=== PATIENT | male | born 1935 | race Two or more races ===

== ENCOUNTER 2018-04-30 08:06 | Day surgery (SDC) | payer MEDICARE ==
[2018-04-27 12:32] VITALS: BMI 39.2
[2018-04-30] MEDS: LACTATED RINGERS 1,000 ML IV SCH (09:23)
[2018-04-30] MEDS ORDERED: LIDOCAINE 1% 20 ML VIAL (10MG/ML) FOR IV START INTRADERMA ONE (09:23)
[2018-04-30 09:24] LABS: Glucose,Whole Blood 161 mg/dL (75-99)
[2018-04-30] MEDS ORDERED: PROPOFOL 10 MG/ML 20 ML VIAL IV ONE (09:36)
[2018-04-30 11:48] LABS: Glucose,Whole Blood 146 mg/dL (75-99)
[2018-04-30 11:58] LABS: Anisocytosis Slight; Basophils % (A) 0 %; Eosinophils % (A) 1 %; HCT 22.4 % (39.0-53.0); Hypochromasia Marked; Lymphocytes # (A) 0.5 k/uL (1.0-4.8); Lymphocytes % (A) 15 %; MCH 33.5 pg (25.0-35.0); MCHC 30.5 g/dL (31.0-37.0); MCV 110.1 fL (80.0-100.0); Macrocytosis Marked; Mean Platelet Volume 9.1; Monocytes # (A) 0.2 k/uL (0-1.0); Monocytes % (A) 7 %; Neutrophils # (A) 2.3 k/uL (1.3-7.7); Neutrophils % (A) 76 %; Platelet Count 130 k/uL (150-450); Poikilocytosis Slight; RBC 2.04 m/uL (4.30-5.90); RDW 16.1 % (11.5-15.5); WBC 3.1 k/uL (3.8-10.6)
[2018-04-30 12:09] LABS: HGB 6.8 gm/dL (13.0-17.5)
--- NOTE | 2018-04-30 12:37 | P.PCN ---
Date of Procedure: 04/30/18 Procedure(s) Performed: Brief history: Patient is a pleasant 83-year-old white male, scheduled for an elective upper endoscopy as well as colonoscopy as a part of evaluation of severe symptomatic anemia and rectal bleeding on and off for the last 1 month duration. The patient recently came from [place] and for the last 1 month has been having rectal bleeding on and off. He had a CBC done by Dr. Lam 4 days ago which revealed a hemoglobin of 7.7 g/dL. His and scheduled for colonoscopy today and possible upper endoscopy. 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 He has history of ITP valve replacement and A. fib and has been on Coumadin for several years. Coumadin is on hold for the last 5 days. Procedure performed: Colonoscopy with biopsy Esophagogastroduodenoscopy/enteroscopy with argon plasma coagulation Preoperative diagnosis: GI bleed/severe symptomatic anemia Anesthesia: MAC Procedure: After informed consent was obtained from the patient was brought into the endoscopy unit. IV sedation was administered under continuous monitoring. Initial digital rectal examination was normal. Olympus CF 160 video colonoscope was then inserted into the rectum and gradually advanced to the cecum without any difficulty. Careful examination was performed as the scope was gradually being withdrawn. The prep was fair. There was old blood noted throughout the entire colon there was thoroughly irrigated and upon careful examination the obvious source of bleeding identified.. The cecum, ascending colon, transverse colon, appeared normal. The descending colon there was a 5 mm polyp that was removed by biopsy. Scattered sigmoid diverticula seen. Rest of the descending colon, sigmoid colon and rectum appeared normal. Retroflexion was performed in the rectum and no lesions were noted. Patient tolerated the procedure well. He continued to remain sedated. The Olympus GF 160 video endoscope was inserted inserted into the mouth and esophagus intubated without any difficulty and was gradually advanced into the stomach and duodenum and carefully examined. The bulb and second part of the duodenum appeared normal. The scope was advanced into the proximal jejunum at least 60 cm of the proximal jejunum visualized and appeared normal. Scope at this time was gradually withdrawn. The visualized portion of the jejunum and the duodenum appeared normal. The scope was then withdrawn into the stomach adequately insufflated with air and upon careful examination the antrum had evidence of gastric vascular antral ectasia and argon plasma coag duration was performed with good hemostasis. The body, cardia and fundus appeared normal. The scope was then withdrawn into the esophagus. The GE junction was located at 40 cm to the incisors. It appeared regular with no erythema erosions or ulcerations. Rest of the esophagus appeared normal. Patient tolerated the procedure well. Impression: 1. Colonoscopy revealed old blood throughout the entire colon but no evidence of active bleeding identified. Scattered sigmoid diverticulosis seen. Fiber limited using colon polyp status post removal by biopsy 2. 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 Recommendations: Findings of this examination were discussed with the patient as well as his family. Repeat CBC was obtained and hemoglobin this morning was 6.8 g/dL. The patient will be admitted hospital for blood transfusion and close monitoring. Abdominal x-rays were ordered because of ongoing cramping lower abdominal pain.
--- NOTE | 2018-04-30 12:55 | XR ---
EXAMINATION TYPE: XR abdomen 2V DATE OF EXAM: 04/30/2018 CLINICAL DATA: 83-year-old male with pain after colonoscopy, rule out perforation,, [facility] COMPARISON: None FINDINGS: Asymmetric elevation of the right hemidiaphragm. No free air is seen below the right hemidiaphragm. M edian sternotomy wires. Air is present throughout the colon. Right iliac vessel stent. Bowel loops sac towards the right side of the abdomen. Possible underlying abdominal aortic aneurysm with calcified aortic edge seen in the right paramedian mid abdomen. Cholecystectomy clips. IMPRESSION: 1. Air throughout the colon compatible with recent colonoscopy. No free air or bowel obstruction iden tified. 2. Asymmetric elevation of the right hemidiaphragm of unknown chronicity. Correlate with any availabl e outside priors. Hemidiaphragmatic eventration or paralysis are considerations. 3. Possible AAA. Consider screening ultrasound or CT.
[2018-04-30 13:33] LABS: Anisocytosis (M) Present
[2018-04-30 13:34] LABS: Poikilocytosis (M) Present; Polychromasia Present
[2018-04-30 13:35] LABS: RBC Fragments Present
[2018-04-30] MEDS ORDERED: traMADol 50 MG TAB PO PRN (17:34)
--- NOTE | 2018-04-30 17:41 | P.HPIM ---
History of Present Illness Patient is an 83-year-old gentleman with a known history of anemia underwent upper GI endoscopy and colonoscopy after the recent bleed colonoscopy showed significant blood. Upper GI endoscopy showed vascular ectasia in the gastric antrum for which patient underwent argon plasma coagulation. Patient is being admitted as a his hemoglobin is around 6, patient is being transfused 1 unit of PRBC and will be monitored overnight for further GI bleed patient apparently was having multiple stools for last couple days. Patient has macrocytic anemia chronic for which patient follows up with neurology patient is on folic acid and B12 supplementation. Patient is also on iron supplementation at home. Patient is on anticoagulation with Coumadin for valvular A. fib and patient does have bovine aortic valve. Patient had history of CVA secondary to atrial fibrillation the past patient was on bridging with Lovenox for the procedure. Since his bleeding Lovenox is being held as well as Coumadin is being held at this time. Review of Systems REVIEW OF SYSTEMS: CONSTITUTIONAL: No fever, no malaise, no fatigue. HEENT: No recent visual problems or hearing problems. Denied any sore throat. CARDIOVASCULAR: No chest pain, orthopnea, PND, no palpitations, no syncope. PULMONARY: No shortness of breath, no cough, no hemoptysis. GASTROINTESTINAL: No diarrhea, no nausea, no vomiting, no abdominal pain. Normoactive bowel sounds. NEUROLOGICAL: No headaches, no weakness, no numbness. HEMATOLOGICAL: Denies any bleeding or petechiae. GENITOURINARY: Denies any burning micturition, frequency, or urgency. MUSCULOSKELETAL/RHEUMATOLOGICAL: Denies any joint pain, swelling, or any muscle pain. ENDOCRINE: Denies any polyuria or polydipsia. The rest of the 14-point review of systems is negative. 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 ., STATES LOWER EXTREMITY EDEMA, HX STOMACH ULCER., CHRONIC CONSTIPATION., -STATES BLOOD COUNT LOW AND HE FEELS EXHAUSTED AND USING A CANE & WALKER . , STATES RASH ON FORESKIN., SIGRID HEARING AIDS. History of Any Multi-Drug Resistant Organisms: None Reported Past Surgical History: Appendectomy, Cardiac Ablation, Cardiac Valve Replacement , Cholecystectomy, Coronary Bypass/CABG, Heart Catheterization Additional Past Surgical History / Comment(s): 2014 cardiac ablation of Afib at [facility], 2 vessel CABG and aortic valve replacement (bovine) in 2009. , L caratid endartectomy, bilateral varicose vein stripping, lysis of abdominal adhesions, colonoscopies., EGDs-repair doudenal ulcers, bone marrow biopsy., 2 stents "right groin" for circulation ([place])., Past Anesthesia/Blood Transfusion Reactions: No Reported Reaction, Blood Transfusion Reaction Additional Past Anesthesia/Blood Transfusion Reaction / Comment(s): Hx of several blood transfusions and had reaction with Hives x1. ([place]) Past Psychological History: No Psychological Hx Reported Additional Psychological History / Comment(s): Pt resides with his spouse. He is independent. He uses no assistive device. He drives. Smoking Status: Former smoker Past Alcohol Use History: None Reported Additional Past Alcohol Use History / Comment(s): QUIT SMOKING 1967. , SMOKED 3 PPD., STARTED SMOKING 1950. . Past Drug Use History: None Reported - Past Family History Father Family Medical History: Cancer Additional Family Medical History / Comment(s): LUNG CANCER WITH METS Mother Family Medical History: Coronary Artery Disease (CAD), Myocardial Infarction (HI ) Additional Family Medical History / Comment(s): Mother while recovering from open heart surgery. She had several MIs. Medications and Allergies Home Medications Medication Instructions Recorded Confirmed Type Ascorbic Acid [Vitamin C] 1,000 mg PO HS 07/10/15 04/30/18 History Cholecalciferol [Vitamin D3] 1,000 unit PO DAILY 07/10/15 04/30/18 History Cyanocobalamin [Vitamin B-12] 1,000 mcg PO QAM 07/10/15 04/30/18 History Docusate [Colace] 50 mg PO HS 07/10/15 04/30/18 History Eye Compound Vitamin 2 tab PO BID 07/10/15 04/30/18 History Ferrous Sulfate [Feosol] 325 mg PO BID 07/10/15 04/30/18 History Finasteride [Proscar] 5 mg PO DAILY 07/10/15 04/30/18 History Folic Acid 0.4 mg PO HS 07/10/15 04/30/18 History Furosemide [Lasix] 20 mg PO DAILY 07/10/15 04/30/18 History Metoprolol Tartrate [Lopressor] 50 mg PO BID 07/10/15 04/30/18 History Atorvastatin [Lipitor] 40 mg PO DAILY 04/27/18 04/30/18 History Enoxaparin [Lovenox] 120 mg SQ Q12H 04/27/18 04/30/18 History Omeprazole [PriLOSEC] 40 mg PO HS 04/27/18 04/30/18 History Warfarin Sodium [Coumadin] 7.5 mg PO SUMOWETHSA 04/27/18 04/30/18 History Warfarin [Coumadin] 5 mg PO TUFR 04/27/18 04/30/18 History traMADol HCL [Ultram] 50 mg PO BID PRN 04/27/18 04/30/18 History Allergies Allergy/AdvReac Type Severity Reaction Status Date / Time iron infusions AdvReac Unknown Passed Out Uncoded 04/30/18 09:12 Physical Exam Vitals: Vital Signs Temp Pulse Pulse Resp BP BP Pulse Ox 04/30/18 17:24 98.2 F 75 16 143/70 98 04/30/18 17:14 98.1 F 78 16 145/66 96 04/30/18 16:00 98.3 F 69 16 150/67 97 04/30/18 15:12 98.1 F 78 16 145/66 96 04/30/18 14:12 78 18 150/78 98 04/30/18 13:40 71 18 148/72 04/30/18 13:07 70 18 150/72 99 04/30/18 12:21 71 18 135/71 04/30/18 11:35 65 18 149/75 04/30/18 11:05 62 18 140/70 04/30/18 10:50 72 18 135/72 92 L 04/30/18 10:37 68 16 106/59 90 L 04/30/18 09:22 97.7 F 71 18 144/73 100 Intake and Output 04/30/18 04/30/18 04/30/18 06:59 14:59 22:59 Intake Total 600 0 Balance 600 0 Intake: IV 600 Blood Product 0 Rc As-1 Unit 0 [id number] Other: Weight 122.47 kg PHYSICAL EXAMINATION: GENERAL: The patient is alert and oriented x3, not in any acute distress. Well developed, well nourished. HEENT: Pupils are round and equally reacting to light. EOMI. No scleral icterus. Patient does have conjunctival pallor. Normocephalic, atraumatic. No pharyngeal erythema. No thyromegaly. CARDIOVASCULAR: S1 and S2 present. No murmurs, rubs, or gallops. PULMONARY: Chest is clear to auscultation, no wheezing or crackles. ABDOMEN: Soft, nontender, nondistended, normoactive bowel sounds. No palpable organomegaly. MUSCULOSKELETAL: No joint swelling or deformity. EXTREMITIES: No cyanosis, clubbing, or pedal edema. NEUROLOGICAL: Gross neurological examination did not reveal any focal deficits. SKIN: No rashes. Results CBC & Chem 7: 04/30/18 11:22 Labs: Abnormal Lab Results - Last 24 Hours (Table) 04/30/18 04/30/18 04/30/18 Range/Units 09:20 11:22 11:22 WBC 3.1 L (3.8-10.6) k/uL RBC 2.04 L (4.30-5.90) m/uL Hgb 6.8 L* (13.0-17.5) gm/dL Hct 22.4 L (39.0-53.0) % MCV 110.1 H (80.0-100.0) fL MCHC 30.5 L (31.0-37.0) g/dL RDW 16.1 H (11.5-15.5) % Plt Count 130 L (150-450) k/uL Lymphocytes # 0.5 L (1.0-4.8) k/uL POC Glucose (mg/dL) 161 H (75-99) mg/dL Crossmatch See Detail 04/30/18 Range/Units 11:43 WBC (3.8-10.6) k/uL RBC (4.30-5.90) m/uL Hgb (13.0-17.5) gm/dL Hct (39.0-53.0) % MCV (80.0-100.0) fL MCHC (31.0-37.0) g/dL RDW (11.5-15.5) % Plt Count (150-450) k/uL Lymphocytes # (1.0-4.8) k/uL POC Glucose (mg/dL) 146 H (75-99) mg/dL Crossmatch Assessment and Plan Plan: -Anemia with hemoglobin less than 7: Patient will receive 1 unit of blood transfusion -Recent upper GI bleed with vascular and PCI and the gastric antrum status post argon plasma coagulation monitored overnight -Atrial fibrillation with previous history of stroke in the past anti- correlation will be held because of the recent bleed -Type 2 diabetes mellitus -Hypertension -Benign prostatic atrophy -Sleep apnea uses CPAP machine at home -Obesity -History of CVA in the past -Adequate valvular disease with the valve replacement in the past.
[2018-04-30 20:55] VITALS: TEMP 97.6
[2018-04-30] MEDS ORDERED: PANTOPRAZOLE 40 MG TABLET PO SCH (21:00)
[2018-04-30 22:16] LABS: Glucose,Whole Blood 152 mg/dL (75-99)
[2018-04-30] MEDS: METOPROLOL TARTRATE 50 MG TAB PO SCH (22:34)
[2018-05-01 06:00] VITALS: BP 123/63; PULSE 74; RESP 18
[2018-05-01] MEDS: LACTATED RINGERS 1,000 ML IV SCH (06:20)
[2018-05-01 07:55] LABS: Anisocytosis Slight; HCT 26.5 % (39.0-53.0); HGB 8.1 gm/dL (13.0-17.5); Hypochromasia Marked; MCHC 30.4 g/dL (31.0-37.0); MCV 108.4 fL (80.0-100.0); Macrocytosis Marked; Mean Platelet Volume 8.3; Platelet Count 144 k/uL (150-450); Poikilocytosis Moderate; RBC 2.45 m/uL (4.30-5.90); RDW 17.1 % (11.5-15.5); WBC 5.2 k/uL (3.8-10.6)
[2018-05-01 08:05] LABS: Potassium 4.2 mmol/L (3.5-5.1)
[2018-05-01] MEDS ORDERED: FUROSEMIDE 20 MG TAB PO SCH (09:00)
[2018-05-01] MEDS ORDERED: FINASTERIDE 5 MG TAB PO SCH (09:00)
[2018-05-01] MEDS ORDERED: ATORVASTATIN 40 MG TAB PO SCH (09:00)
[2018-05-01] MEDS: METOPROLOL TARTRATE 50 MG TAB PO SCH (10:02)
--- NOTE | 2018-05-01 10:23 | CONS ---
CONSULTATION DATE OF CONSULTATION: May 01, 2018. REQUESTING PHYSICIAN: Dr. Lam. REASON FOR CONSULTATION: Acute GI bleed and severe symptomatic anemia. HISTORY OF PRESENT ILLNESS: The patient is an 83-year-old pleasant white male who underwent an outpatient upper endoscopy as well as colonoscopy by me for evaluation of intermittent rectal bleeding and anemia. He was noted to have a hemoglobin of 7.7 g/dL about 3 days ago and prior to that while he was in [place] 2 months ago, hemoglobin was 11 g/dL. Because he has been having intermittent rectal bleeding for the last few days. He has history of CVA in the past, history of atrial fibrillation and aortic valve replacement for which he is on Coumadin for several years. He underwent an EGD and colonoscopy on an outpatient basis after the Coumadin has been on hold for 5 days and has been on bridging Lovenox therapy. Colonoscopy revealed fresh blood throughout the colon, but no obvious source of bleeding was identified. A small polyp was noted in the descending colon and scattered sigmoid diverticulosis and grade 2 internal hemorrhoids were seen. Subsequently, he had an upper endoscopy done that showed gastric antral vascular ectasia with no active bleeding, but they were cauterized using argon plasma coagulation. was done on outpatient basis yesterday which showed a hemoglobin of 6.5 and hence the patient was admitted to the hospital and received 2 units of blood transfusion through the night. This morning he is feeling better. He denies any abdominal pain. He reports no nausea, vomiting. He had 1 small bowel movement this morning which was clear. No fresh blood seen. He had some cramping lower abdominal pain following the procedures yesterday which has resolved completely. The patient has been having intermittent GI bleed and anemia for the last 4 years. He had multiple upper endoscopy as well as colonoscopy in [place]. According to the patient, the last 1 was done 2 years ago and according to him, he had a small bowel capsule endoscopy done and small bowel source of bleeding was identified, which was cauterized. No details available at the time of this dictation. In the last 4 years, he received total of 12 units of blood transfusion. PAST MEDICAL HISTORY: Significant for hypertension, diabetes mellitus, morbid obesity, history of CVA in the past. Atrial fibrillation, aortic valve replacement, degenerative joint disease, sleep apnea. PAST SURGICAL HISTORY: Appendectomy, aortic valve replacement, CABG, cholecystectomy, cardiac catheterization, iliac stent placement, multiple EGDs/colonoscopy in the past. MEDICATIONS: At home, vitamin C, vitamin D, vitamin B12, Colace, Feosol, Proscar, folic acid, Lasix, Lopressor, Lipitor, Lovenox, Prilosec, Coumadin, Ultram. FAMILY HISTORY: Father had lung cancer. Mother, coronary artery disease and AR. ALLERGIES: IRON INFUSION. SOCIAL HISTORY: No smoking and no alcohol use. FAMILY HISTORY: As mentioned above. REVIEW OF SYSTEMS: Cardiopulmonary: No chest pain, shortness of breath. Genitourinary: No hematuria or dysuria. Musculoskeletal unremarkable. Skin unremarkable. Endocrine unremarkable. Psychiatric unremarkable. Neurology unremarkable. ENT vision unremarkable. Constitutional no recent weight loss. Hematology: Chronic anemia of several years duration. ENT vision unremarkable. Endocrine unremarkable. PHYSICAL EXAMINATION: Appears comfortable. No apparent distress. Vital signs stable. Blood pressure 164/71, pulse rate 86, temperature 97.8. HEENT examination unremarkable. Conjunctivae pink. Sclerae anicteric. Oral cavity no lesions. Neck no jugular venous distention or lymph node enlargement. Chest was clear to auscultation. HEART: Regular rate and rhythm. ABDOMEN: Soft, it was obese. Bowel sounds are positive. Mild tenderness in the lower abdominal area. Extremities: No pedal edema. Skin: No rashes. Neurological: He is alert and oriented x3. No focal deficits. LAB: From yesterday WBC 3.1, hemoglobin 6.6, and platelets are 130. Today, hemoglobin is 8.1, WBC 5.2, and platelets 144. BUN, creatinine are within normal limits. Basic metabolic panel is within normal limits. IMPRESSION: 1. Severe symptomatic anemia and intermittent rectal bleeding for the last 3-4 weeks duration. The patient had an upper endoscopy as well as colonoscopy done on outpatient basis yesterday and a colonoscopy revealed fresh blood throughout the colon but no obvious source of bleeding identified. Subsequent upper endoscopy revealed gastric antral vascular ectasia with no active bleeding however that was coagulated using argon plasma. His repeat CBC on an outpatient basis yesterday showed a hemoglobin of 6.8, and hence patient was admitted to the hospital received two units of blood transfusion, now it is 8.1. He has no further bleeding. 2. History of transient ischemic attack/cerebrovascular accident in the past/atrial fibrillation on Coumadin, presently on hold and undergoing bridging therapy with Lovenox prior to the colonoscopy. No active bleeding today. Hemoglobin stable at 8.1 g/dL. Presently, Lovenox and Coumadin on hold. RECOMMENDATIONS: 1. Obtain a cardiology consultation regarding anticoagulation. 2. For now, we will hold off on Lovenox and Coumadin today. 3. If anticoagulation has to be resumed, we will try to avoid the bridging therapy, but resume the Coumadin and monitor CBC on a weekly basis on an outpatient. 4. The patient was advised to follow up in the office in 2-3 weeks following discharge from the hospital. Thank you for this consultation. MMODL / IJN: [id number] /
--- NOTE | 2018-05-01 11:03 | P.DS ---
Providers Attending physician: Brad Leonard Consults: 05/01/18 09:01 Consult Physician Routine Consulting Provider: Jenny Jefrfey Consult Reason/Comments: GI bleed Do you want consulting provider notified?: Yes 05/01/18 09:04 Consult Physician Routine Consulting Provider: Juan Carlos Liu Consult Reason/Comments: Recomendation regarding anticoagulation Do you want consulting provider notified?: Yes Primary care physician: Hoang Lam Hospital Course: 83-year-old admitted for upper GI endoscopy patient underwent cauterization of the gastric vascular ATC area. Patient doesn't have any clinical GI bleed at this point of time hemoglobin is stable at 8 point 1 unit of transfusion. Patient is on Coumadin 9 and was also on bridging with Lovenox and he was admitted here. I discussed extensively at length regarding risks and benefits of bridging him with Lovenox. Since his recent GI bleed we decided not to bridge him with Lovenox patient will be started back on Coumadin and recheck INR in 4 days. Patient does have history of atrial fibrillation history of bioprosthetic valve PHYSICAL EXAMINATION: GENERAL: The patient is alert and oriented x3, not in any acute distress. Well developed, well nourished. HEENT: Pupils are round and equally reacting to light. EOMI. No scleral icterus. Patient does have conjunctival pallor. Normocephalic, atraumatic. No pharyngeal erythema. No thyromegaly. CARDIOVASCULAR: S1 and S2 present. No murmurs, rubs, or gallops. PULMONARY: Chest is clear to auscultation, no wheezing or crackles. ABDOMEN: Soft, nontender, nondistended, normoactive bowel sounds. No palpable organomegaly. MUSCULOSKELETAL: No joint swelling or deformity. EXTREMITIES: No cyanosis, clubbing, or pedal edema. NEUROLOGICAL: Gross neurological examination did not reveal any focal deficits. SKIN: No rashes. Assessment and Plan Plan: -Anemia with hemoglobin less than 7: Patient received 1 unit of blood transfusion -Recent upper GI bleed with vascular and PCI and the gastric antrum status post argon plasma coagulation monitored overnight -Atrial fibrillation with previous history of stroke -Type 2 diabetes mellitus -Hypertension -Benign prostatic atrophy -Sleep apnea uses CPAP machine at home -Obesity -History of CVA in the past - aortic valvular disease with the valve replacement in the past. Plan - Discharge Summary Discharge Rx Participant: No New Discharge Prescriptions: Discontinued Enoxaparin [Lovenox] 120 mg SQ Q12H No Action Cyanocobalamin [Vitamin B-12] 1,000 mcg PO QAM Ascorbic Acid [Vitamin C] 1,000 mg PO HS Folic Acid 0.4 mg PO HS Docusate [Colace] 50 mg PO HS Cholecalciferol [Vitamin D3] 1,000 unit PO DAILY Metoprolol Tartrate [Lopressor] 50 mg PO BID Furosemide [Lasix] 20 mg PO DAILY Finasteride [Proscar] 5 mg PO DAILY Ferrous Sulfate [Feosol] 325 mg PO BID Eye Compound Vitamin 2 tab PO BID Omeprazole [PriLOSEC] 40 mg PO HS Atorvastatin [Lipitor] 40 mg PO DAILY traMADol HCL [Ultram] 50 mg PO BID PRN PRN Reason: Pain Warfarin [Coumadin] 5 mg PO TUFR Warfarin Sodium [Coumadin] 7.5 mg PO SUMOWETHSA Discharge Medication List Ascorbic Acid [Vitamin C] 1,000 mg PO HS 07/10/15 [History] Cholecalciferol [Vitamin D3] 1,000 unit PO DAILY 07/10/15 [History] Cyanocobalamin [Vitamin B-12] 1,000 mcg PO QAM 07/10/15 [History] Docusate [Colace] 50 mg PO HS 07/10/15 [History] Eye Compound Vitamin 2 tab PO BID 07/10/15 [History] Ferrous Sulfate [Feosol] 325 mg PO BID 07/10/15 [History] Finasteride [Proscar] 5 mg PO DAILY 07/10/15 [History] Folic Acid 0.4 mg PO HS 07/10/15 [History] Furosemide [Lasix] 20 mg PO DAILY 07/10/15 [History] Metoprolol Tartrate [Lopressor] 50 mg PO BID 07/10/15 [History] Atorvastatin [Lipitor] 40 mg PO DAILY 04/27/18 [History] Omeprazole [PriLOSEC] 40 mg PO HS 04/27/18 [History] Warfarin Sodium [Coumadin] 7.5 mg PO SUMOWETHSA 04/27/18 [History] Warfarin [Coumadin] 5 mg PO TUFR 04/27/18 [History] traMADol HCL [Ultram] 50 mg PO BID PRN 06/26/18 [History] Follow up Appointment(s)/Referral(s): Jenny Jeffrey MD [STAFF PHYSICIAN] - As Needed Ambulatory/Diagnostic Orders: Prothrombin Time INR [LAB.AMB] Time Frame: 4 Days, Location: None Selected Patient Instructions/Handouts: *Surgery [facility] - (Anesthesia) Endoscopy Discharge Instructions, Colonoscopy (DC), Hemorrhoids (DC), Upper Endoscopy (DC), Colorectal Polyps (DC) Discharge Disposition: HOME SELF-CARE
[2018-05-01 11:51] LABS: Glucose,Whole Blood 145 mg/dL (75-99)
[2018-05-01 12:07] LABS: Glucose,Whole Blood 197 mg/dL (75-99)
== END 2018-05-01 15:48 | disposition home or self-care (01) ==
LOC: ORWHC2ENDO 08:06 → 5MS5E 10:26 → ORWHC2ENDO 05-01 15:48
PROVIDERS: ATTEND Internal Medicine
DX: K31.819 Angiodysplasia of stomach and duodenum without bleeding (principal); K63.5 Polyp of colon; K57.30 Diverticulosis of large intestine without perforation or abscess without bleeding; K64.1 Second degree hemorrhoids; D53.9 Nutritional anemia, unspecified; I48.91 Unspecified atrial fibrillation; I10 Essential (primary) hypertension; H35.30 Unspecified macular degeneration; E11.319 Type 2 diabetes mellitus with unspecified diabetic retinopathy without macular edema; E11.51 Type 2 diabetes mellitus with diabetic peripheral angiopathy without gangrene; N40.0 Benign prostatic hyperplasia without lower urinary tract symptoms; M47.9 Spondylosis, unspecified; G47.33 Obstructive sleep apnea (adult) (pediatric); I35.8 Other nonrheumatic aortic valve disorders; I69.398 Other sequelae of cerebral infarction; H53.469 Homonymous bilateral field defects, unspecified side; H91.90 Unspecified hearing loss, unspecified ear; M19.90 Unspecified osteoarthritis, unspecified site; N28.9 Disorder of kidney and ureter, unspecified; E66.01 Morbid (severe) obesity due to excess calories; Z68.39 Body mass index [BMI] 39.0-39.9, adult; Z99.89 Dependence on other enabling machines and devices; Z95.2 Presence of prosthetic heart valve; Z95.1 Presence of aortocoronary bypass graft; Z95.820 Peripheral vascular angioplasty status with implants and grafts; Z87.11 Personal history of peptic ulcer disease; Z86.718 Personal history of other venous thrombosis and embolism; Z79.01 Long term (current) use of anticoagulants; Z79.899 Other long term (current) drug therapy; Z91.09 Other allergy status, other than to drugs and biological substances; Z87.891 Personal history of nicotine dependence
CPT/HCPCS: 86900; 86901; 88305; 80048; 85025; 85027; 86850; 86920; 74019; 45380; 43255; P9016; S0138; J2704

== ENCOUNTER 2018-05-20 15:31 | Emergency (ER) | payer MEDICARE ==
[2018-05-20 16:04] VITALS: TEMP 98.2
--- NOTE | 2018-05-20 18:26 | ED ---
Male Urogenital HPI - General Chief complaint: Urogenital Stated complaint: Male Time Seen by Provider: 05/20/18 17:38 Source: patient, RN notes reviewed Mode of arrival: wheelchair Limitations: no limitations - History of Present Illness Initial comments: This an 83-year-old male presents emergency from with family for concerns of bleeding around his penile head. He noted some to have some bleeding today which is mildly usual with tingling more frequent. Patient states that he has retracted penis and states that he's been told he needs a penile implant. Patient states that his noticed a sore just inferior to his urethra that was bleeding. He states this was several hours ago. He has no dysuria denies any fever or chills or any abdominal pain. Patient states that he does take Coumadin but recently him checked. Patient denies any headache, dizziness. Patient has no current chest pain he states he normally has shortness breath but not worsened usual. Patient denies any back pain and flank pain. Patient states he has an appointment with urology. - Related Data Home Medications Medication Instructions Recorded Confirmed Ascorbic Acid [Vitamin C] 1,000 mg PO HS 07/10/15 05/06/18 Cholecalciferol [Vitamin D3] 1,000 unit PO DAILY 07/10/15 05/06/18 Cyanocobalamin [Vitamin B-12] 1,000 mcg PO QAM 07/10/15 05/06/18 Docusate [Colace] 50 mg PO HS 07/10/15 05/06/18 Eye Compound Vitamin 2 tab PO BID 07/10/15 05/06/18 Ferrous Sulfate [Feosol] 325 mg PO BID 07/10/15 05/06/18 Finasteride [Proscar] 5 mg PO DAILY 07/10/15 05/06/18 Folic Acid 0.4 mg PO HS 07/10/15 05/06/18 Furosemide [Lasix] 20 mg PO DAILY 07/10/15 05/06/18 Metoprolol Tartrate [Lopressor] 50 mg PO BID 07/10/15 05/06/18 Atorvastatin [Lipitor] 40 mg PO DAILY 04/27/18 05/06/18 Omeprazole [PriLOSEC] 40 mg PO HS 04/27/18 05/06/18 Warfarin [Coumadin] 7.5 mg PO TUFR 04/27/18 05/06/18 traMADol HCL [Ultram] 50 mg PO BID PRN 04/27/18 05/06/18 Previous Rx's Medication Instructions Recorded Clotrimazole Cream [Lotrimin Cream] 1 applic TOPICAL BID #30 gm 05/20/18 Allergies Allergy/AdvReac Type Severity Reaction Status Date / Time iron infusions AdvReac Unknown Passed Out Uncoded 05/06/18 08:53 Review of Systems ROS Statement: Those systems with pertinent positive or pertinent negative responses have been documented in the HPI. ROS Other: All systems not noted in ROS Statement are negative. 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 ., STATES LOWER EXTREMITY EDEMA, HX STOMACH ULCER., CHRONIC CONSTIPATION., -STATES BLOOD COUNT LOW AND HE FEELS EXHAUSTED AND USING A CANE & WALKER . , STATES RASH ON FORESKIN., SIGRID HEARING AIDS. states he needs a new replacement valve History of Any Multi-Drug Resistant Organisms: None Reported Past Surgical History: Appendectomy, Cardiac Ablation, Cardiac Valve Replacement , Cholecystectomy, Coronary Bypass/CABG, Heart Catheterization Additional Past Surgical History / Comment(s): 2014 cardiac ablation of Afib at [facility], 2 vessel CABG and aortic valve replacement (bovine) in 2009. , L caratid endartectomy, bilateral varicose vein stripping, lysis of abdominal adhesions, colonoscopies., EGDs-repair doudenal ulcers, bone marrow biopsy., 2 stents "right groin" for circulation ([place])., Past Anesthesia/Blood Transfusion Reactions: No Reported Reaction, Blood Transfusion Reaction Additional Past Anesthesia/Blood Transfusion Reaction / Comment(s): Hx of several blood transfusions and had reaction with Hives x1. ([place]) Past Psychological History: No Psychological Hx Reported Smoking Status: Former smoker Past Alcohol Use History: None Reported Past Drug Use History: None Reported - Past Family History Father Family Medical History: Cancer Additional Family Medical History / Comment(s): LUNG CANCER WITH METS Mother Family Medical History: Coronary Artery Disease (CAD), Myocardial Infarction (OR ) Additional Family Medical History / Comment(s): Mother while recovering from open heart surgery. She had several MIs. General Exam Limitations: no limitations General appearance: alert, in no apparent distress Respiratory exam: Present: normal lung sounds bilaterally. Absent: respiratory distress, wheezes, rales, rhonchi, stridor Cardiovascular Exam: Present: regular rate, normal rhythm, normal heart sounds, systolic murmur (Aortic murmur). Absent: diastolic murmur, rubs, gallop, clicks exam: Absent: normal inspection (Patient is noted to have it retracted penis there is skin showing the skin was pushed back and female head was noted there is a sore on the right side along with swelling. She'll urethral there is no active bleeding there is a large amount of moisture surrounding the region) Skin exam: Present: warm, dry Course Vital Signs 05/20/18 15:58 Temperature 98.2 F Pulse Rate 65 Respiratory 18 Rate Blood Pressure 124/78 O2 Sat by Pulse 94 L Oximetry Medical Decision Making - Medical Decision Making 83-year-old male presented for bleeding around his penile head. He does have evidence of sores with no active bleeding surrounding the penile head secondary to retracted penis. Patient will be given topical cream and he is advised follow-up with urology. Disposition Clinical Impression: Balanitis Disposition: HOME SELF-CARE Condition: Stable Instructions: Kathleen (ED) Additional Instructions: Please return to the Emergency Department if symptoms worsen or any other concerns. Prescriptions: Clotrimazole Cream [Lotrimin Cream] 1 applic TOPICAL BID #30 gm Is patient prescribed a controlled substance at d/c from ED?: No Referrals: Hoang Lam MD [Primary Care Provider] - 1-2 days Chace Morelos MD [STAFF PHYSICIAN] - 1-2 days Time of Disposition: 18:26
[2018-05-20 18:57] LABS: Appearance,Urine Clear (Clear); Bilirubin,Urine Negative (Negative); Blood,Urine Small (Negative); Color,Urine Light Yellow; Glucose,Urine (UA) Negative (Negative); Ketones,Urine Negative (Negative); Leukocyte Esterase,Urine Negative (Negative); Mucus,Urine Rare /hpf; Nitrite,Urine Negative (Negative); PH, Urine 6.5 (5.0-8.0); Protein,Urine Negative (Negative); RBC,Urine <1 /hpf (0-5); Specific Gravity,Urine 1.005 (1.001-1.035); Urobilinogen,Urine <2.0 mg/dL (<2.0); WBC,Urine <1 /hpf (0-5)
[2018-05-20 19:01] VITALS: BP 120/73; PULSE 69; RESP 16
== END 2018-05-20 19:00 | disposition home or self-care (01) ==
LOC: EC 15:31
DX: N48.1 Balanitis (principal); I48.91 Unspecified atrial fibrillation; H91.90 Unspecified hearing loss, unspecified ear; I10 Essential (primary) hypertension; M19.90 Unspecified osteoarthritis, unspecified site; G47.30 Sleep apnea, unspecified; Z87.891 Personal history of nicotine dependence; Z86.73 Personal history of transient ischemic attack (TIA), and cerebral infarction without residual deficits; Z86.718 Personal history of other venous thrombosis and embolism; Z90.49 Acquired absence of other specified parts of digestive tract; Z95.1 Presence of aortocoronary bypass graft; Z95.2 Presence of prosthetic heart valve; Z98.890 Other specified postprocedural states; Z99.89 Dependence on other enabling machines and devices; Z79.01 Long term (current) use of anticoagulants; Z79.899 Other long term (current) drug therapy; Z88.8 Allergy status to other drugs, medicaments and biological substances
CPT/HCPCS: 81001; 87086; 99283

== ENCOUNTER → 2018-07-02 | Outpatient (CLI) | payer MEDICARE ==
--- NOTE | 2018-07-02 08:54 | US ---
EXAMINATION TYPE: US abdomen complete DATE OF EXAM: 07/02/2018 COMPARISON: NONE CLINICAL HISTORY: 83-year-old male R14.0 ABDOMINAL PAIN,R18.8 ASCITIES. Obesity, post cholecystectomy . TECHNIQUE: Multiple sonographic images of the abdomen are obtained. FINDINGS: EXAM MEASUREMENTS: Liver Length: 16.4 cm CBD: 0.7 cm Spleen: 13.9 cm Right Kidney: 13.1 x 8.0 x 7.1 cm Left Kidney: 12.7 x 6.2 x 6.1 cm Pancreas: Obscured by bowel gas Liver: exam limitations due to pt habitus and increased bowel gas. No gross abnormality. Gallbladder: Surgically absent CBD: Within normal limits postcholecystectomy status. Spleen: Borderline enlarged. Right Kidney: Cortical thinning without hydronephrosis. There are numerous cysts, largest at upper p ole measuring 7.7cm Left Kidney: Cortical thinning without hydronephrosis. There are numerous cysts, largest at upper p ole measuring 5.3cm Upper IVC: wnl Abd Aorta: Obscured by overlying bowel gas Scanned all 4 quadrants for ascites per order: none seen IMPRESSION: 1. No abdominal ascites seen. 2. Exam limitations due to patient body habitus and bowel gas. 3. Bile duct is normal caliber given patient's age and postcholecystectomy status. 4. Borderline splenomegaly (13.9 cm). 5. Chronic medical renal disease.
== END | disposition home or self-care (01) ==
LOC: RADUSWWP 07:09
PROVIDERS: ATTEND Internal Medicine Hematology & Oncology
DX: R16.1 Splenomegaly, not elsewhere classified (principal); R18.8 Other ascites; N18.9 Chronic kidney disease, unspecified
CPT/HCPCS: 76700

== ENCOUNTER → 2018-07-21 | Outpatient (CLI) | payer MEDICARE ==
--- NOTE | 2018-07-21 11:06 | XR ---
EXAMINATION TYPE: XR femur RT DATE OF EXAM: 07/21/2018 COMPARISON: None HISTORY: Lateral right leg pain TECHNIQUE: 2 view right femur FINDINGS: Femoral head articulates with the acetabulum. There is narrowing of the joint space. Vascul ar calcification is present. Knee joint space narrowing is present. Note is made of an iliac stent. IMPRESSION: 1. No acute osseous abnormality. 2. Degenerative joint changes.
--- NOTE | 2018-07-21 11:09 | XR ---
EXAMINATION TYPE: XR Hip Complete RT DATE OF EXAM: 07/21/2018 COMPARISON: HISTORY: Lateral right leg pain TECHNIQUE: 2 view right hip FINDINGS: Iliac stent is evident within the [id number] Femoral head articulates with the acetabulum. Joint space narrowing is present. No acute fractures ar e evident. Vascular calcification is evident. IMPRESSION: 1. Mild osteoarthritic degenerative change. 2. No acute osseous abnormality.
== END ==
LOC: RADXRMAIN 10:25
PROVIDERS: ATTEND Nurse Practitioner Adult Health
DX: M16.11 Unilateral primary osteoarthritis, right hip (principal); D50.9 Iron deficiency anemia, unspecified; D63.1 Anemia in chronic kidney disease; N18.3 Chronic kidney disease, stage 3 (moderate); I48.2 Chronic atrial fibrillation
CPT/HCPCS: 73502

== ENCOUNTER 2022-06-05 21:16 | Inpatient (IN) | payer MEDICARE ==
--- NOTE | 2022-06-05 22:11 | XR ---
EXAMINATION TYPE: XR chest 2V DATE OF EXAM: 06/05/2022 COMPARISON: NONE HISTORY: Short of breath TECHNIQUE: 2 views FINDINGS: There is elevated right diaphragm. There is some pleural thickening at the lung bases. Ther e are sternal wires. There is mild blunting of the costophrenic angles. No mediastinal adenopathy. IMPRESSION: There is some pleural reaction and atelectasis at both lung bases. No heart failure seen.
[2022-06-05 22:13] LABS: Anisocytosis Slight; Basophils % (A) 1 %; Eosinophils # (A) 0.1 k/uL (0-0.7); Eosinophils % (A) 2 %; HCT 35.1 % (39.0-53.0); HGB 10.5 gm/dL (13.0-17.5); Hypochromasia Marked; Lymphocytes # (A) 0.4 k/uL (1.0-4.8); Lymphocytes % (A) 10 %; MCH 35.3 pg (25.0-35.0); MCV 117.4 fL (80.0-100.0); Macrocytosis Marked; Mean Platelet Volume 11.2; Monocytes # (A) 0.3 k/uL (0-1.0); Monocytes % (A) 7 %; Neutrophils % (A) 78 %; Platelet Count 107 k/uL (150-450); RBC 2.99 m/uL (4.30-5.90); RDW 16.8 % (11.5-15.5); WBC 3.9 k/uL (3.8-10.6)
[2022-06-05 22:17] LABS: Albumin 4.2 g/dL (3.5-5.0); Calcium 8.7 mg/dL (8.4-10.2); Total Bilirubin 2.2 mg/dL (0.2-1.3); Total Protein 6.8 g/dL (6.3-8.2)
--- NOTE | 2022-06-05 22:34 | ED ---
SOB HPI - General Chief Complaint: Shortness of Breath Stated Complaint: SAVANAH-Sent by PCP Time Seen by Provider: 06/05/22 22:22 Source: patient Mode of arrival: ambulatory Limitations: no limitations - History of Present Illness Initial Comments: This patient is an 87-year-old man who presents to have evaluation for suspected "fluid in the lungs." The patient states that over the past few days he has had cough with some whitish sputum and increasing exertional dyspnea associated with some orthopnea. The patient's visiting physician had seen him and recommended that he come to the hospital probably to be admitted. Patient denies chest pain. He has not noted fever or chills. No change in urination. He is not having leg pain but there is a little bit of swelling. MD Complaint: shortness of breath, cough -: days(s) Severity scale (1-10): 0 Consistency: constant Improves With: upright position Worsens With: lying flat, exertion Associated Symptoms: denies other symptoms - Related Data Home Oxygen Therapy: No Home Medications Medication Instructions Recorded Confirmed Cholecalciferol [Vitamin D3 (25 25 mcg PO DAILY 07/10/15 06/06/22 Mcg = 1000 Iu)] Eye Compound Vitamin 2 cap PO BID 07/10/15 06/06/22 Finasteride [Proscar] 5 mg PO DAILY 07/10/15 06/06/22 Folic Acid 0.4 mg PO HS 07/10/15 06/06/22 Atorvastatin [Lipitor] 40 mg PO HS 04/27/18 06/06/22 Albuterol Sulfate [Ventolin HFA] 2 puff INHALATION RT-Q4H PRN 05/28/21 06/06/22 Bumetanide [Bumex] 1 mg PO DAILY 05/28/21 06/06/22 Fluticasone/Umeclidin/Vilanter 1 puff INHALATION RT-HS 05/28/21 06/06/22 [Trelegy Ellipta 100-62.5-25] Metoprolol Tartrate [Lopressor] 12.5 mg PO BID 05/28/21 06/06/22 polyethylene glycoL 3350 [Miralax] 17 gm PO HS 05/28/21 06/06/22 Ascorbic Acid [Vitamin C] 1,000 mg PO HS 06/06/22 06/06/22 Citalopram Hydrobromide [CeleXA] 40 mg PO DAILY 06/06/22 06/06/22 Cyanocobalamin (Vitamin B-12) 1,000 mcg PO DAILY 06/06/22 06/06/22 [Vitamin B-12] Integra 62.5-62.5-40-3mg Capsule 1 cap PO HS 06/06/22 06/06/22 Inulin/Chromium Picolinate [Fiber 2 tab PO HS 06/06/22 06/06/22 Gummies Chew] Pantoprazole [Protonix] 40 mg PO BID 06/06/22 06/06/22 Repaglinide [Prandin] 1 mg PO BID 06/06/22 06/06/22 Tamsulosin [Flomax] 0.4 mg PO DAILY 06/06/22 06/06/22 Previous Rx's Medication Instructions Recorded Aspirin 81 mg PO DAILY tab 06/13/22 Gabapentin 300 mg PO TID #9 cap 06/13/22 acetaZOLAMIDE [Diamox] 250 mg PO BID #10 tab 06/13/22 Allergies Allergy/AdvReac Type Severity Reaction Status Date / Time iron infusions AdvReac Unknown Passed Out Uncoded 06/06/22 08:10 Review of Systems ROS Statement: Those systems with pertinent positive or pertinent negative responses have been documented in the HPI. ROS Other: All systems not noted in ROS Statement are negative. Constitutional: Denies: fever, chills Respiratory: Reports: cough, dyspnea. Denies: wheezes, hemoptysis Cardiovascular: Reports: orthopnea, edema. 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 ., STATES LOWER EXTREMITY EDEMA, HX STOMACH ULCER., CHRONIC CONSTIPATION., -STATES BLOOD COUNT LOW AND HE FEELS EXHAUSTED AND USING A CANE & WALKER . , STATES RASH ON FORESKIN., SIGRID HEARING AIDS. states he needs a new replacement valve BONE MARROW BIOPSY CAUTERIZATION OF STOMACH ULCERS History of Any Multi-Drug Resistant Organisms: None Reported Past Surgical History: Appendectomy, Cardiac Ablation, Cardiac Valve Replacement, Cholecystectomy, Coronary Bypass/CABG, Heart Catheterization Additional Past Surgical History / Comment(s): 2014 cardiac ablation of Afib at [facility], 2 vessel CABG and aortic valve replacement (bovine) in 2009., L caratid endartectomy, bilateral varicose vein stripping, lysis of abdominal adhesions, colonoscopies., EGDs-repair doudenal ulcers, bone marrow biopsy., 2 stents "right groin" for circulation ([place])., Watchman Procedure at [place] - 2019 Past Anesthesia/Blood Transfusion Reactions: No Reported Reaction, Blood Transfusion Reaction Additional Past Anesthesia/Blood Transfusion Reaction / Comment(s): Hx of several blood transfusions and had reaction with Hives x1. ([place]) Past Psychological History: No Psychological Hx Reported Smoking Status: Former smoker Past Alcohol Use History: None Reported Past Drug Use History: None Reported - Past Family History Father Family Medical History: Cancer Additional Family Medical History / Comment(s): LUNG CANCER WITH METS Mother Family Medical History: Coronary Artery Disease (CAD), Myocardial Infarction ([place]) Additional Family Medical History / Comment(s): Mother while recovering from open heart surgery. She had several MIs. General Exam Limitations: no limitations General appearance: alert, in no apparent distress Head exam: Present: atraumatic, normocephalic Eye exam: Present: normal appearance Neck exam: Present: normal inspection Respiratory exam: Present: rales (Bilateral lungs over the lower cesar), rhonchi. Absent: respiratory distress, wheezes, stridor, chest wall tenderness, accessory muscle use Cardiovascular Exam: Present: normal rhythm, irregular rhythm, normal heart sounds. Absent: systolic murmur, diastolic murmur, rubs, gallop GI/Abdominal exam: Present: soft. Absent: distended, tenderness, guarding, rebound, rigid, mass Extremities exam: Present: normal capillary refill, pedal edema. Absent: calf tenderness Back exam: Present: normal inspection. Absent: CVA tenderness (R), CVA tenderness (L) Neurological exam: Present: alert Skin exam: Present: warm, dry, intact, normal color. Absent: rash Course Vital Signs 06/05/22 06/05/22 06/05/22 21:32 22:40 23:00 Temperature 98 F Pulse Rate 83 69 70 Pulse Rate [ Supine] Respiratory 20 17 18 Rate Blood Pressure 129/75 131/79 131/79 Blood Pressure [Left Arm] O2 Sat by Pulse 94 L 92 L 84 L Oximetry 06/06/22 06/06/22 06/06/22 00:00 00:30 01:10 Temperature Pulse Rate 79 90 87 Pulse Rate [ Supine] Respiratory 13 21 22 Rate Blood Pressure 122/65 116/67 120/66 Blood Pressure [Left Arm] O2 Sat by Pulse Oximetry 06/06/22 06/06/22 06/06/22 02:00 02:10 02:20 Temperature Pulse Rate 63 81 73 Pulse Rate [ Supine] Respiratory 18 26 H 13 Rate Blood Pressure 113/70 113/70 Blood Pressure [Left Arm] O2 Sat by Pulse Oximetry 06/06/22 06/06/22 06/06/22 02:30 02:40 02:50 Temperature Pulse Rate 80 79 84 Pulse Rate [ Supine] Respiratory 12 15 13 Rate Blood Pressure 113/70 97/75 97/75 Blood Pressure [Left Arm] O2 Sat by Pulse Oximetry 06/06/22 06/06/22 06/06/22 03:00 03:10 03:55 Temperature Pulse Rate 76 74 79 Pulse Rate [ Supine] Respiratory 17 12 18 Rate Blood Pressure 97/75 105/73 115/67 Blood Pressure [Left Arm] O2 Sat by Pulse 99 Oximetry 06/06/22 06/06/22 06/06/22 08:00 10:03 12:38 Temperature 97.8 F Pulse Rate Pulse Rate [ 86 86 68 Supine] Respiratory 20 18 Rate Blood Pressure Blood Pressure 100/58 113/58 [Left Arm] O2 Sat by Pulse 95 98 Oximetry Medical Decision Making - Medical Decision Making Patient is an 87-year-old man presenting with worsening of exertional dyspnea and orthopnea. By the exam there is evidence of CHF, also workup confirms. P atient will be admitted for further diuresis and optimization of his medical regimen - Lab Data Result diagrams: 06/15/22 09:09 06/15/22 09:09 Lab Results 06/05/22 06/05/22 06/05/22 Range/Units 21:51 21:51 21:51 WBC 3.9 (3.8-10.6) k/uL RBC 2.99 L (4.30-5.90) m/uL Hgb 10.5 L (13.0-17.5) gm/dL Hct 35.1 L (39.0-53.0) % MCV 117.4 H (80.0-100.0) fL MCH 35.3 H (25.0-35.0) pg MCHC 30.0 L (31.0-37.0) g/dL RDW 16.8 H (11.5-15.5) % Plt Count 107 L (150-450) k/uL MPV 11.2 Neutrophils % 78 % Lymphocytes % 10 % Monocytes % 7 % Eosinophils % 2 % Basophils % 1 % Neutrophils # 3.0 (1.3-7.7) k/uL Lymphocytes # 0.4 L (1.0-4.8) k/uL Monocytes # 0.3 (0-1.0) k/uL Eosinophils # 0.1 (0-0.7) k/uL Basophils # 0.0 (0-0.2) k/uL Hypochromasia Marked Anisocytosis Slight Macrocytosis Marked A Sodium 133 L (137-145) mmol/L Potassium (3.5-5.1) mmol/L Chloride 102 (98-107) mmol/L Carbon Dioxide 30 (22-30) mmol/L Anion Gap 1 mmol/L BUN 48 H (9-20) mg/dL Creatinine 1.61 H (0.66-1.25) mg/dL Est GFR (CKD-EPI)AfAm 44 (>60 ml/min/1.73 sqM) Est GFR (CKD-EPI)NonAf 38 (>60 ml/min/1.73 sqM) Glucose 109 H (74-99) mg/dL Plasma Lactic Acid Lloyd 1.3 (0.7-2.0) mmol/L Calcium 8.7 (8.4-10.2) mg/dL Total Bilirubin 2.2 H (0.2-1.3) mg/dL AST 118 H (17-59) U/L ALT 21 (4-49) U/L Alkaline Phosphatase 62 (38-126) U/L Troponin I (0.000-0.034) ng/mL NT-Pro-B Natriuret Pep pg/mL Total Protein 6.8 (6.3-8.2) g/dL Albumin 4.2 (3.5-5.0) g/dL 06/05/22 06/05/22 Range/Units 21:51 21:51 WBC (3.8-10.6) k/uL RBC (4.30-5.90) m/uL Hgb (13.0-17.5) gm/dL Hct (39.0-53.0) % MCV (80.0-100.0) fL MCH (25.0-35.0) pg MCHC (31.0-37.0) g/dL RDW (11.5-15.5) % Plt Count (150-450) k/uL MPV Neutrophils % % Lymphocytes % % Monocytes % % Eosinophils % % Basophils % % Neutrophils # (1.3-7.7) k/uL Lymphocytes # (1.0-4.8) k/uL Monocytes # (0-1.0) k/uL Eosinophils # (0-0.7) k/uL Basophils # (0-0.2) k/uL Hypochromasia Anisocytosis Macrocytosis Sodium (137-145) mmol/L Potassium (3.5-5.1) mmol/L Chloride (98-107) mmol/L Carbon Dioxide (22-30) mmol/L Anion Gap mmol/L BUN (9-20) mg/dL Creatinine (0.66-1.25) mg/dL Est GFR (CKD-EPI)AfAm (>60 ml/min/1.73 sqM) Est GFR (CKD-EPI)NonAf (>60 ml/min/1.73 sqM) Glucose (74-99) mg/dL Plasma Lactic Acid Lloyd (0.7-2.0) mmol/L Calcium (8.4-10.2) mg/dL Total Bilirubin (0.2-1.3) mg/dL AST (17-59) U/L ALT (4-49) U/L Alkaline Phosphatase (38-126) U/L Troponin I 0.051 H* (0.000-0.034) ng/mL NT-Pro-B Natriuret Pep 3370 pg/mL Total Protein (6.3-8.2) g/dL Albumin (3.5-5.0) g/dL - EKG Data -: EKG Interpreted by Ga EKG shows normal: axis (Right axis deviation), intervals (QRS duration 164 ms, prolonged consistent with the right bundle branch block. QTC 452 ms.), QRS complexes (Right bundle-branch block pattern. Possible old septal infarct.) Rate: normal (Rate 87 bpm) Interpretation: other (Underlying rhythm appears to be atrial fibrillation) Disposition Clinical Impression: Congestive heart failure, Anemia, Acute kidney injury, Atrial fibrillation Disposition: ADMITTED IP TO THIS HOSP Condition: Fair Is patient prescribed a controlled substance at d/c from ED?: No
[2022-06-06] MEDS: FUROSEMIDE 10 MG/ML 4 ML VIAL IV SCH ×2 (02:21→13:31)
[2022-06-06] MEDS: METOPROLOL TARTRATE 12.5 MG TAB PO SCH ×2 (10:13→20:47)
[2022-06-06] MEDS ORDERED: ALBUTEROL NEBULIZED 2.5 MG/3 ML INHALATION PRN (10:57)
--- NOTE | 2022-06-06 11:13 | CA ---
Transthoracic Echo Report Name: Figueroa Woods Age: 87 Gender: M : 1935 Exam Date: 06/06/2022 09:29 Exam Location: [facility] Ht (in): 69 Wt (lb): 271 Ordering Physician: Rowan Bangura Attending/Referring Phys: Information Security Analyst Lacey Fisher RDCS Procedure CPT: Indications: shortness of breath, elevated troponin Cardiac Hx: Technical Quality: Fair Contrast 1: Total Dose (mL): Contrast 2: Total Dose (mL): MEASUREMENTS (Male / Female) Normal Values 2D ECHO LV Diastolic Diameter PLAX 4.1 cm 4.2 - 5.9 / 3.9 - 5.3 cm LV Systolic Diameter PLAX 2.6 cm IVS Diastolic Thickness 1.7 cm 0.6 - 1.0 / 0.6 - 0.9 cm LVPW Diastolic Thickness 1.6 cm 0.6 - 1.0 / 0.6 - 0.9 cm LV Relative Wall Thickness 0.8 RV Internal Dim ED PLAX 4.5 cm LVOT Diameter 2.3 cm LA Systolic Diameter LX 5.1 cm 3.0 - 4.0 / 2.7 - 3.8 cm LA Volume 128.9 cm??? 18 - 58 / 22 - 52 cm??? M-MODE Aortic Root Diameter MM 3.8 cm MV E Point Septal Separation 1.4 cm DOPPLER AV Peak Velocity 298.9 cm/s AV Peak Gradient 35.7 mmHg AV Mean Velocity 211.9 cm/s AV Mean Gradient 20.2 mmHg AV Velocity Time Integral 56.3 cm LVOT Peak Velocity 192.8 cm/s LVOT Peak Gradient 14.9 mmHg AV Area Cont Eq pk 2.7 cm??? MV Peak Velocity 224.6 cm/s MV Peak Gradient 20.2 mmHg MV Mean Velocity 110.7 cm/s MV Mean Gradient 6.6 mmHg MV Velocity Time Integral 45.5 cm MV Area PHT 2.9 cm??? MV Deceleration Time 314.3 ms TR Peak Velocity 388.2 cm/s TR Peak Gradient 60.3 mmHg Right Ventricular Systolic Press 62.7 mmHg FINDINGS Left Ventricle Left ventricular ejection fraction is estimated at >65 %. Left ventricular cavity size normal. Moderate concentric left ventricular hypertrophy. Flattening of ventricular septum in systole and diastole Right Ventricle Severe right ventricular dilatation. Severe pulmonary hypertension. There is right ventricular enlargement consistent with right ventricular volume overload. Right Atrium Normal right atrial size. Left Atrium Moderately increased left atrial diameter. Severely increased left atrial volume. Mildly increased left atrial area. No evidence for an atrial septal defect. Mitral Valve Mitral valve thickened. Moderate mitral annular calcification. Trace to mild mitral regurgitation. [id number] mitral stenosis W ith mean gradient of 7 mmHg Aortic Valve Bioprostetic AOV. Mild aortic stenosis with a peak gradient of 36 mmHg and a mean gradient of 20 mmHg. Tricuspid Valve [id number] tricuspid regurgitation. Pulmonic Valve Trace pulmonic regurgitation. Pericardium Normal pericardium. No pericardial effusion. Aorta Mild aortic dilatation at the level of the sinuses of valsalva (root). CONCLUSIONS Concentric LVH with preserved LV systolic function Flattening of the end of ventricular septum consistent with RV pressure overload Enlarged right ventricle with severe pulmonary hypertension Bioprosthetic aortic valve with peak gradient of 36. His mercury Severely enlarged left atrium Dilated IVC Previewed by: Dr. Simon Varela MD (Electronically Signed) Final Date: 06 June 2022 11:12
--- NOTE | 2022-06-06 11:22 | P.CRDCN ---
History of Present Illness History of present illness: HISTORY OF PRESENTING ILLNESS This is a pleasant 87-year-old male past medical history significant for permanent atrial fibrillation status post watchman procedure in 2019, anemia, CVA, hypertension, severe aortic stenosis status post aortic valve replacement, carotid atherosclerosis status post left endarterectomy, mild nonobstructive coronary disease. He follows in the office with Dr. Varela. We have anesthetized the patient in consultation for congestive heart failure. Past few weeks patient has been having worsening increased shortness of breath, bilateral lower extremity edema. He also endorses 30lb weight gain. He endorses no increased salt intake, no change in medications. Compliant with medications. He denies any chest pain, palpitations, lightheadedness, dizziness, syncope or near syncope. Patient was started on IV Lasix on admission. DIAGNOSTICS * EKG reveals atrial fibrillation, heart rate 87, right bundle-branch block * Telemetry tracings indicate atrial fibrillation * Chest xray elevated right diaphgragm, no acute heart failure * Laboratory reviewed, poor BNP 3370, troponin 0.05, 0.05, 0.04, WBC 3.9 Hgb 10.5, platelets 107, sodium 133, potassium pending , bun 48, serum creatinine 1.6 * Current home cardiac medications include atorvastatin 40 mg daily, Bumex 1 mg daily, metoprolol titrate 12.5 mg twice a day * Echocardiogram 08/2020 revealed EF 5055 percent, mild concentric LVH, severely dilated left atrium, mild mitral regurgitation, severe tricuspid r egurgitation, severe increased pulmonary artery systolic pressure of 83 mmHg REVIEW OF SYSTEMS At the time of my exam: CONSTITUTIONAL: Denies fever or chills. +weight gain CARDIOVASCULAR: Denies chest pain, +shortness of breath, +LE edema, orthopnea, PND or palpitations. RESPIRATORY: Denies cough. GASTROINTESTINAL: Denies abdominal pain, diarrhea, constipation, nausea or vomiting. MUSCULOSKELETAL: Denies myalgias. NEUROLOGIC: Denies numbness, tingling, headacbe or weakness. ENDOCRINE: Denies fatigue, polydipsia or polyurina. GENITOURINARY: Denies burning, hematuria or urgency with micturation. HEMATOLOGIC: Denies history of anemia or bleeding. PHYSICAL EXAMINATION Blood pressure 100/58, heart rate 86, afebrile, saturations 95% on 4 L nasal cannula CONSTITUTIONAL: No apparent distress. HEENT: Head is normocephalic. Pupils are equal, round. Sclerae anicteric. Mucous membranes of the mouth are moist. No JVD. No carotid bruit. CHEST EXAMINATION: Lungs are diminished in the bases to auscultation. No chest wall tenderness is noted on palpation or with deep breathing. HEART EXAMINATION: Irregular rate and rhythm. S1, S2 heard. No murmurs, gallops or rub. ABDOMEN: Soft, nontender. Positive bowel sounds. EXTREMITIES: 2+ peripheral pulses, 4+ bilateral up to thighs lower extremity edema and no calf tenderness. NEUROLOGIC EXAMINATION: Patient is awake, alert and oriented x3. ASSESSMENT Acute on chronic heart failure with preserved ejection fraction, appears to be right sided heart failure on exam Permanent atrial fibrillation status post watchman procedure in 2019 Anemia History of CVA Hypertension History of Severe aortic stenosis status post aortic valve replacement History of Carotid atherosclerosis status post left endarterectomy Mild nonobstructive coronary disease PLAN Obtain 2D echocardiogram and doppler study to assess cardiac structure and function. Continue IV Lasix 40mg BID Continue aspirin, statin, beta pee Monitor I/os, daily weights, renal function and electrolytes Further recommendations based on clinical course Nurse practitioner note has been reviewed by physician. Signing provider agrees with the documented findings, assessment, and plan of care. 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 ., STATES LOWER EXTREMITY EDEMA, HX STOMACH ULCER., CHRONIC CONSTIPATION., -STATES BLOOD COUNT LOW AND HE FEELS EXHAUSTED AND USING A CANE & WALKER . , STATES RASH ON FORESKIN., SIGRID HEARING AIDS. states he needs a new replacement valve BONE MARROW BIOPSY CAUTERIZATION OF STOMACH ULCERS History of Any Multi-Drug Resistant Organisms: None Reported Past Surgical History: Appendectomy, Cardiac Ablation, Cardiac Valve Replacement, Cholecystectomy, Coronary Bypass/CABG, Heart Catheterization Additional Past Surgical History / Comment(s): 2015 cardiac ablation of Afib at [facility], 2 vessel CABG and aortic valve replacement (bovine) in 2009., L caratid endartectomy, bilateral varicose vein stripping, lysis of abdominal adhesions, colonoscopies., EGDs-repair doudenal ulcers, bone marrow biopsy., 2 stents "right groin" for circulation ([place])., Watchman Procedure at [facility] - 2019 Past Anesthesia/Blood Transfusion Reactions: No Reported Reaction, Blood Transfusion Reaction Additional Past Anesthesia/Blood Transfusion Reaction / Comment(s): Hx of several blood transfusions and had reaction with Hives x1. ([place]) Past Psychological History: No Psychological Hx Reported Smoking Status: Former smoker Past Alcohol Use History: None Reported Past Drug Use History: None Reported - Past Family History Father Family Medical History: Cancer Additional Family Medical History / Comment(s): LUNG CANCER WITH METS Mother Family Medical History: Coronary Artery Disease (CAD), Myocardial Infarction ([place]) Additional Family Medical History / Comment(s): Mother while recovering from open heart surgery. She had several MIs. Medications and Allergies Home Medications Medication Instructions Recorded Confirmed Type Cholecalciferol [Vitamin D3 (25 25 mcg PO DAILY 07/10/15 06/06/22 History Mcg = 1000 Iu)] Docusate [Colace] 100 mg PO HS 07/10/15 06/06/22 History Eye Compound Vitamin 2 cap PO BID 07/10/15 06/06/22 History Finasteride [Proscar] 5 mg PO DAILY 07/10/15 06/06/22 History Folic Acid 0.4 mg PO HS 07/10/15 06/06/22 History Atorvastatin [Lipitor] 40 mg PO HS 04/27/18 06/06/22 History Albuterol Sulfate [Ventolin HFA] 2 puff INHALATION RT-Q4H PRN 05/28/21 06/06/22 History Bumetanide [Bumex] 1 mg PO DAILY 05/28/21 06/06/22 History Fluticasone/Umeclidin/Vilanter 1 puff INHALATION RT-HS 05/28/21 06/06/22 History [Trelegy Ellipta 100-62.5-25] Gabapentin 300 mg PO TID 05/28/21 06/06/22 History Metoprolol Tartrate [Lopressor] 12.5 mg PO BID 05/28/21 06/06/22 History polyethylene glycoL 3350 [Miralax] 17 gm PO HS 05/28/21 06/06/22 History Ascorbic Acid [Vitamin C] 1,000 mg PO HS 06/06/22 06/06/22 History Citalopram Hydrobromide [CeleXA] 40 mg PO DAILY 06/06/22 06/06/22 History Cyanocobalamin (Vitamin B-12) 1,000 mcg PO DAILY 06/06/22 06/06/22 History [Vitamin B-12] Gabapentin [Neurontin] 100 mg PO TID 06/06/22 06/06/22 History Integra 62.5-62.5-40-3mg Capsule 1 cap PO HS 06/06/22 06/06/22 History Inulin/Chromium Picolinate [Fiber 2 tab PO HS 06/06/22 06/06/22 History Gummies Chew] Pantoprazole [Protonix] 40 mg PO BID 06/06/22 06/06/22 History Repaglinide [Prandin] 1 mg PO BID 06/06/22 06/06/22 History Tamsulosin [Flomax] 0.4 mg PO DAILY 06/06/22 06/06/22 History Allergies Allergy/AdvReac Type Severity Reaction Status Date / Time iron infusions AdvReac Unknown Passed Out Uncoded 06/06/22 08:10 Physical Exam Vitals: Vital Signs Temp Pulse Resp BP Pulse Ox 06/06/22 03:55 79 18 115/67 99 06/06/22 03:10 74 12 105/73 06/06/22 03:00 76 17 97/75 06/06/22 02:50 84 13 97/75 06/06/22 02:40 79 15 97/75 06/06/22 02:30 80 12 113/70 06/06/22 02:20 73 13 113/70 06/06/22 02:10 81 26 H 113/70 06/06/22 02:00 63 18 06/06/22 01:10 87 22 120/66 06/06/22 00:30 90 21 116/67 06/06/22 00:00 79 13 122/65 06/05/22 23:00 70 18 131/79 84 L 08/04/22 22:40 69 17 131/79 92 L 06/05/22 21:32 98 F 83 20 129/75 94 L Intake and Output 06/05/22 06/06/22 06/06/22 22:59 06:59 14:59 Other: Weight 122.924 kg Results 06/05/22 21:51 06/05/22 21:51 Cardiac Enzymes 06/05/22 06/05/22 06/06/22 Range/Units 21:51 21:51 01:42 AST 118 H (17-59) U/L Troponin I 0.051 H* 0.051 H* (0.000-0.034) ng/mL CBC 06/05/22 Range/Units 21:51 WBC 3.9 (3.8-10.6) k/uL RBC 2.99 L (4.30-5.90) m/uL Hgb 10.5 L (13.0-17.5) gm/dL Hct 35.1 L (39.0-53.0) % Plt Count 107 L (150-450) k/uL Comprehensive Metabolic Panel 06/05/22 Range/Units 21:51 Sodium 133 L (137-145) mmol/L Potassium (3.5-5.1) mmol/L Chloride 102 (98-107) mmol/L Carbon Dioxide 30 (22-30) mmol/L BUN 48 H (9-20) mg/dL Creatinine 1.61 H (0.66-1.25) mg/dL Glucose 109 H (74-99) mg/dL Calcium 8.7 (8.4-10.2) mg/dL AST 118 H (17-59) U/L ALT 21 (4-49) U/L Alkaline Phosphatase 62 (38-126) U/L Total Protein 6.8 (6.3-8.2) g/dL Albumin 4.2 (3.5-5.0) g/dL Current Medications Generic Name Dose Route Start Last Admin Trade Name Freq PRN Reason Stop Dose Admin Aspirin 325 mg 06/07/22 09:00 Aspirin 325 Mg Tab PO DAILY CELSA Furosemide 40 mg 06/06/22 01:30 06/06/22 02:21 Furosemide 10 Mg/Ml 4 Ml Vial IV 40 mg Q12H CELSA Administration Sodium Chloride 10 ml 06/06/22 09:00 Sodium Chloride 0.9% Flush 10 Ml Syringe IV BID CELSA Intake and Output 06/05/22 06/06/22 06/06/22 22:59 06:59 14:59 Other: Weight 122.924 kg 06/05/22 21:51 06/05/22 21:51
[2022-06-06] MEDS: FINASTERIDE 5 MG TAB PO SCH (12:40)
[2022-06-06] MEDS: PANTOPRAZOLE 40 MG TABLET PO SCH ×2 (12:40→17:07)
[2022-06-06] MEDS: CITALOPRAM HYDROBROMIDE 20 MG TAB PO SCH (12:40)
[2022-06-06] MEDS: GABAPENTIN 300 MG CAP PO SCH ×3 (12:40→20:45)
[2022-06-06] MEDS: TAMSULOSIN 0.4 MG CAP.ER.24H PO SCH (12:40)
[2022-06-06] MEDS: CYANOCOBALAMIN 500 MCG TAB PO SCH (12:40)
[2022-06-06] MEDS: REPAGLINIDE 1 MG TAB PO SCH ×2 (12:41→23:02)
[2022-06-06] MEDS ORDERED: DEXTROSE 50% SYRINGE 50 ML IVP PRN ×2 (14:16)
[2022-06-06 16:53] LABS: Glucose,Whole Blood 190 mg/dL (70-110)
[2022-06-06] MEDS: FUROSEMIDE 10 MG/ML 10 ML VIAL IV SCH (17:07)
[2022-06-06] MEDS: INSULIN ASPART (NovoLOG) 100 UNIT/ML VIAL SQ SCH (17:47)
--- NOTE | 2022-06-06 18:55 | P.HPIM ---
History of Present Illness H&P Date: 06/06/22 Chief Complaint: Short of breath This is a pleasant 87-year-old patient, follows with visiting physicians Dr. Carbajal. Chronic stable medical conditions include atrial fibrillation, CAD, diabetes, hard of hearing, hypertension, hyperlipidemia osteoarthritis, peripheral neuropathy does use CPAP. On extensive medical history. Patient presents with worsening short of breath for one week. Does feel bloated in the abdomen. Normally below. Appetite is okay. Has about 2 bowel movements a week. Denies any fever and chills. His weight has gone up. Harry catheter was placed in the ER. No chest pain. Review of systems: GEN.: Tired EYES: None HEENT: Decreased hearing] NECK: None RESPIRATORY: As above] CARDIOVASCULAR: Some edema GASTROINTESTINAL: None GENITOURINARY: None MUSCULOSKELETAL: Joint pains] LYMPHATICS: None HEMATOLOGICAL: None PSYCHIATRY: None NEUROLOGICAL: Does use a walker] Social history: Lives with his . Uses a walker. Patient smoked 3 packs a day for about 16 years stopped in 1966. No alcohol. Family history: Lung cancer Physical examination: VITAL SIGNS: 98, 83, 20, 1 29 x 75, 94% room air GENERAL: BMI 40, sitting on bed awake slightly short of breath. EYES: Pupils equal. Conjunctiva normal. HEENT: External appearance of nose and ears normal, oral cavity grossly normal. NECK: JVD possibly raised; masses not palpable. HEART: [First and second heart sounds are normal; dependent edema in the lower back. LUNGS: Respiratory rate increased; some crackles. ABDOMEN: Soft, distended nontender, liver spleen not palpable, no masses palpable. PSYCH: Alert and oriented x3; mood and affect normal. MUSCULOSKELETAL:No Clubbing/cyanosis;muscles-grossly intact. OA NEUROLOGICAL: Cranial nerves grossly intact; no facial asymmetry, power and sensation grossly intact. LYMPHATICS: No lymph nodes palpable in the axilla and neck INVESTIGATIONS, reviewed in the clinical context: White count 3.9 hemoglobin 10.5 platelets 107 sodium 133 creatinine 1.61 Troponin I 0.051, 0.051, 0.045 EKG tracing personally reviewed by me-rate 87, atrial fibrillation,) [place] block pattern Chest x-ray film personally reviewed by me-some elevation of the right diaphragm. Some cephalization. 2-D echocardiogram: EF 1-65%. Moderate concentric LVH. Severe right ventricular dilatation. Severe pulmonary hypertension. Right ventricle enlarg ement. Assessment and plan: -Acute and chronic congestive heart failure from diastolic dysfunction EF more than 65%. IV Lasix 60 mg every 12. Fluid restriction. Follow with cardiology -We will rule out PE. VQ scan -Morbid obesity BMI 40 -Hyperlipidemia Lipitor 40 mg daily at bedtime -Depression and anxiety Celexa 40 mg a day -BPH Proscar 5 mg a day, Flomax -COPD in a previous smoker Resume inhalers -Diabetic peripheral neuropathy Neurontin -GERD 40 mg twice a day -Diabetes mellitus type 2 on oral hypoglycemic Resume Prandin. Follow Accu-Cheks -Cor pulmonale, acute on chronic IV Lasix -Mild to moderate mitral stenosis Follow with cardiology VQ scan to rule out PE. IV Lasix. Fluid restriction. Home medications resumed. Accu-Cheks. Some restriction 15 mL daily. Follow labs. Currently consulted. 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 ., STATES LOWER EXTREMITY EDEMA, HX STOMACH ULCER., CHRONIC CONSTIPATION., -STATES BLOOD COUNT LOW AND HE FEELS EXHAUSTED AND USING A CANE & WALKER . , STATES RASH ON FORESKIN., SIGRID HEARING AIDS. states he needs a new replacement valve BONE MARROW BIOPSY CAUTERIZATION OF STOMACH ULCERS History of Any Multi-Drug Resistant Organisms: None Reported Past Surgical History: Appendectomy, Cardiac Ablation, Cardiac Valve Replacement, Cholecystectomy, Coronary Bypass/CABG, Heart Catheterization Additional Past Surgical History / Comment(s): 2014 cardiac ablation of Afib at [facility], 2 vessel CABG and aortic valve replacement (bovine) in 2009., L caratid endartectomy, bilateral varicose vein stripping, lysis of abdominal adhesions, colonoscopies., EGDs-repair doudenal ulcers, bone marrow biopsy., 2 stents "right groin" for circulation ([place])., Watchman Procedure at [facility] - 2019 Past Anesthesia/Blood Transfusion Reactions: No Reported Reaction, Blood Transfusion Reaction Additional Past Anesthesia/Blood Transfusion Reaction / Comment(s): Hx of several blood transfusions and had reaction with Hives x1. ([place]) Past Psychological History: No Psychological Hx Reported Smoking Status: Former smoker Past Alcohol Use History: None Reported Past Drug Use History: None Reported - Past Family History Father Family Medical History: Cancer Additional Family Medical History / Comment(s): LUNG CANCER WITH METS Mother Family Medical History: Coronary Artery Disease (CAD), Myocardial Infarction ([place]) Additional Family Medical History / Comment(s): Mother while recovering from open heart surgery. She had several MIs. Medications and Allergies Home Medications Medication Instructions Recorded Confirmed Type Cholecalciferol [Vitamin D3 (25 25 mcg PO DAILY 07/10/15 06/06/22 History Mcg = 1000 Iu)] Docusate [Colace] 100 mg PO HS 07/10/15 06/06/22 History Eye Compound Vitamin 2 cap PO BID 07/10/15 06/06/22 History Finasteride [Proscar] 5 mg PO DAILY 07/10/15 06/06/22 History Folic Acid 0.4 mg PO HS 07/10/15 06/06/22 History Atorvastatin [Lipitor] 40 mg PO HS 04/27/18 06/06/22 History Albuterol Sulfate [Ventolin HFA] 2 puff INHALATION RT-Q4H PRN 05/28/21 06/06/22 History Bumetanide [Bumex] 1 mg PO DAILY 05/28/21 06/06/22 History Fluticasone/Umeclidin/Vilanter 1 puff INHALATION RT-HS 05/28/21 06/06/22 History [Trelegy Ellipta 100-62.5-25] Gabapentin 300 mg PO TID 05/28/21 06/06/22 History Metoprolol Tartrate [Lopressor] 12.5 mg PO BID 05/28/21 06/06/22 History polyethylene glycoL 3350 [Miralax] 17 gm PO HS 05/28/21 06/06/22 History Ascorbic Acid [Vitamin C] 1,000 mg PO HS 06/06/22 06/06/22 History Citalopram Hydrobromide [CeleXA] 40 mg PO DAILY 06/06/22 06/06/22 History Cyanocobalamin (Vitamin B-12) 1,000 mcg PO DAILY 06/06/22 06/06/22 History [Vitamin B-12] Gabapentin [Neurontin] 100 mg PO TID 06/06/22 06/06/22 History Integra 62.5-62.5-40-3mg Capsule 1 cap PO HS 06/06/22 06/06/22 History Inulin/Chromium Picolinate [Fiber 2 tab PO HS 06/06/22 06/06/22 History Gummies Chew] Pantoprazole [Protonix] 40 mg PO BID 06/06/22 06/06/22 History Repaglinide [Prandin] 1 mg PO BID 06/06/22 06/06/22 History Tamsulosin [Flomax] 0.4 mg PO DAILY 06/06/22 06/06/22 History Allergies Allergy/AdvReac Type Severity Reaction Status Date / Time iron infusions AdvReac Unknown Passed Out Uncoded 06/06/22 08:10 Physical Exam Vitals: Vital Signs Temp Pulse Pulse Resp BP BP Pulse Ox 06/06/22 10:03 86 20 100/58 95 06/06/22 03:55 79 18 115/67 99 06/06/22 03:10 74 12 105/73 06/06/22 03:00 76 17 97/75 06/06/22 02:50 84 13 97/75 06/06/22 02:40 79 15 97/75 06/06/22 02:30 80 12 113/70 06/06/22 02:20 73 13 113/70 06/06/22 02:10 81 26 H 113/70 06/06/22 02:00 63 18 06/06/22 01:10 87 22 120/66 06/06/22 00:30 90 21 116/67 06/06/22 00:00 79 13 122/65 06/05/22 23:00 70 18 131/79 84 L 06/05/22 22:40 69 17 131/79 92 L 06/05/22 21:32 98 F 83 20 129/75 94 L Intake and Output 06/05/22 06/06/22 06/06/22 22:59 06:59 14:59 Other: Weight 122.924 kg Results CBC & Chem 7: 06/05/22 21:51 06/05/22 21:51 Labs: Abnormal Lab Results - Last 24 Hours (Table) 06/05/22 06/05/22 06/05/22 Range/Units 21:51 21:51 21:51 RBC 2.99 L (4.30-5.90) m/uL Hgb 10.5 L (13.0-17.5) gm/dL Hct 35.1 L (39.0-53.0) % MCV 117.4 H (80.0-100.0) fL MCH 35.3 H (25.0-35.0) pg MCHC 30.0 L (31.0-37.0) g/dL RDW 16.8 H (11.5-15.5) % Plt Count 107 L (150-450) k/uL Lymphocytes # 0.4 L (1.0-4.8) k/uL Macrocytosis Marked A Sodium 133 L (137-145) mmol/L BUN 48 H (9-20) mg/dL Creatinine 1.61 H (0.66-1.25) mg/dL Glucose 109 H (74-99) mg/dL Total Bilirubin 2.2 H (0.2-1.3) mg/dL AST 118 H (17-59) U/L Troponin I 0.051 H* (0.000-0.034) ng/mL 06/06/22 06/06/22 Range/Units 01:42 06:58 RBC (4.30-5.90) m/uL Hgb (13.0-17.5) gm/dL Hct (39.0-53.0) % MCV (80.0-100.0) fL MCH (25.0-35.0) pg MCHC (31.0-37.0) g/dL RDW (11.5-15.5) % Plt Count (150-450) k/uL Lymphocytes # (1.0-4.8) k/uL Macrocytosis Sodium (137-145) mmol/L BUN (9-20) mg/dL Creatinine (0.66-1.25) mg/dL Glucose (74-99) mg/dL Total Bilirubin (0.2-1.3) mg/dL AST (17-59) U/L Troponin I 0.051 H* 0.045 H* (0.000-0.034) ng/mL
[2022-06-06] MEDS: IPRATROPIUM 0.5 MG/2.5 ML NEBU INHALATION SCH (20:09)
[2022-06-06] MEDS: SYMBICORT 80-4.5 MCG INHALER INHALATION SCH (20:09)
[2022-06-06 20:34] LABS: Glucose,Whole Blood 201 mg/dL (70-110)
[2022-06-06] MEDS: DOCUSATE 100 MG CAP PO SCH (20:39)
[2022-06-06] MEDS: FOLIC ACID 1 MG TAB PO SCH (20:39)
[2022-06-06] MEDS: ATORVASTATIN 40 MG TAB PO SCH (20:39)
[2022-06-06] MEDS: ASCORBIC ACID 500 MG TAB PO SCH (20:39)
[2022-06-06] MEDS: polyethylene glycoL 3350 17 GM POWD.PACK PO SCH (20:40)
[2022-06-07] MEDS: PANTOPRAZOLE 40 MG TABLET PO SCH ×2 (05:57→18:16)
[2022-06-07] MEDS: FUROSEMIDE 10 MG/ML 10 ML VIAL IV SCH ×2 (05:58→18:16)
[2022-06-07 06:20] LABS: Glucose,Whole Blood 109 mg/dL (70-110)
[2022-06-07] MEDS: INSULIN ASPART (NovoLOG) 100 UNIT/ML VIAL SQ SCH ×3 (06:59→18:09)
[2022-06-07] MEDS: IPRATROPIUM 0.5 MG/2.5 ML NEBU INHALATION SCH ×4 (07:53→20:54)
[2022-06-07] MEDS: SYMBICORT 80-4.5 MCG INHALER INHALATION SCH ×2 (07:53→20:55)
--- NOTE | 2022-06-07 08:01 | P.PN ---
Subjective Progress Note Date: 06/07/22 Principal diagnosis: Heart failure with preserved ejection fraction This is an 87-year-old gentleman with a past medical history significant for permanent atrial fibrillation status post watchman device as well as history of valvular heart disease status post aortic valve replacement and also history of carotid atherosclerosis as well as multiple comorbid conditions including history of CVA. The patient was admitted to the hospital with evidence of heart failure with right more than left heart failure. Patient was seen this morning. He continues to feel the same according to him. The shortness of breath has been the same. He continues to have bilateral lower lower extremity edema predominantly above the knee bilaterally. No symptoms of chest pain or chest discomfort. Currently he is on Lasix IV at 60 mg twice a day. He underwent an echo which revealed normal LV function with bioprosthetic aortic valve and evidence of moderate aortic stenosis with severely dilated right ventricle and severe pulmonary hypertension which could be contributing to his predominantly right more than left heart failure. Objective - Vital Signs Vital signs: Vital Signs Temp 97.8 F 06/07/22 04:00 Pulse 72 06/07/22 07:53 Resp 18 06/07/22 04:00 BP 120/64 06/07/22 04:00 Pulse Ox 96 06/07/22 04:00 FiO2 Intake & Output 06/06/22 06/07/22 06/07/22 18:59 06:59 18:59 Weight 122.924 kg 109 kg Other: Voiding Method Diaper - Constitutional General appearance: Present: no acute distress - Respiratory Respiratory: bilateral: diminished - Cardiovascular Rhythm: irregularly irregular Heart sounds: normal: S1, S2 Abnormal Heart Sounds: Present: systolic murmur - Labs CBC & Chem 7: 06/05/22 21:51 06/05/22 21:51 Labs: Abnormal Lab Results - Last 24 Hours (Table) 06/06/22 06/06/22 06/06/22 Range/Units 06:58 16:51 20:33 POC Glucose (mg/dL) 190 H 201 H (70-110) mg/dL Troponin I 0.045 H* (0.000-0.034) ng/mL Assessment and Plan Assessment: Assessment #1 acute exacerbation of heart failure with a preserved ejection fraction, right more than left heart failure #2 permanent atrial fibrillation was controlled heart rate #3 status post watchman device #4 valvular heart disease and status post aVR #5 severe pulmonary hypertension Plan #1 continue the current dose of Lasix IV #2 continue monitor the kidney function and electrolytes #3 follow-up with the patient
[2022-06-07] MEDS ORDERED: ASPIRIN 325 MG TAB PO SCH (09:00)
--- NOTE | 2022-06-07 09:54 | NM ---
EXAMINATION TYPE: NM pul vent and perfuse DATE OF EXAM: 06/07/2022 COMPARISON: Chest radiograph dated 02/19/2022 HISTORY: Shortness of breath TECHNIQUE: Utilizing inhalation of 69.1 mCi Tc 99m DTPA aerosol and intravenous injection of 5.3 mCi of Tc 99m MAA, ventilation and perfusion images are acquired post injection in multiple projections. FINDINGS: Normal radiotracer distribution is noted in the lungs. There is no evidence of mismatched defects. There is nonsegmental diminished activity identified scattered throughout both lungs. No wedge-shaped perfusion abnormalities identified. IMPRESSION: Low probability of pulmonary embolism.
[2022-06-07 10:26] LABS: Calcium 8.6 mg/dL (8.4-10.2); Potassium 4.2 mmol/L (3.5-5.1)
[2022-06-07] MEDS: CYANOCOBALAMIN 500 MCG TAB PO SCH (10:44)
[2022-06-07] MEDS: TAMSULOSIN 0.4 MG CAP.ER.24H PO SCH (10:44)
[2022-06-07] MEDS: CITALOPRAM HYDROBROMIDE 20 MG TAB PO SCH (10:44)
[2022-06-07] MEDS: REPAGLINIDE 1 MG TAB PO SCH ×2 (10:45→20:55)
[2022-06-07] MEDS: FINASTERIDE 5 MG TAB PO SCH (10:45)
[2022-06-07] MEDS: CHOLECALCIFEROL 25 MCG (1000 IU) TABLET PO SCH (10:45)
[2022-06-07] MEDS: METOPROLOL TARTRATE 12.5 MG TAB PO SCH ×2 (10:45→21:00)
[2022-06-07] MEDS: GABAPENTIN 300 MG CAP PO SCH ×3 (10:45→20:54)
[2022-06-07] MEDS: ASPIRIN 81 MG PO SCH ×2 (10:45→10:50)
[2022-06-07 11:52] LABS: Glucose,Whole Blood 222 mg/dL (70-110)
[2022-06-07 12:57] VITALS: BMI 35.4
[2022-06-07 16:45] LABS: Glucose,Whole Blood 79 mg/dL (70-110)
--- NOTE | 2022-06-07 17:34 | P.PN ---
Progress Note - Text Progress Note Date: 06/07/22 Chief Complaint: Short of breath This is a pleasant 87-year-old patient, follows with visiting physicians Dr. Carbajal. Chronic stable medical conditions include atrial fibrillation, CAD, diabetes, hard of hearing, hypertension, hyperlipidemia osteoarthritis, peripheral neuropathy does use CPAP. On extensive medical history. Patient presents with worsening short of breath for one week. Does feel bloated in the abdomen. Normally below. Appetite is okay. Has about 2 bowel movements a week. Denies any fever and chills. His weight has gone up. Harry catheter was placed in the ER. No chest pain. Admitted with CHF exacerbation. Started on IV Lasix. Fluid restriction. June 07: Patient is a female catheter. Good urine. Oral intake fair. Some shortness of breath. Oral intake code. Edema present. IV Lasix. Active Medications Albuterol Sulfate (Albuterol Nebulized 2.5 Mg/3 Ml) 2.5 mg INHALATION RT-Q4H PRN PRN Reason: Shortness Of Breath Ascorbic Acid (Ascorbic Acid 500 Mg Tab) 1,000 mg PO HS [facility] Last Admin: 06/06/22 20:39 Dose: 1,000 mg Aspirin (Aspirin 81 Mg) 81 mg PO DAILY [facility] Last Admin: 06/07/22 10:50 Dose: Not Given Atorvastatin Calcium (Atorvastatin 40 Mg Tab) 40 mg PO [facility] Last Admin: 06/06/22 20:39 Dose: 40 mg Budesonide/Formoterol Fumarate (Symbicort 80-4.5 Mcg Inhaler) 2 puff INHALATION RT-BID [facility] Last Admin: 06/07/22 07:53 Dose: 2 puff Cholecalciferol (Cholecalciferol 25 Mcg (1000 Iu) Tablet) 25 mcg PO DAILY [facility] Last Admin: 06/07/22 10:45 Dose: 25 mcg Citalopram Hydrobromide (Citalopram Hydrobromide 20 Mg Tab) 40 mg PO DAILY [facility] Last Admin: 06/07/22 10:44 Dose: 40 mg Cyanocobalamin (Cyanocobalamin 500 Mcg Tab) 1,000 mcg PO DAILY [facility] Last Admin: 06/07/22 10:44 Dose: 1,000 mcg Dextrose/Water (Dextrose 50% Syringe 50 Ml) 25 ml IVP PER PROTOCOL PRN; Protocol PRN Reason: Hypoglycemia Dextrose/Water (Dextrose 50% Syringe 50 Ml) 50 ml IVP PER PROTOCOL PRN; Protocol PRN Reason: Hypoglycemia Docusate Sodium (Docusate 100 Mg Cap) 100 mg PO [facility] Last Admin: 06/06/22 20:39 Dose: 100 mg Finasteride (Finasteride 5 Mg Tab) 5 mg PO DAILY [facility] Last Admin: 06/07/22 10:45 Dose: 5 mg Folic Acid (Folic Acid 1 Mg Tab) 1 mg PO [facility] Last Admin: 06/06/22 20:39 Dose: 1 mg Furosemide (Furosemide 10 Mg/Ml 10 Ml Vial) 60 mg IV Q12H [facility] Last Admin: 06/07/22 05:58 Dose: 60 mg Gabapentin (Gabapentin 300 Mg Cap) 300 mg PO TID [facility] Last Admin: 06/07/22 10:45 Dose: 300 mg Insulin Aspart (Insulin Aspart (Novolog) 100 Unit/Ml Vial) 0 unit SQ AC-TID [facility]; Protocol Last Admin: 06/07/22 12:20 Dose: 4 unit Ipratropium [place] (Ipratropium 0.5 Mg/2.5 Ml Nebu) 0.5 mg INHALATION RT-QID [facility] Last Admin: 06/07/22 15:58 Dose: Not Given Metoprolol Tartrate (Metoprolol Tartrate 12.5 Mg Tab) 12.5 mg PO BID [facility] Last Admin: 06/07/22 10:45 Dose: 12.5 mg Pantoprazole Sodium (Pantoprazole 40 Mg Tablet) 40 mg PO AC-BID [facility] Last Admin: 06/07/22 05:57 Dose: 40 mg Polyethylene Glycol (Polyethylene Glycol 3350 17 Gm Powd.Pack) 17 gm PO [facility] Last Admin: 06/06/22 20:40 Dose: Not Given Repaglinide (Repaglinide 1 Mg Tab) 1 mg PO BID [facility] Last Admin: 06/07/22 10:45 Dose: 1 mg Sodium Chloride (Sodium Chloride 0.9% Flush 10 Ml Syringe) 10 ml IV BID [facility] Last Admin: 06/07/22 10:53 Dose: Not Given Tamsulosin HCl (Tamsulosin 0.4 Mg Cap.Er.24h) 0.4 mg PO DAILY [facility] Last Admin: 06/07/22 10:44 Dose: 0.4 mg Social history: Lives with his . Uses a walker. Patient smoked 3 packs a day for about 16 years stopped in 1966. No alcohol. Family history: Lung cancer Physical examination: VITAL SIGNS: 98, 93, 16, 120/47, 98% 2 L GENERAL: Reclining bed, tired, short of breath EYES: Pupils equal. Conjunctiva normal. HEENT: External appearance of nose and ears normal, oral cavity grossly normal. NECK: JVD possibly raised; masses not palpable. HEART: [First and second heart sounds are normal; dependent edema in the lower back. LUNGS: Respiratory rate increased; some crackles. ABDOMEN: Soft, distended nontender, liver spleen not palpable, no masses palpable. PSYCH: Alert and oriented x3; mood and affect normal. MUSCULOSKELETAL:No Clubbing/cyanosis;muscles-grossly intact. OA INVESTIGATIONS, reviewed in the clinical context: VQ scan: Low probability PE June 07: Potassium 4.2 BUN 44 creatinine 1.67 White count 3.9 hemoglobin 10.5 platelets 107 sodium 133 creatinine 1.61 Troponin I 0.051, 0.051, 0.045 EKG tracing personally reviewed by me-rate 87, atrial fibrillation,) [place] block pattern Chest x-ray film personally reviewed by me-some elevation of the right diaphragm. Some cephalization. 2-D echocardiogram: EF 1-65%. Moderate concentric LVH. Severe right ventricular dilatation. Severe pulmonary hypertension. Right ventricle enlargement. Assessment and plan: -Acute and chronic congestive heart failure from diastolic dysfunction EF more than 65%: Slow to respond. IV Lasix 60 mg every 12. Fluid restriction. Follow with cardiology - VQ scan: Low probability for PE -Morbid obesity BMI 40 -Hyperlipidemia Lipitor 40 mg daily at bedtime -Possible chronic kidney disease, stage III from nephrosclerosis and diabetic nephropathy Follow renal function. Check UA -Depression and anxiety Celexa 40 mg a day -BPH Proscar 5 mg a day, Flomax -COPD in a previous smoker Resume inhalers -Diabetic peripheral neuropathy Neurontin -GERD 40 mg twice a day -Diabetes mellitus type 2 on oral hypoglycemic Resume Prandin. Follow Accu-Cheks -Cor pulmonale, acute on chronic IV Lasix -Mild to moderate mitral stenosis Follow with cardiology Continue with IV Lasix, also restriction. Discussed with patient. UA. Eyes and also not accurate because of difficult urine output measurement
[2022-06-07 20:07] LABS: Glucose,Whole Blood 106 mg/dL (70-110)
[2022-06-07] MEDS: FOLIC ACID 1 MG TAB PO SCH (20:54)
[2022-06-07] MEDS: DOCUSATE 100 MG CAP PO SCH (20:55)
[2022-06-07] MEDS: ATORVASTATIN 40 MG TAB PO SCH (20:55)
[2022-06-07] MEDS: ASCORBIC ACID 500 MG TAB PO SCH (20:55)
[2022-06-07] MEDS: polyethylene glycoL 3350 17 GM POWD.PACK PO SCH (21:00)
--- NOTE | 2022-06-08 06:04 | P.PN ---
Subjective Progress Note Date: 06/08/22 Principal diagnosis: Heart failure with preserved ejection fraction This is an 87-year-old gentleman with a past medical history significant for permanent atrial fibrillation status post watchman device as well as history of valvular heart disease status post aortic valve replacement and also history of carotid atherosclerosis as well as multiple comorbid conditions including history of CVA. The patient was admitted to the hospital with evidence of heart failure with right more than left heart failure. The patient was seen this morning. Unfortunately he continues to be hypervolemic. He continues to have shortness of breath and also severe bilateral lower extremities edema mostly above the knee bilaterally. On examination he does have bilateral rhonchi as well. I'm going to increase the dose of Lasix to 80 mg IV twice a day. We'll continue monitor the kidney fu nction and electrolytes. His creatinine overall is stable. His pressure has been stable as well. The most recent echo showed normal LV function with bioprosthetic aortic valve and evidence of moderate aortic stenosis with severely dilated right ventricle and severe pulmonary hypertension. Objective - Vital Signs Vital signs: Vital Signs Temp 98.1 F 06/08/22 03:27 Pulse 67 06/08/22 03:27 Resp 18 06/08/22 03:27 BP 116/67 06/08/22 03:27 Pulse Ox 94 L 06/08/22 03:27 FiO2 2 06/07/22 23:15 Intake & Output 06/07/22 06/07/22 06/08/22 06:59 18:59 06:59 Intake Total 720 Output Total 850 600 Balance -130 -600 Weight 109 kg 109 kg 119 kg Intake: Oral 720 Output: Urine 850 600 Other: Voiding Method Diaper Diaper - Constitutional General appearance: Present: no acute distress - Cardiovascular Rhythm: irregularly irregular Heart sounds: normal: S1, S2 Abnormal Heart Sounds: Present: systolic murmur - Labs CBC & Chem 7: 06/05/22 21:51 06/07/22 09:56 Labs: Abnormal Lab Results - Last 24 Hours (Table) 06/07/22 06/07/22 Range/Units 09:56 11:38 Carbon Dioxide 33 H (22-30) mmol/L BUN 44 H (9-20) mg/dL Creatinine 1.67 H (0.66-1.25) mg/dL Glucose 199 H (74-99) mg/dL POC Glucose (mg/dL) 222 H (70-110) mg/dL Assessment and Plan Assessment: Assessment #1 acute exacerbation of heart failure with a preserved ejection fraction, right more than left heart failure #2 permanent atrial fibrillation was controlled heart rate #3 status post watchman device #4 valvular heart disease and status post aVR #5 severe pulmonary hypertension Plan #1 increase the dose of Lasix to 80 mg twice a day. The patient continues to be hypervolemic #2 continue monitor the kidney function and electrolytes #3 follow-up with the patient
[2022-06-08 06:11] LABS: Glucose,Whole Blood 87 mg/dL (70-110)
[2022-06-08] MEDS: INSULIN ASPART (NovoLOG) 100 UNIT/ML VIAL SQ SCH ×3 (06:41→17:59)
[2022-06-08] MEDS: PANTOPRAZOLE 40 MG TABLET PO SCH ×2 (06:44→17:59)
[2022-06-08] MEDS: FUROSEMIDE 10 MG/ML 10 ML VIAL IV SCH ×3 (06:45→17:59)
[2022-06-08] MEDS: IPRATROPIUM 0.5 MG/2.5 ML NEBU INHALATION SCH ×4 (08:04→20:40)
[2022-06-08] MEDS: SYMBICORT 80-4.5 MCG INHALER INHALATION SCH ×2 (08:05→20:40)
[2022-06-08 09:12] LABS: Calcium 8.8 mg/dL (8.4-10.2); Potassium 4.1 mmol/L (3.5-5.1)
[2022-06-08] MEDS: ASPIRIN 81 MG PO SCH (09:46)
[2022-06-08] MEDS: METOPROLOL TARTRATE 12.5 MG TAB PO SCH ×2 (09:46→22:07)
[2022-06-08] MEDS: FINASTERIDE 5 MG TAB PO SCH (09:46)
[2022-06-08] MEDS: REPAGLINIDE 1 MG TAB PO SCH ×2 (09:46→22:06)
[2022-06-08] MEDS: GABAPENTIN 300 MG CAP PO SCH ×3 (09:46→22:06)
[2022-06-08] MEDS: TAMSULOSIN 0.4 MG CAP.ER.24H PO SCH (09:46)
[2022-06-08] MEDS: CHOLECALCIFEROL 25 MCG (1000 IU) TABLET PO SCH (09:47)
[2022-06-08] MEDS: CYANOCOBALAMIN 500 MCG TAB PO SCH (09:47)
[2022-06-08] MEDS: CITALOPRAM HYDROBROMIDE 20 MG TAB PO SCH (09:47)
[2022-06-08 11:28] LABS: Glucose,Whole Blood 127 mg/dL (70-110)
[2022-06-08 16:41] LABS: Glucose,Whole Blood 196 mg/dL (70-110)
--- NOTE | 2022-06-08 16:48 | P.PN ---
Progress Note - Text Progress Note Date: 06/08/22 Chief Complaint: Short of breath This is a pleasant 87-year-old patient, follows with visiting physicians Dr. Carbajal. Chronic stable medical conditions include atrial fibrillation, CAD, diabetes, hard of hearing, hypertension, hyperlipidemia osteoarthritis, peripheral neuropathy does use CPAP. On extensive medical history. Patient presents with worsening short of breath for one week. Does feel bloated in the abdomen. Normally below. Appetite is okay. Has about 2 bowel movements a week. Denies any fever and chills. His weight has gone up. Harry catheter was placed in the ER. No chest pain. Admitted with CHF exacerbation. Started on IV Lasix. Fluid restriction. June 07: Patient is a female catheter. Good urine. Oral intake fair. Some shortness of breath. Oral intake code. Edema present. IV Lasix. June 08: Lasix increased to 80 mg every 12. Continues to make good urine. Edema still present. Eating fair. Getting some improvement. Active Medications Albuterol Sulfate (Albuterol Nebulized 2.5 Mg/3 Ml) 2.5 mg INHALATION RT-Q4H PRN PRN Reason: Shortness Of Breath Ascorbic Acid (Ascorbic Acid 500 Mg Tab) 1,000 mg PO HS [facility] Last Admin: 06/07/22 20:55 Dose: 1,000 mg Aspirin (Aspirin 81 Mg) 81 mg PO DAILY [facility] Last Admin: 06/08/22 09:46 Dose: Not Given Atorvastatin Calcium (Atorvastatin 40 Mg Tab) 40 mg PO HS [facility] Last Admin: 06/07/22 20:55 Dose: 40 mg Budesonide/Formoterol Fumarate (Symbicort 80-4.5 Mcg Inhaler) 2 puff INHALATION RT-BID [facility] Last Admin: 06/08/22 08:05 Dose: 2 puff Cholecalciferol (Cholecalciferol 25 Mcg (1000 Iu) Tablet) 25 mcg PO DAILY [facility] Last Admin: 06/08/22 09:47 Dose: 25 mcg Citalopram Hydrobromide (Citalopram Hydrobromide 20 Mg Tab) 40 mg PO DAILY [facility] Last Admin: 06/08/22 09:47 Dose: 40 mg Cyanocobalamin (Cyanocobalamin 500 Mcg Tab) 1,000 mcg PO DAILY [facility] Last Admin: 06/08/22 09:47 Dose: 1,000 mcg Dextrose/Water (Dextrose 50% Syringe 50 Ml) 25 ml IVP PER PROTOCOL PRN; Protocol PRN Reason: Hypoglycemia Dextrose/Water (Dextrose 50% Syringe 50 Ml) 50 ml IVP PER PROTOCOL PRN; Protocol PRN Reason: Hypoglycemia Docusate Sodium (Docusate 100 Mg Cap) 100 mg PO [facility] Last Admin: 06/07/22 20:55 Dose: 100 mg Finasteride (Finasteride 5 Mg Tab) 5 mg PO DAILY [facility] Last Admin: 06/08/22 09:46 Dose: 5 mg Folic Acid (Folic Acid 1 Mg Tab) 1 mg PO HS [facility] Last Admin: 06/07/22 20:54 Dose: 1 mg Furosemide (Furosemide 10 Mg/Ml 10 Ml Vial) 80 mg IV Q12H [facility] Last Admin: 06/08/22 06:45 Dose: 80 mg Gabapentin (Gabapentin 300 Mg Cap) 300 mg PO TID [facility] Last Admin: 06/08/22 09:46 Dose: 300 mg Insulin Aspart (Insulin Aspart (Novolog) 100 Unit/Ml Vial) 0 unit SQ AC-TID [facility]; Protocol Last Admin: 06/08/22 12:35 Dose: Not Given Ipratropium [place] (Ipratropium 0.5 Mg/2.5 Ml Nebu) 0.5 mg INHALATION RT-QID [facility] Last Admin: 06/08/22 16:23 Dose: 0.5 mg Metoprolol Tartrate (Metoprolol Tartrate 12.5 Mg Tab) 12.5 mg PO BID [facility] Last Admin: 06/08/22 09:46 Dose: 12.5 mg Pantoprazole Sodium (Pantoprazole 40 Mg Tablet) 40 mg PO AC-BID [facility] Last Admin: 06/08/22 06:44 Dose: 40 mg Polyethylene Glycol (Polyethylene Glycol 3350 17 Gm Powd.Pack) 17 gm PO [facility] Last Admin: 06/07/22 21:00 Dose: 17 gm Repaglinide (Repaglinide 1 Mg Tab) 1 mg PO BID [facility] Last Admin: 06/08/22 09:46 Dose: 1 mg Sodium Chloride (Sodium Chloride 0.9% Flush 10 Ml Syringe) 10 ml IV BID [facility] Last Admin: 06/08/22 09:48 Dose: Not Given Tamsulosin HCl (Tamsulosin 0.4 Mg Cap.Er.24h) 0.4 mg PO DAILY [facility] Last Admin: 08/07/22 09:46 Dose: 0.4 mg Social history: Lives with his . Uses a walker. Patient smoked 3 packs a day for about 16 years stopped in 1966. No alcohol. Family history: Lung cancer Physical examination: VITAL SIGNS: Afebrile, 99, 16, 101/55, 98% on 2 L GENERAL: Reclining bed, tired, not in distress EYES: Pupils equal. Conjunctiva normal. HEENT: External appearance of nose and ears normal, oral cavity grossly normal. NECK: JVD possibly raised; masses not palpable. HEART: [First and second heart sounds are normal; dependent edema in the lower back. LUNGS: Respiratory rate increased; decreased breath sounds. ABDOMEN: Soft, distended nontender, liver spleen not palpable, no masses palpable. PSYCH: Alert and oriented x3; mood and affect normal. MUSCULOSKELETAL:No Clubbing/cyanosis;muscles-grossly intact. OA INVESTIGATIONS, reviewed in the clinical context: June 08: Potassium 4.1 creatinine 1.64 VQ scan: Low probability PE June 07: Potassium 4.2 BUN 44 creatinine 1.67 White count 3.9 hemoglobin 10.5 platelets 107 sodium 133 creatinine 1.61 Troponin I 0.051, 0.051, 0.045 EKG tracing personally reviewed by me-rate 87, atrial fibrillation,) [place] block pattern Chest x-ray film personally reviewed by me-some elevation of the right diaphragm. Some cephalization. 2-D echocardiogram: EF 1-65%. Moderate concentric LVH. Severe right ventricular dilatation. Severe pulmonary hypertension. Right ventricle enlargement. Assessment and plan: -Acute and chronic congestive heart failure from diastolic dysfunction EF more than 65%: Slow to respond. Increase IV Lasix 80 mg every 12. Fluid restriction. Follow with cardiology - VQ scan: Low probability for PE -Morbid obesity BMI 40 -Severe secondary pulmonary hypertension -Hyperlipidemia Lipitor 40 mg daily at bedtime -Possible chronic kidney disease, stage III from nephrosclerosis and diabetic nephropathy Follow renal function. Check UA -Depression and anxiety Celexa 40 mg a day -Troponin leak secondary CK D. No clinical evidence of ACS -BPH Proscar 5 mg a day, Flomax -COPD in a previous smoker Resume inhalers -Diabetic peripheral neuropathy Neurontin -GERD 40 mg twice a day -Diabetes mellitus type 2 on oral hypoglycemic Resume Prandin. Follow Accu-Cheks -Cor pulmonale, acute on chronic: Slow to respond IV Lasix -Mild to moderate mitral stenosis Follow with cardiology IV Lasix increased to 80 mg twice a day. Other medications to continue. Discussed with patient.
[2022-06-08 20:09] LABS: Glucose,Whole Blood 135 mg/dL (70-110)
[2022-06-08] MEDS: FOLIC ACID 1 MG TAB PO SCH (22:06)
[2022-06-08] MEDS: polyethylene glycoL 3350 17 GM POWD.PACK PO SCH (22:06)
[2022-06-08] MEDS: DOCUSATE 100 MG CAP PO SCH (22:07)
[2022-06-08] MEDS: ATORVASTATIN 40 MG TAB PO SCH (22:07)
[2022-06-08] MEDS: ASCORBIC ACID 500 MG TAB PO SCH (22:07)
[2022-06-09 06:10] LABS: Glucose,Whole Blood 97 mg/dL (70-110)
[2022-06-09] MEDS: INSULIN ASPART (NovoLOG) 100 UNIT/ML VIAL SQ SCH ×3 (06:23→17:02)
[2022-06-09] MEDS: PANTOPRAZOLE 40 MG TABLET PO SCH ×2 (06:42→16:05)
[2022-06-09] MEDS: FUROSEMIDE 10 MG/ML 10 ML VIAL IV SCH ×2 (06:42→17:01)
[2022-06-09 07:49] LABS: Calcium 8.8 mg/dL (8.4-10.2); Potassium 4.2 mmol/L (3.5-5.1)
[2022-06-09] MEDS: SYMBICORT 80-4.5 MCG INHALER INHALATION SCH ×2 (07:56→22:32)
[2022-06-09] MEDS: IPRATROPIUM 0.5 MG/2.5 ML NEBU INHALATION SCH ×4 (07:57→22:32)
[2022-06-09] MEDS: ASPIRIN 81 MG PO SCH (08:44)
[2022-06-09] MEDS: REPAGLINIDE 1 MG TAB PO SCH ×2 (08:44→23:06)
[2022-06-09] MEDS: METOPROLOL TARTRATE 12.5 MG TAB PO SCH ×2 (08:44→23:06)
[2022-06-09] MEDS: CITALOPRAM HYDROBROMIDE 20 MG TAB PO SCH (08:44)
[2022-06-09] MEDS: TAMSULOSIN 0.4 MG CAP.ER.24H PO SCH (08:44)
[2022-06-09] MEDS: GABAPENTIN 300 MG CAP PO SCH ×3 (08:44→23:05)
[2022-06-09] MEDS: CHOLECALCIFEROL 25 MCG (1000 IU) TABLET PO SCH (08:44)
[2022-06-09] MEDS: CYANOCOBALAMIN 500 MCG TAB PO SCH (08:44)
[2022-06-09] MEDS: FINASTERIDE 5 MG TAB PO SCH (08:44)
--- NOTE | 2022-06-09 10:23 | CDI ---
Documentation Clarification Form Date: 06/09/2022 10:05:22 AM From: Kristy Garcia CCS, CCDS Admit Date: 06/06/2022 01:18:00 AM Patient Name: Figueroa Woods Visit Number: [id number] Discharge Date: ATTENTION: The Clinical Documentation Specialists (CDI) and [facility] Coding Staff appreciate your assistance in clarifying documentation. Please respond to the clarification below the line at the bottom and electronically sign. The CDI & [facility] Coding staff will review the response and follow-up if needed. Please note: Queries are made part of the Legal Health Record. If you have any questions, please contact the author of this message via ITS. Dr. Vladislav Adam: Your patient has the following signs and/or symptoms: SOB for a week, bloated abdomen, Weight is up, some edema. Based on this information and the findings below, is there an additional diagnosis that is clinically appropriate for this patient? History/Risk Factors per the 06/06 H/P: Atrial Fibrillation, Chronic Diastolic CHF, CAD, Diabetes, Hypertension, Hyperlipidemia, Osteoarthritis, Peripheral Neuropathy, COPD & Sleep Apnea uses CPAP, Chronic Cor Pulmonale, Mild - Moderate Mitral Stenosis, Morbid Obesity, BMI 40, CVA affecting vision, former smoker. Clinical Indicators: Presented to the ED on 06/05 with SOB. Admit with CHF Exacerbation. 06/05 VS: T 98, P 83, R 20, BP 129/75, PO 94 RA. 06/06 VS: R 26, PO 92 - 84 RA, 2L - 99 CPAP - 95 4Lnc 06/05 LAB: RBC 2.99, Hgb 10.5, Hct 35.1, Pl Ct 107, Lymph 0.4; Na 133, CO2 30, BUN 48, Creatinine 1.61, Glucose 109, total Bilirubin 2.2, AST 118, Troponin 0.051, 0.051, 0.045 06/05 CXR: Some pleural reaction and atelectasis at both lung bases. No heart failure seen. 06/07 NM lung scan: Low probability of PE 06/06 ECHO: Concentric LVH with preserved LV systolic function. Flattening of the end of ventricular septum consistent with RV pressure overload, Enlarged right ventricle with severe pulmonary hypertension, Severe enlarged left atrium, Bioprosthetic aortic valve, Dilated IVC. Treatment 06/05, 06/06: Acute Respiratory Distress Protocol, Telemetry, CHF Protocol, Hypoglycemia protocol, I&Os, Harry cath initiation, O2 2Lnc/CPAP, IV Lasix 40 mg q12H, po Lopressor BID, INH Ventolin 2.5 mg q4H/prn, INH Symbicort 2 pufs BID, INH Atrovent 0.5 mg QID. 06/08: IV Lasix 80 mg q12H Is there an additional diagnosis that is clinically appropriate for this patient? [ ] Acute Hypoxic Respiratory Failure [ ] Acute Hypercapnic Respiratory Failure [ ] Acute on Chronic Hypoxic Respiratory Failure [ ] Acute on Chronic Hypercapnic Respiratory Failure [ ] Chronic Hypoxic Respiratory Failure [ ] Chronic Hypercapnic Respiratory Failure [ ] Acute Respiratory Distress [ ] Other Diagnosis, please specify: [ ] Unable to determine (Template Last Revised: December 2020) No acute hypoxic respiratory failure MTDD
[2022-06-09 11:53] LABS: Glucose,Whole Blood 272 mg/dL (70-110)
--- NOTE | 2022-06-09 13:38 | P.PN ---
Progress Note - Text Progress Note Date: 06/09/22 Chief Complaint: Short of breath This is a pleasant 87-year-old patient, follows with visiting physicians Dr. Carbajal. Chronic stable medical conditions include atrial fibrillation, CAD, diabetes, hard of hearing, hypertension, hyperlipidemia osteoarthritis, peripheral neuropathy does use CPAP. On extensive medical history. Patient presents with worsening short of breath for one week. Does feel bloated in the abdomen. Normally below. Appetite is okay. Has about 2 bowel movements a week. Denies any fever and chills. His weight has gone up. Harry catheter was placed in the ER. No chest pain. Admitted with CHF exacerbation. Started on IV Lasix. Fluid restriction. June 07: Patient is a female catheter. Good urine. Oral intake fair. Some shortness of breath. Oral intake code. Edema present. IV Lasix. June 08: Lasix increased to 80 mg every 12. Continues to make good urine. Edema still present. Eating fair. Getting some improvement. June 09: Some improvement in breathing. Negative fluid balance. IV Lasix. Oral intake fair. Some decrease in dependent edema. Up in a recliner Active Medications Albuterol Sulfate (Albuterol Nebulized 2.5 Mg/3 Ml) 2.5 mg INHALATION RT-Q4H PRN PRN Reason: Shortness Of Breath Ascorbic Acid (Ascorbic Acid 500 Mg Tab) 1,000 mg PO [facility] Last Admin: 06/08/22 22:07 Dose: 1,000 mg Aspirin (Aspirin 81 Mg) 81 mg PO DAILY [facility] Last Admin: 06/09/22 08:44 Dose: Not Given Atorvastatin Calcium (Atorvastatin 40 Mg Tab) 40 mg PO [facility] Last Admin: 06/08/22 22:07 Dose: 40 mg Budesonide/Formoterol Fumarate (Symbicort 80-4.5 Mcg Inhaler) 2 puff INHALATION RT-BID [facility] Last Admin: 06/09/22 07:56 Dose: 2 puff Cholecalciferol (Cholecalciferol 25 Mcg (1000 Iu) Tablet) 25 mcg PO DAILY [facility] Last Admin: 06/09/22 08:44 Dose: 25 mcg Citalopram Hydrobromide (Citalopram Hydrobromide 20 Mg Tab) 40 mg PO DAILY [facility] Last Admin: 06/09/22 08:44 Dose: 40 mg Cyanocobalamin (Cyanocobalamin 500 Mcg Tab) 1,000 mcg PO DAILY [facility] Last Admin: 06/09/22 08:44 Dose: 1,000 mcg Dextrose/Water (Dextrose 50% Syringe 50 Ml) 25 ml IVP PER PROTOCOL PRN; Protocol PRN Reason: Hypoglycemia Dextrose/Water (Dextrose 50% Syringe 50 Ml) 50 ml IVP PER PROTOCOL PRN; Protocol PRN Reason: Hypoglycemia Docusate Sodium (Docusate 100 Mg Cap) 100 mg PO [facility] Last Admin: 06/08/22 22:07 Dose: 100 mg Finasteride (Finasteride 5 Mg Tab) 5 mg PO DAILY [facility] Last Admin: 06/09/22 08:44 Dose: 5 mg Folic Acid (Folic Acid 1 Mg Tab) 1 mg PO [facility] Last Admin: 06/08/22 22:06 Dose: 1 mg Furosemide (Furosemide 10 Mg/Ml 10 Ml Vial) 80 mg IV Q12H [facility] Last Admin: 06/09/22 06:42 Dose: 80 mg Gabapentin (Gabapentin 300 Mg Cap) 300 mg PO TID [facility] Last Admin: 06/09/22 08:44 Dose: 300 mg Insulin Aspart (Insulin Aspart (Novolog) 100 Unit/Ml Vial) 0 unit SQ AC-TID [facility]; Protocol Last Admin: 06/09/22 12:22 Dose: [address] (Ipratropium 0.5 Mg/2.5 Ml Nebu) 0.5 mg INHALATION RT-QID [facility] Last Admin: 06/09/22 12:07 Dose: 0.5 mg Metoprolol Tartrate (Metoprolol Tartrate 12.5 Mg Tab) 12.5 mg PO BID [facility] Last Admin: 06/09/22 08:44 Dose: 12.5 mg Pantoprazole Sodium (Pantoprazole 40 Mg Tablet) 40 mg PO AC-BID [facility] Last Admin: 06/09/22 06:42 Dose: 40 mg Polyethylene Glycol (Polyethylene Glycol 3350 17 Gm Powd.Pack) 17 gm PO [facility] Last Admin: 06/08/22 22:06 Dose: 17 gm Repaglinide (Repaglinide 1 Mg Tab) 1 mg PO BID [facility] Last Admin: 06/09/22 08:44 Dose: 1 mg Sodium Chloride (Sodium Chloride 0.9% Flush 10 Ml Syringe) 10 ml IV BID [facility] Last Admin: 06/09/22 08:45 Dose: 10 ml Tamsulosin HCl (Tamsulosin 0.4 Mg Cap.Er.24h) 0.4 mg PO DAILY [facility] Last Admin: 06/09/22 08:44 Dose: 0.4 mg Social history: Lives with his . Uses a walker. Patient smoked 3 packs a day for about 16 years stopped in 1966. No alcohol. Family history: Lung cancer Physical examination: VITAL SIGNS: 97.6, 85, 18, 125/66, 94% on 2 L GENERAL: Reclining in chair breathing better EYES: Pupils equal. Conjunctiva normal. HEENT: External appearance of nose and ears normal, oral cavity grossly normal. NECK: JVD possibly raised; masses not palpable. HEART: [First and second heart sounds are normal; dependent edema in the lower back./Thigh LUNGS: Respiratory rate increased; decreased breath sounds. ABDOMEN: Soft, distended nontender, liver spleen not palpable, no masses palpable. PSYCH: Alert and oriented x3; mood and affect normal. MUSCULOSKELETAL:No Clubbing/cyanosis;muscles-grossly intact. OA INVESTIGATIONS, reviewed in the clinical context: June 09: Potassium 4.2 creatinine 1.5 to June 08: Potassium 4.1 creatinine 1.64 VQ scan: Low probability PE June 07: Potassium 4.2 BUN 44 creatinine 1.67 White count 3.9 hemoglobin 10.5 platelets 107 sodium 133 creatinine 1.61 Troponin I 0.051, 0.051, 0.045 EKG tracing personally reviewed by me-rate 87, atrial fibrillation,) [place] block pattern Chest x-ray film personally reviewed by me-some elevation of the right diaphragm. Some cephalization. 2-D echocardiogram: EF 1-65%. Moderate concentric LVH. Severe right ventricular dilatation. Severe pulmonary hypertension. Right ventricle enlargement. Assessment and plan: -Acute and chronic congestive heart failure from diastolic dysfunction EF more than 65%: Slow to respond. Continue IV Lasix 80 mg every 12. Fluid restriction. Follow with cardiology - VQ scan: Low probability for PE -Morbid obesity BMI 40 -Severe secondary pulmonary hypertension -Hyperlipidemia Lipitor 40 mg daily at bedtime -Possible chronic kidney disease, stage III from nephrosclerosis and diabetic nephropathy Follow renal function. Check UA -Depression and anxiety Celexa 40 mg a day -Troponin leak secondary CK D. No clinical evidence of ACS -BPH Proscar 5 mg a day, Flomax -COPD in a previous smoker Resume inhalers -Diabetic peripheral neuropathy Neurontin -GERD 40 mg twice a day -Diabetes mellitus type 2 on oral hypoglycemic Resume Prandin. Follow Accu-Cheks -Cor pulmonale, acute on chronic: Slow to respond IV Lasix -Mild to moderate mitral stenosis Follow with cardiology IV Lasix continue Other medications to continue. Discussed with patient. Fluid restriction. 5 feet with rolling walker with physical therapy.
--- NOTE | 2022-06-09 13:56 | P.PN ---
Subjective Progress Note Date: 06/09/22 HISTORY OF PRESENT ILLNESS: This is a pleasant 87-year-old male past medical history significant for permanent atrial fibrillation status post watchman procedure in 2019, anemia, CV A, hypertension, severe aortic stenosis status post aortic valve replacement, carotid atherosclerosis status post left endarterectomy, mild nonobstructive coronary disease. He follows in the office with Dr. Varela. We have anesthetized the patient in consultation for congestive heart failure. Past few weeks patient has been having worsening increased shortness of breath, bilateral lower extremity edema. He also endorses 30lb weight gain. He endorses no increased salt intake, no change in medications. Compliant with medications. He denies any chest pain, palpitations, lightheadedness, dizziness, syncope or near syncope. Patient was started on IV Lasix on admission. DIAGNOSTICS * EKG reveals atrial fibrillation, heart rate 87, right bundle-branch block * Telemetry tracings indicate atrial fibrillation * Chest xray elevated right diaphgragm, no acute heart failure * Laboratory reviewed, poor BNP 3370, troponin 0.05, 0.05, 0.04, WBC 3.9 Hgb 10.5, platelets 107, sodium 133, potassium pending , bun 48, serum creatinine 1.6 * Current home cardiac medications include atorvastatin 40 mg daily, Bumex 1 mg daily, metoprolol titrate 12.5 mg twice a day * Echocardiogram 08/2020 revealed EF 5055 percent, mild concentric LVH, severely dilated left atrium, mild mitral regurgitation, severe tricuspid regurgitation, severe increased pulmonary artery systolic pressure of 83 mmHg 06/07/2022 Patient was seen this morning. He continues to feel the same according to him. The shortness of breath has been the same. He continues to have bilateral lower lower extremity edema predominantly above the knee bilaterally. No symptoms of chest pain or chest discomfort. Currently he is on Lasix IV at 60 mg twice a day. He underwent an echo which revealed normal LV function with bioprosthetic aortic valve and evidence of moderate aortic stenosis with severely dilated right ventricle and severe pulmonary hypertension which could be contributing to his predominantly right more than left heart failure. 06/08/2022 The patient was seen this morning. Unfortunately he continues to be hypervolemic. He continues to have shortness of breath and also severe bilateral lower extremities edema mostly above the knee bilaterally. On examination he does have bilateral rhonchi as well. I'm going to increase the dose of Lasix to 80 mg IV twice a day. We'll continue monitor the kidney function and electrolytes. His creatinine overall is stable. His pressure has been stable as well. The most recent echo showed normal LV function with bioprosthetic aortic valve and evidence of moderate aortic stenosis with severely dilated right ventricle and severe pulmonary hypertension. 06/09/2022 Patient examined this morning at the bedside. Patient denies chest pain or pressure. He reports mild SOB. He remains on IV lasix 80 mg every 12 hours. Creatinine stable at 1.52. Echocardiogram completed revealing ejection fraction 65% PHYSICAL EXAM: VITAL SIGNS: Reviewed. GENERAL: Well-developed in no acute distress. NECK: Supple. No JVD or thyromegaly LUNGS: Respirations even and unlabored. Lungs diminished with a few crackles at the bases. HEART: Irregular rate and rhythm. S1 and S2 heard. Systolic murmur. EXTREMITIES: Normal range of motion. No clubbing or cyanosis. Peripheral pulses intact. Bilateral lower extremity edema ASSESSMENT: Shortness of breath Acute on chronic heart failure with preserved ejection fraction Permanent atrial fibrillation History of watchman procedure, 2019 Valvular heart disease History of severe aortic stenosis, status post aortic valve replacement History of carotid atherosclerosis, status post left CEA Severe pulmonary hypertension Mild non-obstructive coronary artery disease PLAN: Continue current cardiac medications Continue IV Lasix Monitor kidney function Daily weights Accurate I&O Further recommendations pending patient's course Nurse practitioner note has been reviewed by physician. Signing provider agrees with the documented findings, assessment, and plan of care. Objective - Vital Signs Vital signs: Vital Signs Temp 97.6 F 06/09/22 08:35 Pulse 72 06/09/22 12:18 Resp 20 06/09/22 12:18 BP 107/60 06/09/22 12:18 Pulse Ox 98 06/09/22 12:18 FiO2 2 06/07/22 23:15 Intake & Output 06/08/22 06/09/22 06/09/22 18:59 06:59 18:59 Intake Total 740 300 180 Output Total 700 1250 900 Balance 40 -950 -720 Weight 116 kg Intake: Oral 740 300 180 Output: Urine 700 1250 900 Other: Voiding Method Diaper Diaper Diaper External Catheter External Catheter External Catheter - Labs CBC & Chem 7: 06/05/22 21:51 06/09/22 07:06 Labs: Abnormal Lab Results - Last 24 Hours (Table) 06/08/22 06/08/22 06/09/22 Range/Units 16:36 20:07 07:06 Carbon Dioxide 38 H (22-30) mmol/L BUN 43 H (9-20) mg/dL Creatinine 1.52 H (0.66-1.25) mg/dL POC Glucose (mg/dL) 196 H 135 H (70-110) mg/dL 06/09/22 Range/Units 11:51 Carbon Dioxide (22-30) mmol/L BUN (9-20) mg/dL Creatinine (0.66-1.25) mg/dL POC Glucose (mg/dL) 272 H (70-110) mg/dL
[2022-06-09 16:16] LABS: Glucose,Whole Blood 189 mg/dL (70-110)
[2022-06-09 19:59] LABS: Glucose,Whole Blood 153 mg/dL (70-110)
[2022-06-09] MEDS: ATORVASTATIN 40 MG TAB PO SCH (23:05)
[2022-06-09] MEDS: ASCORBIC ACID 500 MG TAB PO SCH (23:05)
[2022-06-09] MEDS: polyethylene glycoL 3350 17 GM POWD.PACK PO SCH (23:05)
[2022-06-09] MEDS: DOCUSATE 100 MG CAP PO SCH (23:05)
[2022-06-09] MEDS: FOLIC ACID 1 MG TAB PO SCH (23:05)
[2022-06-10 05:54] LABS: Glucose,Whole Blood 91 mg/dL (70-110)
[2022-06-10] MEDS: INSULIN ASPART (NovoLOG) 100 UNIT/ML VIAL SQ SCH ×3 (06:24→17:08)
[2022-06-10] MEDS: FUROSEMIDE 10 MG/ML 10 ML VIAL IV SCH ×2 (06:26→17:07)
[2022-06-10] MEDS: PANTOPRAZOLE 40 MG TABLET PO SCH ×2 (06:26→17:07)
[2022-06-10] MEDS: SYMBICORT 80-4.5 MCG INHALER INHALATION SCH ×2 (08:07→20:02)
[2022-06-10] MEDS: IPRATROPIUM 0.5 MG/2.5 ML NEBU INHALATION SCH ×4 (08:07→20:02)
[2022-06-10] MEDS: GABAPENTIN 300 MG CAP PO SCH ×3 (08:41→20:33)
[2022-06-10] MEDS: CHOLECALCIFEROL 25 MCG (1000 IU) TABLET PO SCH (08:41)
[2022-06-10] MEDS: TAMSULOSIN 0.4 MG CAP.ER.24H PO SCH (08:42)
[2022-06-10] MEDS: CYANOCOBALAMIN 500 MCG TAB PO SCH (08:42)
[2022-06-10] MEDS: CITALOPRAM HYDROBROMIDE 20 MG TAB PO SCH (08:42)
[2022-06-10] MEDS: REPAGLINIDE 1 MG TAB PO SCH ×2 (08:42→20:33)
[2022-06-10] MEDS: FINASTERIDE 5 MG TAB PO SCH (08:42)
[2022-06-10] MEDS: ASPIRIN 81 MG PO SCH (08:42)
[2022-06-10] MEDS: METOPROLOL TARTRATE 12.5 MG TAB PO SCH ×2 (08:42→20:33)
--- NOTE | 2022-06-10 10:47 | P.PN ---
Progress Note - Text Progress Note Date: 06/10/22 Chief Complaint: Short of breath This is a pleasant 87-year-old patient, follows with visiting physicians Dr. Carbajal. Chronic stable medical conditions include atrial fibrillation, CAD, diabetes, hard of hearing, hypertension, hyperlipidemia osteoarthritis, peripheral neuropathy does use CPAP. On extensive medical history. Patient presents with worsening short of breath for one week. Does feel bloated in the abdomen. Normally below. Appetite is okay. Has about 2 bowel movements a week. Denies any fever and chills. His weight has gone up. Harry catheter was placed in the ER. No chest pain. Admitted with CHF exacerbation. Started on IV Lasix. Fluid restriction. June 07: Patient is a female catheter. Good urine. Oral intake fair. Some shortness of breath. Oral intake code. Edema present. IV Lasix. June 08: Lasix increased to 80 mg every 12. Continues to make good urine. Edema still present. Eating fair. Getting some improvement. June 09: Some improvement in breathing. Negative fluid balance. IV Lasix. Oral intake fair. Some decrease in dependent edema. Up in a recliner June 10: Continues on IV Lasix. Difficult for I and O because of perineal anatomy. Breathing slowly improving. Edema present. Active Medications Albuterol Sulfate (Albuterol Nebulized 2.5 Mg/3 Ml) 2.5 mg INHALATION RT-Q4H PRN PRN Reason: Shortness Of Breath Ascorbic Acid (Ascorbic Acid 500 Mg Tab) 1,000 mg PO [facility] Last Admin: 06/09/22 23:05 Dose: 1,000 mg Aspirin (Aspirin 81 Mg) 81 mg PO DAILY [facility] Last Admin: 06/10/22 08:42 Dose: 81 mg Atorvastatin Calcium (Atorvastatin 40 Mg Tab) 40 mg PO [facility] Last Admin: 06/09/22 23:05 Dose: 40 mg Budesonide/Formoterol Fumarate (Symbicort 80-4.5 Mcg Inhaler) 2 puff INHALATION RT-BID [facility] Last Admin: 06/10/22 08:07 Dose: 2 puff Cholecalciferol (Cholecalciferol 25 Mcg (1000 Iu) Tablet) 25 mcg PO DAILY [facility] Last Admin: 06/10/22 08:41 Dose: 25 mcg Citalopram Hydrobromide (Citalopram Hydrobromide 20 Mg Tab) 40 mg PO DAILY [facility] Last Admin: 06/10/22 08:42 Dose: 40 mg Cyanocobalamin (Cyanocobalamin 500 Mcg Tab) 1,000 mcg PO DAILY [facility] Last Admin: 06/10/22 08:42 Dose: 1,000 mcg Dextrose/Water (Dextrose 50% Syringe 50 Ml) 25 ml IVP PER PROTOCOL PRN; Protocol PRN Reason: Hypoglycemia Dextrose/Water (Dextrose 50% Syringe 50 Ml) 50 ml IVP PER PROTOCOL PRN; Protocol PRN Reason: Hypoglycemia Docusate Sodium (Docusate 100 Mg Cap) 100 mg PO [facility] Last Admin: 06/09/22 23:05 Dose: 100 mg Finasteride (Finasteride 5 Mg Tab) 5 mg PO DAILY [facility] Last Admin: 06/10/22 08:42 Dose: 5 mg Folic Acid (Folic Acid 1 Mg Tab) 1 mg PO [facility] Last Admin: 06/09/22 23:05 Dose: 1 mg Furosemide (Furosemide 10 Mg/Ml 10 Ml Vial) 80 mg IV Q12H [facility] Last Admin: 06/10/22 06:26 Dose: 80 mg Gabapentin (Gabapentin 300 Mg Cap) 300 mg PO TID [facility] Last Admin: 06/10/22 08:41 Dose: 300 mg Insulin Aspart (Insulin Aspart (Novolog) 100 Unit/Ml Vial) 0 unit SQ AC-TID [facility]; Protocol Last Admin: 06/10/22 06:24 Dose: Not Given Ipratropium [place] (Ipratropium 0.5 Mg/2.5 Ml Nebu) 0.5 mg INHALATION RT-QID [facility] Last Admin: 06/10/22 08:07 Dose: 0.5 mg Metoprolol Tartrate (Metoprolol Tartrate 12.5 Mg Tab) 12.5 mg PO BID [facility] Last Admin: 06/10/22 08:42 Dose: 12.5 mg Pantoprazole Sodium (Pantoprazole 40 Mg Tablet) 40 mg PO AC-BID [facility] Last Admin: 06/10/22 06:26 Dose: 40 mg Polyethylene Glycol (Polyethylene Glycol 3350 17 Gm Powd.Pack) 17 gm PO [facility] Last Admin: 06/09/22 23:05 Dose: 17 gm Repaglinide (Repaglinide 1 Mg Tab) 1 mg PO BID [facility] Last Admin: 06/10/22 08:42 Dose: 1 mg Sodium Chloride (Sodium Chloride 0.9% Flush 10 Ml Syringe) 10 ml IV BID [facility] Last Admin: 06/10/22 08:43 Dose: 10 ml Tamsulosin HCl (Tamsulosin 0.4 Mg Cap.Er.24h) 0.4 mg PO DAILY [facility] Last Admin: 06/10/22 08:42 Dose: 0.4 mg Social history: Lives with his . Uses a walker. Patient smoked 3 packs a day for about 16 years stopped in 1966. No alcohol. Family history: Lung cancer Physical examination: VITAL SIGNS: 98, 100, 20, 1 24 x 65, 96% on 2 L GENERAL: Reclining in bed breathing better EYES: Pupils equal. Conjunctiva normal. HEENT: External appearance of nose and ears normal, oral cavity grossly normal. NECK: JVD possibly raised; masses not palpable. HEART: [First and second heart sounds are normal; dependent edema in the lower back./Thigh LUNGS: Respiratory rate increased; decreased breath sounds. ABDOMEN: Soft, distended nontender, liver spleen not palpable, no masses palpable. PSYCH: Alert and oriented x3; mood and affect normal. MUSCULOSKELETAL:No Clubbing/cyanosis;muscles-grossly intact. OA INVESTIGATIONS, reviewed in the clinical context: June 09: Potassium 4.2 creatinine 1.5 to June 08: Potassium 4.1 creatinine 1.64 VQ scan: Low probability PE June 07: Potassium 4.2 BUN 44 creatinine 1.67 White count 3.9 hemoglobin 10.5 platelets 107 sodium 133 creatinine 1.61 Troponin I 0.051, 0.051, 0.045 EKG tracing personally reviewed by me-rate 87, atrial fibrillation,) [place] block pattern Chest x-ray film personally reviewed by me-some elevation of the right diaphragm. Some cephalization. 2-D echocardiogram: EF 1-65%. Moderate concentric LVH. Severe right ventricular dilatation. Severe pulmonary hypertension. Right ventricle enlargement. Assessment and plan: -Acute and chronic congestive heart failure from diastolic dysfunction EF more than 65%: Slow to respond. Continue IV Lasix 80 mg every 12. Fluid restriction. Follow with cardiology - VQ scan: Low probability for PE -Morbid obesity BMI 40 -Severe secondary pulmonary hypertension -Hyperlipidemia Lipitor 40 mg daily at bedtime -Possible chronic kidney disease, stage III from nephrosclerosis and diabetic nephropathy Follow renal function. Check UA -Depression and anxiety Celexa 40 mg a day -Troponin leak secondary CK D. No clinical evidence of ACS -BPH Proscar 5 mg a day, Flomax -COPD in a previous smoker Resume inhalers -Diabetic peripheral neuropathy Neurontin -GERD 40 mg twice a day -Diabetes mellitus type 2 on oral hypoglycemic Resume Prandin. Follow Accu-Cheks -Cor pulmonale, acute on chronic: Slow to respond IV Lasix -Mild to moderate mitral stenosis Follow with cardiology IV Lasix continue follow labs. Discussed with patient. Fluid restriction. PTOT.
--- NOTE | 2022-06-10 11:41 | P.PN ---
Subjective Progress Note Date: 06/10/22 HISTORY OF PRESENT ILLNESS: This is a pleasant 87-year-old male past medical history significant for permanent atrial fibrillation status post watchman procedure in 2019, anemia, CV A, hypertension, severe aortic stenosis status post aortic valve replacement, carotid atherosclerosis status post left endarterectomy, mild nonobstructive coronary disease. He follows in the office with Dr. Varela. We have anesthetized the patient in consultation for congestive heart failure. Past few weeks patient has been having worsening increased shortness of breath, bilateral lower extremity edema. He also endorses 30lb weight gain. He endorses no increased salt intake, no change in medications. Compliant with medications. He denies any chest pain, palpitations, lightheadedness, dizziness, syncope or near syncope. Patient was started on IV Lasix on admission. DIAGNOSTICS * EKG reveals atrial fibrillation, heart rate 87, right bundle-branch block * Telemetry tracings indicate atrial fibrillation * Chest xray elevated right diaphgragm, no acute heart failure * Laboratory reviewed, poor BNP 3370, troponin 0.05, 0.05, 0.04, WBC 3.9 Hgb 10.5, platelets 107, sodium 133, potassium pending , bun 48, serum creatinine 1.6 * Current home cardiac medications include atorvastatin 40 mg daily, Bumex 1 mg daily, metoprolol titrate 12.5 mg twice a day * Echocardiogram 08/2020 revealed EF 5055 percent, mild concentric LVH, severely dilated left atrium, mild mitral regurgitation, severe tricuspid regurgitation, severe increased pulmonary artery systolic pressure of 83 mmHg 06/07/2022 Patient was seen this morning. He continues to feel the same according to him. The shortness of breath has been the same. He continues to have bilateral lower lower extremity edema predominantly above the knee bilaterally. No symptoms of chest pain or chest discomfort. Currently he is on Lasix IV at 60 mg twice a day. He underwent an echo which revealed normal LV function with bioprosthetic aortic valve and evidence of moderate aortic stenosis with severely dilated right ventricle and severe pulmonary hypertension which could be contributing to his predominantly right more than left heart failure. 06/08/2022 The patient was seen this morning. Unfortunately he continues to be hypervolemic. He continues to have shortness of breath and also severe bilateral lower extremities edema mostly above the knee bilaterally. On examination he does have bilateral rhonchi as well. I'm going to increase the dose of Lasix to 80 mg IV twice a day. We'll continue monitor the kidney function and electrolytes. His creatinine overall is stable. His pressure has been stable as well. The most recent echo showed normal LV function with bioprosthetic aortic valve and evidence of moderate aortic stenosis with severely dilated right ventricle and severe pulmonary hypertension. 06/09/2022 Patient examined this morning at the bedside. Patient denies chest pain or pressure. He reports mild SOB. He remains on IV lasix 80 mg every 12 hours. Creatinine stable at 1.52. Echocardiogram completed revealing ejection fraction 65% 06/10/2022 Patient examined this morning at the bedside. Patient denies chest pain or pressure. He denies shortness of breath. He continues to report lower extremit y edema. Patient remains on IV Lasix 80 mg every 12 hours. Patient reports good urine output. PHYSICAL EXAM: VITAL SIGNS: Reviewed. GENERAL: Well-developed in no acute distress. NECK: Supple. No JVD or thyromegaly LUNGS: Respirations even and unlabored. Lungs diminished. HEART: Irregular rate and rhythm. S1 and S2 heard. Systolic murmur. EXTREMITIES: Normal range of motion. No clubbing or cyanosis. Peripheral pulses intact. Bilateral lower extremity edema ASSESSMENT: Shortness of breath Acute on chronic heart failure with preserved ejection fraction Permanent atrial fibrillation History of watchman procedure, 2019 Valvular heart disease History of severe aortic stenosis, status post aortic valve replacement History of carotid atherosclerosis, status post left CEA Severe pulmonary hypertension Mild non-obstructive coronary artery disease PLAN: Continue current cardiac medications Continue IV Lasix Monitor kidney function. Awaiting repeat labs from this morning. Daily weights Accurate I&O Further recommendations pending patient's course Nurse practitioner note has been reviewed by physician. Signing provider agrees with the documented findings, assessment, and plan of care. Objective - Vital Signs Vital signs: Vital Signs Temp 98 F 06/10/22 04:00 Pulse 87 06/10/22 11:31 Resp 20 06/10/22 08:00 BP 124/65 06/10/22 08:00 Pulse Ox 97 06/10/22 08:07 FiO2 2 06/07/22 23:15 Intake & Output 06/09/22 06/10/22 06/10/22 18:59 06:59 18:59 Intake Total 360 Output Total 1200 100 Balance -840 -100 Weight 114.9 kg Intake: Oral 360 Output: Urine 1200 100 Other: Voiding Method Diaper Diaper Urinal External Catheter External Catheter Diaper - Labs CBC & Chem 7: 06/05/22 21:51 06/09/22 07:06 Labs: Abnormal Lab Results - Last 24 Hours (Table) 06/09/22 06/09/22 06/09/22 Range/Units 11:51 16:15 19:58 POC Glucose (mg/dL) 272 H 189 H 153 H (70-110) mg/dL
[2022-06-10 11:46] LABS: Calcium 8.5 mg/dL (8.4-10.2); Potassium 3.8 mmol/L (3.5-5.1)
[2022-06-10 11:55] LABS: Glucose,Whole Blood 117 mg/dL (70-110)
[2022-06-10 16:22] LABS: Glucose,Whole Blood 185 mg/dL (70-110)
[2022-06-10 20:14] LABS: Glucose,Whole Blood 149 mg/dL (70-110)
[2022-06-10] MEDS: DOCUSATE 100 MG CAP PO SCH (20:33)
[2022-06-10] MEDS: FOLIC ACID 1 MG TAB PO SCH (20:33)
[2022-06-10] MEDS: ATORVASTATIN 40 MG TAB PO SCH (20:34)
[2022-06-10] MEDS: polyethylene glycoL 3350 17 GM POWD.PACK PO SCH (20:34)
[2022-06-10] MEDS: ASCORBIC ACID 500 MG TAB PO SCH (20:38)
[2022-06-11 05:35] LABS: Glucose,Whole Blood 105 mg/dL (70-110)
[2022-06-11] MEDS: INSULIN ASPART (NovoLOG) 100 UNIT/ML VIAL SQ SCH ×3 (06:32→17:37)
[2022-06-11] MEDS: FUROSEMIDE 10 MG/ML 10 ML VIAL IV SCH ×2 (06:42→17:42)
[2022-06-11] MEDS: PANTOPRAZOLE 40 MG TABLET PO SCH ×2 (06:43→17:42)
[2022-06-11] MEDS: IPRATROPIUM 0.5 MG/2.5 ML NEBU INHALATION SCH ×4 (07:41→19:38)
[2022-06-11] MEDS: SYMBICORT 80-4.5 MCG INHALER INHALATION SCH ×2 (07:42→19:38)
[2022-06-11 09:39] LABS: Calcium 8.8 mg/dL (8.4-10.2); Potassium 3.6 mmol/L (3.5-5.1)
[2022-06-11] MEDS: CHOLECALCIFEROL 25 MCG (1000 IU) TABLET PO SCH (11:01)
[2022-06-11] MEDS: CITALOPRAM HYDROBROMIDE 20 MG TAB PO SCH (11:01)
[2022-06-11] MEDS: ASPIRIN 81 MG PO SCH (11:01)
[2022-06-11] MEDS: METOPROLOL TARTRATE 12.5 MG TAB PO SCH ×2 (11:01→20:16)
[2022-06-11] MEDS: GABAPENTIN 300 MG CAP PO SCH ×3 (11:01→20:16)
[2022-06-11] MEDS: FINASTERIDE 5 MG TAB PO SCH (11:01)
[2022-06-11] MEDS: CYANOCOBALAMIN 500 MCG TAB PO SCH (11:01)
[2022-06-11] MEDS: REPAGLINIDE 1 MG TAB PO SCH ×2 (11:01→20:16)
[2022-06-11] MEDS: TAMSULOSIN 0.4 MG CAP.ER.24H PO SCH (11:01)
--- NOTE | 2022-06-11 11:47 | P.PN ---
Subjective Progress Note Date: 06/11/22 HISTORY OF PRESENT ILLNESS: This is a pleasant 87-year-old male past medical history significant for permanent atrial fibrillation status post watchman procedure in 2019, anemia, CV A, hypertension, severe aortic stenosis status post aortic valve replacement, carotid atherosclerosis status post left endarterectomy, mild nonobstructive coronary disease. He follows in the office with Dr. Varela. We have anesthetized the patient in consultation for congestive heart failure. Past few weeks patient has been having worsening increased shortness of breath, bilateral lower extremity edema. He also endorses 30lb weight gain. He endorses no increased salt intake, no change in medications. Compliant with medications. He denies any chest pain, palpitations, lightheadedness, dizziness, syncope or near syncope. Patient was started on IV Lasix on admission. DIAGNOSTICS * EKG reveals atrial fibrillation, heart rate 87, right bundle-branch block * Telemetry tracings indicate atrial fibrillation * Chest xray elevated right diaphgragm, no acute heart failure * Laboratory reviewed, poor BNP 3370, troponin 0.05, 0.05, 0.04, WBC 3.9 Hgb 10.5, platelets 107, sodium 133, potassium pending , bun 48, serum creatinine 1.6 * Current home cardiac medications include atorvastatin 40 mg daily, Bumex 1 mg daily, metoprolol titrate 12.5 mg twice a day * Echocardiogram 08/2020 revealed EF 5055 percent, mild concentric LVH, severely dilated left atrium, mild mitral regurgitation, severe tricuspid regurgitation, severe increased pulmonary artery systolic pressure of 83 mmHg 06/07/2022 Patient was seen this morning. He continues to feel the same according to him. The shortness of breath has been the same. He continues to have bilateral lower lower extremity edema predominantly above the knee bilaterally. No symptoms of chest pain or chest discomfort. Currently he is on Lasix IV at 60 mg twice a day. He underwent an echo which revealed normal LV function with bioprosthetic aortic valve and evidence of moderate aortic stenosis with severely dilated right ventricle and severe pulmonary hypertension which could be contributing to his predominantly right more than left heart failure. 06/08/2022 The patient was seen this morning. Unfortunately he continues to be hypervolemic. He continues to have shortness of breath and also severe bilateral lower extremities edema mostly above the knee bilaterally. On examination he does have bilateral rhonchi as well. I'm going to increase the dose of Lasix to 80 mg IV twice a day. We'll continue monitor the kidney function and electrolytes. His creatinine overall is stable. His pressure has been stable as well. The most recent echo showed normal LV function with bioprosthetic aortic valve and evidence of moderate aortic stenosis with severely dilated right ventricle and severe pulmonary hypertension. 06/09/2022 Patient examined this morning at the bedside. Patient denies chest pain or pressure. He reports mild SOB. He remains on IV lasix 80 mg every 12 hours. Creatinine stable at 1.52. Echocardiogram completed revealing ejection fraction 65% 06/10/2022 Patient examined this morning at the bedside. Patient denies chest pain or pressure. He denies shortness of breath. He continues to report lower extremit y edema. Patient remains on IV Lasix 80 mg every 12 hours. Patient reports good urine output. 06/11/2022 Patient examined this morning at the bedside. Patient denies chest pain or pressure. He denies shortness of breath. He continues to report lower extremity edema. Patient remains on IV Lasix 80 mg every 12 hours. Creatinine stable at 1.40. PHYSICAL EXAM: VITAL SIGNS: Reviewed. GENERAL: Well-developed in no acute distress. NECK: Supple. No JVD or thyromegaly LUNGS: Respirations even and unlabored. Lungs diminished. HEART: Irregular rate and rhythm. S1 and S2 heard. Systolic murmur. EXTREMITIES: Normal range of motion. No clubbing or cyanosis. Peripheral pulses intact. 2+ bilateral lower extremity edema, slowly improving ASSESSMENT: Shortness of breath Acute on chronic heart failure with preserved ejection fraction Permanent atrial fibrillation History of watchman procedure, 2019 Valvular heart disease History of severe aortic stenosis, status post aortic valve replacement History of carotid atherosclerosis, status post left CEA Severe pulmonary hypertension Mild non-obstructive coronary artery disease PLAN: Continue current cardiac medications Continue IV Lasix Monitor kidney function Daily weights Accurate I&O Further recommendations pending patient's course Nurse practitioner note has been reviewed by physician. Signing provider agrees with the documented findings, assessment, and plan of care. Objective - Vital Signs Vital signs: Vital Signs Temp 97.6 F 06/11/22 09:14 Pulse 106 H 06/11/22 11:29 Resp 20 06/11/22 09:14 BP 118/67 06/11/22 09:14 Pulse Ox 95 06/11/22 09:14 FiO2 2 06/07/22 23:15 Intake & Output 06/10/22 06/11/22 06/11/22 18:59 06:59 18:59 Intake Total 684 100 180 Output Total 750 1600 150 Balance -66 -1500 30 Intake: Oral 684 100 180 Output: Urine 750 1600 150 Other: Voiding Method Urinal Urinal Urinal Diaper Diaper Diaper # Voids 2 - Labs CBC & Chem 7: 06/05/22 21:51 06/11/22 08:40 Labs: Abnormal Lab Results - Last 24 Hours (Table) 06/10/22 06/10/22 06/10/22 Range/Units 11:01 11:52 16:19 Chloride 96 L (98-107) mmol/L Carbon Dioxide 38 H (22-30) mmol/L BUN 42 H (9-20) mg/dL Creatinine 1.30 H (0.66-1.25) mg/dL Glucose 114 H (74-99) mg/dL POC Glucose (mg/dL) 117 H 185 H (70-110) mg/dL 06/10/22 06/11/22 Range/Units 20:13 08:40 Chloride 96 L (98-107) mmol/L Carbon Dioxide 39 H (22-30) mmol/L BUN 47 H (9-20) mg/dL Creatinine 1.40 H (0.66-1.25) mg/dL Glucose 103 H (74-99) mg/dL POC Glucose (mg/dL) 149 H (70-110) mg/dL
[2022-06-11 12:00] LABS: Glucose,Whole Blood 201 mg/dL (70-110)
[2022-06-11] MEDS: acetaZOLAMIDE 250 MG TAB PO SCH ×2 (12:36→20:16)
--- NOTE | 2022-06-11 13:43 | P.PN ---
Progress Note - Text Progress Note Date: 06/11/22 Chief Complaint: Short of breath This is a pleasant 87-year-old patient, follows with visiting physicians Dr. Carbajal. Chronic stable medical conditions include atrial fibrillation, CAD, diabetes, hard of hearing, hypertension, hyperlipidemia osteoarthritis, peripheral neuropathy does use CPAP. On extensive medical history. Patient presents with worsening short of breath for one week. Does feel bloated in the abdomen. Normally below. Appetite is okay. Has about 2 bowel movements a week. Denies any fever and chills. His weight has gone up. Harry catheter was placed in the ER. No chest pain. Admitted with CHF exacerbation. Started on IV Lasix. Fluid restriction. June 07: Patient is a female catheter. Good urine. Oral intake fair. Some shortness of breath. Oral intake code. Edema present. IV Lasix. June 08: Lasix increased to 80 mg every 12. Continues to make good urine. Edema still present. Eating fair. Getting some improvement. June 09: Some improvement in breathing. Negative fluid balance. IV Lasix. Oral intake fair. Some decrease in dependent edema. Up in a recliner June 10: Continues on IV Lasix. Difficult for I and O because of perineal anatomy. Breathing slowly improving. Edema present. June 11: Up in bed. Getting IV Lasix. Making urine. Some fungal infection the perineal area. Diflucan powder. Week. Looking to go to rehab. Continue IV Lasix. Eating fair. Active Medications Acetazolamide (Acetazolamide 250 Mg Tab) 250 mg PO BID [facility] Last Admin: 06/11/22 12:36 Dose: 250 mg Albuterol Sulfate (Albuterol Nebulized 2.5 Mg/3 Ml) 2.5 mg INHALATION RT-Q4H PRN PRN Reason: Shortness Of Breath Ascorbic Acid (Ascorbic Acid 500 Mg Tab) 1,000 mg PO [facility] Last Admin: 06/10/22 20:38 Dose: 1,000 mg Aspirin (Aspirin 81 Mg) 81 mg PO DAILY [facility] Last Admin: 06/11/22 11:01 Dose: 81 mg Atorvastatin Calcium (Atorvastatin 40 Mg Tab) 40 mg PO [facility] Last Admin: 06/10/22 20:34 Dose: 40 mg Budesonide/Formoterol Fumarate (Symbicort 80-4.5 Mcg Inhaler) 2 puff INHALATION RT-BID [facility] Last Admin: 06/11/22 07:42 Dose: 2 puff Cholecalciferol (Cholecalciferol 25 Mcg (1000 Iu) Tablet) 25 mcg PO DAILY [facility] Last Admin: 06/11/22 11:01 Dose: 25 mcg Citalopram Hydrobromide (Citalopram Hydrobromide 20 Mg Tab) 40 mg PO DAILY [facility] Last Admin: 06/11/22 11:01 Dose: 40 mg Cyanocobalamin (Cyanocobalamin 500 Mcg Tab) 1,000 mcg PO DAILY [facility] Last Admin: 06/11/22 11:01 Dose: 1,000 mcg Dextrose/Water (Dextrose 50% Syringe 50 Ml) 25 ml IVP PER PROTOCOL PRN; Protocol PRN Reason: Hypoglycemia Dextrose/Water (Dextrose 50% Syringe 50 Ml) 50 ml IVP PER PROTOCOL PRN; Pr otocol PRN Reason: Hypoglycemia Docusate Sodium (Docusate 100 Mg Cap) 100 mg PO HS [facility] Last Admin: 06/10/22 20:33 Dose: 100 mg Finasteride (Finasteride 5 Mg Tab) 5 mg PO DAILY [facility] Last Admin: 06/11/22 11:01 Dose: 5 mg Folic Acid (Folic Acid 1 Mg Tab) 1 mg PO HS [facility] Last Admin: 06/10/22 20:33 Dose: 1 mg Furosemide (Furosemide 10 Mg/Ml 10 Ml Vial) 80 mg IV Q12H [facility] Last Admin: 06/11/22 06:42 Dose: 80 mg Gabapentin (Gabapentin 300 Mg Cap) 300 mg PO TID [facility] Last Admin: 06/11/22 11:01 Dose: 300 mg Insulin Aspart (Insulin Aspart (Novolog) 100 Unit/Ml Vial) 0 unit SQ AC-TID [facility]; Protocol Last Admin: 06/11/22 12:36 Dose: 4 unit Ipratropium [place] (Ipratropium 0.5 Mg/2.5 Ml Nebu) 0.5 mg INHALATION RT-QID [facility] Last Admin: 06/11/22 11:19 Dose: 0.5 mg Metoprolol Tartrate (Metoprolol Tartrate 12.5 Mg Tab) 12.5 mg PO BID [facility] Last Admin: 06/11/22 11:01 Dose: 12.5 mg Pantoprazole Sodium (Pantoprazole 40 Mg Tablet) 40 mg PO AC-BID [facility] Last Admin: 06/11/22 06:43 Dose: 40 mg Polyethylene Glycol (Polyethylene Glycol 3350 17 Gm Powd.Pack) 17 gm PO HS [facility] Last Admin: 06/10/22 20:34 Dose: 17 gm Repaglinide (Repaglinide 1 Mg Tab) 1 mg PO BID [facility] Last Admin: 06/11/22 11:01 Dose: 1 mg Sodium Chloride (Sodium Chloride 0.9% Flush 10 Ml Syringe) 10 ml IV BID [facility] Last Admin: 06/11/22 11:02 Dose: 10 ml Tamsulosin HCl (Tamsulosin 0.4 Mg Cap.Er.24h) 0.4 mg PO DAILY [facility] Last Admin: 06/11/22 11:01 Dose: 0.4 mg Social history: Lives with his . Uses a walker. Patient smoked 3 packs a day for about 16 years stopped in 1966. No alcohol. Family history: Lung cancer Physical examination: VITAL SIGNS: 97.6, 103, 20, 108 x 67, 95% on 2 L GENERAL: Reclining in bed breathing better EYES: Pupils equal. Conjunctiva normal. HEENT: External appearance of nose and ears normal, oral cavity grossly normal. NECK: JVD possibly raised; masses not palpable. HEART: [First and second heart sounds are normal; dependent edema in the lower back./Thigh LUNGS: Respiratory rate increased; decreased breath sounds. ABDOMEN: Soft, distended nontender, liver spleen not palpable, no masses palpable. PSYCH: Alert and oriented x3; mood and affect normal. MUSCULOSKELETAL:No Clubbing/cyanosis;muscles-grossly intact. OA INVESTIGATIONS, reviewed in the clinical context: June 11: Potassium 3.6 BUN 47 creatinine 1.40 June 09: Potassium 4.2 creatinine 1.5 to June 08: Potassium 4.1 creatinine 1.64 VQ scan: Low probability PE June 07: Potassium 4.2 BUN 44 creatinine 1.67 White count 3.9 hemoglobin 10.5 platelets 107 sodium 133 creatinine 1.61 Troponin I 0.051, 0.051, 0.045 EKG tracing personally reviewed by me-rate 87, atrial fibrillation,) Addis block pattern Chest x-ray film personally reviewed by me-some elevation of the right diaphragm. Some cephalization. 2-D echocardiogram: EF 1-65%. Moderate concentric LVH. Severe right ventricular dilatation. Severe pulmonary hypertension. Right ventricle enlargement. Assessment and plan: -Acute and chronic congestive heart failure from diastolic dysfunction EF more than 65%: Slow to respond. Continue IV Lasix 80 mg every 12. Fluid restriction. Follow with cardiology -Metabolic alkalosis from volume contraction Add Diamox 250 mg twice a day - VQ scan: Low probability for PE -Morbid obesity BMI 40 -Severe secondary pulmonary hypertension -Hyperlipidemia Lipitor 40 mg daily at bedtime -Possible chronic kidney disease, stage III from nephrosclerosis and diabetic nephropathy Follow renal function. Check UA -Depression and anxiety Celexa 40 mg a day -Troponin leak secondary CK D. No clinical evidence of ACS -BPH Proscar 5 mg a day, Flomax -COPD in a previous smoker Resume inhalers -Diabetic peripheral neuropathy Neurontin -GERD 40 mg twice a day -Diabetes mellitus type 2 on oral hypoglycemic Resume Prandin. Follow Accu-Cheks -Cor pulmonale, acute on chronic: Slow to respond IV Lasix -Mild to moderate mitral stenosis Follow with cardiology -Acute on chronic medical debility Looking at rehab placement IV Lasix continue . Add Diamox 250 mg twice a day. Looking at rehab placement.. Fluid restriction. PTOT.
[2022-06-11 16:52] LABS: Glucose,Whole Blood 120 mg/dL (70-110)
[2022-06-11 19:57] LABS: Glucose,Whole Blood 154 mg/dL (70-110)
[2022-06-11] MEDS: ATORVASTATIN 40 MG TAB PO SCH (20:16)
[2022-06-11] MEDS: ASCORBIC ACID 500 MG TAB PO SCH (20:16)
[2022-06-11] MEDS: FOLIC ACID 1 MG TAB PO SCH (20:17)
[2022-06-11] MEDS: DOCUSATE 100 MG CAP PO SCH (20:17)
[2022-06-11] MEDS: polyethylene glycoL 3350 17 GM POWD.PACK PO SCH (20:17)
[2022-06-12] MEDS: FUROSEMIDE 10 MG/ML 10 ML VIAL IV SCH ×2 (06:03→17:09)
[2022-06-12] MEDS: PANTOPRAZOLE 40 MG TABLET PO SCH ×2 (06:03→17:09)
[2022-06-12] MEDS: INSULIN ASPART (NovoLOG) 100 UNIT/ML VIAL SQ SCH ×3 (06:27→16:50)
[2022-06-12 06:29] LABS: Glucose,Whole Blood 93 mg/dL (70-110)
[2022-06-12] MEDS: IPRATROPIUM 0.5 MG/2.5 ML NEBU INHALATION SCH ×4 (08:22→21:03)
[2022-06-12] MEDS: SYMBICORT 80-4.5 MCG INHALER INHALATION SCH ×2 (08:22→21:03)
[2022-06-12] MEDS: acetaZOLAMIDE 250 MG TAB PO SCH ×2 (09:53→20:25)
[2022-06-12] MEDS: TAMSULOSIN 0.4 MG CAP.ER.24H PO SCH (09:53)
[2022-06-12] MEDS: ASPIRIN 81 MG PO SCH ×2 (09:54→09:57)
[2022-06-12] MEDS: GABAPENTIN 300 MG CAP PO SCH ×3 (09:54→20:25)
[2022-06-12] MEDS: METOPROLOL TARTRATE 12.5 MG TAB PO SCH ×2 (09:54→20:25)
[2022-06-12] MEDS: FINASTERIDE 5 MG TAB PO SCH (09:54)
[2022-06-12] MEDS: REPAGLINIDE 1 MG TAB PO SCH ×2 (09:54→20:25)
[2022-06-12] MEDS: CYANOCOBALAMIN 500 MCG TAB PO SCH (09:54)
[2022-06-12] MEDS: CHOLECALCIFEROL 25 MCG (1000 IU) TABLET PO SCH (09:54)
[2022-06-12] MEDS: CITALOPRAM HYDROBROMIDE 20 MG TAB PO SCH (09:54)
--- NOTE | 2022-06-12 10:50 | P.CONS ---
History of Present Illness - Reason for Consult Consult date: 06/12/22 wound care - History of Present Illness This is an 87 year old with past medical history include atrial fibrillation, CAD, diabetes, hard of hearing, hypertension, hyperlipidemia osteoarthritis, peripheral neuropathy does use CPAP. Patient has open ulcerations to the abdominal folds and bilateral groins. Multiple blistering. The irritated area appears to be fungal in nature. Continue with Diflucan and may apply triad at to the periwound for protection. Review Of Systems: Constitutional: No fever, no chills, no night sweats. No weight change. No weakness, fatigue or lethargy. No daytime sleepiness. Integumentary:reports wounds, no lesions. No rash or pruritus. No unusual bruising. No change in hair or nails. Physical exam: General Appearance: Alert, cooperative, no distress, appears stated age. Skin: See HPI all other Skin color, texture, tugor normal, no rashes or lesions. Neurologic: Alert oriented x3 Assessment: 1. Nonhealing ulcerations abdominal Limited to skin breakdown 2. Nonhealing ulcerations to bilateral groins Limited to skin breakdown 3. Diabetes of skin ulceration Plan: 1. Continue with Diflucan powder and triad to the periwound as needed. Thank you for the consultation any questions contact the wound care center DNP note has been reviewed and discussed with Dr. Heredia and the impression and plan of care has been directed as dictated. 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 ., STATES LOWER EXTREMITY EDEMA, HX STOMACH ULCER., CHRONIC CONSTIPATION., -STATES BLOOD COUNT LOW AND HE FEELS EXHAUSTED AND USING A CANE & WALKER . , STATES RASH ON FORESKIN., SIGRID HEARING AIDS. states he needs a new replacement valve BONE MARROW BIOPSY CAUTERIZATION OF STOMACH ULCERS History of Any Multi-Drug Resistant Organisms: None Reported Past Surgical History: Appendectomy, Cardiac Ablation, Cardiac Valve Replacement , Cholecystectomy, Coronary Bypass/CABG, Heart Catheterization Additional Past Surgical History / Comment(s): 2014 cardiac ablation of Afib at [facility], 2 vessel CABG and aortic valve replacement ([place]ov[place]) in 2009., L caratid endartectomy, bilateral varicose vein stripping, lysis of abdominal adhesions, colonoscopies., EGDs-repair doudenal ulcers, bone marrow biopsy., 2 stents "right groin" for circulation ([place])., Watchman Procedure at [facility] - 2019 Past Anesthesia/Blood Transfusion Reactions: No Reported Reaction, Blood Transf usion Reaction Additional Past Anesthesia/Blood Transfusion Reaction / Comm: Hx of several blood transfusions and had reaction with Hives x1. ([place]) Past Psychological History: No Psychological Hx Reported Smoking Status: Former smoker Past Alcohol Use History: None Reported Past Drug Use History: None Reported - Past Family History Father Family Medical History: Cancer Additional Family Medical History / Comment(s): LUNG CANCER WITH METS Mother Family Medical History: Coronary Artery Disease (CAD), Myocardial Infarction ([place]) Additional Family Medical History / Comment(s): Mother while recovering from open heart surgery. She had several MIs. Medications and Allergies Home Medications Medication Instructions Recorded Confirmed Type Cholecalciferol [Vitamin D3 (25 25 mcg PO DAILY 07/10/15 06/06/22 History Mcg = 1000 Iu)] Docusate [Colace] 100 mg PO HS 07/10/15 06/06/22 History Eye Compound Vitamin 2 cap PO BID 07/10/15 06/06/22 History Finasteride [Proscar] 5 mg PO DAILY 07/10/15 06/06/22 History Folic Acid 0.4 mg PO HS 07/10/15 06/06/22 History Atorvastatin [Lipitor] 40 mg PO HS 04/27/18 06/06/22 History Albuterol Sulfate [Ventolin HFA] 2 puff INHALATION RT-Q4H PRN 05/28/21 06/06/22 History Bumetanide [Bumex] 1 mg PO DAILY 05/28/21 06/06/22 History Fluticasone/Umeclidin/Vilanter 1 puff INHALATION RT-HS 05/28/21 06/06/22 History [Trelegy Ellipta 100-62.5-25] Gabapentin 300 mg PO TID 05/28/21 06/06/22 History Metoprolol Tartrate [Lopressor] 12.5 mg PO BID 05/28/21 06/06/22 History polyethylene glycoL 3350 [Miralax] 17 gm PO 05/28/21 06/06/22 History Ascorbic Acid [Vitamin C] 1,000 mg PO 06/06/22 06/06/22 History Citalopram Hydrobromide [CeleXA] 40 mg PO DAILY 06/06/22 06/06/22 History Cyanocobalamin (Vitamin B-12) 1,000 mcg PO DAILY 06/06/22 06/06/22 History [Vitamin B-12] Gabapentin [Neurontin] 100 mg PO TID 06/06/22 06/06/22 History Integra 62.5-62.5-40-3mg Capsule 1 cap PO 06/06/22 06/06/22 History Inulin/Chromium Picolinate [Fiber 2 tab PO 06/06/22 06/06/22 History Gummies Chew] Pantoprazole [Protonix] 40 mg PO BID 06/06/22 06/06/22 History Repaglinide [Prandin] 1 mg PO BID 06/06/22 06/06/22 History Tamsulosin [Flomax] 0.4 mg PO DAILY 06/06/22 06/06/22 History Allergies Allergy/AdvReac Type Severity Reaction Status Date / Time iron infusions AdvReac Unknown Passed Out Uncoded 06/06/22 08:10 Physical Exam Vitals: Vital Signs Temp Pulse Pulse Resp BP Pulse Ox FiO2 06/12/22 08:40 96 06/12/22 08:22 96 06/12/22 04:00 98.2 F 73 18 116/66 93 L 06/11/22 23:36 98.3 F 69 18 112/62 97 06/11/22 23:24 28 06/11/22 20:00 97.4 F L 86 18 116/62 99 06/11/22 19:47 92 06/11/22 19:38 96 06/11/22 16:58 88 14 06/11/22 16:54 99 06/11/22 16:50 87 14 06/11/22 16:00 98.1 F 78 18 118/56 97 06/11/22 12:38 97.1 F L 59 L 20 120/57 96 06/11/22 11:29 106 H 06/11/22 11:19 100 Intake and Output 06/11/22 06/12/22 06/12/22 22:59 06:59 14:59 Intake Total 540 240 Output Total 275 250 Balance 540 -275 -10 Intake: Oral 540 240 Output: Urine 275 250 Other: # Voids 2 # Bowel Movements 1 Weight 99.5 kg Results CBC & Chem 7: 06/05/22 21:51 06/11/22 08:40 Labs: Abnormal Lab Results - Last 24 Hours (Table) 06/11/22 06/11/22 06/11/22 Range/Units 11:58 16:51 19:55 POC Glucose (mg/dL) 201 H 120 H 154 H (70-110) mg/dL Assessment and Plan (1) Non-pressure chronic ulcer of skin of other sites limited to breakdown of skin Current Visit: Yes Status: Acute Code(s): L98.491 - NON-PRS CHRONIC ULCER SKIN/ SITES LIMITED TO BRKDWN SKIN SNOMED Code(s): 71321612 (2) Diabetes with skin ulcer Current Visit: Yes Status: Acute Code(s): E11.622 - TYPE 2 DIABETES MELLITUS WITH OTHER SKIN ULCER; L98.499 - NON-PRESSURE CHRONIC ULCER OF SKIN OF SITES W UNSP SEVERITY SNOMED Code(s): 01458260
[2022-06-12 11:47] LABS: Glucose,Whole Blood 139 mg/dL (70-110)
[2022-06-12 13:29] LABS: Calcium 8.6 mg/dL (8.4-10.2); Potassium 3.8 mmol/L (3.5-5.1)
--- NOTE | 2022-06-12 13:29 | P.PN ---
Subjective Progress Note Date: 06/12/22 HISTORY OF PRESENT ILLNESS: This is a pleasant 87-year-old male past medical history significant for permanent atrial fibrillation status post watchman procedure in 2019, anemia, CV A, hypertension, severe aortic stenosis status post aortic valve replacement, carotid atherosclerosis status post left endarterectomy, mild nonobstructive coronary disease. He follows in the office with Dr. Varela. We have anesthetized the patient in consultation for congestive heart failure. Past few weeks patient has been having worsening increased shortness of breath, bilateral lower extremity edema. He also endorses 30lb weight gain. He endorses no increased salt intake, no change in medications. Compliant with medications. He denies any chest pain, palpitations, lightheadedness, dizziness, syncope or near syncope. Patient was started on IV Lasix on admission. DIAGNOSTICS * EKG reveals atrial fibrillation, heart rate 87, right bundle-branch block * Telemetry tracings indicate atrial fibrillation * Chest xray elevated right diaphgragm, no acute heart failure * Laboratory reviewed, poor BNP 3370, troponin 0.05, 0.05, 0.04, WBC 3.9 Hgb 10.5, platelets 107, sodium 133, potassium pending , bun 48, serum creatinine 1.6 * Current home cardiac medications include atorvastatin 40 mg daily, Bumex 1 mg daily, metoprolol titrate 12.5 mg twice a day * Echocardiogram 08/2020 revealed EF 5055 percent, mild concentric LVH, severely dilated left atrium, mild mitral regurgitation, severe tricuspid regurgitation, severe increased pulmonary artery systolic pressure of 83 mmHg 06/07/2022 Patient was seen this morning. He continues to feel the same according to him. The shortness of breath has been the same. He continues to have bilateral lower lower extremity edema predominantly above the knee bilaterally. No symptoms of chest pain or chest discomfort. Currently he is on Lasix IV at 60 mg twice a day. He underwent an echo which revealed normal LV function with bioprosthetic aortic valve and evidence of moderate aortic stenosis with severely dilated right ventricle and severe pulmonary hypertension which could be contributing to his predominantly right more than left heart failure. 06/08/2022 The patient was seen this morning. Unfortunately he continues to be hypervolemic. He continues to have shortness of breath and also severe bilateral lower extremities edema mostly above the knee bilaterally. On examination he does have bilateral rhonchi as well. I'm going to increase the dose of Lasix to 80 mg IV twice a day. We'll continue monitor the kidney function and electrolytes. His creatinine overall is stable. His pressure has been stable as well. The most recent echo showed normal LV function with bioprosthetic aortic valve and evidence of moderate aortic stenosis with severely dilated right ventricle and severe pulmonary hypertension. 06/09/2022 Patient examined this morning at the bedside. Patient denies chest pain or pressure. He reports mild SOB. He remains on IV lasix 80 mg every 12 hours. Creatinine stable at 1.52. Echocardiogram completed revealing ejection fraction 65% 06/10/2022 Patient examined this morning at the bedside. Patient denies chest pain or pressure. He denies shortness of breath. He continues to report lower extremit y edema. Patient remains on IV Lasix 80 mg every 12 hours. Patient reports good urine output. 06/11/2022 Patient examined this morning at the bedside. Patient denies chest pain or pressure. He denies shortness of breath. He continues to report lower extremity edema. Patient remains on IV Lasix 80 mg every 12 hours. Creatinine stable at 1.40. 06/12/2022 Patient examined this morning at the bedside. Patient denies chest pain or pressure. He denies shortness of breath. He continues to report lower extremity edema. Patient remains on IV Lasix 80 mg every 12 hours. PHYSICAL EXAM: VITAL SIGNS: Reviewed. GENERAL: Well-developed in no acute distress. NECK: Supple. No JVD or thyromegaly LUNGS: Respirations even and unlabored. Lungs diminished. HEART: Irregular rate and rhythm. S1 and S2 heard. Systolic murmur. EXTREMITIES: Normal range of motion. No clubbing or cyanosis. Peripheral pulses intact. 2+ bilateral lower extremity edema, slowly improving ASSESSMENT: Shortness of breath Acute on chronic heart failure with preserved ejection fraction Permanent atrial fibrillation History of watchman procedure, 2019 Valvular heart disease History of severe aortic stenosis, status post aortic valve replacement History of carotid atherosclerosis, status post left CEA Severe pulmonary hypertension Mild non-obstructive coronary artery disease PLAN: Continue current cardiac medications Continue IV Lasix Obtain BMP Daily weights Accurate I&O Further recommendations pending patient's course Nurse practitioner note has been reviewed by physician. Signing provider agrees with the documented findings, assessment, and plan of care. Objective - Vital Signs Vital signs: Vital Signs Temp 97.8 F 06/12/22 12:10 Pulse 71 06/12/22 12:10 Resp 18 06/12/22 12:10 BP 96/56 06/12/22 12:10 Pulse Ox 92 L 06/12/22 12:10 FiO2 28 06/11/22 23:24 Intake & Output 06/11/22 06/12/22 06/12/22 18:59 06:59 18:59 Intake Total 900 240 Output Total 150 275 400 Balance 750 -275 -160 Weight 99.5 kg Intake: Oral 900 240 Output: Urine 150 275 400 Other: Voiding Method Urinal Diaper # Voids 2 # Bowel Movements 1 2 - Labs CBC & Chem 7: 06/05/22 21:51 06/11/22 08:40 Labs: Abnormal Lab Results - Last 24 Hours (Table) 06/11/22 06/11/22 06/12/22 Range/Units 16:51 19:55 11:45 POC Glucose (mg/dL) 120 H 154 H 139 H (70-110) mg/dL
--- NOTE | 2022-06-12 14:20 | P.GSCN ---
History of Present Illness Consult date: 06/12/22 History of present illness: CHIEF COMPLAINT: Shortness of breath HISTORY OF PRESENT ILLNESS: This 87-year-old male who presented to the hospital with shortness of breath. He was found to have CHF exacerbation. He is followed by cardiology service and is on IV Lasix. Surgical service was consulted for possible port placement. Per patient he was requesting a port to be placed for IV access. He stated he needed it for IV iron transfusions and to draw blood from. However, patient is now declining port placement. He currently has a peripheral IV that is functioning fine. PAST MEDICAL HISTORY: See list. PAST SURGICAL HISTORY: See list. MEDICATIONS: See list. ALLERGIES: See list. SOCIAL HISTORY: No illicit drug use. REVIEW OF SYSTEMS: CONSTITUTIONAL: Denies fever or chills. HEENT: Denies blurred vision, vision changes, or eye pain. Denies hemoptysis CARDIOVASCULAR: Denies chest pain or pressure. RESPIRATORY: No shortness of breath. GASTROINTESTINAL: See HPI for pertinent findings HEMATOLOGIC: Denies bleeding disorders. GENITOURINARY: Denies any blood in urine or increased urinary frequency. SKIN: Denies pruitis. Denies rash. PHYSICAL EXAM: VITAL SIGNS: Reviewed GENERAL: Well-developed in no acute distress. HEENT: No sclera icterus. Extraocular movements grossly intact. Moist buccal mucosa. Head is atraumatic, normocephalic. No nasal drainage. ABDOMEN: Soft. Nondistended. Nontender NEUROLOGIC: Alert and oriented. Cranial nerves II through XII grossly intact. LABORATORY DATA: WBC 3.9 Hgb 10.5 platelets 107 Sodium 140 potassium 4.2 creatinine 1.52 IMAGING: ASSESSMENT: 1. Port placement for IV access PLAN: -Further recommendations forthcoming per surgeon -Patient currently declining port placement Thank you for this consultation Physician Groundhand note has been reviewed by physician. Signing provider agrees with the documented findings, assessment, and plan of care. I have personally seen and examined the patient, reviewed the FURNACE FILLER /PAs history, exam and MDM and agree with the assessment and plan as written. Based on total visit time, I have performed more than 50% of the visit. As above: Patient and I discussed the Port-A-Cath that was previously scheduled electively as an outpatient for tomorrow. He is not interested in a catheter placement at this time. He has frustrated after being told by the nurses on the floor that many nurses are not able to access this for him. He will discuss t his further with his carpet mechanic and then call me. We'll sign off. Please call if needed. 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 ., STATES LOWER EXTREMITY EDEMA, HX STOMACH ULCER., CHRONIC CON STIPATION., -STATES BLOOD COUNT LOW AND HE FEELS EXHAUSTED AND USING A CANE & WALKER . , STATES RASH ON FORESKIN., SIGRID HEARING AIDS. states he needs a new replacement valve BONE MARROW BIOPSY CAUTERIZATION OF STOMACH ULCERS History of Any Multi-Drug Resistant Organisms: None Reported Past Surgical History: Appendectomy, Cardiac Ablation, Cardiac Valve Replacement, Cholecystectomy, Coronary Bypass/CABG, Heart Catheterization Additional Past Surgical History / Comment(s): 2014 cardiac ablation of Afib at [facility], 2 vessel CABG and aortic valve replacement (bovine) in 2009., L caratid endartectomy, bilateral varicose vein stripping, lysis of abdominal adhesions, colonoscopies., EGDs-repair doudenal ulcers, bone marrow biopsy., 2 stents "right groin" for circulation ([place])., Watchman Procedure at [place] - 2019 Past Anesthesia/Blood Transfusion Reactions: No Reported Reaction, Blood Transfusion Reaction Additional Past Anesthesia/Blood Transfusion Reaction / Comm: Hx of several blood transfusions and had reaction with Hives x1. ([place]) Past Psychological History: No Psychological Hx Reported Smoking Status: Former smoker Past Alcohol Use History: None Reported Past Drug Use History: None Reported - Past Family History Father Family Medical History: Cancer Additional Family Medical History / Comment(s): LUNG CANCER WITH METS Mother Family Medical History: Coronary Artery Disease (CAD), Myocardial Infarction (MS) Additional Family Medical History / Comment(s): Mother while recovering fr om open heart surgery. She had several MIs. Medications and Allergies Home Medications Medication Instructions Recorded Confirmed Type Cholecalciferol [Vitamin D3 (25 25 mcg PO DAILY 07/10/15 06/06/22 History Mcg = 1000 Iu)] Docusate [Colace] 100 mg PO HS 07/10/15 06/06/22 History Eye Compound Vitamin 2 cap PO BID 07/10/15 06/06/22 History Finasteride [Proscar] 5 mg PO DAILY 07/10/15 06/06/22 History Folic Acid 0.4 mg PO HS 07/10/15 06/06/22 History Atorvastatin [Lipitor] 40 mg PO HS 04/27/18 06/06/22 History Albuterol Sulfate [Ventolin HFA] 2 puff INHALATION RT-Q4H PRN 05/28/21 06/06/22 History Bumetanide [Bumex] 1 mg PO DAILY 05/28/21 06/06/22 History Fluticasone/Umeclidin/Vilanter 1 puff INHALATION RT-HS 05/28/21 06/06/22 History [Trelegy Ellipta 100-62.5-25] Gabapentin 300 mg PO TID 05/28/21 06/06/22 History Metoprolol Tartrate [Lopressor] 12.5 mg PO BID 05/28/21 06/06/22 History polyethylene glycoL 3350 [Miralax] 17 gm PO HS 05/28/21 06/06/22 History Ascorbic Acid [Vitamin C] 1,000 mg PO HS 06/06/22 06/06/22 History Citalopram Hydrobromide [CeleXA] 40 mg PO DAILY 06/06/22 06/06/22 History Cyanocobalamin (Vitamin B-12) 1,000 mcg PO DAILY 06/06/22 06/06/22 History [Vitamin B-12] Gabapentin [Neurontin] 100 mg PO TID 06/06/22 06/06/22 History Integra 62.5-62.5-40-3mg Capsule 1 cap PO HS 06/06/22 06/06/22 History Inulin/Chromium Picolinate [Fiber 2 tab PO HS 06/06/22 06/06/22 History Gummies Chew] Pantoprazole [Protonix] 40 mg PO BID 06/06/22 06/06/22 History Repaglinide [Prandin] 1 mg PO BID 06/06/22 06/06/22 History Tamsulosin [Flomax] 0.4 mg PO DAILY 06/06/22 06/06/22 History Allergies Allergy/AdvReac Type Severity Reaction Status Date / Time iron infusions AdvReac Unknown Passed Out Uncoded 06/06/22 08:10 Surgical - Exam Vital Signs Temp Pulse Resp BP Pulse Ox 98 F 83 20 129/75 94 L 06/05/22 21:32 06/05/22 21:32 06/05/22 21:32 06/05/22 21:32 06/05/22 21:32 Results - Labs 06/05/22 21:51 06/12/22 13:02 Abnormal Lab Results - Last 24 Hours (Table) 06/11/22 06/11/22 06/12/22 Range/Units 16:51 19:55 11:45 Chloride (98-107) mmol/L Carbon Dioxide (22-30) mmol/L BUN (9-20) mg/dL Creatinine (0.66-1.25) mg/dL Glucose (74-99) mg/dL POC Glucose (mg/dL) 120 H 154 H 139 H (70-110) mg/dL 06/12/22 Range/Units 13:02 Chloride 93 L (98-107) mmol/L Carbon Dioxide 39 H (22-30) mmol/L BUN 48 H (9-20) mg/dL Creatinine 1.67 H (0.66-1.25) mg/dL Glucose 170 H (74-99) mg/dL POC Glucose (mg/dL) (70-110) mg/dL Diabetes panel 06/12/22 Range/Units 13:02 Sodium 139 (137-145) mmol/L Potassium 3.8 (3.5-5.1) mmol/L Chloride 93 L (98-107) mmol/L Carbon Dioxide 39 H (22-30) mmol/L BUN 48 H (9-20) mg/dL Creatinine 1.67 H (0.66-1.25) mg/dL Glucose 170 H (74-99) mg/dL Calcium 8.6 (8.4-10.2) mg/dL Calcium panel 06/12/22 Range/Units 13:02 Calcium 8.6 (8.4-10.2) mg/dL Pituitary panel 06/12/22 Range/Units 13:02 Sodium 139 (137-145) mmol/L Potassium 3.8 (3.5-5.1) mmol/L Chloride 93 L (98-107) mmol/L Carbon Dioxide 39 H (22-30) mmol/L BUN 48 H (9-20) mg/dL Creatinine 1.67 H (0.66-1.25) mg/dL Glucose 170 H (74-99) mg/dL Calcium 8.6 (8.4-10.2) mg/dL Adrenal panel 06/12/22 Range/Units 13:02 Sodium 139 (137-145) mmol/L Potassium 3.8 (3.5-5.1) mmol/L Chloride 93 L (98-107) mmol/L Carbon Dioxide 39 H (22-30) mmol/L BUN 48 H (9-20) mg/dL Creatinine 1.67 H (0.66-1.25) mg/dL Glucose 170 H (74-99) mg/dL Calcium 8.6 (8.4-10.2) mg/dL
[2022-06-12 16:47] LABS: Glucose,Whole Blood 148 mg/dL (70-110)
--- NOTE | 2022-06-12 17:23 | P.PN ---
Progress Note - Text Progress Note Date: 06/12/22 Chief Complaint: Short of breath This is a pleasant 87-year-old patient, follows with visiting physicians Dr. Carbajal. Chronic stable medical conditions include atrial fibrillation, CAD, diabetes, hard of hearing, hypertension, hyperlipidemia osteoarthritis, peripheral neuropathy does use CPAP. On extensive medical history. Patient presents with worsening short of breath for one week. Does feel bloated in the abdomen. Normally below. Appetite is okay. Has about 2 bowel movements a week. Denies any fever and chills. His weight has gone up. Harry catheter was placed in the ER. No chest pain. Admitted with CHF exacerbation. Started on IV Lasix. Fluid restriction. June 07: Patient is a female catheter. Good urine. Oral intake fair. Some shortness of breath. Oral intake code. Edema present. IV Lasix. June 08: Lasix increased to 80 mg every 12. Continues to make good urine. Edema still present. Eating fair. Getting some improvement. June 09: Some improvement in breathing. Negative fluid balance. IV Lasix. Oral intake fair. Some decrease in dependent edema. Up in a recliner June 10: Continues on IV Lasix. Difficult for I and O because of perineal anatomy. Breathing slowly improving. Edema present. June 11: Up in bed. Getting IV Lasix. Making urine. Some fungal infection the perineal area. Diflucan powder. Week. Looking to go to rehab. Continue IV Lasix. Eating fair. June 12: Continues to make urine. IV Lasix. Breathing better. Patient is due for a port placement. Consult Dr. Rivas. Diamox was added yesterday. Active Medications Acetazolamide (Acetazolamide 250 Mg Tab) 250 mg PO BID [facility] Last Admin: 06/12/22 09:53 Dose: 250 mg Albuterol Sulfate (Albuterol Nebulized 2.5 Mg/3 Ml) 2.5 mg INHALATION RT-Q4H PRN PRN Reason: Shortness Of Breath Ascorbic Acid (Ascorbic Acid 500 Mg Tab) 1,000 mg PO [facility] Last Admin: 06/11/22 20:16 Dose: 1,000 mg Aspirin (Aspirin 81 Mg) 81 mg PO DAILY [facility] Last Admin: 06/12/22 09:57 Dose: Not Given Atorvastatin Calcium (Atorvastatin 40 Mg Tab) 40 mg PO [facility] Last Admin: 06/11/22 20:16 Dose: 40 mg Budesonide/Formoterol Fumarate (Symbicort 80-4.5 Mcg Inhaler) 2 puff INHALATION RT-BID [facility] Last Admin: 06/12/22 08:22 Dose: 2 puff Cholecalciferol (Cholecalciferol 25 Mcg (1000 Iu) Tablet) 25 mcg PO DAILY [facility] Last Admin: 06/12/22 09:54 Dose: 25 mcg Citalopram Hydrobromide (Citalopram Hydrobromide 20 Mg Tab) 40 mg PO DAILY [facility] Last Admin: 06/12/22 09:54 Dose: 40 mg Cyanocobalamin (Cyanocobalamin 500 Mcg Tab) 1,000 mcg PO DAILY [facility] Last Admin: 06/12/22 09:54 Dose: 1,000 mcg Dextrose/Water (Dextrose 50% Syringe 50 Ml) 25 ml IVP PER PROTOCOL PRN; Protocol PRN Reason: Hypoglycemia Dextrose/Water (Dextrose 50% Syringe 50 Ml) 50 ml IVP PER PROTOCOL PRN; Protocol PRN Reason: Hypoglycemia Docusate Sodium (Docusate 100 Mg Cap) 100 mg PO [facility] Last Admin: 06/11/22 20:17 Dose: 100 mg Finasteride (Finasteride 5 Mg Tab) 5 mg PO DAILY [facility] Last Admin: 06/12/22 09:54 Dose: 5 mg Folic Acid (Folic Acid 1 Mg Tab) 1 mg PO [facility] Last Admin: 06/11/22 20:17 Dose: 1 mg Furosemide (Furosemide 10 Mg/Ml 10 Ml Vial) 80 mg IV Q12H [facility] Last Admin: 06/12/22 17:09 Dose: 80 mg Gabapentin (Gabapentin 300 Mg Cap) 300 mg PO TID [facility] Last Admin: 06/12/22 15:52 Dose: 300 mg Insulin Aspart (Insulin Aspart (Novolog) 100 Unit/Ml Vial) 0 unit SQ AC-TID [facility]; Protocol Last Admin: 06/12/22 16:50 Dose: Not Given Ipratropium Holcomb (Ipratropium 0.5 Mg/2.5 Ml Nebu) 0.5 mg INHALATION RT-QID [facility] Last Admin: 06/12/22 16:51 Dose: 0.5 mg Metoprolol Tartrate (Metoprolol Tartrate 12.5 Mg Tab) 12.5 mg PO BID [facility] Last Admin: 06/12/22 09:54 Dose: 12.5 mg Multi-Ingred Cream/Lotion/Oil/Oint (Hydrophilic Cream 180 Gm Tube) 1 applic TOPICAL DAILY [facility]; Protocol Pantoprazole Sodium (Pantoprazole 40 Mg Tablet) 40 mg PO AC-BID [facility] Last Admin: 06/12/22 17:09 Dose: 40 mg Polyethylene Glycol (Polyethylene Glycol 3350 17 Gm Powd.Pack) 17 gm PO HS [facility] Last Admin: 06/11/22 20:17 Dose: 17 gm Repaglinide (Repaglinide 1 Mg Tab) 1 mg PO BID [facility] Last Admin: 06/12/22 09:54 Dose: 1 mg Sodium Chloride (Sodium Chloride 0.9% Flush 10 Ml Syringe) 10 ml IV BID [facility] Last Admin: 06/12/22 09:54 Dose: 10 ml Tamsulosin HCl (Tamsulosin 0.4 Mg Cap.Er.24h) 0.4 mg PO DAILY [facility] Last Admin: 06/12/22 09:53 Dose: 0.4 mg Social history: Lives with his . Uses a walker. Patient smoked 3 packs a day for about 16 years stopped in 1966. No alcohol. Family history: Lung cancer Physical examination: VITAL SIGNS: 97.8, 71, 18, 96/56, 92% room air GENERAL: Reclining in bed breathing better EYES: Pupils equal. Conjunctiva normal. HEENT: External appearance of nose and ears normal, oral cavity grossly normal. NECK: JVD possibly raised; masses not palpable. HEART: [First and second heart sounds are normal; dependent edema in the lower back./Thigh LUNGS: Respiratory rate increased; decreased breath sounds. ABDOMEN: Soft, distended nontender, liver spleen not palpable, no masses palpable. PSYCH: Alert and oriented x3; mood and affect normal. MUSCULOSKELETAL:No Clubbing/cyanosis;muscles-grossly intact. OA INVESTIGATIONS, reviewed in the clinical context: June 12: Potassium 3.8. 48 creatinine 1.67 June 11: Potassium 3.6 BUN 47 creatinine 1.40 June 09: Potassium 4.2 creatinine 1.5 to June 08: Potassium 4.1 creatinine 1.64 VQ scan: Low probability PE June 07: Potassium 4.2 BUN 44 creatinine 1.67 White count 3.9 hemoglobin 10.5 platelets 107 sodium 133 creatinine 1.61 Troponin I 0.051, 0.051, 0.045 EKG tracing personally reviewed by me-rate 87, atrial fibrillation,) Zo block pattern Chest x-ray film personally reviewed by me-some elevation of the right diaphragm. Some cephalization. 2-D echocardiogram: EF 1-65%. Moderate concentric LVH. Severe right ventricular dilatation. Severe pulmonary hypertension. Right ventricle enlargement. Assessment and plan: -Acute and chronic congestive heart failure from diastolic dysfunction EF more than 65%: Improving Continue IV Lasix 80 mg every 12. Fluid restriction. Follow with cardiology -Metabolic alkalosis from volume contraction Diamox 250 mg twice a day - VQ scan: Low probability for PE -Morbid obesity BMI 40 -Severe secondary pulmonary hypertension -Hyperlipidemia Lipitor 40 mg daily at bedtime -Possible chronic kidney disease, stage III from nephrosclerosis and diabetic nephropathy Follow renal function. Check UA -Depression and anxiety Celexa 40 mg a day -Troponin leak secondary CK D. No clinical evidence of ACS -BPH Proscar 5 mg a day, Flomax -COPD in a previous smoker Resume inhalers -Diabetic peripheral neuropathy Neurontin -GERD 40 mg twice a day -Diabetes mellitus type 2 on oral hypoglycemic Resume Prandin. Follow Accu-Cheks -Cor pulmonale, acute on chronic: Better IV Lasix -Mild to moderate mitral stenosis Follow with cardiology -Acute on chronic medical debility Looking at rehab placement -Consult Dr. Rivas for port placement IV Lasix, Diamox 250 mg twice a day. Consult Dr. Rivas for port placement. Possibly changed to by mouth Lasix tomorrow. Discussed with patient.
[2022-06-12 20:24] LABS: Glucose,Whole Blood 199 mg/dL (70-110)
[2022-06-12] MEDS: ASCORBIC ACID 500 MG TAB PO SCH (20:25)
[2022-06-12] MEDS: polyethylene glycoL 3350 17 GM POWD.PACK PO SCH (20:25)
[2022-06-12] MEDS: FOLIC ACID 1 MG TAB PO SCH (20:25)
[2022-06-12] MEDS: DOCUSATE 100 MG CAP PO SCH (20:25)
[2022-06-12] MEDS: ATORVASTATIN 40 MG TAB PO SCH (20:25)
[2022-06-13 06:02] LABS: Glucose,Whole Blood 99 mg/dL (70-110)
[2022-06-13] MEDS: INSULIN ASPART (NovoLOG) 100 UNIT/ML VIAL SQ SCH ×3 (06:08→16:53)
[2022-06-13] MEDS: PANTOPRAZOLE 40 MG TABLET PO SCH ×2 (06:16→16:54)
[2022-06-13] MEDS: FUROSEMIDE 10 MG/ML 10 ML VIAL IV SCH (06:16)
[2022-06-13 08:20] LABS: Calcium 8.8 mg/dL (8.4-10.2); Potassium 3.7 mmol/L (3.5-5.1)
[2022-06-13] MEDS: IPRATROPIUM 0.5 MG/2.5 ML NEBU INHALATION SCH ×4 (08:52→19:31)
[2022-06-13] MEDS: SYMBICORT 80-4.5 MCG INHALER INHALATION SCH ×2 (08:52→19:31)
[2022-06-13] MEDS: FINASTERIDE 5 MG TAB PO SCH (09:23)
[2022-06-13] MEDS: GABAPENTIN 300 MG CAP PO SCH ×3 (09:23→21:12)
[2022-06-13] MEDS: acetaZOLAMIDE 250 MG TAB PO SCH ×2 (09:23→20:04)
[2022-06-13] MEDS: TAMSULOSIN 0.4 MG CAP.ER.24H PO SCH (09:23)
[2022-06-13] MEDS: REPAGLINIDE 1 MG TAB PO SCH ×2 (09:23→21:12)
[2022-06-13] MEDS: CITALOPRAM HYDROBROMIDE 20 MG TAB PO SCH (09:23)
[2022-06-13] MEDS: METOPROLOL TARTRATE 12.5 MG TAB PO SCH ×2 (09:23→20:04)
[2022-06-13] MEDS: ASPIRIN 81 MG PO SCH (09:23)
[2022-06-13] MEDS: CYANOCOBALAMIN 500 MCG TAB PO SCH (09:23)
[2022-06-13] MEDS: CHOLECALCIFEROL 25 MCG (1000 IU) TABLET PO SCH (09:23)
[2022-06-13 11:44] LABS: Glucose,Whole Blood 142 mg/dL (70-110)
--- NOTE | 2022-06-13 12:43 | P.PN ---
Subjective Progress Note Date: 06/13/22 HISTORY OF PRESENT ILLNESS: This is a pleasant 87-year-old male past medical history significant for permanent atrial fibrillation status post watchman procedure in 2019, anemia, CV A, hypertension, severe aortic stenosis status post aortic valve replacement, carotid atherosclerosis status post left endarterectomy, mild nonobstructive coronary disease. He follows in the office with Dr. Varela. We have anesthetized the patient in consultation for congestive heart failure. Past few weeks patient has been having worsening increased shortness of breath, bilateral lower extremity edema. He also endorses 30lb weight gain. He endorses no increased salt intake, no change in medications. Compliant with medications. He denies any chest pain, palpitations, lightheadedness, dizziness, syncope or near syncope. Patient was started on IV Lasix on admission. DIAGNOSTICS * EKG reveals atrial fibrillation, heart rate 87, right bundle-branch block * Telemetry tracings indicate atrial fibrillation * Chest xray elevated right diaphgragm, no acute heart failure * Laboratory reviewed, poor BNP 3370, troponin 0.05, 0.05, 0.04, WBC 3.9 Hgb 10.5, platelets 107, sodium 133, potassium pending , bun 48, serum creatinine 1.6 * Current home cardiac medications include atorvastatin 40 mg daily, Bumex 1 mg daily, metoprolol titrate 12.5 mg twice a day * Echocardiogram 08/2020 revealed EF 5055 percent, mild concentric LVH, severely dilated left atrium, mild mitral regurgitation, severe tricuspid regurgitation, severe increased pulmonary artery systolic pressure of 83 mmHg 06/07/2022 Patient was seen this morning. He continues to feel the same according to him. The shortness of breath has been the same. He continues to have bilateral lower lower extremity edema predominantly above the knee bilaterally. No symptoms of chest pain or chest discomfort. Currently he is on Lasix IV at 60 mg twice a day. He underwent an echo which revealed normal LV function with bioprosthetic aortic valve and evidence of moderate aortic stenosis with severely dilated right ventricle and severe pulmonary hypertension which could be contributing to his predominantly right more than left heart failure. 06/08/2022 The patient was seen this morning. Unfortunately he continues to be hypervolemic. He continues to have shortness of breath and also severe bilateral lower extremities edema mostly above the knee bilaterally. On examination he does have bilateral rhonchi as well. I'm going to increase the dose of Lasix to 80 mg IV twice a day. We'll continue monitor the kidney function and electrolytes. His creatinine overall is stable. His pressure has been stable as well. The most recent echo showed normal LV function with bioprosthetic aortic valve and evidence of moderate aortic stenosis with severely dilated right ventricle and severe pulmonary hypertension. 06/09/2022 Patient examined this morning at the bedside. Patient denies chest pain or pressure. He reports mild SOB. He remains on IV lasix 80 mg every 12 hours. Creatinine stable at 1.52. Echocardiogram completed revealing ejection fraction 65% 06/10/2022 Patient examined this morning at the bedside. Patient denies chest pain or pressure. He denies shortness of breath. He continues to report lower extremit y edema. Patient remains on IV Lasix 80 mg every 12 hours. Patient reports good urine output. 06/11/2022 Patient examined this morning at the bedside. Patient denies chest pain or pressure. He denies shortness of breath. He continues to report lower extremity edema. Patient remains on IV Lasix 80 mg every 12 hours. Creatinine stable at 1.40. 06/12/2022 Patient examined this morning at the bedside. Patient denies chest pain or pressure. He denies shortness of breath. He continues to report lower extremity edema. Patient remains on IV Lasix 80 mg every 12 hours. 06/13/2022 Patient examined this more at the bedside. Patient denies chest pain or pressure. He denies risk breath. He remains on IV Lasix. He continues to have slow improvement in his lower summary edema. Creatinine today is 1.73. PHYSICAL EXAM: VITAL SIGNS: Reviewed. GENERAL: Well-developed in no acute distress. NECK: Supple. No JVD or thyromegaly LUNGS: Respirations even and unlabored. Lungs diminished. HEART: Irregular rate and rhythm. S1 and S2 heard. Systolic murmur. EXTREMITIES: Normal range of motion. No clubbing or cyanosis. Peripheral pulses intact. 2+ bilateral lower extremity edema, slowly improving ASSESSMENT: Shortness of breath Acute on chronic heart failure with preserved ejection fraction Permanent atrial fibrillation History of watchman procedure, 2019 Valvular heart disease History of severe aortic stenosis, status post aortic valve replacement History of carotid atherosclerosis, status post left CEA Severe pulmonary hypertension Mild non-obstructive coronary artery disease PLAN: Continue current cardiac medications Discontinue IV Lasix Begin oral Lasix 40 mg by mouth twice a day Patient is currently stable for discharge from a cardiac standpoint with close outpatient follow-up We will sign off. Please reconsult if needed. Nurse practitioner note has been reviewed by physician. Signing provider agrees with the documented findings, assessment, and plan of care. Objective - Vital Signs Vital signs: Vital Signs Temp 97.6 F 06/13/22 11:33 Pulse 84 06/13/22 12:38 Resp 18 06/13/22 11:33 BP 108/62 06/13/22 11:33 Pulse Ox 91 L 06/13/22 11:33 FiO2 28 06/12/22 23:47 Intake & Output 06/12/22 06/13/22 06/13/22 18:59 06:59 18:59 Intake Total 240 180 5 Output Total 400 775 750 Balance -160 595 -745 Weight 99 kg Intake: IV 5 Invasive Line 3 5 Oral 240 180 0 Output: Urine 400 775 750 Other: Voiding Method Urinal Diaper # Bowel Movements 1 - Labs CBC & Chem 7: 06/05/22 21:51 06/13/22 07:38 Labs: Abnormal Lab Results - Last 24 Hours (Table) 06/12/22 06/12/22 06/12/22 Range/Units 13:02 16:45 20:23 Chloride 93 L (98-107) mmol/L Carbon Dioxide 39 H (22-30) mmol/L BUN 48 H (9-20) mg/dL Creatinine 1.67 H (0.66-1.25) mg/dL Glucose 170 H (74-99) mg/dL POC Glucose (mg/dL) 148 H 199 H (70-110) mg/dL 06/13/22 06/13/22 Range/Units 07:38 11:43 Chloride 94 L (98-107) mmol/L Carbon Dioxide 41 H* (22-30) mmol/L BUN 49 H (9-20) mg/dL Creatinine 1.73 H (0.66-1.25) mg/dL Glucose (74-99) mg/dL POC Glucose (mg/dL) 142 H (70-110) mg/dL
--- NOTE | 2022-06-13 13:41 | P.PN ---
Progress Note - Text Progress Note Date: 06/13/22 Chief Complaint: Short of breath This is a pleasant 87-year-old patient, follows with visiting physicians Dr. Carbajal. Chronic stable medical conditions include atrial fibrillation, CAD, diabetes, hard of hearing, hypertension, hyperlipidemia osteoarthritis, peripheral neuropathy does use CPAP. On extensive medical history. Patient presents with worsening short of breath for one week. Does feel bloated in the abdomen. Normally below. Appetite is okay. Has about 2 bowel movements a week. Denies any fever and chills. His weight has gone up. Harry catheter was placed in the ER. No chest pain. Admitted with CHF exacerbation. Started on IV Lasix. Fluid restriction. June 07: Patient is a female catheter. Good urine. Oral intake fair. Some shortness of breath. Oral intake code. Edema present. IV Lasix. June 08: Lasix increased to 80 mg every 12. Continues to make good urine. Edema still present. Eating fair. Getting some improvement. June 09: Some improvement in breathing. Negative fluid balance. IV Lasix. Oral intake fair. Some decrease in dependent edema. Up in a recliner June 10: Continues on IV Lasix. Difficult for I and O because of perineal anatomy. Breathing slowly improving. Edema present. June 11: Up in bed. Getting IV Lasix. Making urine. Some fungal infection the perineal area. Diflucan powder. Week. Looking to go to rehab. Continue IV Lasix. Eating fair. June 12: Continues to make urine. IV Lasix. Breathing better. Patient is due for a port placement. Consult Dr. Rivas. Diamox was added yesterday. June 13: Patient declined having a port placed. Breathing better. No bed available at [facility]. Being changed over to oral Lasix. Active Medications Acetazolamide (Acetazolamide 250 Mg Tab) 250 mg PO BID [facility] Last Admin: 06/13/22 09:23 Dose: 250 mg Albuterol Sulfate (Albuterol Nebulized 2.5 Mg/3 Ml) 2.5 mg INHALATION RT-Q4H PRN PRN Reason: Shortness Of Breath Ascorbic Acid (Ascorbic Acid 500 Mg Tab) 1,000 mg PO HS [facility] Last Admin: 06/12/22 20:25 Dose: 1,000 mg Aspirin (Aspirin 81 Mg) 81 mg PO DAILY [facility] Last Admin: 06/13/22 09:23 Dose: 81 mg Atorvastatin Calcium (Atorvastatin 40 Mg Tab) 40 mg PO HS [facility] Last Admin: 06/12/22 20:25 Dose: 40 mg Budesonide/Formoterol Fumarate (Symbicort 80-4.5 Mcg Inhaler) 2 puff INHALATION RT-BID [facility] Last Admin: 06/13/22 08:52 Dose: 2 puff Cholecalciferol (Cholecalciferol 25 Mcg (1000 Iu) Tablet) 25 mcg PO DAILY [facility] Last Admin: 06/13/22 09:23 Dose: 25 mcg Citalopram Hydrobromide (Citalopram Hydrobromide 20 Mg Tab) 40 mg PO DAILY [facility] Last Admin: 06/13/22 09:23 Dose: 40 mg Cyanocobalamin (Cyanocobalamin 500 Mcg Tab) 1,000 mcg PO DAILY [facility] Last Admin: 06/13/22 09:23 Dose: 1,000 mcg Dextrose/Water (Dextrose 50% Syringe 50 Ml) 25 ml IVP PER PROTOCOL PRN; Protocol PRN Reason: Hypoglycemia Dextrose/Water (Dextrose 50% Syringe 50 Ml) 50 ml IVP PER PROTOCOL PRN; Protocol PRN Reason: Hypoglycemia Docusate Sodium (Docusate 100 Mg Cap) 100 mg PO HS [facility] Last Admin: 06/12/22 20:25 Dose: 100 mg Finasteride (Finasteride 5 Mg Tab) 5 mg PO DAILY [facility] Last Admin: 06/13/22 09:23 Dose: 5 mg Folic Acid (Folic Acid 1 Mg Tab) 1 mg PO HS [facility] Last Admin: 06/12/22 20:25 Dose: 1 mg Furosemide (Furosemide 40 Mg Tab) 40 mg PO BID@0900,1600 [facility] Gabapentin (Gabapentin 300 Mg Cap) 300 mg PO TID [facility] Last Admin: 06/13/22 09:23 Dose: 300 mg Insulin Aspart (Insulin Aspart (Novolog) 100 Unit/Ml Vial) 0 unit SQ AC-TID [facility]; Protocol Last Admin: 06/13/22 11:46 Dose: Not Given Ipratropium [place] (Ipratropium 0.5 Mg/2.5 Ml Nebu) 0.5 mg INHALATION RT-QID [facility] Last Admin: 06/13/22 12:29 Dose: 0.5 mg Metoprolol Tartrate (Metoprolol Tartrate 12.5 Mg Tab) 12.5 mg PO BID [facility] Last Admin: 06/13/22 09:23 Dose: 12.5 mg Multi-Ingred Cream/Lotion/Oil/Oint (Hydrophilic Cream 180 Gm Tube) 1 applic TOPICAL DAILY [facility]; Protocol Pantoprazole Sodium (Pantoprazole 40 Mg Tablet) 40 mg PO AC-BID [facility] Last Admin: 06/13/22 06:16 Dose: 40 mg Polyethylene Glycol (Polyethylene Glycol 3350 17 Gm Powd.Pack) 17 gm PO HS [facility] Last Admin: 06/12/22 20:25 Dose: 17 gm Repaglinide (Repaglinide 1 Mg Tab) 1 mg PO BID [facility] Last Admin: 06/13/22 09:23 Dose: 1 mg Sodium Chloride (Sodium Chloride 0.9% Flush 10 Ml Syringe) 10 ml IV BID [facility] Last Admin: 06/13/22 09:23 Dose: 10 ml Tamsulosin HCl (Tamsulosin 0.4 Mg Cap.Er.24h) 0.4 mg PO DAILY [facility] Last Admin: 06/13/22 09:23 Dose: 0.4 mg Social history: Lives with his . Uses a walker. Patient smoked 3 packs a day for about 16 years stopped in 1966. No alcohol. Family history: Lung cancer Physical examination: VITAL SIGNS: 97.8, 86, 18, 1 8 x 62, 91% on room air GENERAL: Reclining in bed not in distress EYES: Pupils equal. Conjunctiva normal. HEENT: External appearance of nose and ears normal, oral cavity grossly normal. NECK: JVD possibly raised; masses not palpable. HEART: [First and second heart sounds are normal; much improved dependent edema in the lower back./Thigh LUNGS: Respiratory rate increased; decreased breath sounds. ABDOMEN: Soft, distended nontender, liver spleen not palpable, no masses palpable. PSYCH: Alert and oriented x3; mood and affect normal. MUSCULOSKELETAL:No Clubbing/cyanosis;muscles-grossly intact. OA INVESTIGATIONS, reviewed in the clinical context: June 13: Potassium 3.7 bicarb 41 BUN 49 creatinine 1.73 June 12: Potassium 3.8. 48 creatinine 1.67 June 11: Potassium 3.6 BUN 47 creatinine 1.40 June 09: Potassium 4.2 creatinine 1.5 to June 7: Potassium 4.1 creatinine 1.64 VQ scan: Low probability PE June 07: Potassium 4.2 BUN 44 creatinine 1.67 White count 3.9 hemoglobin 10.5 platelets 107 sodium 133 creatinine 1.61 Troponin I 0.051, 0.051, 0.045 EKG tracing personally reviewed by me-rate 87, atrial fibrillation,) Zo block pattern Chest x-ray film personally reviewed by me-some elevation of the right diaphragm. Some cephalization. 2-D echocardiogram: EF 1-65%. Moderate concentric LVH. Severe right ventricular dilatation. Severe pulmonary hypertension. Right ventricle enlargement. Assessment and plan: -Acute and chronic congestive heart failure from diastolic dysfunction EF more than 65%: Improving IV Lasix changed to by mouth Lasix 40 mg twice a day. Fluid restriction. Follow with cardiology -Metabolic alkalosis from volume contraction Diamox 250 mg twice a day - VQ scan: Low probability for PE -Morbid obesity BMI 40 -Severe secondary pulmonary hypertension -Hyperlipidemia Lipitor 40 mg daily at bedtime -Possible chronic kidney disease, stage III from nephrosclerosis and diabetic nephropathy Follow renal function. Check UA -Depression and anxiety Celexa 40 mg a day -Troponin leak secondary CK D. No clinical evidence of ACS -BPH Proscar 5 mg a day, Flomax -COPD in a previous smoker Resume inhalers -Diabetic peripheral neuropathy Neurontin -GERD 40 mg twice a day -Diabetes mellitus type 2 on oral hypoglycemic Resume Prandin. Follow Accu-Cheks -Cor pulmonale, acute on chronic: Better IV Lasix -Mild to moderate mitral stenosis Follow with cardiology -Acute on chronic medical debility Looking at rehab placement -Consult Dr. Rivas for port placement, which was scheduled as outpatient Patient has declined port placement IV Lasix being changed to by mouth Lasix. Continue Diamox. No bed available at rehab/[facility]. Discussed with cardiology.
[2022-06-13] MEDS: HYDROPHILIC CREAM 180 GM TUBE TOPICAL SCH (15:18)
[2022-06-13] MEDS: FUROSEMIDE 40 MG TAB PO SCH (15:18)
[2022-06-13 16:35] LABS: Glucose,Whole Blood 167 mg/dL (70-110)
[2022-06-13] MEDS: polyethylene glycoL 3350 17 GM POWD.PACK PO SCH (20:03)
[2022-06-13] MEDS: ATORVASTATIN 40 MG TAB PO SCH (20:04)
[2022-06-13] MEDS: DOCUSATE 100 MG CAP PO SCH (20:04)
[2022-06-13] MEDS: ASCORBIC ACID 500 MG TAB PO SCH (20:04)
[2022-06-13] MEDS: FOLIC ACID 1 MG TAB PO SCH (20:04)
[2022-06-13 20:36] LABS: Glucose,Whole Blood 297 mg/dL (70-110)
[2022-06-14] MEDS: INSULIN ASPART (NovoLOG) 100 UNIT/ML VIAL SQ SCH ×3 (06:05→17:33)
[2022-06-14 06:09] LABS: Glucose,Whole Blood 107 mg/dL (70-110)
[2022-06-14] MEDS: PANTOPRAZOLE 40 MG TABLET PO SCH ×2 (06:19→17:33)
[2022-06-14] MEDS: IPRATROPIUM 0.5 MG/2.5 ML NEBU INHALATION SCH ×4 (08:24→20:53)
[2022-06-14] MEDS: SYMBICORT 80-4.5 MCG INHALER INHALATION SCH ×2 (08:24→20:53)
[2022-06-14] MEDS: CHOLECALCIFEROL 25 MCG (1000 IU) TABLET PO SCH (08:46)
[2022-06-14] MEDS: METOPROLOL TARTRATE 12.5 MG TAB PO SCH ×2 (08:47→20:19)
[2022-06-14] MEDS: acetaZOLAMIDE 250 MG TAB PO SCH ×2 (08:47→20:19)
[2022-06-14] MEDS: FUROSEMIDE 40 MG TAB PO SCH ×2 (08:47→17:33)
[2022-06-14] MEDS: FINASTERIDE 5 MG TAB PO SCH (08:47)
[2022-06-14] MEDS: REPAGLINIDE 1 MG TAB PO SCH ×2 (08:47→20:19)
[2022-06-14] MEDS: ASPIRIN 81 MG PO SCH (08:47)
[2022-06-14] MEDS: TAMSULOSIN 0.4 MG CAP.ER.24H PO SCH (08:47)
[2022-06-14] MEDS: CITALOPRAM HYDROBROMIDE 20 MG TAB PO SCH (08:47)
[2022-06-14] MEDS: CYANOCOBALAMIN 500 MCG TAB PO SCH (08:47)
[2022-06-14] MEDS: GABAPENTIN 300 MG CAP PO SCH ×3 (08:52→21:39)
[2022-06-14 11:33] LABS: Glucose,Whole Blood 190 mg/dL (70-110)
--- NOTE | 2022-06-14 13:35 | P.PN ---
Progress Note - Text Progress Note Date: 06/14/22 Chief Complaint: Short of breath This is a pleasant 87-year-old patient, follows with visiting physicians Dr. Carbajal. Chronic stable medical conditions include atrial fibrillation, CAD, diabetes, hard of hearing, hypertension, hyperlipidemia osteoarthritis, peripheral neuropathy does use CPAP. On extensive medical history. Patient presents with worsening short of breath for one week. Does feel bloated in the abdomen. Normally below. Appetite is okay. Has about 2 bowel movements a week. Denies any fever and chills. His weight has gone up. Harry catheter was placed in the ER. No chest pain. Admitted with CHF exacerbation. Started on IV Lasix. Fluid restriction. June 07: Patient is a female catheter. Good urine. Oral intake fair. Some shortness of breath. Oral intake code. Edema present. IV Lasix. June 08: Lasix increased to 80 mg every 12. Continues to make good urine. Edema still present. Eating fair. Getting some improvement. June 09: Some improvement in breathing. Negative fluid balance. IV Lasix. Oral intake fair. Some decrease in dependent edema. Up in a recliner June 10: Continues on IV Lasix. Difficult for I and O because of perineal anatomy. Breathing slowly improving. Edema present. June 11: Up in bed. Getting IV Lasix. Making urine. Some fungal infection the perineal area. Diflucan powder. Week. Looking to go to rehab. Continue IV Lasix. Eating fair. June 12: Continues to make urine. IV Lasix. Breathing better. Patient is due for a port placement. Consult Dr. Rivas. Diamox was added yesterday. June 13: Patient declined having a port placed. Breathing better. No bed available at [facility]. Being changed over to oral Lasix. June 14: Resting in bed comfortable. On by mouth Lasix. Pending placement. Oral intake code. Active Medications Acetazolamide (Acetazolamide 250 Mg Tab) 250 mg PO BID [facility] Last Admin: 06/14/22 08:47 Dose: 250 mg Albuterol Sulfate (Albuterol Nebulized 2.5 Mg/3 Ml) 2.5 mg INHALATION RT-Q4H PRN PRN Reason: Shortness Of Breath Ascorbic Acid (Ascorbic Acid 500 Mg Tab) 1,000 mg PO HS [facility] Last Admin: 06/13/22 20:04 Dose: 1,000 mg Aspirin (Aspirin 81 Mg) 81 mg PO DAILY [facility] Last Admin: 06/14/22 08:47 Dose: 81 mg Atorvastatin Calcium (Atorvastatin 40 Mg Tab) 40 mg PO HS [facility] Last Admin: 06/13/22 20:04 Dose: 40 mg Budesonide/Formoterol Fumarate (Symbicort 80-4.5 Mcg Inhaler) 2 puff INHALATION RT-BID [facility] Last Admin: 06/14/22 08:24 Dose: 2 puff Cholecalciferol (Cholecalciferol 25 Mcg (1000 Iu) Tablet) 25 mcg PO DAILY [facility] Last Admin: 06/14/22 08:46 Dose: 25 mcg Citalopram Hydrobromide (Citalopram Hydrobromide 20 Mg Tab) 40 mg PO DAILY [facility] Last Admin: 06/14/22 08:47 Dose: 40 mg Cyanocobalamin (Cyanocobalamin 500 Mcg Tab) 1,000 mcg PO DAILY [facility] Last Admin: 06/14/22 08:47 Dose: 1,000 mcg Dextrose/Water (Dextrose 50% Syringe 50 Ml) 25 ml IVP PER PROTOCOL PRN; Protocol PRN Reason: Hypoglycemia Dextrose/Water (Dextrose 50% Syringe 50 Ml) 50 ml IVP PER PROTOCOL PRN; Protocol PRN Reason: Hypoglycemia Docusate Sodium (Docusate 100 Mg Cap) 100 mg PO [facility] Last Admin: 06/13/22 20:04 Dose: 100 mg Finasteride (Finasteride 5 Mg Tab) 5 mg PO DAILY [facility] Last Admin: 06/14/22 08:47 Dose: 5 mg Folic Acid (Folic Acid 1 Mg Tab) 1 mg PO [facility] Last Admin: 06/13/22 20:04 Dose: 1 mg Furosemide (Furosemide 40 Mg Tab) 40 mg PO BID@0900,1600 [facility] Last Admin: 06/14/22 08:47 Dose: 40 mg Gabapentin (Gabapentin 300 Mg Cap) 300 mg PO TID [facility] Last Admin: 06/14/22 08:52 Dose: 300 mg Insulin Aspart (Insulin Aspart (Novolog) 100 Unit/Ml Vial) 0 unit SQ AC-TID [facility]; Protocol Last Admin: 06/14/22 12:42 Dose: 2 unit Ipratropium [place] (Ipratropium 0.5 Mg/2.5 Ml Nebu) 0.5 mg INHALATION RT-QID [facility] Last Admin: 06/14/22 11:30 Dose: Not Given Metoprolol Tartrate (Metoprolol Tartrate 12.5 Mg Tab) 12.5 mg PO BID [facility] Last Admin: 06/14/22 08:47 Dose: 12.5 mg Multi-Ingred Cream/Lotion/Oil/Oint (Hydrophilic Cream 180 Gm Tube) 1 applic TOPICAL DAILY [facility]; Protocol Last Admin: 06/13/22 15:18 Dose: Not Given Pantoprazole Sodium (Pantoprazole 40 Mg Tablet) 40 mg PO AC-BID [facility] Last Admin: 06/14/22 06:19 Dose: 40 mg Polyethylene Glycol (Polyethylene Glycol 3350 17 Gm Powd.Pack) 17 gm PO HS [facility] Last Admin: 06/13/22 20:03 Dose: 17 gm Repaglinide (Repaglinide 1 Mg Tab) 1 mg PO BID [facility] Last Admin: 06/14/22 08:47 Dose: 1 mg Sodium Chloride (Sodium Chloride 0.9% Flush 10 Ml Syringe) 10 ml IV BID [facility] Last Admin: 06/14/22 12:38 Dose: 10 ml Tamsulosin HCl (Tamsulosin 0.4 Mg Cap.Er.24h) 0.4 mg PO DAILY [facility] Last Admin: 06/14/22 08:47 Dose: 0.4 mg Social history: Lives with his . Uses a walker. Patient smoked 3 packs a day for about 16 years stopped in 1966. No alcohol. Family history: Lung cancer Physical examination: VITAL SIGNS: Afebrile, 82, 16, 130/66, 91% room air GENERAL: Reclining in bed , comfortable EYES: Pupils equal. Conjunctiva normal. HEENT: External appearance of nose and ears normal, oral cavity grossly normal. NECK: JVD possibly raised; masses not palpable. HEART: [First and second heart sounds are normal; much improved dependent edema in the lower back./Thigh LUNGS: Respiratory rate increased; decreased breath sounds. ABDOMEN: Soft, distended nontender, liver spleen not palpable, no masses palpable. PSYCH: Alert and oriented x3; mood and affect normal. MUSCULOSKELETAL:No Clubbing/cyanosis;muscles-grossly intact. OA INVESTIGATIONS, reviewed in the clinical context: June 13: Potassium 3.7 bicarb 41 BUN 49 creatinine 1.73 June 12: Potassium 3.8. 48 creatinine 1.67 June 11: Potassium 3.6 BUN 47 creatinine 1.40 June 09: Potassium 4.2 creatinine 1.5 to June 08: Potassium 4.1 creatinine 1.64 VQ scan: Low probability PE June 07: Potassium 4.2 BUN 44 creatinine 1.67 White count 3.9 hemoglobin 10.5 platelets 107 sodium 133 creatinine 1.61 Troponin I 0.051, 0.051, 0.045 EKG tracing personally reviewed by me-rate 87, atrial fibrillation,) [place] block pattern Chest x-ray film personally reviewed by me-some elevation of the right diaphragm. Some cephalization. 2-D echocardiogram: EF 1-65%. Moderate concentric LVH. Severe right ventricular dilatation. Severe pulmonary hypertension. Right ventricle enlargement. Assessment and plan: -Acute and chronic congestive heart failure from diastolic dysfunction EF more than 65%: Better Lasix 40 mg twice a day. Fluid restriction. Follow with cardiology -Metabolic alkalosis from volume contraction Diamox 250 mg twice a day - VQ scan: Low probability for PE -Morbid obesity BMI 40 -Severe secondary pulmonary hypertension -Hyperlipidemia Lipitor 40 mg daily at bedtime -Possible chronic kidney disease, stage III from nephrosclerosis and diabetic nephropathy Follow renal function. Check UA -Depression and anxiety Celexa 40 mg a day -Troponin leak secondary CK D. No clinical evidence of ACS -BPH Proscar 5 mg a day, Flomax -COPD in a previous smoker Resume inhalers -Diabetic peripheral neuropathy Neurontin -GERD 40 mg twice a day -Diabetes mellitus type 2 on oral hypoglycemic Resume Prandin. Follow Accu-Cheks -Cor pulmonale, acute on chronic: Better IV Lasix -Mild to moderate mitral stenosis Follow with cardiology -Acute on chronic medical debility Looking at rehab placement -Consult Dr. Rivas for port placement, which was scheduled as outpatient Patient has declined port placement Continue by mouth Lasix. Continue Diamox. Pending DC to rehab. Discussed with patient.
[2022-06-14 16:29] LABS: Glucose,Whole Blood 160 mg/dL (70-110)
[2022-06-14] MEDS: HYDROPHILIC CREAM 180 GM TUBE TOPICAL SCH (19:23)
[2022-06-14 19:45] LABS: Glucose,Whole Blood 222 mg/dL (70-110)
[2022-06-14] MEDS: DOCUSATE 100 MG CAP PO SCH (20:19)
[2022-06-14] MEDS: ATORVASTATIN 40 MG TAB PO SCH (20:19)
[2022-06-14] MEDS: FOLIC ACID 1 MG TAB PO SCH (20:19)
[2022-06-14] MEDS: polyethylene glycoL 3350 17 GM POWD.PACK PO SCH (20:19)
[2022-06-14] MEDS: ASCORBIC ACID 500 MG TAB PO SCH (20:19)
[2022-06-15] MEDS: INSULIN ASPART (NovoLOG) 100 UNIT/ML VIAL SQ SCH ×3 (06:16→17:06)
[2022-06-15 06:26] LABS: Glucose,Whole Blood 105 mg/dL (70-110)
[2022-06-15] MEDS: PANTOPRAZOLE 40 MG TABLET PO SCH ×2 (06:31→17:15)
[2022-06-15] MEDS: CITALOPRAM HYDROBROMIDE 20 MG TAB PO SCH (08:40)
[2022-06-15] MEDS: FINASTERIDE 5 MG TAB PO SCH (08:40)
[2022-06-15] MEDS: ASPIRIN 81 MG PO SCH (08:41)
[2022-06-15] MEDS: acetaZOLAMIDE 250 MG TAB PO SCH ×2 (08:41→21:00)
[2022-06-15] MEDS: REPAGLINIDE 1 MG TAB PO SCH ×2 (08:41→21:00)
[2022-06-15] MEDS: CYANOCOBALAMIN 500 MCG TAB PO SCH (08:41)
[2022-06-15] MEDS: TAMSULOSIN 0.4 MG CAP.ER.24H PO SCH (08:42)
[2022-06-15] MEDS: METOPROLOL TARTRATE 12.5 MG TAB PO SCH ×2 (08:42→21:00)
[2022-06-15] MEDS: CHOLECALCIFEROL 25 MCG (1000 IU) TABLET PO SCH (08:42)
[2022-06-15] MEDS: GABAPENTIN 300 MG CAP PO SCH ×3 (08:42→21:00)
[2022-06-15] MEDS: FUROSEMIDE 40 MG TAB PO SCH ×2 (08:42→17:15)
[2022-06-15] MEDS: SYMBICORT 80-4.5 MCG INHALER INHALATION SCH ×2 (08:50→21:05)
[2022-06-15] MEDS: IPRATROPIUM 0.5 MG/2.5 ML NEBU INHALATION SCH ×4 (08:50→21:08)
[2022-06-15 09:55] LABS: Calcium 8.8 mg/dL (8.4-10.2)
[2022-06-15 10:00] LABS: Basophils % (A) 1 %; Eosinophils # (A) 0.1 k/uL (0-0.7); Eosinophils % (A) 5 %; HCT 32.8 % (39.0-53.0); HGB 9.5 gm/dL (13.0-17.5); Hypochromasia Marked; Lymphocytes # (A) 0.4 k/uL (1.0-4.8); Lymphocytes % (A) 13 %; MCH 33.3 pg (25.0-35.0); MCV 115.1 fL (80.0-100.0); Macrocytosis Marked; Mean Platelet Volume 8.7; Monocytes # (A) 0.2 k/uL (0-1.0); Monocytes % (A) 9 %; Neutrophils # (A) 1.9 k/uL (1.3-7.7); Neutrophils % (A) 70 %; RBC 2.85 m/uL (4.30-5.90); RDW 15.5 % (11.5-15.5); WBC 2.7 k/uL (3.8-10.6)
[2022-06-15 10:47] LABS: Anisocytosis (M) Present; Mixed Population RBC Present; Platelet Count 90 k/uL (150-450); Poikilocytosis (M) Present
[2022-06-15 11:34] LABS: Glucose,Whole Blood 165 mg/dL (70-110)
[2022-06-15 16:34] LABS: Glucose,Whole Blood 129 mg/dL (70-110)
[2022-06-15] MEDS: HYDROPHILIC CREAM 180 GM TUBE TOPICAL SCH (17:17)
--- NOTE | 2022-06-15 17:24 | P.PN ---
Progress Note - Text Progress Note Date: 06/15/22 Chief Complaint: Short of breath This is a pleasant 87-year-old patient, follows with visiting physicians Dr. Carbajal. Chronic stable medical conditions include atrial fibrillation, CAD, diabetes, hard of hearing, hypertension, hyperlipidemia osteoarthritis, peripheral neuropathy does use CPAP. On extensive medical history. Patient presents with worsening short of breath for one week. Does feel bloated in the abdomen. Normally below. Appetite is okay. Has about 2 bowel movements a week. Denies any fever and chills. His weight has gone up. Harry catheter was placed in the ER. No chest pain. Admitted with CHF exacerbation. Started on IV Lasix. Fluid restriction. June 07: Patient is a female catheter. Good urine. Oral intake fair. Some shortness of breath. Oral intake code. Edema present. IV Lasix. June 08: Lasix increased to 80 mg every 12. Continues to make good urine. Edema still present. Eating fair. Getting some improvement. June 09: Some improvement in breathing. Negative fluid balance. IV Lasix. Oral intake fair. Some decrease in dependent edema. Up in a recliner June 10: Continues on IV Lasix. Difficult for I and O because of perineal anatomy. Breathing slowly improving. Edema present. June 11: Up in bed. Getting IV Lasix. Making urine. Some fungal infection the perineal area. Diflucan powder. Week. Looking to go to rehab. Continue IV Lasix. Eating fair. June 12: Continues to make urine. IV Lasix. Breathing better. Patient is due for a port placement. Consult Dr. Rivas. Diamox was added yesterday. June 13: Patient declined having a port placed. Breathing better. No bed available at [facility]. Being changed over to oral Lasix. June 14: Resting in bed comfortable. On by mouth Lasix. Pending placement. Oral intake code. June 15: Up in bed. Tolerating diet. Stable Active Medications Acetazolamide (Acetazolamide 250 Mg Tab) 250 mg PO BID [facility] Last Admin: 06/15/22 08:41 Dose: 250 mg Albuterol Sulfate (Albuterol Nebulized 2.5 Mg/3 Ml) 2.5 mg INHALATION RT-Q4H PRN PRN Reason: Shortness Of Breath Ascorbic Acid (Ascorbic Acid 500 Mg Tab) 1,000 mg PO HS [facility] Last Admin: 06/14/22 20:19 Dose: 1,000 mg Aspirin (Aspirin 81 Mg) 81 mg PO DAILY [facility] Last Admin: 06/15/22 08:41 Dose: 81 mg Atorvastatin Calcium (Atorvastatin 40 Mg Tab) 40 mg PO HS [facility] Last Admin: 06/14/22 20:19 Dose: 40 mg Budesonide/Formoterol Fumarate (Symbicort 80-4.5 Mcg Inhaler) 2 puff INHALATION RT-BID [facility] Last Admin: 06/15/22 08:50 Dose: 2 puff Cholecalciferol (Cholecalciferol 25 Mcg (1000 Iu) Tablet) 25 mcg PO DAILY [facility] Last Admin: 06/15/22 08:42 Dose: 25 mcg Citalopram Hydrobromide (Citalopram Hydrobromide 20 Mg Tab) 40 mg PO DAILY [facility] Last Admin: 06/15/22 08:40 Dose: 40 mg Cyanocobalamin (Cyanocobalamin 500 Mcg Tab) 1,000 mcg PO DAILY [facility] Last Admin: 06/15/22 08:41 Dose: 1,000 mcg Dextrose/Water (Dextrose 50% Syringe 50 Ml) 25 ml IVP PER PROTOCOL PRN; Protocol PRN Reason: Hypoglycemia Dextrose/Water (Dextrose 50% Syringe 50 Ml) 50 ml IVP PER PROTOCOL PRN; Protocol PRN Reason: Hypoglycemia Docusate Sodium (Docusate 100 Mg Cap) 100 mg PO HS [facility] Last Admin: 06/14/22 20:19 Dose: 100 mg Finasteride (Finasteride 5 Mg Tab) 5 mg PO DAILY [facility] Last Admin: 06/15/22 08:40 Dose: 5 mg Folic Acid (Folic Acid 1 Mg Tab) 1 mg PO HS [facility] Last Admin: 06/14/22 20:19 Dose: 1 mg Furosemide (Furosemide 40 Mg Tab) 40 mg PO BID@0900,1600 [facility] Last Admin: 06/15/22 17:15 Dose: 40 mg Gabapentin (Gabapentin 300 Mg Cap) 300 mg PO TID [facility] Last Admin: 06/15/22 17:15 Dose: 300 mg Insulin Aspart (Insulin Aspart (Novolog) 100 Unit/Ml Vial) 0 unit SQ AC-TID [facility]; Protocol Last Admin: 06/15/22 17:06 Dose: Not Given Ipratropium [place] (Ipratropium 0.5 Mg/2.5 Ml Nebu) 0.5 mg INHALATION RT-QID [facility] Last Admin: 06/15/22 16:16 Dose: 0.5 mg Metoprolol Tartrate (Metoprolol Tartrate 12.5 Mg Tab) 12.5 mg PO BID [facility] Last Admin: 06/15/22 08:42 Dose: 12.5 mg Multi-Ingred Cream/Lotion/Oil/Oint (Hydrophilic Cream 180 Gm Tube) 1 applic TOPICAL DAILY [facility]; Protocol Last Admin: 06/15/22 17:17 Dose: 1 applic Pantoprazole Sodium (Pantoprazole 40 Mg Tablet) 40 mg PO AC-BID [facility] Last Admin: 06/15/22 17:15 Dose: 40 mg Polyethylene Glycol (Polyethylene Glycol 3350 17 Gm Powd.Pack) 17 gm PO HS [facility] Last Admin: 06/14/22 20:19 Dose: 17 gm Repaglinide (Repaglinide 1 Mg Tab) 1 mg PO BID [facility] Last Admin: 06/15/22 08:41 Dose: 1 mg Sodium Chloride (Sodium Chloride 0.9% Flush 10 Ml Syringe) 10 ml IV BID [facility] Last Admin: 06/15/22 12:59 Dose: 10 ml Tamsulosin HCl (Tamsulosin 0.4 Mg Cap.Er.24h) 0.4 mg PO DAILY [facility] Last Admin: 06/15/22 08:42 Dose: 0.4 mg Social history: Lives with his . Uses a walker. Patient smoked 3 packs a day for about 16 years stopped in 1966. No alcohol. Family history: Lung cancer Physical examination: VITAL SIGNS: Afebrile, 65, 18, 97/53, 95% room air GENERAL: Reclining in bed , comfortable EYES: Pupils equal. Conjunctiva normal. HEENT: External appearance of nose and ears normal, oral cavity grossly normal. NECK: JVD possibly raised; masses not palpable. HEART: [First and second heart sounds are normal; much improved dependent edema in the lower back./Thigh LUNGS: Respiratory rate increased; decreased breath sounds. ABDOMEN: Soft, distended nontender, liver spleen not palpable, no masses palpable. PSYCH: Alert and oriented x3; mood and affect normal. MUSCULOSKELETAL:No Clubbing/cyanosis;muscles-grossly intact. OA INVESTIGATIONS, reviewed in the clinical context: June 15: WBC 2.7 hemoglobin 9.5 platelets 90 potassium 4 BUN 53 creatinine 1.65 VQ scan: Low probability PE June 07: Potassium 4.2 BUN 44 creatinine 1.67 White count 3.9 hemoglobin 10.5 platelets 107 sodium 133 creatinine 1.61 Troponin I 0.051, 0.051, 0.045 EKG tracing personally reviewed by me-rate 87, atrial fibrillation,) [place] block pattern Chest x-ray film personally reviewed by me-some elevation of the right diaphragm. Some cephalization. 2-D echocardiogram: EF 1-65%. Moderate concentric LVH. Severe right ventricular dilatation. Severe pulmonary hypertension. Right ventricle enlargement. Assessment and plan: -Acute and chronic congestive heart failure from diastolic dysfunction EF more than 65%: Better Lasix 40 mg twice a day. Fluid restriction. -Metabolic alkalosis from volume contraction Diamox 250 mg twice a day - VQ scan: Low probability for PE -Morbid obesity BMI 40 -Severe secondary pulmonary hypertension -Hyperlipidemia Lipitor 40 mg daily at bedtime -Possible chronic kidney disease, stage III from nephrosclerosis and diabetic nephropathy Follow renal function. Check UA -Depression and anxiety Celexa 40 mg a day -Troponin leak secondary CK D. No clinical evidence of ACS -BPH Proscar 5 mg a day, Flomax -COPD in a previous smoker Resume inhalers -Diabetic peripheral neuropathy Neurontin -GERD 40 mg twice a day -Diabetes mellitus type 2 on oral hypoglycemic Resume Prandin. Follow Accu-Cheks -Cor pulmonale, acute on chronic: Better IV Lasix -Mild to moderate mitral stenosis Follow with cardiology -Acute on chronic medical debility Looking at rehab placement -Consult Dr. Rivas for port placement, which was scheduled as outpatient Patient has declined port placement Stable. Continue current medications. Pending DC to rehab.
[2022-06-15 20:30] LABS: Glucose,Whole Blood 159 mg/dL (70-110)
[2022-06-15] MEDS: ATORVASTATIN 40 MG TAB PO SCH (21:00)
[2022-06-15] MEDS: ASCORBIC ACID 500 MG TAB PO SCH (21:00)
[2022-06-15] MEDS: DOCUSATE 100 MG CAP PO SCH (21:00)
[2022-06-15] MEDS: polyethylene glycoL 3350 17 GM POWD.PACK PO SCH (21:00)
[2022-06-15] MEDS: FOLIC ACID 1 MG TAB PO SCH (21:00)
[2022-06-16 06:38] LABS: Glucose,Whole Blood 97 mg/dL (70-110)
[2022-06-16] MEDS: PANTOPRAZOLE 40 MG TABLET PO SCH ×2 (06:41→17:13)
[2022-06-16] MEDS: INSULIN ASPART (NovoLOG) 100 UNIT/ML VIAL SQ SCH ×3 (06:42→17:13)
[2022-06-16] MEDS: SYMBICORT 80-4.5 MCG INHALER INHALATION SCH ×2 (08:42→20:42)
[2022-06-16] MEDS: IPRATROPIUM 0.5 MG/2.5 ML NEBU INHALATION SCH ×4 (08:42→20:42)
[2022-06-16] MEDS: REPAGLINIDE 1 MG TAB PO SCH ×2 (10:35→21:14)
[2022-06-16] MEDS: CITALOPRAM HYDROBROMIDE 20 MG TAB PO SCH (10:36)
[2022-06-16] MEDS: METOPROLOL TARTRATE 12.5 MG TAB PO SCH ×2 (10:36→21:14)
[2022-06-16] MEDS: GABAPENTIN 300 MG CAP PO SCH ×3 (10:36→21:17)
[2022-06-16] MEDS: FUROSEMIDE 40 MG TAB PO SCH ×2 (10:36→17:13)
[2022-06-16] MEDS: acetaZOLAMIDE 250 MG TAB PO SCH ×2 (10:36→21:13)
[2022-06-16] MEDS: FINASTERIDE 5 MG TAB PO SCH (10:37)
[2022-06-16] MEDS: HYDROPHILIC CREAM 180 GM TUBE TOPICAL SCH (10:37)
[2022-06-16] MEDS: CYANOCOBALAMIN 500 MCG TAB PO SCH (10:37)
[2022-06-16] MEDS: TAMSULOSIN 0.4 MG CAP.ER.24H PO SCH (10:37)
[2022-06-16] MEDS: CHOLECALCIFEROL 25 MCG (1000 IU) TABLET PO SCH (10:37)
[2022-06-16] MEDS: ASPIRIN 81 MG PO SCH (10:37)
[2022-06-16 11:23] LABS: Glucose,Whole Blood 209 mg/dL (70-110)
[2022-06-16 16:23] LABS: Glucose,Whole Blood 183 mg/dL (70-110)
--- NOTE | 2022-06-16 18:01 | P.PN ---
Progress Note - Text Progress Note Date: 06/16/22 Chief Complaint: Short of breath This is a pleasant 87-year-old patient, follows with visiting physicians Dr. Carbajal. Chronic stable medical conditions include atrial fibrillation, CAD, diabetes, hard of hearing, hypertension, hyperlipidemia osteoarthritis, peripheral neuropathy does use CPAP. On extensive medical history. Patient presents with worsening short of breath for one week. Does feel bloated in the abdomen. Normally below. Appetite is okay. Has about 2 bowel movements a week. Denies any fever and chills. His weight has gone up. Harry catheter was placed in the ER. No chest pain. Admitted with CHF exacerbation. Started on IV Lasix. Fluid restriction. June 07: Patient is a female catheter. Good urine. Oral intake fair. Some shortness of breath. Oral intake code. Edema present. IV Lasix. June 08: Lasix increased to 80 mg every 12. Continues to make good urine. Edema still present. Eating fair. Getting some improvement. June 09: Some improvement in breathing. Negative fluid balance. IV Lasix. Oral intake fair. Some decrease in dependent edema. Up in a recliner June 10: Continues on IV Lasix. Difficult for I and O because of perineal anatomy. Breathing slowly improving. Edema present. June 11: Up in bed. Getting IV Lasix. Making urine. Some fungal infection the perineal area. Diflucan powder. Week. Looking to go to rehab. Continue IV Lasix. Eating fair. June 12: Continues to make urine. IV Lasix. Breathing better. Patient is due for a port placement. Consult Dr. Rivas. Diamox was added yesterday. June 13: Patient declined having a port placed. Breathing better. No bed available at [facility]. Being changed over to oral Lasix. June 14: Resting in bed comfortable. On by mouth Lasix. Pending placement. Oral intake code. June 14: Up in bed. Tolerating diet. Stable June 16: Up in a chair. Oral intake fair. Edema stable. Continue current medications. Having increasing urinary retention. Harry catheter placed. Discussed with patient. Will follow up urology outpatient. Active Medications Acetazolamide (Acetazolamide 250 Mg Tab) 250 mg PO BID [facility] Last Admin: 06/16/22 10:36 Dose: 250 mg Albuterol Sulfate (Albuterol Nebulized 2.5 Mg/3 Ml) 2.5 mg INHALATION RT-Q4H PRN PRN Reason: Shortness Of Breath Ascorbic Acid (Ascorbic Acid 500 Mg Tab) 1,000 mg PO HS [facility] Last Admin: 06/15/22 21:00 Dose: 1,000 mg Aspirin (Aspirin 81 Mg) 81 mg PO DAILY [facility] Last Admin: 06/16/22 10:37 Dose: 81 mg Atorvastatin Calcium (Atorvastatin 40 Mg Tab) 40 mg PO HS [facility] Last Admin: 06/15/22 21:00 Dose: 40 mg Budesonide/Formoterol Fumarate (Symbicort 80-4.5 Mcg Inhaler) 2 puff INHALATION RT-BID [facility] Last Admin: 06/16/22 08:42 Dose: 2 puff Cholecalciferol (Cholecalciferol 25 Mcg (1000 Iu) Tablet) 25 mcg PO DAILY [facility] Last Admin: 06/16/22 10:37 Dose: 25 mcg Citalopram Hydrobromide (Citalopram Hydrobromide 20 Mg Tab) 40 mg PO DAILY [facility] Last Admin: 06/16/22 10:36 Dose: 40 mg Cyanocobalamin (Cyanocobalamin 500 Mcg Tab) 1,000 mcg PO DAILY [facility] Last Admin: 06/16/22 10:37 Dose: 1,000 mcg Dextrose/Water (Dextrose 50% Syringe 50 Ml) 25 ml IVP PER PROTOCOL PRN; Protocol PRN Reason: Hypoglycemia Dextrose/Water (Dextrose 50% Syringe 50 Ml) 50 ml IVP PER PROTOCOL PRN; Protocol PRN Reason: Hypoglycemia Docusate Sodium (Docusate 100 Mg Cap) 100 mg PO [facility] Last Admin: 06/15/22 21:00 Dose: 100 mg Finasteride (Finasteride 5 Mg Tab) 5 mg PO DAILY [facility] Last Admin: 06/16/22 10:37 Dose: 5 mg Folic Acid (Folic Acid 1 Mg Tab) 1 mg PO HS [facility] Last Admin: 06/15/22 21:00 Dose: 1 mg Furosemide (Furosemide 40 Mg Tab) 40 mg PO BID@0900,1600 [facility] Last Admin: 06/16/22 17:13 Dose: 40 mg Gabapentin (Gabapentin 300 Mg Cap) 300 mg PO TID [facility] Last Admin: 06/16/22 17:13 Dose: 300 mg Insulin Aspart (Insulin Aspart (Novolog) 100 Unit/Ml Vial) 0 unit SQ AC-TID [facility]; Protocol Last Admin: 06/16/22 17:13 Dose: 2 unit Ipratropium [place] (Ipratropium 0.5 Mg/2.5 Ml Nebu) 0.5 mg INHALATION RT-QID [facility] Last Admin: 06/16/22 16:41 Dose: 0.5 mg Metoprolol Tartrate (Metoprolol Tartrate 12.5 Mg Tab) 12.5 mg PO BID [facility] Last Admin: 06/16/22 10:36 Dose: 12.5 mg Multi-Ingred Cream/Lotion/Oil/Oint (Hydrophilic Cream 180 Gm Tube) 1 applic TOPICAL DAILY [facility]; Protocol Last Admin: 06/16/22 10:37 Dose: 1 applic Pantoprazole Sodium (Pantoprazole 40 Mg Tablet) 40 mg PO AC-BID [facility] Last Admin: 06/16/22 17:13 Dose: 40 mg Polyethylene Glycol (Polyethylene Glycol 3350 17 Gm Powd.Pack) 17 gm PO HS [facility] Last Admin: 06/15/22 21:00 Dose: 17 gm Repaglinide (Repaglinide 1 Mg Tab) 1 mg PO BID [facility] Last Admin: 06/16/22 10:35 Dose: 1 mg Sodium Chloride (Sodium Chloride 0.9% Flush 10 Ml Syringe) 10 ml IV BID [facility] Last Admin: 06/16/22 10:36 Dose: 10 ml Tamsulosin HCl (Tamsulosin 0.4 Mg Cap.Er.24h) 0.4 mg PO DAILY [facility] Last Admin: 06/16/22 10:37 Dose: 0.4 mg Social history: Lives with his . Uses a walker. Patient smoked 3 packs a day for about 16 years stopped in 1966. No alcohol. Family history: Lung cancer Physical examination: VITAL SIGNS: 97.4, 69, 18, 110/58, 95% room air GENERAL: Reclining in chair, comfortable EYES: Pupils equal. Conjunctiva normal. HEENT: External appearance of nose and ears normal, oral cavity grossly normal. NECK: JVD possibly raised; masses not palpable. HEART: [First and second heart sounds are normal; much improved dependent edema in the lower back./Thigh LUNGS: Respiratory rate increased; decreased breath sounds. ABDOMEN: Soft, distended nontender, liver spleen not palpable, no masses palpable. Harry catheter PSYCH: Alert and oriented x3; mood and affect normal. MUSCULOSKELETAL:No Clubbing/cyanosis;muscles-grossly intact. OA INVESTIGATIONS, reviewed in the clinical context: June 15: WBC 2.7 hemoglobin 9.5 platelets 90 potassium 4 BUN 53 creatinine 1.65 VQ scan: Low probability PE June 07: Potassium 4.2 BUN 44 creatinine 1.67 White count 3.9 hemoglobin 10.5 platelets 107 sodium 133 creatinine 1.61 Troponin I 0.051, 0.051, 0.045 EKG tracing personally reviewed by me-rate 87, atrial fibrillation,) [place] block pattern Chest x-ray film personally reviewed by me-some elevation of the right diaphragm. Some cephalization. 2-D echocardiogram: EF 1-65%. Moderate concentric LVH. Severe right ventricular dilatation. Severe pulmonary hypertension. Right ventricle enlargement. Assessment and plan: -Acute and chronic congestive heart failure from diastolic dysfunction EF more than 65%: Better Lasix 40 mg twice a day. Fluid restriction. -Metabolic alkalosis from volume contraction Diamox 250 mg twice a day - VQ scan: Low probability for PE -Morbid obesity BMI 40 -Severe secondary pulmonary hypertension -Hyperlipidemia Lipitor 40 mg daily at bedtime -Possible chronic kidney disease, stage III from nephrosclerosis and diabetic nephropathy Follow renal function. Check UA -Depression and anxiety Celexa 40 mg a day -Troponin leak secondary CK D. No clinical evidence of ACS -BPH Proscar 5 mg a day, Flomax -Acute urine outflow obstruction from BPH Harry catheter placed. Follow-up with urology outpatient. -COPD in a previous smoker Resume inhalers -Diabetic peripheral neuropathy Neurontin -GERD 40 mg twice a day -Diabetes mellitus type 2 on oral hypoglycemic Resume Prandin. Follow Accu-Cheks -Cor pulmonale, acute on chronic: Better IV Lasix -Mild to moderate mitral stenosis Follow with cardiology -Acute on chronic medical debility Looking at rehab placement -Consult Dr. Rivas for port placement, which was scheduled as outpatient Patient has declined port placement Acute urinary retention. Harry catheter placed. Discussed with patient. Outpatient urology follow-up. Other medications to follow.
[2022-06-16 20:06] LABS: Glucose,Whole Blood 230 mg/dL (70-110)
[2022-06-16] MEDS: ASCORBIC ACID 500 MG TAB PO SCH (21:13)
[2022-06-16] MEDS: FOLIC ACID 1 MG TAB PO SCH (21:13)
[2022-06-16] MEDS: DOCUSATE 100 MG CAP PO SCH (21:13)
[2022-06-16] MEDS: ATORVASTATIN 40 MG TAB PO SCH (21:13)
[2022-06-16] MEDS: polyethylene glycoL 3350 17 GM POWD.PACK PO SCH (21:14)
[2022-06-17 06:20] LABS: Glucose,Whole Blood 122 mg/dL (70-110)
[2022-06-17] MEDS: INSULIN ASPART (NovoLOG) 100 UNIT/ML VIAL SQ SCH ×2 (06:29→11:58)
[2022-06-17] MEDS: PANTOPRAZOLE 40 MG TABLET PO SCH (06:29)
[2022-06-17 08:50] LABS: HCT 30.2 % (39.0-53.0); Hypochromasia Marked; MCH 33.6 pg (25.0-35.0); MCHC 29.7 g/dL (31.0-37.0); Macrocytosis Marked; Mean Platelet Volume 10.6; Platelet Count 104 k/uL (150-450); RBC 2.67 m/uL (4.30-5.90); RDW 15.1 % (11.5-15.5); WBC 3.7 k/uL (3.8-10.6)
[2022-06-17] MEDS: IPRATROPIUM 0.5 MG/2.5 ML NEBU INHALATION SCH ×3 (08:56→16:12)
[2022-06-17] MEDS: SYMBICORT 80-4.5 MCG INHALER INHALATION SCH (08:56)
[2022-06-17 09:01] LABS: Calcium 8.8 mg/dL (8.4-10.2); Magnesium 2.4 mg/dL (1.6-2.3); Potassium 3.8 mmol/L (3.5-5.1); Total Bilirubin 0.3 mg/dL (0.2-1.3); Total Protein 5.1 g/dL (6.3-8.2)
[2022-06-17] MEDS: REPAGLINIDE 1 MG TAB PO SCH (09:25)
[2022-06-17] MEDS: CHOLECALCIFEROL 25 MCG (1000 IU) TABLET PO SCH (09:25)
[2022-06-17] MEDS: ASPIRIN 81 MG PO SCH (09:25)
[2022-06-17] MEDS: CITALOPRAM HYDROBROMIDE 20 MG TAB PO SCH (09:25)
[2022-06-17] MEDS: FUROSEMIDE 40 MG TAB PO SCH ×2 (09:25→15:49)
[2022-06-17] MEDS: FINASTERIDE 5 MG TAB PO SCH (09:25)
[2022-06-17] MEDS: acetaZOLAMIDE 250 MG TAB PO SCH (09:25)
[2022-06-17] MEDS: TAMSULOSIN 0.4 MG CAP.ER.24H PO SCH (09:25)
[2022-06-17] MEDS: METOPROLOL TARTRATE 12.5 MG TAB PO SCH (09:25)
[2022-06-17] MEDS: CYANOCOBALAMIN 500 MCG TAB PO SCH (09:25)
[2022-06-17] MEDS: GABAPENTIN 300 MG CAP PO SCH ×2 (09:26→15:49)
[2022-06-17] MEDS: HYDROPHILIC CREAM 180 GM TUBE TOPICAL SCH (09:26)
[2022-06-17 10:55] VITALS: RESP 18
[2022-06-17 11:31] LABS: Glucose,Whole Blood 148 mg/dL (70-110)
[2022-06-17 11:36] VITALS: BP 111/54; PULSE 63; TEMP 97.9
--- NOTE | 2022-06-17 12:20 | P.DS ---
Providers Date of admission: 06/06/22 01:18 Expected date of discharge: 06/17/22 Attending physician: Vladislav Adam Consults: 06/12/22 10:54 Consult Physician Routine Consulting Provider: Vikas Hoffman Reason/Comments: port placement Do you want consulting provider notified?: Yes Primary care physician: [facility] Course: Chief Complaint: Short of breath This is a pleasant 87-year-old patient, follows with visiting physicians Dr. Carbajal. Chronic stable medical conditions include atrial fibrillation, CAD, diabetes, hard of hearing, hypertension, hyperlipidemia osteoarthritis, peripheral neuropathy does use CPAP. On extensive medical history. Patient presents with worsening short of breath for one week. Does feel bloated in the abdomen. Normally below. Appetite is okay. Has about 2 bowel movements a week. Denies any fever and chills. His weight has gone up. Christy catheter was placed in the ER. No chest pain. Admitted with CHF exacerbation. Started on IV Lasix. Fluid restriction. June 07: Patient is a female catheter. Good urine. Oral intake fair. Some shortness of breath. Oral intake code. Edema present. IV Lasix. June 08: Lasix increased to 80 mg every 12. Continues to make good urine. Edema still present. Eating fair. Getting some improvement. June 09: Some improvement in breathing. Negative fluid balance. IV Lasix. Oral intake fair. Some decrease in dependent edema. Up in a recliner June 10: Continues on IV Lasix. Difficult for I and O because of perineal anatomy. Breathing slowly improving. Edema present. June 11: Up in bed. Getting IV Lasix. Making urine. Some fungal infection the perineal area. Diflucan powder. Week. Looking to go to rehab. Continue IV Lasix. Eating fair. June 12: Continues to make urine. IV Lasix. Breathing better. Patient is due for a port placement. Consult Dr. Rivas. Diamox was added yesterday. June 13: Patient declined having a port placed. Breathing better. No bed available at [facility]. Being changed over to oral Lasix. June 14: Resting in bed comfortable. On by mouth Lasix. Pending placement. Oral intake code. June 14: Up in bed. Tolerating diet. Stable June 15: Up in a chair. Oral intake fair. Edema stable. Continue current medications. Having increasing urinary retention. Christy catheter placed. Discussed with patient. Will follow up urology outpatient. June 17: Stable. No new issues. Going to rehab. Discussed with patient. Social history: Lives with his . Uses a walker. Patient smoked 3 packs a day for about 16 years stopped in 1966. No alcohol. Family history: Lung cancer Physical examination: VITAL SIGNS: 97.9, 63, 18, 150s/54, 95% room air GENERAL: Reclining in bed, comfortable EYES: Pupils equal. Conjunctiva normal. HEENT: External appearance of nose and ears normal, oral cavity grossly normal. NECK: JVD possibly raised; masses not palpable. HEART: [First and second heart sounds are normal; much improved dependent edema in the lower back./Thigh LUNGS: Respiratory rate increased; decreased breath sounds. ABDOMEN: Soft, distended nontender, liver spleen not palpable, no masses palpable. Christy catheter PSYCH: Alert and oriented x3; mood and affect normal. MUSCULOSKELETAL:No Clubbing/cyanosis;muscles-grossly intact. OA INVESTIGATIONS, reviewed in the clinical context: June 17: Obesity 3.7 hemoglobin 9 potassium 3.8. 48 creatinine 1.5 to VQ scan: Low probability PE June 07: Potassium 4.2 BUN 44 creatinine 1.67 White count 3.9 hemoglobin 10.5 platelets 107 sodium 133 creatinine 1.61 Troponin I 0.051, 0.051, 0.045 EKG tracing personally reviewed by me-rate 87, atrial fibrillation,) [place] block pattern Chest x-ray film personally reviewed by me-some elevation of the right diaphragm. Some cephalization. 2-D echocardiogram: EF 1-65%. Moderate concentric LVH. Severe right ventricular dilatation. Severe pulmonary hypertension. Right ventricle enlargement. Assessment and plan: -Acute and chronic congestive heart failure from diastolic dysfunction EF more than 65%: Better Lasix 40 mg twice a day. Fluid restriction 1800 mL a day. -Metabolic alkalosis from volume contraction Diamox 250 mg twice a day-for 5 more days - VQ scan: Low probability for PE -Morbid obesity BMI 40 -Severe secondary pulmonary hypertension -Hyperlipidemia Lipitor 40 mg daily at bedtime - chronic kidney disease, stage III from nephrosclerosis and diabetic nephropathy Follow renal function. -Depression and anxiety Celexa 40 mg a day -Troponin leak secondary CK D. No clinical evidence of ACS -BPH Proscar 5 mg a day, Flomax -Acute urine outflow obstruction from BPH Christy catheter placed. Follow-up with urology outpatient. -COPD in a previous smoker Continue inhalers -Diabetic peripheral neuropathy Neurontin -GERD 40 mg twice a day -Diabetes mellitus type 2 on oral hypoglycemic Resume Prandin. Follow Accu-Cheks -Cor pulmonale, acute on chronic: Better Lasix -Mild to moderate mitral stenosis Follow with cardiology -Acute on chronic medical debility -PD rehab -Consult Dr. Rivas for port placement, which was scheduled as outpatient Patient has declined port placement Disposition: [facility] rehab Plan - Discharge Summary Discharge Rx Participant: No New Discharge Prescriptions: New acetaZOLAMIDE [Diamox] 250 mg PO BID #10 tab Furosemide [Lasix] 40 mg PO BID@0900,1600 tab Aspirin 81 mg PO DAILY tab Continue Folic Acid 0.4 mg PO HS Cholecalciferol [Vitamin D3 (25 Mcg = 1000 Iu)] 25 mcg PO DAILY Finasteride [Proscar] 5 mg PO DAILY Eye Compound Vitamin 2 cap PO BID Atorvastatin [Lipitor] 40 mg PO HS Fluticasone/Umeclidin/Vilanter [Trelegy Ellipta 100-62.5-25] 1 puff INHALATION RT-HS Integra 62.5-62.5-40-3mg Capsule 1 cap PO HS Ascorbic Acid [Vitamin C] 1,000 mg PO HS Cyanocobalamin (Vitamin B-12) [Vitamin B-12] 1,000 mcg PO DAILY Tamsulosin [Flomax] 0.4 mg PO DAILY Gabapentin 300 mg PO TID #9 cap polyethylene glycoL 3350 [Miralax] 17 gm PO HS Metoprolol Tartrate [Lopressor] 12.5 mg PO BID Albuterol Sulfate [Ventolin HFA] 2 puff INHALATION RT-Q4H PRN PRN Reason: Shortness Of Breath Citalopram Hydrobromide [CeleXA] 40 mg PO DAILY Inulin/Chromium Picolinate [Fiber Gummies Chew] 2 tab PO HS Pantoprazole [Protonix] 40 mg PO BID Repaglinide [Prandin] 1 mg PO BID Discontinued Docusate [Colace] 100 mg PO HS Bumetanide [Bumex] 1 mg PO DAILY Gabapentin [Neurontin] 100 mg PO TID Discharge Medication List Cholecalciferol [Vitamin D3 (25 Mcg = 1000 Iu)] 25 mcg PO DAILY 07/10/15 [History] Eye Compound Vitamin 2 cap PO BID 07/10/15 [History] Finasteride [Proscar] 5 mg PO DAILY 07/10/15 [History] Folic Acid 0.4 mg PO HS 07/10/15 [History] Atorvastatin [Lipitor] 40 mg PO HS 04/27/18 [History] Albuterol Sulfate [Ventolin HFA] 2 puff INHALATION RT-Q4H PRN 05/28/21 [History] Fluticasone/Umeclidin/Vilanter [Trelegy Ellipta 100-62.5-25] 1 puff INHALATION RT-HS 05/28/21 [History] Metoprolol Tartrate [Lopressor] 12.5 mg PO BID 05/28/21 [History] polyethylene glycoL 3350 [Miralax] 17 gm PO HS 05/28/21 [History] Ascorbic Acid [Vitamin C] 1,000 mg PO HS 06/06/22 [History] Citalopram Hydrobromide [CeleXA] 40 mg PO DAILY 06/06/22 [History] Cyanocobalamin (Vitamin B-12) [Vitamin B-12] 1,000 mcg PO DAILY 06/06/22 [History] Integra 62.5-62.5-40-3mg Capsule 1 cap PO HS 06/06/22 [History] Inulin/Chromium Picolinate [Fiber Gummies Chew] 2 tab PO HS 06/06/22 [History] Pantoprazole [Protonix] 40 mg PO BID 06/06/22 [History] Repaglinide [Prandin] 1 mg PO BID 06/06/22 [History] Tamsulosin [Flomax] 0.4 mg PO DAILY 06/06/22 [History] Aspirin 81 mg PO DAILY tab 06/13/22 [Rx] Gabapentin 300 mg PO TID #9 cap 06/13/22 [Rx] acetaZOLAMIDE [Diamox] 250 mg PO BID #10 tab 06/13/22 [Rx] Furosemide [Lasix] 40 mg PO BID@0900,1600 tab 06/16/22 [Rx] Follow up Appointment(s)/Referral(s): Simon Varela MD [STAFF PHYSICIAN] - 06/19/22 10:45 am (Your appt is at the [address] [place] [address].) Gumaro Can MD [STAFF PHYSICIAN] - 2 Weeks Austin Carbajal MD [Primary Care Provider] - 1-2 days Activity/Diet/Wound Care/Special Instructions: *Urinary christy inserted 06/16/22 @ 1100 for urinary retention. Discharge with christy. Patient with follow up with urology to discuss when urinary christy can be discontinued.
== END 2022-06-17 16:41 | disposition home health service (06) | DRG 291 ==
LOC: EC 21:16 → 3SCARD 06-06 01:18
PROVIDERS: ADMIT Hospitalist; ATTEND Hospitalist
DX: I13.0 Hypertensive heart and chronic kidney disease with heart failure and stage 1 through stage 4 chronic kidney disease, or unspecified chronic kidney disease (principal); I50.33 Acute on chronic diastolic (congestive) heart failure; I48.21 Permanent atrial fibrillation; Z68.41 Body mass index [BMI] 40.0-44.9, adult; E87.3 Alkalosis; N17.9 Acute kidney failure, unspecified; I45.10 Unspecified right bundle-branch block; I27.29 Other secondary pulmonary hypertension; I25.10 Atherosclerotic heart disease of native coronary artery without angina pectoris; E11.22 Type 2 diabetes mellitus with diabetic chronic kidney disease; N18.30 Chronic kidney disease, stage 3 unspecified; D63.1 Anemia in chronic kidney disease; Z79.84 Long term (current) use of oral hypoglycemic drugs; E11.42 Type 2 diabetes mellitus with diabetic polyneuropathy; E11.51 Type 2 diabetes mellitus with diabetic peripheral angiopathy without gangrene; E11.622 Type 2 diabetes mellitus with other skin ulcer; J44.9 Chronic obstructive pulmonary disease, unspecified; E11.649 Type 2 diabetes mellitus with hypoglycemia without coma; I27.81 Cor pulmonale (chronic); Z95.3 Presence of xenogenic heart valve; Z95.1 Presence of aortocoronary bypass graft; F32.A Depression, unspecified; I08.0 Rheumatic disorders of both mitral and aortic valves; E66.01 Morbid (severe) obesity due to excess calories; E78.5 Hyperlipidemia, unspecified; F41.9 Anxiety disorder, unspecified; K59.09 Other constipation; H91.90 Unspecified hearing loss, unspecified ear; K21.9 Gastro-esophageal reflux disease without esophagitis; L98.491 Non-pressure chronic ulcer of skin of other sites limited to breakdown of skin; G47.30 Sleep apnea, unspecified; M19.90 Unspecified osteoarthritis, unspecified site; N40.1 Benign prostatic hyperplasia with lower urinary tract symptoms; R21 Rash and other nonspecific skin eruption; H53.469 Homonymous bilateral field defects, unspecified side; H35.30 Unspecified macular degeneration; R33.8 Other retention of urine; Z79.51 Long term (current) use of inhaled steroids; Z79.82 Long term (current) use of aspirin; Z79.899 Other long term (current) drug therapy; Z80.1 Family history of malignant neoplasm of trachea, bronchus and lung; Z82.49 Family history of ischemic heart disease and other diseases of the circulatory system; Z85.118 Personal history of other malignant neoplasm of bronchus and lung; Z86.73 Personal history of transient ischemic attack (TIA), and cerebral infarction without residual deficits; Z87.11 Personal history of peptic ulcer disease; Z87.891 Personal history of nicotine dependence; Z97.4 Presence of external hearing-aid; Z28.21 Immunization not carried out because of patient refusal; Z71.3 Dietary counseling and surveillance
CPT/HCPCS: 36415; 71046; 78582; 80048; 80053; 83036; 83605; 83735; 83880; 84484; 85025; 85027; 93005; 93306; 94640; 94760; 96374; 96376; 99285

== ENCOUNTER 2022-06-30 15:50 | Inpatient (IN) | payer MEDICARE ==
[2022-06-30 16:53] LABS: Basophils % (A) 1 %; Eosinophils # (A) 0.1 k/uL (0-0.7); Eosinophils % (A) 4 %; HCT 32.9 % (39.0-53.0); HGB 9.9 gm/dL (13.0-17.5); Hypochromasia Marked; Lymphocytes # (A) 0.2 k/uL (1.0-4.8); Lymphocytes % (A) 9 %; MCH 33.3 pg (25.0-35.0); MCHC 30.2 g/dL (31.0-37.0); MCV 110.3 fL (80.0-100.0); Macrocytosis Marked; Monocytes % (A) 1 %; Neutrophils # (A) 2.2 k/uL (1.3-7.7); Neutrophils % (A) 85 %; Platelet Count 136 k/uL (150-450); RBC 2.99 m/uL (4.30-5.90); RDW 15.8 % (11.5-15.5); WBC 2.6 k/uL (3.8-10.6)
[2022-06-30 17:03] LABS: Albumin 3.2 g/dL (3.5-5.0); Calcium 8.8 mg/dL (8.4-10.2); Potassium 3.9 mmol/L (3.5-5.1); Total Bilirubin 0.6 mg/dL (0.2-1.3); Total Protein 5.4 g/dL (6.3-8.2)
--- NOTE | 2022-06-30 17:03 | ED ---
General Adult HPI - General Chief complaint: Syncope Stated complaint: Cathater issues/bleeding Time Seen by Provider: 06/30/22 16:04 Source: patient Mode of arrival: EMS Limitations: no limitations - History of Present Illness Initial comments: This [age] male presents with a complaint of apparently having a syncopal episode. He apparently was hospitalized at our facility for about 10 days. He's been in rehab for the past 2 weeks. He had problems with urinary retention and has been utilizing a Harry catheter. He apparently, when trying to go to the bathroom, pulled out his Harry and dislodged it. He apparently was also having some blood from his penile meatus. He then apparently had a syncopal episode. The patient does not remember the incident but report was received from EMS that he was unconscious for approximately 30 seconds or so. He is denying any chest pain or shortness of breath. He apparently did have some moderate amount of blood from his urethra. The and daughter later show up and relate that he has been having problems with his hemoglobin. This is been gradually decreasing to the point that he may need another blood transfusion. They have been in touch with a roller leveler at [facility] and he apparently may need additional workup at their facility in the future. Daughter states that he is had some bleeding from some gastritis in the past but it feels though he may be bleeding from further down and may need a specialized EGD to further evaluate. No other complaints or modifying factors. He is denying any current shortness of breath or chest pain. He denies any pain in his perineal region. He does relate that he was seen by the urologist just this morning at the rehab facility and they recommended removing his Harry catheter today. - Related Data Home Medications Medication Instructions Recorded Confirmed Cholecalciferol [Vitamin D3 (25 25 mcg PO DAILY 07/10/15 06/06/22 Mcg = 1000 Iu)] Eye Compound Vitamin 2 cap PO BID 07/10/15 06/06/22 Finasteride [Proscar] 5 mg PO DAILY 07/10/15 06/06/22 Folic Acid 0.4 mg PO HS 07/10/15 06/06/22 Atorvastatin [Lipitor] 40 mg PO HS 04/27/18 06/06/22 Albuterol Sulfate [Ventolin HFA] 2 puff INHALATION RT-Q4H PRN 05/28/21 06/06/22 Fluticasone/Umeclidin/Vilanter 1 puff INHALATION RT-HS 05/28/21 06/06/22 [Trelegy Ellipta 100-62.5-25] Metoprolol Tartrate [Lopressor] 12.5 mg PO BID 05/28/21 06/06/22 polyethylene glycoL 3350 [Miralax] 17 gm PO HS 05/28/21 06/06/22 Ascorbic Acid [Vitamin C] 1,000 mg PO HS 06/06/22 06/06/22 Citalopram Hydrobromide [CeleXA] 40 mg PO DAILY 06/06/22 06/06/22 Cyanocobalamin (Vitamin B-12) 1,000 mcg PO DAILY 06/06/22 06/06/22 [Vitamin B-12] Integra 62.5-62.5-40-3mg Capsule 1 cap PO HS 06/06/22 06/06/22 Inulin/Chromium Picolinate [Fiber 2 tab PO HS 06/06/22 06/06/22 Gummies Chew] Pantoprazole [Protonix] 40 mg PO BID 06/06/22 06/06/22 Repaglinide [Prandin] 1 mg PO BID 06/06/22 06/06/22 Tamsulosin [Flomax] 0.4 mg PO DAILY 06/06/22 06/06/22 Previous Rx's Medication Instructions Recorded Aspirin 81 mg PO DAILY tab 06/13/22 Gabapentin 300 mg PO TID #9 cap 06/13/22 acetaZOLAMIDE [Diamox] 250 mg PO BID #10 tab 06/13/22 Furosemide [Lasix] 40 mg PO BID@0900,1600 tab 06/16/22 Allergies Allergy/AdvReac Type Severity Reaction Status Date / Time iron infusions AdvReac Unknown Passed Out Uncoded 06/30/22 15:57 Review of Systems ROS Statement: Those systems with pertinent positive or pertinent negative responses have been documented in the HPI. ROS Other: All systems not noted in ROS Statement are negative. 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 ., STATES LOWER EXTREMITY EDEMA, HX STOMACH ULCER., CHRONIC CONSTIPATION., -STATES BLOOD COUNT LOW AND HE FEELS EXHAUSTED AND USING A CANE & WALKER . , STATES RASH ON FORESKIN., SIGRID HEARING AIDS. states he needs a new replacement valve BONE MARROW BIOPSY CAUTERIZATION OF STOMACH ULCERS History of Any Multi-Drug Resistant Organisms: None Reported Past Surgical History: Appendectomy, Cardiac Ablation, Cardiac Valve Replacement, Cholecystectomy, Coronary Bypass/CABG, Heart Catheterization Additional Past Surgical History / Comment(s): 2014 cardiac ablation of Afib at [facility], 2 vessel CABG and aortic valve replacement ([place]ov[place]) in 2009., L caratid endartectomy, bilateral varicose vein stripping, lysis of abdominal adhesions, colonoscopies., EGDs-repair doudenal ulcers, bone marrow biopsy., 2 stents "right groin" for circulation ([place])., Watchman Procedure at [place] - 2019 Past Anesthesia/Blood Transfusion Reactions: No Reported Reaction, Blood Transfusion Reaction Additional Past Anesthesia/Blood Transfusion Reaction / Comment(s): Hx of several blood transfusions and had reaction with Hives x1. ([place]) Past Psychological History: No Psychological Hx Reported Smoking Status: Former smoker Past Alcohol Use History: None Reported Past Drug Use History: None Reported - Past Family History Father Family Medical History: Cancer Additional Family Medical History / Comment(s): LUNG CANCER WITH METS Mother Family Medical History: Coronary Artery Disease (CAD), Myocardial Infarction (MA) Additional Family Medical History / Comment(s): Mother while recovering from open heart surgery. She had several MIs. General Exam - General Exam Comments Initial Comments: GENERAL: The patient is well nourished and well hydrated. VITAL SIGNS: Heart rate, blood pressure, respiratory rate reviewed as recorded in nurse's notes. EYES: Pupils are round and reactive. Extraocular movements are intact. No conjunctival / lid redness or swelling. ENT: No external evidence of injury, swelling, or ecchymosis. Airway is patent. Throat is clear. NECK: Nontender. No swelling or evidence of injury. No subcutaneous emphysema. Trachea is midline. No thyroid mass. HEART: Regular rate and rhythm. Good peripheral pulses. LUNGS/CHEST: Breath sounds clear and equal bilaterally. No rales, rhonchi, or wheezes. No ecchymosis, subcutaneous emphysema, or tenderness. ABDOMEN: Abdomen soft without tenderness. No palpable masses or organomegaly. No peritoneal signs. No abdominal wall swelling or ecchymosis. GENITOURINARY: There is a slight amount of blood noted at the penile meatus. No active significant bleeding noted. EXTREMITIES: No extremity tenderness. Normal muscle tone and function. No thoracolumbar tenderness. NEUROLOGIC: Sensation is grossly intact. Cranial nerve exam reveals face is symmetrical, tongue is midline, speech is clear. SKIN: No abrasions or ecchymosis is noted. No induration or masses noted. PSYCHIATRIC: Alert and oriented. Appropriate behavior and judgment. Limitations: no limitations Course Vital Signs 06/30/22 06/30/22 06/30/22 15:53 16:21 16:23 Temperature 97.7 F Pulse Rate 100 102 H Pulse Rate [ 112 H Bilateral] Respiratory 20 20 Rate Blood Pressure 107/64 100/68 O2 Sat by Pulse 96 100 Oximetry 06/30/22 06/30/22 06/30/22 17:43 19:03 19:43 Temperature Pulse Rate 107 H 110 H 105 H Pulse Rate [ Bilateral] Respiratory 16 20 20 Rate Blood Pressure 97/50 101/60 99/65 O2 Sat by Pulse 98 98 100 Oximetry Medical Decision Making - Medical Decision Making The patient was seen and examined. All diagnostics are reviewed. He did have a EKG done which shows atrial fibrillation at a rate of 96. There is evidence of a right bundle-branch block and probable ventricular hypertrophy. There is a widened QRS at 174 with the QTc interval 444. His appears similar to previous EKG done on prior admission. Old records were reviewed and it appears as though he was hospitalized at our facility just earlier this month for approximately 10 days. The laboratory does show anemia as well as some mild renal insufficiency. Chest x-ray shows some mild pulmonary vascular congestion but no definite congestive heart failure. Please see report for details. The daughter reports patient having some confusion/hallucinations. Computed tomography scan of the brain was done as the patient had a syncopal episode but there is no evidence of any traumatic acute event. An old CVA is noted. The patient is not confused on my recheck. Neurologic exam does not show any deficits whatsoever. His blood pressure was slightly low at 80/60 on recheck but then shortly thereafter it is 93 systolic. He is given 500 mL of IV fluids. It is felt as though the patient would require admission to the hospital. He does have an elevated troponin on his labs and acute coronary syndrome needs to be ruled out. His hemoglobin is 9.9 which is improved as compared to previous. He may benefit from urology consult is needed as he did accidentally pull out his Harry catheter and his inability to urinate is not known as of yet. He may need repeat Harry catheter placed and/or evaluation for further urethral trauma as felt necessary per u rology. Case was discussed with internal medicine in the near future. Patient will be admitted with cardiology and urology consult. - Lab Data Result diagrams: 06/30/22 16:36 06/30/22 16:36 Lab Results 06/30/22 06/30/22 06/30/22 Range/Units 16:36 16:36 16:36 WBC 2.6 L (3.8-10.6) k/uL RBC 2.99 L (4.30-5.90) m/uL Hgb 9.9 L (13.0-17.5) gm/dL Hct 32.9 L (39.0-53.0) % MCV 110.3 H (80.0-100.0) fL MCH 33.3 (25.0-35.0) pg MCHC 30.2 L (31.0-37.0) g/dL RDW 15.8 H (11.5-15.5) % Plt Count 136 L (150-450) k/uL MPV 9.0 Neutrophils % 85 % Lymphocytes % 9 % Monocytes % 1 % Eosinophils % 4 % Basophils % 1 % Neutrophils # 2.2 (1.3-7.7) k/uL Lymphocytes # 0.2 L (1.0-4.8) k/uL Monocytes # 0.0 (0-1.0) k/uL Eosinophils # 0.1 (0-0.7) k/uL Basophils # 0.0 (0-0.2) k/uL Hypochromasia Marked Macrocytosis Marked A PT 10.8 (9.0-12.0) sec INR 1.0 (<1.2) APTT 21.4 L (22.0-30.0) sec Sodium 140 (137-145) mmol/L Potassium 3.9 (3.5-5.1) mmol/L Chloride 108 H (98-107) mmol/L Carbon Dioxide 21 L (22-30) mmol/L Anion Gap 11 mmol/L BUN 43 H (9-20) mg/dL Creatinine 1.67 H (0.66-1.25) mg/dL Est GFR (CKD-EPI)AfAm 42 (>60 ml/min/1.73 sqM) Est GFR (CKD-EPI)NonAf 37 (>60 ml/min/1.73 sqM) Glucose 126 H (74-99) mg/dL Calcium 8.8 (8.4-10.2) mg/dL Total Bilirubin 0.6 (0.2-1.3) mg/dL AST 21 (17-59) U/L ALT 17 (4-49) U/L Alkaline Phosphatase 123 (38-126) U/L Troponin I (0.000-0.034) ng/mL Total Protein 5.4 L (6.3-8.2) g/dL Albumin 3.2 L (3.5-5.0) g/dL 06/30/22 Range/Units 16:36 WBC (3.8-10.6) k/uL RBC (4.30-5.90) m/uL Hgb (13.0-17.5) gm/dL Hct (39.0-53.0) % MCV (80.0-100.0) fL MCH (25.0-35.0) pg MCHC (31.0-37.0) g/dL RDW (11.5-15.5) % Plt Count (150-450) k/uL MPV Neutrophils % % Lymphocytes % % Monocytes % % Eosinophils % % Basophils % % Neutrophils # (1.3-7.7) k/uL Lymphocytes # (1.0-4.8) k/uL Monocytes # (0-1.0) k/uL Eosinophils # (0-0.7) k/uL Basophils # (0-0.2) k/uL Hypochromasia Macrocytosis PT (9.0-12.0) sec INR (<1.2) APTT (22.0-30.0) sec Sodium (137-145) mmol/L Potassium (3.5-5.1) mmol/L Chloride (98-107) mmol/L Carbon Dioxide (22-30) mmol/L Anion Gap mmol/L BUN (9-20) mg/dL Creatinine (0.66-1.25) mg/dL Est GFR (CKD-EPI)AfAm (>60 ml/min/1.73 sqM) Est GFR (CKD-EPI)NonAf (>60 ml/min/1.73 sqM) Glucose (74-99) mg/dL Calcium (8.4-10.2) mg/dL Total Bilirubin (0.2-1.3) mg/dL AST (17-59) U/L ALT (4-49) U/L Alkaline Phosphatase (38-126) U/L Troponin I 0.158 H* (0.000-0.034) ng/mL Total Protein (6.3-8.2) g/dL Albumin (3.5-5.0) g/dL Disposition Clinical Impression: Dislodged Harry catheter, Syncope, Pancytopenia, Atrial fibrillation, Anemia, Confusion Disposition: ADMITTED IP TO THIS [facility] Condition: Fair Is patient prescribed a controlled substance at d/c from ED?: No Time of Disposition: 20:11 Decision Date: 06/30/22 Decision Time: 20:11
[2022-06-30 17:13] LABS: Prothrombin Time 10.8 sec (9.0-12.0)
[2022-06-30 17:21] LABS: Partial Thromboplastin Time 21.4 sec (22.0-30.0)
--- NOTE | 2022-06-30 19:00 | XR ---
EXAMINATION TYPE: XR chest 2V DATE OF EXAM: 06/30/2022 COMPARISON: 06/05/2022 HISTORY: Syncope TECHNIQUE: 2 views FINDINGS: There is elevated right diaphragm. There is slight blunting of the costophrenic angles. The re is mild pulmonary congestion. There are chest leads. There are sternal wires. IMPRESSION: There is pleural reaction and fluid and atelectasis at the lung bases which is not signif icantly different than last exam. Mild pulmonary congestion but no definite heart failure.
[2022-06-30] MEDS ORDERED: SODIUM CHLORIDE 0.9% 500 ML IV STA (19:47)
[2022-06-30] MEDS ORDERED: SODIUM CHLORIDE 0.9% 1,000 ML IV STA (19:47)
--- NOTE | 2022-06-30 19:50 | CT ---
EXAMINATION TYPE: CT brain wo con DATE OF EXAM: 06/30/2022 COMPARISON: July 2015 HISTORY: Neuro deficit CT DLP: 1253 mGycm Automated exposure control for dose reduction was used. There is diffuse cerebral cortical atrophy. There is no mass effect or midline shift. No sign of intr acranial hemorrhage. The calvarium is intact. There is cavum septum pellucidum which is normal varian t. Skull base is intact. There is normal aeration of the mastoid sinuses. There is thinning of the co rpus callosum. Sella turcica appears normal. There is some cortical hypodensity medial right occipita l lobe IMPRESSION: Cerebral atrophy. No acute intracranial abnormality. 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
[2022-06-30] MEDS ORDERED: ONDANSETRON 4 MG/2 ML VIAL IVP PRN (20:15)
[2022-06-30] MEDS ORDERED: ALBUTEROL NEBULIZED 2.5 MG/3 ML INHALATION PRN (21:59)
[2022-06-30] MEDS: GABAPENTIN 300 MG CAP PO SCH (23:20)
[2022-07-01] MEDS: GABAPENTIN 300 MG CAP PO SCH (01:02)
[2022-07-01] MEDS ORDERED: SODIUM CHLORIDE 0.9% 1,000 ML IV ONE (03:00)
[2022-07-01] MEDS ORDERED: ETOMIDATE 2 MG/ML 10 ML VIAL IVP STA (03:32)
[2022-07-01] MEDS ORDERED: SUCCINYLCHOLINE CHLORIDE 200 MG/10 ML VIAL IV STA (03:33)
--- NOTE | 2022-07-01 03:47 | ED ---
Medical Decision Making - Medical Decision Making 87 male to the emergency department for evaluation originally came for no Harry, patient ripped out Harry. [facility] ER stay which is around 11 hours patient significantly decompensated H a fibrillation with RVR likely cardiogenic shock low blood pressure. Patient became unresponsive unable to protect airway needing to be intubated needing to have central line placed and need to be put on medication to help with his blood pressure - Lab Data Result diagrams: 06/30/22 16:36 06/30/22 16:36 Lab Results 06/30/22 06/30/22 06/30/22 Range/Units 16:36 16:36 16:36 WBC 2.6 L (3.8-10.6) k/uL RBC 2.99 L (4.30-5.90) m/uL Hgb 9.9 L (13.0-17.5) gm/dL Hct 32.9 L (39.0-53.0) % MCV 110.3 H (80.0-100.0) fL MCH 33.3 (25.0-35.0) pg MCHC 30.2 L (31.0-37.0) g/dL RDW 15.8 H (11.5-15.5) % Plt Count 136 L (150-450) k/uL MPV 9.0 Neutrophils % 85 % Lymphocytes % 9 % Monocytes % 1 % Eosinophils % 4 % Basophils % 1 % Neutrophils # 2.2 (1.3-7.7) k/uL Lymphocytes # 0.2 L (1.0-4.8) k/uL Monocytes # 0.0 (0-1.0) k/uL Eosinophils # 0.1 (0-0.7) k/uL Basophils # 0.0 (0-0.2) k/uL Hypochromasia Marked Macrocytosis Marked A PT 10.8 (9.0-12.0) sec INR 1.0 (<1.2) APTT 21.4 L (22.0-30.0) sec Sodium 140 (137-145) mmol/L Potassium 3.9 (3.5-5.1) mmol/L Chloride 108 H (98-107) mmol/L Carbon Dioxide 21 L (22-30) mmol/L Anion Gap 11 mmol/L BUN 43 H (9-20) mg/dL Creatinine 1.67 H (0.66-1.25) mg/dL Est GFR (CKD-EPI)AfAm 42 (>60 ml/min/1.73 sqM) Est GFR (CKD-EPI)NonAf 37 (>60 ml/min/1.73 sqM) Glucose 126 H (74-99) mg/dL Calcium 8.8 (8.4-10.2) mg/dL Total Bilirubin 0.6 (0.2-1.3) mg/dL AST 21 (17-59) U/L ALT 17 (4-49) U/L Alkaline Phosphatase 123 (38-126) U/L Troponin I (0.000-0.034) ng/mL Total Protein 5.4 L (6.3-8.2) g/dL Albumin 3.2 L (3.5-5.0) g/dL 06/30/22 Range/Units 16:36 WBC (3.8-10.6) k/uL RBC (4.30-5.90) m/uL Hgb (13.0-17.5) gm/dL Hct (39.0-53.0) % MCV (80.0-100.0) fL MCH (25.0-35.0) pg MCHC (31.0-37.0) g/dL RDW (11.5-15.5) % Plt Count (150-450) k/uL MPV Neutrophils % % Lymphocytes % % Monocytes % % Eosinophils % % Basophils % % Neutrophils # (1.3-7.7) k/uL Lymphocytes # (1.0-4.8) k/uL Monocytes # (0-1.0) k/uL Eosinophils # (0-0.7) k/uL Basophils # (0-0.2) k/uL Hypochromasia Macrocytosis PT (9.0-12.0) sec INR (<1.2) APTT (22.0-30.0) sec Sodium (137-145) mmol/L Potassium (3.5-5.1) mmol/L Chloride (98-107) mmol/L Carbon Dioxide (22-30) mmol/L Anion Gap mmol/L BUN (9-20) mg/dL Creatinine (0.66-1.25) mg/dL Est GFR (CKD-EPI)AfAm (>60 ml/min/1.73 sqM) Est GFR (CKD-EPI)NonAf (>60 ml/min/1.73 sqM) Glucose (74-99) mg/dL Calcium (8.4-10.2) mg/dL Total Bilirubin (0.2-1.3) mg/dL AST (17-59) U/L ALT (4-49) U/L Alkaline Phosphatase (38-126) U/L Troponin I 0.158 H* (0.000-0.034) ng/mL Total Protein (6.3-8.2) g/dL Albumin (3.5-5.0) g/dL - Radiology Data Radiology results: report reviewed (CXR shows satisfactory ET tube, CVC line), image reviewed Critical Care Time Critical Care Time: Yes Total Critical Care Time: 31 Disposition Clinical Impression: Dislodged Harry catheter, Syncope, Pancytopenia, Atrial fibrillation, Anemia, Confusion, Hypotension, Atrial fibrillation with RVR, Acute respiratory failure, Congestive heart failure Disposition: ADMITTED IP TO THIS [facility] Condition: Critical Is patient prescribed a controlled substance at d/c from ED?: No Procedures - Central Line Placement Right IJ Consent Obtained: verbal consent Patient Placed on Monitor/Pulse Ox: Yes MD Prep: mask, gown, gloves Central Line Prep: Chlorhexidine scrub, sterile drapes applied Local Anesthesia Used: Lidocaine 1% Ultrasound Used for Placement: Yes Central Line Lumen Inserted: triple Central Line Position: good blood return, all ports aspirated, flushed, capped Dressing Applied: Tegaderm Post Procedure X-Ray: tip of catheter in good position Patient Tolerated Procedure: well Complications: none - Intubation Sedative: Etomidate Paralytic: Succinylcholine Laryngoscope: Chiki Size: 4 ET Tube Size: 8 ET Tube Uncuffed: No Tube Secured Location: teeth Tube Placement Confirmation: visualized tube passing through cords, equal breath sounds bilaterally, no breath sounds over epigastrium, confirmation by capnometry Patient Tolerated Procedure: well Intubation Complications: none
[2022-07-01 04:32] LABS: ABG Base Excess -10.3 mmol/L; ABG HCO3 18 mmol/L (21-25); ABG PCO2 48 mmHg (35-45); ABG PO2 296 mmHg (83-108); ABG TCO2 19 mmol/L (19-24); Allen Test Performed? Yes
[2022-07-01 04:39] LABS: ABG Hematocrit 16 % (34.0-46.0); ABG PH 7.19 (7.35-7.45)
[2022-07-01 05:12] LABS: Basophils % (A) 0 %; Eosinophils % (A) 0 %; Hypochromasia Marked; Lymphocytes # (A) 0.1 k/uL (1.0-4.8); Lymphocytes % (A) 18 %; MCH 32.9 pg (25.0-35.0); MCHC 28.6 g/dL (31.0-37.0); MCV 114.9 fL (80.0-100.0); Macrocytosis Marked; Mean Platelet Volume 11.8; Monocytes # (A) 0.1 k/uL (0-1.0); Monocytes % (A) 7 %; Neutrophils # (A) 0.5 k/uL (1.3-7.7); Neutrophils % (A) 73 %; RBC 1.66 m/uL (4.30-5.90)
[2022-07-01] MEDS ORDERED: NALOXONE 0.4 MG/ML 1 ML VIAL IV PRN (05:18)
[2022-07-01] MEDS ORDERED: IPRATROPIUM-ALBUTEROL 3 ML NEB INHALATION PRN (05:18)
[2022-07-01] MEDS: NOREPINEPHRINE 32 MG in SODIUM CHLORIDE 0.9% 218 ML IV ONE ×2 (05:27→13:39)
[2022-07-01 05:30] LABS: ALT 17 U/L (4-49); AST 22 U/L (17-59); Acetaminophen <10.0 ug/mL; African American GFR (CKD) 28 (>60 ml/min/1.73 sqM); Albumin 2.1 g/dL (3.5-5.0); Alkaline Phosphatase 95 U/L (38-126); Anion Gap 12 mmol/L; Blood Urea Nitrogen 47 mg/dL (9-20); Calcium 7.5 mg/dL (8.4-10.2); Carbon Dioxide 19 mmol/L (22-30); Chloride 111 mmol/L (98-107); Glucose 112 mg/dL (74-99); Magnesium 1.8 mg/dL (1.6-2.3); Non-African American GFR(CKD) 24 (>60 ml/min/1.73 sqM); Phosphorus 3.6 mg/dL (2.5-4.5); Potassium 3.4 mmol/L (3.5-5.1); Salicylate <1.0 mg/dL; Sodium 142 mmol/L (137-145); Total Bilirubin 1.1 mg/dL (0.2-1.3); Total Protein 3.8 g/dL (6.3-8.2)
[2022-07-01 05:49] LABS: HGB 5.5 gm/dL (13.0-17.5)
[2022-07-01 05:50] LABS: HCT 19.1 % (39.0-53.0)
[2022-07-01 05:51] LABS: WBC 0.7 k/uL (3.8-10.6)
[2022-07-01 06:08] LABS: Platelet Count 87 k/uL (150-450); Polychromasia Present
[2022-07-01 07:23] LABS: Glucose,Whole Blood 118 mg/dL (70-110)
[2022-07-01] MEDS ORDERED: propofoL 100 ML IV ONE (07:25)
[2022-07-01] MEDS ORDERED: CYANOCOBALAMIN 500 MCG TAB PO SCH (07:30)
[2022-07-01] MEDS ORDERED: REPAGLINIDE 1 MG TAB PO SCH (07:30)
[2022-07-01] MEDS ORDERED: PANTOPRAZOLE 40 MG TABLET PO SCH (07:30)
[2022-07-01] MEDS ORDERED: IPRATROPIUM 0.5 MG/2.5 ML NEBU INHALATION SCH (08:00)
[2022-07-01] MEDS ORDERED: SYMBICORT 80-4.5 MCG INHALER INHALATION SCH (08:00)
--- NOTE | 2022-07-01 08:12 | P.GSCN ---
History of Present Illness Consult date: 07/01/22 History of present illness: 87 yo male in urine retention after a recent hospitalization for cardiac reasons. He apparently pulled the catheter out with the balloon inflated. He had some blood per urethra We were asked to see the patient for this reason. the patient is on the ventilator and can give no history. 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 ., STATES LOWER EXTREMITY EDEMA, HX STOMACH ULCER., CHRONIC CONSTIPATION., -STATES BLOOD COUNT LOW AND HE FEELS EXHAUSTED AND USING A CANE & WALKER . , STATES RASH ON FORESKIN., SIGRID HEARING AIDS. states he needs a new replacement valve BONE MARROW BIOPSY CAUTERIZATION OF STOMACH ULCERS History of Any Multi-Drug Resistant Organisms: None Reported Past Surgical History: Appendectomy, Cardiac Ablation, Cardiac Valve Replacement, Cholecystectomy, Coronary Bypass/CABG, Heart Catheterization Additional Past Surgical History / Comment(s): 2014 cardiac ablation of Afib at [facility], 2 vessel CABG and aortic valve replacement (bovine) in 2009., L caratid endartectomy, bilateral varicose vein stripping, lysis of abdominal adhesions, colonoscopies., EGDs-repair doudenal ulcers, bone marrow biopsy., 2 stents "right groin" for circulation ([place])., Watchman Procedure at [facility] - 2019 Past Anesthesia/Blood Transfusion Reactions: No Reported Reaction, Blood Transfusion Reaction Additional Past Anesthesia/Blood Transfusion Reaction / Comm: Hx of several blood transfusions and had reaction with Hives x1. ([place]) Past Psychological History: No Psychological Hx Reported Smoking Status: Former smoker Past Alcohol Use History: None Reported Past Drug Use History: None Reported - Past Family History Father Family Medical History: Cancer Additional Family Medical History / Comment(s): LUNG CANCER WITH METS Mother Family Medical History: Coronary Artery Disease (CAD), Myocardial Infarction ([place]) Additional Family Medical History / Comment(s): Mother while recovering from open heart surgery. She had several MIs. Medications and Allergies Home Medications Medication Instructions Recorded Confirmed Type Finasteride [Proscar] 5 mg PO DAILY 07/10/15 06/30/22 History Folic Acid 0.4 mg PO HS 07/10/15 06/30/22 History Atorvastatin [Lipitor] 40 mg PO HS 04/27/18 06/30/22 History Albuterol Sulfate [Ventolin HFA] 2 puff INHALATION RT-Q4H PRN 05/28/21 06/30/22 History Fluticasone/Umeclidin/Vilanter 1 puff INHALATION RT-DAILY 05/28/21 06/30/22 History [Trelegy Ellipta 100-62.5-25] Metoprolol Tartrate [Lopressor] 25 mg PO BID 05/28/21 06/30/22 History polyethylene glycoL 3350 [Miralax] 17 gm PO HS 05/28/21 06/30/22 History Citalopram Hydrobromide [CeleXA] 40 mg PO DAILY 06/06/22 06/30/22 History Integra 62.5-62.5-40-3mg Capsule 1 cap PO HS 06/06/22 06/30/22 History Pantoprazole [Protonix] 40 mg PO BID 06/06/22 06/30/22 History Tamsulosin [Flomax] 0.4 mg PO DAILY 06/06/22 06/30/22 History Aspirin 81 mg PO DAILY tab 06/13/22 06/30/22 Rx Ascorbic Acid [Vitamin C] 1,000 mg PO HS 06/30/22 06/30/22 History Cholecalciferol [Vitamin D3 (25 25 mcg PO DAILY 06/30/22 06/30/22 History Mcg = 1000 Iu)] Cyanocobalamin [Vitamin B-12] 1,000 mcg PO DAILY 06/30/22 06/30/22 History Furosemide [Lasix] 40 mg PO BID 06/30/22 06/30/22 History Gabapentin 300 mg PO Q8H 06/30/22 06/30/22 History Multivitamins, Thera [Multivitamin 1 tab PO DAILY 06/30/22 06/30/22 History (formulary)] Repaglinide [Prandin] 1 mg PO BID 06/30/22 06/30/22 History acetaZOLAMIDE [Diamox] 250 mg PO DAILY 06/30/22 06/30/22 History Allergies Allergy/AdvReac Type Severity Reaction Status Date / Time iron infusions AdvReac Unknown Passed Out Uncoded 06/30/22 20:27 Surgical - Exam Vital Signs Temp Pulse Resp BP Pulse Ox 97.7 F 100 20 107/64 96 06/30/22 15:53 06/30/22 15:53 06/30/22 15:53 06/30/22 15:53 06/30/22 15:53 - General well nourished - Respiratory on ventilator - Abdomen Abdomen: soft - Genitourinary indwelling cath. Some light tea color urine. - Integumentary chronic venous stasis disease. lower extremity edema. Results - Labs 07/01/22 04:43 07/01/22 04:43 Abnormal Lab Results - Last 24 Hours (Table) 06/30/22 06/30/22 06/30/22 Range/Units 16:36 16:36 16:36 WBC 2.6 L (3.8-10.6) k/uL RBC 2.99 L (4.30-5.90) m/uL Hgb 9.9 L (13.0-17.5) gm/dL Hct 32.9 L (39.0-53.0) % MCV 110.3 H (80.0-100.0) fL MCHC 30.2 L (31.0-37.0) g/dL RDW 15.8 H (11.5-15.5) % Plt Count 136 L (150-450) k/uL Lymphocytes # 0.2 L (1.0-4.8) k/uL Macrocytosis Marked A APTT 21.4 L (22.0-30.0) sec ABG pH (7.35-7.45) ABG pCO2 (35-45) mmHg ABG pO2 (83-108) mmHg ABG HCO3 (21-25) mmol/L ABG O2 Saturation (94-97) % ABG Hematocrit (34.0-46.0) % Hemoglobin (13.0-17.5) gm/dL Potassium (3.5-5.1) mmol/L Chloride 108 H (98-107) mmol/L Carbon Dioxide 21 L (22-30) mmol/L BUN 43 H (9-20) mg/dL Creatinine 1.67 H (0.66-1.25) mg/dL Glucose 126 H (74-99) mg/dL Plasma Lactic Acid Lloyd (0.7-2.0) mmol/L Calcium (8.4-10.2) mg/dL Troponin I (0.000-0.034) ng/mL Total Protein 5.4 L (6.3-8.2) g/dL Albumin 3.2 L (3.5-5.0) g/dL 06/30/22 06/30/22 07/01/22 Range/Units 16:36 23:43 02:40 WBC (3.8-10.6) k/uL RBC (4.30-5.90) m/uL Hgb (13.0-17.5) gm/dL Hct (39.0-53.0) % MCV (80.0-100.0) fL MCHC (31.0-37.0) g/dL RDW (11.5-15.5) % Plt Count (150-450) k/uL Lymphocytes # (1.0-4.8) k/uL Macrocytosis APTT (22.0-30.0) sec ABG pH (7.35-7.45) ABG pCO2 (35-45) mmHg ABG pO2 (83-108) mmHg ABG HCO3 (21-25) mmol/L ABG O2 Saturation (94-97) % ABG Hematocrit (34.0-46.0) % Hemoglobin (13.0-17.5) gm/dL Potassium (3.5-5.1) mmol/L Chloride (98-107) mmol/L Carbon Dioxide (22-30) mmol/L BUN (9-20) mg/dL Creatinine (0.66-1.25) mg/dL Glucose (74-99) mg/dL Plasma Lactic Acid Lloyd (0.7-2.0) mmol/L Calcium (8.4-10.2) mg/dL Troponin I 0.158 H* 0.172 H* 0.172 H* (0.000-0.034) ng/mL Total Protein (6.3-8.2) g/dL Albumin (3.5-5.0) g/dL 07/01/22 07/01/22 07/01/22 Range/Units 04:22 04:43 04:43 WBC (3.8-10.6) k/uL RBC (4.30-5.90) m/uL Hgb (13.0-17.5) gm/dL Hct (39.0-53.0) % MCV (80.0-100.0) fL MCHC (31.0-37.0) g/dL RDW (11.5-15.5) % Plt Count (150-450) k/uL Lymphocytes # (1.0-4.8) k/uL Macrocytosis APTT (22.0-30.0) sec ABG pH 7.19 L* (7.35-7.45) ABG pCO2 48 H (35-45) mmHg ABG pO2 296 H (83-108) mmHg ABG HCO3 18 L (21-25) mmol/L ABG O2 Saturation 100.0 H (94-97) % ABG Hematocrit 16 L* (34.0-46.0) % Hemoglobin 5.3 L* (13.0-17.5) gm/dL Potassium 3.4 L (3.5-5.1) mmol/L Chloride 111 H (98-107) mmol/L Carbon Dioxide 19 L (22-30) mmol/L BUN 47 H (9-20) mg/dL Creatinine 2.34 H (0.66-1.25) mg/dL Glucose 112 H (74-99) mg/dL Plasma Lactic Acid Lloyd 5.5 H* (0.7-2.0) mmol/L Calcium 7.5 L (8.4-10.2) mg/dL Troponin I (0.000-0.034) ng/mL Total Protein 3.8 L (6.3-8.2) g/dL Albumin 2.1 L (3.5-5.0) g/dL Diabetes panel 06/30/22 07/01/22 Range/Units 16:36 04:43 Sodium 140 142 (137-145) mmol/L Potassium 3.9 3.4 L (3.5-5.1) mmol/L Chloride 108 H 111 H (98-107) mmol/L Carbon Dioxide 21 L 19 L (22-30) mmol/L BUN 43 H 47 H (9-20) mg/dL Creatinine 1.67 H 2.34 H (0.66-1.25) mg/dL Glucose 126 H 112 H (74-99) mg/dL Calcium 8.8 7.5 L (8.4-10.2) mg/dL AST 21 22 (17-59) U/L ALT 17 17 (4-49) U/L Alkaline Phosphatase 123 95 (38-126) U/L Total Protein 5.4 L 3.8 L (6.3-8.2) g/dL Albumin 3.2 L 2.1 L (3.5-5.0) g/dL Calcium panel 06/30/22 07/01/22 Range/Units 16:36 04:43 Calcium 8.8 7.5 L (8.4-10.2) mg/dL Phosphorus 3.6 (2.5-4.5) mg/dL Albumin 3.2 L 2.1 L (3.5-5.0) g/dL Pituitary panel 06/30/22 07/01/22 Range/Units 16:36 04:43 Sodium 140 142 (137-145) mmol/L Potassium 3.9 3.4 L (3.5-5.1) mmol/L Chloride 108 H 111 H (98-107) mmol/L Carbon Dioxide 21 L 19 L (22-30) mmol/L BUN 43 H 47 H (9-20) mg/dL Creatinine 1.67 H 2.34 H (0.66-1.25) mg/dL Glucose 126 H 112 H (74-99) mg/dL Calcium 8.8 7.5 L (8.4-10.2) mg/dL Adrenal panel 06/30/22 07/01/22 Range/Units 16:36 04:43 Sodium 140 142 (137-145) mmol/L Potassium 3.9 3.4 L (3.5-5.1) mmol/L Chloride 108 H 111 H (98-107) mmol/L Carbon Dioxide 21 L 19 L (22-30) mmol/L BUN 43 H 47 H (9-20) mg/dL Creatinine 1.67 H 2.34 H (0.66-1.25) mg/dL Glucose 126 H 112 H (74-99) mg/dL Calcium 8.8 7.5 L (8.4-10.2) mg/dL Total Bilirubin 0.6 1.1 (0.2-1.3) mg/dL AST 21 22 (17-59) U/L ALT 17 17 (4-49) U/L Alkaline Phosphatase 123 95 (38-126) U/L Total Protein 5.4 L 3.8 L (6.3-8.2) g/dL Albumin 3.2 L 2.1 L (3.5-5.0) g/dL Assessment and Plan Assessment: Impression. Urine retention. catheter trauma. Plan: Leave the catheter until patient off ventilator awake and alert A voiding trial can be done down the road. Other than the catheter nothing needs to be done for the minor trauma created by the catheter injury
[2022-07-01 08:45] LABS: Anisocytosis Slight; Basophils # (A) 0.1 k/uL (0-0.2); Basophils % (A) 3 %; Eosinophils % (A) 0 %; HCT 31.2 % (39.0-53.0); Hypochromasia Marked; Lymphocytes # (A) 0.2 k/uL (1.0-4.8); Lymphocytes % (A) 8 %; MCH 31.1 pg (25.0-35.0); MCHC 29.8 g/dL (31.0-37.0); Macrocytosis Marked; Mean Platelet Volume 10.7; Monocytes # (A) 0.1 k/uL (0-1.0); Monocytes % (A) 4 %; Neutrophils % (A) 84 %; Poikilocytosis Slight; RBC 2.99 m/uL (4.30-5.90); RDW 19.1 % (11.5-15.5); WBC 2.4 k/uL (3.8-10.6)
[2022-07-01] MEDS ORDERED: CHOLECALCIFEROL 25 MCG (1000 IU) TABLET PO SCH (09:00)
[2022-07-01] MEDS ORDERED: METOPROLOL TARTRATE 25 MG TAB PO SCH (09:00)
[2022-07-01] MEDS ORDERED: acetaZOLAMIDE 250 MG TAB PO SCH (09:00)
[2022-07-01] MEDS ORDERED: MULTIVITAMINS, THERA 1 EACH TAB PO SCH (09:00)
[2022-07-01] MEDS ORDERED: CITALOPRAM HYDROBROMIDE 20 MG TAB PO SCH (09:00)
[2022-07-01] MEDS ORDERED: ENOXAPARIN 40 MG/0.4 ML SYRINGE SQ SCH (09:00)
[2022-07-01] MEDS ORDERED: ASPIRIN 81 MG PO SCH (09:00)
[2022-07-01] MEDS ORDERED: FUROSEMIDE 40 MG TAB PO SCH (09:00)
--- NOTE | 2022-07-01 09:00 | P.CNPUL ---
History of Present Illness Consult date: 07/01/22 Chief complaint: hypotension History of present illness: This is an 87-year-old male patient who came into the emergency department after having a syncopal episodes at the rehab facility. The patient was hospitalized and he was discharged to rehab facility approximately 2 weeks ago. He has chronic issues with urinary retention. He was using a Harry catheter. He apparently dislodged or pulled on his Harry catheter and the patient subseque ntly had blood coming out from his denial meatus. He subsequently had a syncopal episodes. The patient did not have any recollection of any of this events. The patient came into the emergency department. The patient subsequently became more hypotensive. He was found to be in atrial fibrillation with rapid ventricular response along with hypotension. The triple-lumen catheter was established. Blood work showed significant drop in his hemoglobin as the patient's presented with a hemoglobin 9.9 and that hemoglobin dropped down to 5.5. There was also drop in the platelet count down to 87 from a baseline of 136 and the white cell count also dropped down to 0.7. The patient developed an acute kidney injury. Creatinine is up to 2.34 as the patient is known to have chronic stage III kidney disease. Based on all these comorbid conditions, the patient was also intubated and placed on a mechanical ventilator and following that he got transferred to the intensive care unit. I had cristine man to evaluate this patient in the ICU immediately after he arrived to the units. At this point in time, the patient is sedated on propofol which is running at 25 mcg/kg per minute. The patient is also quite cigarettes a mechanical ventilator without any agitation. He grimaces only to deep painful stimulation. Does not follow any commands. He is on a mechanical ventilator on assist control mode at the rate of 16 with a tidal volume of 500 and FiO2 to 50% with a PEEP of 5. Chest x-ray showed mild pulmonary vascular congestion and atelectatic changes in the right lung base. 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 The blood gases sh owed a pH of 7.19 with a pCO2 of 48 and pO2 of 296 and this was obtained immediately after intubation. Based on the massive drop in hemoglobin down to 5.5, the patient was sent for occult blood and they're not to be positive. Nevertheless, we have not witnessed any significant amount of hematochezia or melanotic stools in this patient in the NG tube is in place and there is no significant output or bloody up from his NG. The patient was given a total of 4 units of packed RBC and a total of 2 L of normal saline and the patient is currently on norepinephrine which is running at the rate of 0.5 mcg/kg per minute. Current Harry catheter is in place. Urine output is bloody. There are no clots. The total amount of urine output since arrival to the ICU is in order of 175 mL. As mentioned, he is cold and clammy and hypotensive with weak pulses in all 4 extremities. Previous echocardiogram that was done on earlier admissions from 06/06/2022 showed of the patient had a preserved LV function with an ejection fraction of more than 65%. LV cavity was normal. There was moderate degree of concentric LVH. There was severe right ventricular dilatation severe pulmonary hypertension consistent with RV volume overload. The patient also has a bioprosthetic aortic valve with a peak gradient of 36 and severely dilated LA and dilated IVC. The patient's comorbidities are multiple at this point in time. He is known to have coronary artery disease. He does also undergone a previous valve surgery. He has history of chronic atrial fibrillation, chronic stage III kidney disease, he is morbidly obese and carries a BMI of more than 40. He has previous history of DVTs, diabetes mellitus, diabetic peripheral neuropathy, peripheral vascular disease, BPH, hyperlipidemia, cor pulmonale and right-sided heart failure, previous history of CVA involving the occipital lobe as noted on the CAT scan of the brain that was done regarding this current admission. 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 His DVT occurred back in May 2015 and he suffers from macular degeneration also. Other comorbid conditions include peripheral vascular disease and the patient has stents in lower extremities, obstructive sleep apnea maintained on a CPAP, BPH, chronic urinary retention and chronic issues with GI bleed and the patient was supposed to get evaluated thoroughly GI services at [facility]. He has chronic lower extremity edema, chronic venous stasis, walks with the help of a walker and a cane and has impaired hearing with bilateral hearing aids. Is also known to have carotid artery disease with a previous endarterectomy on the left. Review of Systems ROS unobtainable: due to endotracheal tube Past Medical History Past Medical History: Atrial Fibrillation, COPD, CVA/TIA, Diabetes Mellitus, Deep Vein Thrombosis (DVT), Eye Disorder, Hearing Disorder / Deafness, Hy pertension, Osteoarthritis (OA), Prostate Disorder, Renal Disease, Sleep Apnea/CPAP/BIPAP Additional Past Medical History / Comment(s): Coronary artery disease, previous history of aortic valve replacement with a bioprosthetic aortic valve, history of CVA occipital along with history of CVA affecting peripheral vision and homonymous hemianopia, chronic atrial fibrillation, history of DVT of the right lower extremity back in May 2015, chronic stage III kidney disease, chronic anemia, macular degeneration, diabetes mellitus, peripheral neuropathy, peripheral vascular disease with previous vascular stents, BPH, KALPESH, CPAP therapy, spondylosis of the spine along with degenerative arthritis, chronic constipation, hypertension, hyperlipidemia, impaired hearing, previous history of GI bleed, previous history of hematologic abnormalities requiring a bone marrow biopsy, previous history of GI bleed requiring cauterization of the gastric ulcer History of Any Multi-Drug Resistant Organisms: None Reported Past Surgical History: Appendectomy, Cardiac Ablation, Cardiac Valve Replacement, Cholecystectomy, Coronary Bypass/CABG, Heart Catheterization Additional Past Surgical History / Comment(s): 2014 cardiac ablation of Afib at [facility], 2 vessel CABG and aortic valve replacement (bovine) in 2009., L caratid endartectomy, bilateral varicose vein stripping, lysis of abdominal adhesions, colonoscopies., EGDs-repair doudenal ulcers, bone marrow biopsy., 2 stents "right groin" for circulation ([place])., Watchman Procedure at [facility] - 2019 Past Anesthesia/Blood Transfusion Reactions: No Reported Reaction, Blood Transfusion Reaction Additional Past Anesthesia/Blood Transfusion Reaction / Comment(s): Hx of several blood transfusions and had reaction with Hives x1. ([place]) Past Psychological History: No Psychological Hx Reported Smoking Status: Former smoker Past Alcohol Use History: None Reported Past Drug Use History: None Reported - Past Family History Father Family Medical History: Cancer Additional Family Medical History / Comment(s): LUNG CANCER WITH METS Mother Family Medical History: Coronary Artery Disease (CAD), Myocardial Infarction ([place]) Additional Family Medical History / Comment(s): Mother while recovering from open heart surgery. She had several MIs. Medications and Allergies Home Medications Medication Instructions Recorded Confirmed Type Finasteride [Proscar] 5 mg PO DAILY 07/10/15 06/30/22 History Folic Acid 0.4 mg PO HS 07/10/15 06/30/22 History Atorvastatin [Lipitor] 40 mg PO HS 04/27/18 06/30/22 History Albuterol Sulfate [Ventolin HFA] 2 puff INHALATION RT-Q4H PRN 05/28/21 06/30/22 History Fluticasone/Umeclidin/Vilanter 1 puff INHALATION RT-DAILY 05/28/21 06/30/22 History [Trelegy Ellipta 100-62.5-25] Metoprolol Tartrate [Lopressor] 25 mg PO BID 05/28/21 06/30/22 History polyethylene glycoL 3350 [Miralax] 17 gm PO HS 05/28/21 06/30/22 History Citalopram Hydrobromide [CeleXA] 40 mg PO DAILY 06/06/22 06/30/22 History Integra 62.5-62.5-40-3mg Capsule 1 cap PO HS 06/06/22 06/30/22 History Pantoprazole [Protonix] 40 mg PO BID 06/06/22 06/30/22 History Tamsulosin [Flomax] 0.4 mg PO DAILY 06/06/22 06/30/22 History Aspirin 81 mg PO DAILY tab 06/13/22 06/30/22 Rx Ascorbic Acid [Vitamin C] 1,000 mg PO HS 06/30/22 06/30/22 History Cholecalciferol [Vitamin D3 (25 25 mcg PO DAILY 06/30/22 06/30/22 History Mcg = 1000 Iu)] Cyanocobalamin [Vitamin B-12] 1,000 mcg PO DAILY 06/30/22 06/30/22 History Furosemide [Lasix] 40 mg PO BID 06/30/22 06/30/22 History Gabapentin 300 mg PO Q8H 06/30/22 06/30/22 History Multivitamins, Thera [Multivitamin 1 tab PO DAILY 06/30/22 06/30/22 History (formulary)] Repaglinide [Prandin] 1 mg PO BID 06/30/22 06/30/22 History acetaZOLAMIDE [Diamox] 250 mg PO DAILY 06/30/22 06/30/22 History Allergies Allergy/AdvReac Type Severity Reaction Status Date / Time iron infusions AdvReac Unknown Passed Out Uncoded 06/30/22 20:27 Physical Exam Vitals: Vital Signs Temp Pulse Pulse Resp BP Pulse Ox FiO2 07/01/22 08:39 110 H 07/01/22 08:25 110 H 07/01/22 07:27 50 07/01/22 07:13 97 15 86/41 98 07/01/22 07:05 96 13 79/44 99 07/01/22 06:13 98 14 66/33 98 07/01/22 06:00 101 H 14 70/44 99 07/01/22 05:50 99 15 61/43 99 07/01/22 04:41 50 07/01/22 03:40 100 07/01/22 03:39 100 07/01/22 03:24 129 H 54/41 07/01/22 02:30 130 H 25 H 60/43 95 07/01/22 01:00 110 H 22 100/49 96 06/30/22 23:13 105 H 20 100/50 96 06/30/22 22:00 105 H 20 105/86 96 06/30/22 21:30 98.9 F 105 H 20 100/60 96 06/30/22 19:43 105 H 20 99/65 100 06/30/22 19:03 110 H 20 101/60 98 06/30/22 17:43 107 H 16 97/50 98 06/30/22 16:23 102 H 20 100/68 100 06/30/22 16:21 112 H 06/30/22 15:53 97.7 F 100 20 107/64 96 Intake and Output 06/30/22 07/01/22 07/01/22 22:59 06:59 14:59 Intake Total 572.087 625.843 Balance 572.087 625.843 Intake: Intake, IV Titration 6.087 5.843 Amount Norepinephrine 32 mg In 6.087 5.843 Sodium Chloride 0.9% 218 ml @ 0.05 MCG/KG/MIN 2. 435 mls/hr IV .Q24H ONE Rx#:[id number] Blood Product 566 620 Ffp 24 Pher Acda Cnt1 0 Unit [id number] Rc As-1 Unit 310 [id number] Rc As-1 Unit 0 310 [id number] Rc Pheresis As-3 Unit 283 [id number] Rc Pheresis As-3 Unit 283 [id number] Other: Weight 103.873 kg Gen. appearance the patient is sedated on propofol and the patient is calm and comfortable, not in acute distress, sick is a mechanical ventilator. Head exam was generally normal. There was no scleral icterus or corneal arcus. Mucous membranes were moist. Neck was supple and without jugular venous distension, thyromegaly, or carotid bruits. Carotids were easily palpable bilaterally. There was no adenopathy.The patient has a orogastric and orotracheal tube are both in place. The patient has signs of a further endarterectomy on the left. No neck stiffness. No JVDs noted on today's examination. Lungs were clear to auscultation and percussion, and with normal diaphragmatic excursion. No wheezes or rales were noted. Breath sounds are diminished and the patient has scattered expiratory wheezes noted throughout lung cesar bilaterally Heart sounds are irregular consistent with atrial fibrillation. The patient has a thoracotomy scar over the anterior chest area. There is a faint murmur heard over the apex. No significant right ventricular heave or thrill. Abdominal exam revealed normal bowel sounds. The abdomen was soft, non-tender, and without masses, organomegaly, or appreciable enlargement of the abdominal aorta. Extremities are slightly edematous and there is chronic venous stasis changes in the lower extremities between the ankles and the knees bilaterally. The ankles are also swollen. Lungs are not palpable and there is Doppler signal in both dorsalis pedis and posterior tibialis and the patient has some limited varicose veins. No cyanosis. No clubbing .Neurologically, the patient has equal and symmetrical pupils. Reactive to light. No preferential gaze. No nystagmus. Unresponsive to any verbal or motor stimulation. He grimaces to deep painful stimulation. Positive cough and a gag. Motor function cannot be assessed. Reflexes are diminished in all 4 extremities. Results - Laboratory Findings CBC and BMP: 07/01/22 04:43 07/01/22 04:43 ABG PT 10.8 sec (9.0-12.0) 06/30/22 16:36 INR 1.0 (<1.2) 06/30/22 16:36 APTT 21.4 sec (22.0-30.0) L 06/30/22 16:36 [facility] 07/01/22 04:22 ABG pH 7.19 (7.35-7.45) L* 07/01/22 04:22 ABG pCO2 48 mmHg (35-45) H 07/01/22 04:22 ABG pO2 296 mmHg (83-108) H 07/01/22 04:22 ABG HCO3 18 mmol/L (21-25) L 07/01/22 04:22 ABG Total CO2 19 mmol/L (19-24) 07/01/22 04:22 ABG O2 Saturation 100.0 % (94-97) H 07/01/22 04:22 ABG Base Excess -10.3 mmol/L 07/01/22 04:22 ABG Hematocrit 16 % (34.0-46.0) L* 07/01/22 04:22 Catrachito Test Yes 07/01/22 04:22 Hemoglobin 5.3 gm/dL (13.0-17.5) L* 07/01/22 04:22 FiO2 100 % 07/01/22 04:22 Sodium 142 mmol/L (137-145) 07/01/22 04:43 Potassium 3.4 mmol/L (3.5-5.1) L 07/01/22 04:43 Chloride 111 mmol/L (98-107) H 07/01/22 04:43 Carbon Dioxide 19 mmol/L (22-30) L 07/01/22 04:43 Anion Gap 12 mmol/L 07/01/22 04:43 BUN 47 mg/dL (9-20) H 07/01/22 04:43 Creatinine 2.34 mg/dL (0.66-1.25) H 07/01/22 04:43 Est GFR (CKD-EPI)AfAm 28 (>60 ml/min/1.73 sqM) 07/01/22 04:43 Est GFR (CKD-EPI)NonAf 24 (>60 ml/min/1.73 sqM) 07/01/22 04:43 Glucose 112 mg/dL (74-99) H 07/01/22 04:43 POC Glucose (mg/dL) 118 mg/dL (70-110) H 07/01/22 07:21 POC Glu Granite Polisher ID Britt Case 07/01/22 07:21 Lactic Ac Sepsis Rflx Y 07/01/22 05:44 Plasma Lactic Acid Lloyd 5.5 mmol/L (0.7-2.0) H* 07/01/22 04:43 Calcium 7.5 mg/dL (8.4-10.2) L 07/01/22 04:43 Phosphorus 3.6 mg/dL (2.5-4.5) 07/01/22 04:43 Magnesium 1.8 mg/dL (1.6-2.3) 07/01/22 04:43 Total Bilirubin 1.1 mg/dL (0.2-1.3) 07/01/22 04:43 AST 22 U/L (17-59) 07/01/22 04:43 ALT 17 U/L (4-49) 07/01/22 04:43 Alkaline Phosphatase 95 U/L (38-126) 07/01/22 04:43 Troponin I 0.172 ng/mL (0.000-0.034) H* 07/01/22 02:40 Total Protein 3.8 g/dL (6.3-8.2) L 07/01/22 04:43 Albumin 2.1 g/dL (3.5-5.0) L 07/01/22 04:43 Stool Occult Blood Positive (Negative) 07/01/22 06:44 Salicylates <1.0 mg/dL 07/01/22 04:43 Acetaminophen <10.0 ug/mL 07/01/22 04:43 PT/INR, D-dimer PT 10.8 sec (9.0-12.0) 06/30/22 16:36 INR 1.0 (<1.2) 06/30/22 16:36 Abnormal lab findings: Abnormal Labs 06/30/22 06/30/22 06/30/22 16:36 16:36 16:36 WBC 2.6 L RBC 2.99 L Hgb 9.9 L Hct 32.9 L MCV 110.3 H MCHC 30.2 L RDW 15.8 H Plt Count 136 L Neutrophils # Lymphocytes # 0.2 L Macrocytosis Marked A APTT 21.4 L ABG pH ABG pCO2 ABG pO2 ABG HCO3 ABG O2 Saturation ABG Hematocrit Hemoglobin Potassium Chloride 108 H Carbon Dioxide 21 L BUN 43 H Creatinine 1.67 H Glucose 126 H POC Glucose (mg/dL) Plasma Lactic Acid Lloyd Calcium Troponin I Total Protein 5.4 L Albumin 3.2 L Crossmatch 06/30/22 06/30/22 07/01/22 16:36 23:43 02:40 WBC RBC Hgb Hct MCV MCHC RDW Plt Count Neutrophils # Lymphocytes # Macrocytosis APTT ABG pH ABG pCO2 ABG pO2 ABG HCO3 ABG O2 Saturation ABG Hematocrit Hemoglobin Potassium Chloride Carbon Dioxide BUN Creatinine Glucose POC Glucose (mg/dL) Plasma Lactic Acid Lloyd Calcium Troponin I 0.158 H* 0.172 H* 0.172 H* Total Protein Albumin Crossmatch 07/01/22 07/01/22 07/01/22 04:22 04:43 04:43 WBC 0.7 L* RBC 1.66 L Hgb 5.5 L* D Hct 19.1 L* MCV 114.9 H MCHC 28.6 L RDW 16.0 H Plt Count 87 L Neutrophils # 0.5 L Lymphocytes # 0.1 L Macrocytosis Marked A APTT ABG pH 7.19 L* ABG pCO2 48 H ABG pO2 296 H ABG HCO3 18 L ABG O2 Saturation 100.0 H ABG Hematocrit 16 L* Hemoglobin 5.3 L* Potassium 3.4 L Chloride 111 H Carbon Dioxide 19 L BUN 47 H Creatinine 2.34 H Glucose 112 H POC Glucose (mg/dL) Plasma Lactic Acid Lloyd Calcium 7.5 L Troponin I Total Protein 3.8 L Albumin 2.1 L Crossmatch 07/01/22 07/01/22 07/01/22 04:43 06:35 07:21 WBC RBC Hgb Hct MCV MCHC RDW Plt Count Neutrophils # Lymphocytes # Macrocytosis APTT ABG pH ABG pCO2 ABG pO2 ABG HCO3 ABG O2 Saturation ABG Hematocrit Hemoglobin Potassium Chloride Carbon Dioxide BUN Creatinine Glucose POC Glucose (mg/dL) 118 H Plasma Lactic Acid Lloyd 5.5 H* Calcium Troponin I Total Protein Albumin Crossmatch See Detail - Diagnostic Findings Chest x-ray: image reviewed Assessment and Plan Plan: acute syncope under investigation. Exact etiology is not clear. No clear cause for underlying syncope other than some blood loss following a traumatic Harry catheter removal. This may be also complimented by possible GI bleed as the patient is significant drop in hemoglobin and he developed hypotension and hemodynamic instability. CAT scan of the brain is showing an old stroke involving the left occipital lobe. Currently the patient is intubated on a mechanical ventilator. The patient is also requiring high doses of pressors as the patient is being resuscitated Acute traumatic Harry catheter removal and hematuria Suspected GI bleed Acute drop in hemoglobin and hemoglobin level dropped from a baseline of 9.9 down to 5.5 and the patient received a total of 4 units of packed RBC, awaiting follow-up hemoglobin Acute leukopenia with a white cell count dropping down to 0.7, from a baseline of 2.6 Acute thrombocytopenia with a platelet count dropping down to 87 Acute on top of chronic kidney injury. The patient has stage III chronic kidney disease and there is an acute drop in the renal function and creatinine is up to 2.34 with a component of non-anion gap metabolic acidosis Acute troponin leak Acute hypoxic respiratory failure, currently intubated on a mechanical ventilator Acute respiratory and metabolic acidosis, please refer to the most recent blood gases. History of valvular heart disease and the patient undergone a previous valve replacement/bioprosthetic aortic valve History of CVA History of diabetes mellitus with diabetic peripheral neuropathy History of hypertension History of hyperlipidemia His obstructive sleep apnea maintained on CPAP therapy History of yesterday also requiring previous EGDs and cauterization of stomach ulcer and the patient was supposed to be scheduled [facility] for further workup. Currently, there is a suspicion for the GI bleed. Occult stool is positive. NG tube is not showing any evidence of an upper GI bleed at this point in time. The patient is being monitored very closely. COPD maintained on Trelegy Ellipta on outpatient basis Chronic atrial fibrillation with a component of left ventricular response probably related to shock and hypotension at time of admission history of severe cor pulmonale and severe pulmonary hypertension and right ventricular failure, preserved LV function Degenerative arthritis and spondylosis of the spine Macular degeneration Impaired hearing Peripheral vascular disease with previous vascular intervention and stenting of the lower extremities History of carotid artery disease with previous endarterectomy on the left History of BPH debility and ability to walk with assisting walker to cane Plan continue ventilator support and drop the FiO2 down to 50% and wean it down to maintain a saturation above 90% Keep the patient sedated for now The patient had a component of metabolic and respiratory acidosis. The patient will be given another blood gas for now to reevaluate acid base status Keep the patient nothing by mouth for now Continue normal saline at the rate of 150 mL an hour. Repeat hemoglobin and watch for any signs of GI bleeding. Meanwhile put the patient IV Protonix and hold anticoagulants for now. I would suggest repeating the CBC and a coagulation profile. I morbid concerned about the rapid drop in the white cell count and the plated count along with a hemoglobin counts. There may be some underlying hematologic history this p atient I would like to obtain records from his computer equipment repairer regarding previous workup a previous bone marrow biopsy keep norepinephrine infusion for now and maintain a mean artery pressure above 65 The patient has established catheter in place insertion arterial line No anticoagulants for now keep the Harry catheter in place a consult with urology Monitor urine output Repeat a chest x-ray in the ICU post-line insertion and post intubation Discontinue Diamox Discontinue aspirin Discontinue Symbicort Discontinue Prandin and put the patient on a sliding scale insulin coverage Discontinue metoprolol for now Discontinue Lasix Consults gastroenterology Check pro calcitonin level the condition is extremely critical and the patient's prognosis poor based above-mentioned comorbidities. We'll continue to follow. I think is very reasonable to consider a change in the CODE STATUS also on this patient. Time with Patient: Greater than 30
--- NOTE | 2022-07-01 09:02 | P.PCN ---
Date of Procedure: 07/01/22 Preoperative Diagnosis: shock, hypotension Postoperative Diagnosis: shock, hypotension Procedure(s) Performed: arterial line catheter Anesthesia: local Surgeon: Tangela Guy Estimated Blood Loss (ml): 0 Pathology: other Condition: critical Disposition: ICU Operative Findings: Indication: Hemodynamic monitoring. A time-out was completed verifying correct patient, procedure, site, positioning, and implant(s) or special equipment if applicable. Allens test was performed to ensure adequate perfusion. The patients right wrist was prepped and draped in sterile fashion. 1% Lidocaine was used to anesthetize the area. An 18G Arrow arterial line was introduced into the right radial artery. The catheter was threaded over the guide wire and the needle was removed with appropriate pulsatile blood return. Blood loss was minimal. The catheter was then sutured in place to the skin and a sterile dressing applied. Perfusion to the extremity distal to the point of catheter insertion was checked and found to be adequate. The patient tolerated the procedure well and there were no complications.
[2022-07-01 09:06] LABS: HGB 9.3 gm/dL (13.0-17.5); MCV 104.4 fL (80.0-100.0)
[2022-07-01 09:06] LABS: ABG Base Excess -11.9 mmol/L; ABG HCO3 17 mmol/L (21-25); ABG Hematocrit 28 % (34.0-46.0); ABG PCO2 49 mmHg (35-45); ABG PO2 102 mmHg (83-108); ABG TCO2 18 mmol/L (19-24); Allen Test Performed? Yes
[2022-07-01 09:07] LABS: Platelet Count 70 k/uL (150-450)
[2022-07-01 09:08] LABS: ABG PH 7.15 (7.35-7.45)
--- NOTE | 2022-07-01 09:10 | P.CRDCN ---
History of Present Illness Consult date: 07/01/22 History of present illness: The patient is an 87-year-old male with multiple comorbid conditions, who presented to the emergency room after he became confused and dislodged his urinary catheter at [facility]. There is also report that the patient had several syncopal spells. During his time in the emergency room, the patient became hemodynamically unstable with A. fib with RVR and hypotension. He was subsequently intubated to protect his airway. He was found to be severely anemic with hemoglobin at 5. DIAGNOSTICS: EKG shows atrial fibrillation with right bundle branch block and left posterior fascicular block Chest x-ray shows mild pulmonary congestion with slight blunting of costophrenic angles. CT of the brain shows cerebral atrophy without acute intracranial abnormality. Prior 2x1 cm infarct in the medial right occipital lobe. Lab data: Hemoglobin 5.5, hematocrit 19.1, platelet 87, sodium 142, potassium 3.4, BUN 47, creatinine 2.34, lactic acid 5.5, calcium 7.5, phosphorus 3.6, magnesium 1.8, AST 22, ALT 17, positive occult stool Echocardiogram from 06/06/2022 showed concentric LVH with preserved LV function, enlarged right ventricle with severe pulmonary hypertension PAST MEDICAL HISTORY: Persistent atrial fibrillation, watchman procedure, CVA, hypertension, aortic stenosis status post TAVR, , carotid atherosclerosis status post left endarterectomy, mild coronary artery disease PHYSICAL EXAMINATION: This is a 87-year-old male. Currently intubated and sedated. HEENT: Head is atraumatic, normocephalic. Pupils are equal, round. Sclerae anicteric. Conjunctivae are clear. Mucous membranes of the mouth are moist. Neck is supple. There is no jugular venous distention. CHEST EXAMINATION: Lungs are coarse to auscultation. HEART EXAMINATION: Irregular rate and rhythm. S1, S2 heard. Systolic murmur. ABDOMEN: Soft. Bowel sounds are heard. No organomegaly noted. EXTREMITIES: 2-3+ peripheral edema. Chronic hyperpigmentation with cobblestoning NEUROLOGIC EXAMINATION: Patient is sedated. FINAL ASSESSMENT AND PLAN: Acute hypoxic respiratory failure, currently on mechanical ventilator Acute blood loss anemia, hemoglobin of 5 Elevated troponin level, secondary to anemia and acute kidney injury Chronic right-sided heart failure Severe pulmonary hypertension Persistent atrial fibrillation, status post watchman procedure in 2019 History of valvular heart disease, status post TAVR History of chronic kidney disease History of COPD History of diabetes mellitus PLAN: No need for anticoagulation as the patient has a history of watchman procedure No need for repeat echocardiogram as one was completed earlier this month Continue supportive treatment Prognosis is guarded as the patient has had a significant decline over the last 8 months with multiple hospitalizations Further recommendations to be based upon clinical course I am dictating on behalf of Dr Simon Varela's history/physical and assessment/plan. 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 ., STATES LOWER EXTREMITY EDEMA, HX STOMACH ULCER., CHRONIC CONSTIPATION., -STATES BLOOD COUNT LOW AND HE FEELS EXHAUSTED AND USING A CANE & WALKER . , STATES RASH ON FORESKIN., SIGRID HEARING AIDS. states he needs a new replacement valve BONE MARROW BIOPSY CAUTERIZATION OF STOMACH ULCERS History of Any Multi-Drug Resistant Organisms: None Reported Past Surgical History: Appendectomy, Cardiac Ablation, Cardiac Valve Replacement, Cholecystectomy, Coronary Bypass/CABG, Heart Catheterization Additional Past Surgical History / Comment(s): 2014 cardiac ablation of Afib at [facility], 2 vessel CABG and aortic valve replacement (bovine) in 2009., L caratid endartectomy, bilateral varicose vein stripping, lysis of abdominal adhesions, colonoscopies., EGDs-repair doudenal ulcers, bone marrow biopsy., 2 stents "right groin" for circulation ([place])., Watchman Procedure at [place] - 2019 Past Anesthesia/Blood Transfusion Reactions: No Reported Reaction, Blood Transfusion Reaction Additional Past Anesthesia/Blood Transfusion Reaction / Comment(s): Hx of several blood transfusions and had reaction with Hives x1. ([place]) Past Psychological History: No Psychological Hx Reported Smoking Status: Former smoker Past Alcohol Use History: None Reported Past Drug Use History: None Reported - Past Family History Father Family Medical History: Cancer Additional Family Medical History / Comment(s): LUNG CANCER WITH METS Mother Family Medical History: Coronary Artery Disease (CAD), Myocardial Infarction (NM) Additional Family Medical History / Comment(s): Mother while recovering from open heart surgery. She had several MIs. Medications and Allergies Home Medications Medication Instructions Recorded Confirmed Type Finasteride [Proscar] 5 mg PO DAILY 07/10/15 06/30/22 History Folic Acid 0.4 mg PO HS 07/10/15 06/30/22 History Atorvastatin [Lipitor] 40 mg PO HS 04/27/18 06/30/22 History Albuterol Sulfate [Ventolin HFA] 2 puff INHALATION RT-Q4H PRN 05/28/21 06/30/22 History Fluticasone/Umeclidin/Vilanter 1 puff INHALATION RT-DAILY 05/28/21 06/30/22 History [Trelegy Ellipta 100-62.5-25] Metoprolol Tartrate [Lopressor] 25 mg PO BID 05/28/21 06/30/22 History polyethylene glycoL 3350 [Miralax] 17 gm PO HS 05/28/21 06/30/22 History Citalopram Hydrobromide [CeleXA] 40 mg PO DAILY 06/06/22 06/30/22 History Integra 62.5-62.5-40-3mg Capsule 1 cap PO HS 06/06/22 06/30/22 History Pantoprazole [Protonix] 40 mg PO BID 06/06/22 06/30/22 History Tamsulosin [Flomax] 0.4 mg PO DAILY 06/06/22 06/30/22 History Aspirin 81 mg PO DAILY tab 06/13/22 06/30/22 Rx Ascorbic Acid [Vitamin C] 1,000 mg PO HS 06/30/22 06/30/22 History Cholecalciferol [Vitamin D3 (25 25 mcg PO DAILY 06/30/22 06/30/22 History Mcg = 1000 Iu)] Cyanocobalamin [Vitamin B-12] 1,000 mcg PO DAILY 06/30/22 06/30/22 History Furosemide [Lasix] 40 mg PO BID 06/30/22 06/30/22 History Gabapentin 300 mg PO Q8H 06/30/22 06/30/22 History Multivitamins, Thera [Multivitamin 1 tab PO DAILY 06/30/22 06/30/22 History (formulary)] Repaglinide [Prandin] 1 mg PO BID 06/30/22 06/30/22 History acetaZOLAMIDE [Diamox] 250 mg PO DAILY 06/30/22 06/30/22 History Allergies Allergy/AdvReac Type Severity Reaction Status Date / Time iron infusions AdvReac Unknown Passed Out Uncoded 06/30/22 20:27 Physical Exam Vitals: Vital Signs Temp Pulse Pulse Resp BP Pulse Ox FiO2 07/01/22 08:39 110 H 07/01/22 08:25 110 H 07/01/22 07:27 50 07/01/22 07:13 97 15 86/41 98 07/01/22 07:05 96 13 79/44 99 07/01/22 06:13 98 14 66/33 98 07/01/22 06:00 101 H 14 70/44 99 07/01/22 05:50 99 15 61/43 99 07/01/22 04:41 50 07/01/22 03:40 100 07/01/22 03:39 100 07/01/22 03:24 129 H 54/41 07/01/22 02:30 130 H 25 H 60/43 95 07/01/22 01:00 110 H 22 100/49 96 06/30/22 23:13 105 H 20 100/50 96 06/30/22 22:00 105 H 20 105/86 96 06/30/22 21:30 98.9 F 105 H 20 100/60 96 06/30/22 19:43 105 H 20 99/65 100 06/30/22 19:03 110 H 20 101/60 98 06/30/22 17:43 107 H 16 97/50 98 06/30/22 16:23 102 H 20 100/68 100 06/30/22 16:21 112 H 06/30/22 15:53 97.7 F 100 20 107/64 96 Intake and Output 06/30/22 07/01/22 07/01/22 22:59 06:59 14:59 Intake Total 572.087 874.843 Balance 572.087 216.843 Intake: Intake, IV Titration 6.087 5.843 Amount Norepinephrine 32 mg In 6.087 5.843 Sodium Chloride 0.9% 218 ml @ 0.05 MCG/KG/MIN 2. 435 mls/hr IV .Q24H ONE Rx#:[id number] Blood Product 566 620 Ffp 24 Pher Acda Cnt1 0 Unit [id number] Rc As-1 Unit 310 [id number] Rc As-1 Unit 0 310 [id number] Rc Pheresis As-3 Unit 283 [id number] Rc Pheresis As-3 Unit 283 [id number] Other: Weight 103.873 kg Results 07/01/22 04:43 07/01/22 04:43 Cardiac Enzymes 06/30/22 06/30/22 06/30/22 Range/Units 16:36 16:36 23:43 AST 21 (17-59) U/L Troponin I 0.158 H* 0.172 H* (0.000-0.034) ng/mL 07/01/22 07/01/22 Range/Units 02:40 04:43 AST 22 (17-59) U/L Troponin I 0.172 H* (0.000-0.034) ng/mL Coagulation 06/30/22 Range/Units 16:36 PT 10.8 (9.0-12.0) sec APTT 21.4 L (22.0-30.0) sec CBC 06/30/22 07/01/22 Range/Units 16:36 04:43 WBC 2.6 L 0.7 L* (3.8-10.6) k/uL RBC 2.99 L 1.66 L (4.30-5.90) m/uL Hgb 9.9 L 5.5 L* D (13.0-17.5) gm/dL Hct 32.9 L 19.1 L* (39.0-53.0) % Plt Count 136 L 87 L (150-450) k/uL Comprehensive Metabolic Panel 06/30/22 07/01/22 Range/Units 16:36 04:43 Sodium 140 142 (137-145) mmol/L Potassium 3.9 3.4 L (3.5-5.1) mmol/L Chloride 108 H 111 H (98-107) mmol/L Carbon Dioxide 21 L 19 L (22-30) mmol/L BUN 43 H 47 H (9-20) mg/dL Creatinine 1.67 H 2.34 H (0.66-1.25) mg/dL Glucose 126 H 112 H (74-99) mg/dL Calcium 8.8 7.5 L (8.4-10.2) mg/dL AST 21 22 (17-59) U/L ALT 17 17 (4-49) U/L Alkaline Phosphatase 123 95 (38-126) U/L Total Protein 5.4 L 3.8 L (6.3-8.2) g/dL Albumin 3.2 L 2.1 L (3.5-5.0) g/dL Current Medications Generic Name Dose Route Start Last Admin Trade Name Freq PRN Reason Stop Dose Admin Acetazolamide 250 mg 07/01/22 09:00 Acetazolamide 250 Mg Tab PO DAILY [facility] Albuterol Sulfate 2.5 mg 06/30/22 21:59 Albuterol Nebulized 2.5 Mg/3 Ml INHALATION RT-Q4H PRN Shortness Of Breath Albuterol/Ipratropium 3 ml 07/01/22 05:18 Ipratropium-Albuterol 3 Ml Neb INHALATION RT-Q4H PRN Shortness Of Breath Or Wheezing Ascorbic Acid 1,000 mg 07/01/22 21:00 Ascorbic Acid 500 Mg Tab PO HS [facility] Aspirin 81 mg 07/01/22 09:00 Aspirin 81 Mg PO DAILY [facility] Atorvastatin Calcium 40 mg 07/01/22 21:00 Atorvastatin 40 Mg Tab PO HS [facility] Budesonide/Formoterol Fumarate 2 puff 07/01/22 08:00 07/01/22 08:24 Symbicort 80-4.5 Mcg Inhaler INHALATION 2 puff RT-BID [facility] Administration Cholecalciferol 25 mcg 07/01/22 09:00 Cholecalciferol 25 Mcg (1000 Iu) Tablet PO DAILY [facility] Citalopram Hydrobromide 40 mg 07/01/22 09:00 Citalopram Hydrobromide 20 Mg Tab PO DAILY [facility] Cyanocobalamin 1,000 mcg 07/01/22 07:30 Cyanocobalamin 500 Mcg Tab PO W/BRKFST [facility] Enoxaparin Sodium 40 mg 07/01/22 09:00 Enoxaparin 40 Mg/0.4 Ml Syringe SQ DAILY [facility] Finasteride 5 mg 07/01/22 09:00 Finasteride 5 Mg Tab PO DAILY [facility] Folic Acid 0.5 mg 07/01/22 21:00 Folic Acid 1 Mg Tab PO HS [facility] Furosemide 40 mg 07/01/22 09:00 Furosemide 40 Mg Tab PO BID [facility] Gabapentin 300 mg 06/30/22 22:30 07/01/22 01:02 Gabapentin 300 Mg Cap PO Not Given Q8HR [facility] Sodium Chloride 1,000 mls @ 50 mls/hr 06/30/22 19:47 06/30/22 20:03 Saline 0.9% IV 07/01/22 15:46 50 mls/hr .Q20H [facility] Administration Norepinephrine Bitartrate 32 250 mls @ 2.435 mls/hr 07/01/22 05:00 07/01/22 07:12 mg/ Sodium Chloride IV 07/02/22 04:59 0.42 mcg/kg/min .Q24H ONE 20.45 mls/hr Titration Protocol 0.05 MCG/KG/MIN Ceftriaxone Sodium 1 gm/ 50 mls @ 100 mls/hr 07/01/22 18:00 Sodium Chloride IVPB Q12H [facility] Protocol Ipratropium [place] 0.5 mg 07/01/22 08:00 07/01/22 08:24 Ipratropium 0.5 Mg/2.5 Ml Nebu INHALATION 0.5 mg RT-QID [facility] Administration Metoprolol Tartrate 25 mg 07/01/22 09:00 Metoprolol Tartrate 25 Mg Tab PO BID [facility] Multivitamins 1 each 07/01/22 09:00 Multivitamins, Thera 1 Each Tab PO DAILY [facility] Naloxone HCl 0.2 mg 07/01/22 05:18 Naloxone 0.4 Mg/Ml 1 Ml Vial IV Q2M PRN Opioid Reversal Non-Formulary Medication 1 cap 07/01/22 21:00 Integra 62.5-62.5-40-3mg Capsule PO HS [facility] Ondansetron HCl 4 mg 06/30/22 20:15 Ondansetron 4 Mg/2 Ml Vial IVP Q8HR PRN Nausea And Vomiting Pantoprazole Sodium 40 mg 07/01/22 07:30 Pantoprazole 40 Mg Tablet PO AC-BRKFST [facility] Polyethylene Glycol 17 gm 07/01/22 21:00 Polyethylene Glycol 3350 17 Gm Powd.Pack PO HS [facility] Repaglinide 1 mg 07/01/22 07:30 Repaglinide 1 Mg Tab PO AC-BID [facility] Tamsulosin HCl 0.4 mg 07/01/22 09:00 Tamsulosin 0.4 Mg Cap.Er.24h PO DAILY [facility] Intake and Output 06/30/22 07/01/22 07/01/22 22:59 06:59 14:59 Intake Total 572.087 625.843 Balance 572.087 625.843 Intake: Intake, IV Titration 6.087 5.843 Amount Norepinephrine 32 mg In 6.087 5.843 Sodium Chloride 0.9% 218 ml @ 0.05 MCG/KG/MIN 2. 435 mls/hr IV .Q24H ONE Rx#:[id number] Blood Product 566 620 Ffp 24 Pher Acda Cnt1 0 Unit [id number] Rc As-1 Unit 310 [id number] Rc As-1 Unit 0 310 [id number] Rc Pheresis As-3 Unit 283 [id number] Rc Pheresis As-3 Unit 283 [id number] Other: Weight 103.873 kg 07/01/22 04:43 07/01/22 04:43
[2022-07-01] MEDS ORDERED: SODIUM BICARB 8.4% 50 ML SYR (1 MEQ/ML) ONE (09:12)
[2022-07-01] MEDS ORDERED: SODIUM BICARB 8.4% 50 ML SYR (1 MEQ/ML) IV STA (09:12)
--- NOTE | 2022-07-01 09:32 | XR ---
EXAMINATION TYPE: XR chest 1V portable DATE OF EXAM: 07/01/2022 9:19 AM COMPARISON: Chest radiographs from 06/30/2022 TECHNIQUE: XR chest 1V portable Frontal view of the chest. CLINICAL INDICATION:Male, 87 years old with history of Post line, post intubation; FINDINGS: Lungs/Pleura: No pneumothorax or focal consolidation. Blunting of the right costophrenic angle. [place] good right hemidiaphragm. Pulmonary vascularity: Mild pulmonary vascular congestion. Heart/mediastinum: Cardiomediastinal silhouette is unremarkable. Postoperative changes are present i n the mediastinum. Musculoskeletal: Multiple level degenerative disc disease changes seen throughout the spine. Midline sternotomy wires are noted and stable. Other findings: None Lines/Tubes: Endotracheal tube with distal tip 3.8 cm above the srini Nasogastric tube with its distal tip and side-port projecting under the diaphragm. Right internal jugular central venous catheter with distal tip at the mid SVC. IMPRESSION: 1. Mild pulmonary vascular congestion with small right pleural effusion. 2. Interval placement of endotracheal tube, enteric tube, and right IJ central venous catheter as de scribed above. No pneumothorax.
[2022-07-01] MEDS: DEXTROSE 5% IN WATER 1,000 ML with SODIUM BICARB (1 MEQ/ML) 150 ML IV SCH ×2 (09:43→21:41)
[2022-07-01] MEDS: PANTOPRAZOLE 40 MG/10 ML VIAL IVP SCH ×2 (09:47→21:42)
[2022-07-01] MEDS: TAMSULOSIN 0.4 MG CAP.ER.24H PO SCH (10:14)
[2022-07-01] MEDS: SODIUM CHLORIDE 0.9% 150 ML with VASOPRESSIN 60 UNIT IV SCH ×2 (10:15)
[2022-07-01] MEDS: FINASTERIDE 5 MG TAB PO SCH (10:49)
[2022-07-01 11:19] LABS: Glucose,Whole Blood 83 mg/dL (70-110)
[2022-07-01] MEDS: IPRATROPIUM-ALBUTEROL 3 ML NEB INHALATION SCH ×4 (11:19→23:12)
[2022-07-01 11:24] LABS: Crenated RBC Present
[2022-07-01 11:25] LABS: Mixed Population RBC Present; Polychromasia Present
[2022-07-01] MEDS ORDERED: SODIUM CHLORIDE 0.9% 150 ML with VASOPRESSIN 60 UNIT IV SCH ×2 (12:00)
[2022-07-01 12:09] LABS: Albumin 2.3 g/dL (3.5-5.0); Calcium 7.2 mg/dL (8.4-10.2); Potassium 3.6 mmol/L (3.5-5.1); Total Bilirubin 2.8 mg/dL (0.2-1.3); Total Protein 4.1 g/dL (6.3-8.2)
--- NOTE | 2022-07-01 12:27 | P.GSCN ---
History of Present Illness Consult date: 07/01/22 History of present illness: CHIEF COMPLAINT: Syncope HISTORY OF PRESENT ILLNESS: This is a 87-year-old male who is brought to the hospital with syncope, hypotension, A. fib RVR and bleeding from the penile meatus. He had pulled out the Harry catheter well walking to the restroom. Patient also currently had a large black tarry stool in the ER yesterday. Patient has had prior workup in [place] with EGD had apparently shown a stomach ulcer requiring cauterization. EGD and colonoscopy were completed in this hospital in April 2018 showing gastric valvular excision recurrent requiring argon plasma coagulation with Dr. Jeffrey. Patient was scheduled to follow-up [facility] for possible push endoscopy for further evaluation in regards to his GI bleeding. Patient had a hemoglobin of 9.9 at admission did drop to 5.5 and is up to 9.5 after 4 units of blood and 2 units of FFP. He did require to be intubated and is currently in the ICU. He is on max of Levophed also on vasopressin, bicarb and IV fluids. He did receive 2 L IV fluid boluses. Patient does have a history of watchman procedure for his A. fib and therefore is not on any anticoagulation. Also a prior TAVR and severe pulmonary hypertension. Surgical service was consulted regarding GI bleed. Patient stool for occult blood was positive. Patient does have mathew hematuria. And is being followed by urology. Also note the patient's NG tube has no blood in the output. PAST MEDICAL HISTORY: see list PAST SURGICAL HISTORY: See list. MEDICATIONS: See list. ALLERGIES: See list. SOCIAL HISTORY: No illicit drug use. REVIEW OF SYSTEMS: Not obtained. Patient intubated and sedated PHYSICAL EXAM: VITAL SIGNS: Reviewed GENERAL: Intubated and sedated HEENT: No sclera icterus. Extraocular movements grossly intact. Moist buccal mucosa. Head is atraumatic, normocephalic. No nasal drainage. ABDOMEN: Soft. Obese. Nondistended. Nontender. Mathew blood noted from the penile meatus NEUROLOGIC: Sedated LABORATORY DATA: WBC 2.4 Hemoglobin 5.5 up to 9.3 platelets 70 Creatinine 2.60 signs 143 potassium 3.6 CO2 18 Lactic acid 6.3 down to 4.1 Total bili 2.8 AST 107 ALT 53 alk phos 147 Troponin 0.172 x2 Stool for occult blood positive IMAGING: Chest x-ray mild pulmonary vascular congestion with small right pleural effusion Computed tomography scan brain cerebral atrophy. No acute intracranial normality. 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 Acute blood loss anemia 2. Acute GI bleed with one episode of black stool and stool for occult blood positive 3. Hematuria due to traumatic Harry catheter removal 4. Hypotension 5. Respiratory failure PLAN: -Further recommendations forthcoming per surgeon -Abdominal x-ray ordered -Continue to monitor -Continue to monitor for any signs or symptoms of bleeding -Continue to monitor hemoglobin -Continue ICU management -Continue supportive care Thank you for this consultation Physician Suede Cleaner note has been reviewed by physician. Signing provider agrees with the documented findings, assessment, and plan of care. I have personally seen and examined the patient, reviewed the GROCERY DELIVERER /PAs history, exam and MDM and agree with the assessment and plan as written. Based on total visit time, I have performed more than 50% of the visit. As above: Patient recently seen on consultation for Port-A-Cath placement. Came to the hospital after a syncopal episode. Patient apparently was having some confusion and pulled out his Harry catheter. Has had hematuria as a result of that. In the emergency department patient was able to provide history to the ER staff. Denied abdominal pain and chest pain or shortness of breath. His abdominal exam was benign at that time. Patient had decompensation was subsequently intubated and taken to the ICU. Notes from pulmonary and cardiology reviewed. A black colored stool was identified in the ER and his hemoglobin was noted to drop from 9.9-5.5. It did respond to 4 units of transfusion. Hemoglobin now 9.2. Patient has had persistent and profound hypotension and is on maximal pressors currently. We were consulted for GI bleed and hemodynamic instability. He is not stable to go to CAT scan. Abdominal films were obtained and no obvious pneumoperitoneum was seen or other abnormalities to explain his current hypotension. Case discussed with Dr. Guy. Unfortunately patient not stable for CAT scan still at this time. He has discussed the severity of the patient's condition with the patient's family. Continue supportive care for now. Monitor hemoglobin closely. Transfuse as needed. Endoscopy on hold unless active bleeding identified. We'll follow closely with you. 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 ., STATES LOWER EXTREMITY EDEMA, HX STOMACH ULCER., CHRONIC CONSTIPATION., -STATES BLOOD COUNT LOW AND HE FEELS EXHAUSTED AND USING A CANE & WALKER . , STATES RASH ON FORESKIN., SIGRID HEARING AIDS. states he needs a new replacement valve BONE MARROW BIOPSY CAUTERIZATION OF STOMACH ULCERS History of Any Multi-Drug Resistant Organisms: None Reported Past Surgical History: Appendectomy, Cardiac Ablation, Cardiac Valve Replac ement, Cholecystectomy, Coronary Bypass/CABG, Heart Catheterization Additional Past Surgical History / Comment(s): 2014 cardiac ablation of Afib at [facility], 2 vessel CABG and aortic valve replacement (bovine) in 2009., L caratid endartectomy, bilateral varicose vein stripping, lysis of abdominal adhesions, colonoscopies., EGDs-repair doudenal ulcers, bone marrow biopsy., 2 stents "right groin" for circulation ([place])., Watchman Procedure at [place] - 2019 Past Anesthesia/Blood Transfusion Reactions: No Reported Reaction, Blood T ransfusion Reaction Additional Past Anesthesia/Blood Transfusion Reaction / Comm: Hx of several blood transfusions and had reaction with Hives x1. ([place]) Past Psychological History: No Psychological Hx Reported Smoking Status: Former smoker Past Alcohol Use History: None Reported Past Drug Use History: None Reported - Past Family History Father Family Medical History: Cancer Additional Family Medical History / Comment(s): LUNG CANCER WITH METS Mother Family Medical History: Coronary Artery Disease (CAD), Myocardial Infarction (CO) Additional Family Medical History / Comment(s): Mother while recovering from open heart surgery. She had several MIs. Medications and Allergies Home Medications Medication Instructions Recorded Confirmed Type Finasteride [Proscar] 5 mg PO DAILY 07/10/15 06/30/22 History Folic Acid 0.4 mg PO HS 07/10/15 06/30/22 History Atorvastatin [Lipitor] 40 mg PO HS 04/27/18 06/30/22 History Albuterol Sulfate [Ventolin HFA] 2 puff INHALATION RT-Q4H PRN 05/28/21 06/30/22 History Fluticasone/Umeclidin/Vilanter 1 puff INHALATION RT-DAILY 05/28/21 06/30/22 History [Trelegy Ellipta 100-62.5-25] Metoprolol Tartrate [Lopressor] 25 mg PO BID 05/28/21 06/30/22 History polyethylene glycoL 3350 [Miralax] 17 gm PO HS 05/28/21 06/30/22 History Citalopram Hydrobromide [CeleXA] 40 mg PO DAILY 06/06/22 06/30/22 History Integra 62.5-62.5-40-3mg Capsule 1 cap PO HS 06/06/22 06/30/22 History Pantoprazole [Protonix] 40 mg PO BID 06/06/22 06/30/22 History Tamsulosin [Flomax] 0.4 mg PO DAILY 06/06/22 06/30/22 History Aspirin 81 mg PO DAILY tab 06/13/22 06/30/22 Rx Ascorbic Acid [Vitamin C] 1,000 mg PO HS 06/30/22 06/30/22 History Cholecalciferol [Vitamin D3 (25 25 mcg PO DAILY 06/30/22 06/30/22 History Mcg = 1000 Iu)] Cyanocobalamin [Vitamin B-12] 1,000 mcg PO DAILY 06/30/22 06/30/22 History Furosemide [Lasix] 40 mg PO BID 06/30/22 06/30/22 History Gabapentin 300 mg PO Q8H 06/30/22 06/30/22 History Multivitamins, Thera [Multivitamin 1 tab PO DAILY 06/30/22 06/30/22 History (formulary)] Repaglinide [Prandin] 1 mg PO BID 06/30/22 06/30/22 History acetaZOLAMIDE [Diamox] 250 mg PO DAILY 06/30/22 06/30/22 History Allergies Allergy/AdvReac Type Severity Reaction Status Date / Time iron infusions AdvReac Unknown Passed Out Uncoded 06/30/22 20:27 Surgical - Exam Vital Signs Temp Pulse Resp BP Pulse Ox 97.7 F 100 20 107/64 96 06/30/22 15:53 06/30/22 15:53 06/30/22 15:53 06/30/22 15:53 06/30/22 15:53 Results - Labs 07/01/22 13:30 07/01/22 13:30 Abnormal Lab Results - Last 24 Hours (Table) 06/30/22 06/30/22 06/30/22 Range/Units 16:36 16:36 16:36 WBC 2.6 L (3.8-10.6) k/uL RBC 2.99 L (4.30-5.90) m/uL Hgb 9.9 L (13.0-17.5) gm/dL Hct 32.9 L (39.0-53.0) % MCV 110.3 H (80.0-100.0) fL MCHC 30.2 L (31.0-37.0) g/dL RDW 15.8 H (11.5-15.5) % Plt Count 136 L (150-450) k/uL Neutrophils # (1.3-7.7) k/uL Lymphocytes # 0.2 L (1.0-4.8) k/uL Macrocytosis Marked A APTT 21.4 L (22.0-30.0) sec ABG pH (7.35-7.45) ABG pCO2 (35-45) mmHg ABG pO2 (83-108) mmHg ABG HCO3 (21-25) mmol/L ABG Total CO2 (19-24) mmol/L ABG O2 Saturation (94-97) % ABG Hematocrit (34.0-46.0) % Hemoglobin (13.0-17.5) gm/dL Potassium (3.5-5.1) mmol/L Chloride 108 H (98-107) mmol/L Carbon Dioxide 21 L (22-30) mmol/L BUN 43 H (9-20) mg/dL Creatinine 1.67 H (0.66-1.25) mg/dL Glucose 126 H (74-99) mg/dL POC Glucose (mg/dL) (70-110) mg/dL Plasma Lactic Acid Lloyd (0.7-2.0) mmol/L Calcium (8.4-10.2) mg/dL Troponin I (0.000-0.034) ng/mL Total Protein 5.4 L (6.3-8.2) g/dL Albumin 3.2 L (3.5-5.0) g/dL Crossmatch 06/30/22 06/30/22 07/01/22 Range/Units 16:36 23:43 02:40 WBC (3.8-10.6) k/uL RBC (4.30-5.90) m/uL Hgb (13.0-17.5) gm/dL Hct (39.0-53.0) % MCV (80.0-100.0) fL MCHC (31.0-37.0) g/dL RDW (11.5-15.5) % Plt Count (150-450) k/uL Neutrophils # (1.3-7.7) k/uL Lymphocytes # (1.0-4.8) k/uL Macrocytosis APTT (22.0-30.0) sec ABG pH (7.35-7.45) ABG pCO2 (35-45) mmHg ABG pO2 (83-108) mmHg ABG HCO3 (21-25) mmol/L ABG Total CO2 (19-24) mmol/L ABG O2 Saturation (94-97) % ABG Hematocrit (34.0-46.0) % Hemoglobin (13.0-17.5) gm/dL Potassium (3.5-5.1) mmol/L Chloride (98-107) mmol/L Carbon Dioxide (22-30) mmol/L BUN (9-20) mg/dL Creatinine (0.66-1.25) mg/dL Glucose (74-99) mg/dL POC Glucose (mg/dL) (70-110) mg/dL Plasma Lactic Acid Lloyd (0.7-2.0) mmol/L Calcium (8.4-10.2) mg/dL Troponin I 0.158 H* 0.172 H* 0.172 H* (0.000-0.034) ng/mL Total Protein (6.3-8.2) g/dL Albumin (3.5-5.0) g/dL Crossmatch 07/01/22 07/01/22 07/01/22 Range/Units 04:22 04:43 04:43 WBC 0.7 L* (3.8-10.6) k/uL RBC 1.66 L (4.30-5.90) m/uL Hgb 5.5 L* D (13.0-17.5) gm/dL Hct 19.1 L* (39.0-53.0) % MCV 114.9 H (80.0-100.0) fL MCHC 28.6 L (31.0-37.0) g/dL RDW 16.0 H (11.5-15.5) % Plt Count 87 L (150-450) k/uL Neutrophils # 0.5 L (1.3-7.7) k/uL Lymphocytes # 0.1 L (1.0-4.8) k/uL Macrocytosis Marked A APTT (22.0-30.0) sec ABG pH 7.19 L* (7.35-7.45) ABG pCO2 48 H (35-45) mmHg ABG pO2 296 H (83-108) mmHg ABG HCO3 18 L (21-25) mmol/L ABG Total CO2 (19-24) mmol/L ABG O2 Saturation 100.0 H (94-97) % ABG Hematocrit 16 L* (34.0-46.0) % Hemoglobin 5.3 L* (13.0-17.5) gm/dL Potassium 3.4 L (3.5-5.1) mmol/L Chloride 111 H (98-107) mmol/L Carbon Dioxide 19 L (22-30) mmol/L BUN 47 H (9-20) mg/dL Creatinine 2.34 H (0.66-1.25) mg/dL Glucose 112 H (74-99) mg/dL POC Glucose (mg/dL) (70-110) mg/dL Plasma Lactic Acid Lloyd (0.7-2.0) mmol/L Calcium 7.5 L (8.4-10.2) mg/dL Troponin I (0.000-0.034) ng/mL Total Protein 3.8 L (6.3-8.2) g/dL Albumin 2.1 L (3.5-5.0) g/dL Crossmatch 08/30/22 08/30/22 08/30/22 Range/Units 04:43 06:35 07:21 WBC (3.8-10.6) k/uL RBC (4.30-5.90) m/uL Hgb (13.0-17.5) gm/dL Hct (39.0-53.0) % MCV (80.0-100.0) fL MCHC (31.0-37.0) g/dL RDW (11.5-15.5) % Plt Count (150-450) k/uL Neutrophils # (1.3-7.7) k/uL Lymphocytes # (1.0-4.8) k/uL Macrocytosis APTT (22.0-30.0) sec ABG pH (7.35-7.45) ABG pCO2 (35-45) mmHg ABG pO2 (83-108) mmHg ABG HCO3 (21-25) mmol/L ABG Total CO2 (19-24) mmol/L ABG O2 Saturation (94-97) % ABG Hematocrit (34.0-46.0) % Hemoglobin (13.0-17.5) gm/dL Potassium (3.5-5.1) mmol/L Chloride (98-107) mmol/L Carbon Dioxide (22-30) mmol/L BUN (9-20) mg/dL Creatinine (0.66-1.25) mg/dL Glucose (74-99) mg/dL POC Glucose (mg/dL) 118 H (70-110) mg/dL Plasma Lactic Acid Lloyd 5.5 H* (0.7-2.0) mmol/L Calcium (8.4-10.2) mg/dL Troponin I (0.000-0.034) ng/mL Total Protein (6.3-8.2) g/dL Albumin (3.5-5.0) g/dL Crossmatch See Detail 07/01/22 07/01/22 07/01/22 Range/Units 08:25 08:25 09:02 WBC 2.4 L (3.8-10.6) k/uL RBC 2.99 L (4.30-5.90) m/uL Hgb 9.3 L D (13.0-17.5) gm/dL Hct 31.2 L (39.0-53.0) % MCV 104.4 H D (80.0-100.0) fL MCHC 29.8 L (31.0-37.0) g/dL RDW 19.1 H (11.5-15.5) % Plt Count 70 L (150-450) k/uL Neutrophils # (1.3-7.7) k/uL Lymphocytes # (1.0-4.8) k/uL Macrocytosis Marked A APTT (22.0-30.0) sec ABG pH 7.15 L* (7.35-7.45) ABG pCO2 49 H (35-45) mmHg ABG pO2 (83-108) mmHg ABG HCO3 17 L (21-25) mmol/L ABG Total CO2 18 L (19-24) mmol/L ABG O2 Saturation 98.0 H (94-97) % ABG Hematocrit 28 L (34.0-46.0) % Hemoglobin 9.2 L (13.0-17.5) gm/dL Potassium (3.5-5.1) mmol/L Chloride (98-107) mmol/L Carbon Dioxide (22-30) mmol/L BUN (9-20) mg/dL Creatinine (0.66-1.25) mg/dL Glucose (74-99) mg/dL POC Glucose (mg/dL) (70-110) mg/dL Plasma Lactic Acid Lloyd 6.3 H* (0.7-2.0) mmol/L Calcium (8.4-10.2) mg/dL Troponin I (0.000-0.034) ng/mL Total Protein (6.3-8.2) g/dL Albumin (3.5-5.0) g/dL Crossmatch Diabetes panel 06/30/22 07/01/22 Range/Units 16:36 04:43 Sodium 140 142 (137-145) mmol/L Potassium 3.9 3.4 L (3.5-5.1) mmol/L Chloride 108 H 111 H (98-107) mmol/L Carbon Dioxide 21 L 19 L (22-30) mmol/L BUN 43 H 47 H (9-20) mg/dL Creatinine 1.67 H 2.34 H (0.66-1.25) mg/dL Glucose 126 H 112 H (74-99) mg/dL Calcium 8.8 7.5 L (8.4-10.2) mg/dL AST 21 22 (17-59) U/L ALT 17 17 (4-49) U/L Alkaline Phosphatase 123 95 (38-126) U/L Total Protein 5.4 L 3.8 L (6.3-8.2) g/dL Albumin 3.2 L 2.1 L (3.5-5.0) g/dL Calcium panel 06/30/22 07/01/22 Range/Units 16:36 04:43 Calcium 8.8 7.5 L (8.4-10.2) mg/dL Phosphorus 3.6 (2.5-4.5) mg/dL Albumin 3.2 L 2.1 L (3.5-5.0) g/dL Pituitary panel 06/30/22 07/01/22 Range/Units 16:36 04:43 Sodium 140 142 (137-145) mmol/L Potassium 3.9 3.4 L (3.5-5.1) mmol/L Chloride 108 H 111 H (98-107) mmol/L Carbon Dioxide 21 L 19 L (22-30) mmol/L BUN 43 H 47 H (9-20) mg/dL Creatinine 1.67 H 2.34 H (0.66-1.25) mg/dL Glucose 126 H 112 H (74-99) mg/dL Calcium 8.8 7.5 L (8.4-10.2) mg/dL Adrenal panel 06/30/22 07/01/22 Range/Units 16:36 04:43 Sodium 140 142 (137-145) mmol/L Potassium 3.9 3.4 L (3.5-5.1) mmol/L Chloride 108 H 111 H (98-107) mmol/L Carbon Dioxide 21 L 19 L (22-30) mmol/L BUN 43 H 47 H (9-20) mg/dL Creatinine 1.67 H 2.34 H (0.66-1.25) mg/dL Glucose 126 H 112 H (74-99) mg/dL Calcium 8.8 7.5 L (8.4-10.2) mg/dL Total Bilirubin 0.6 1.1 (0.2-1.3) mg/dL AST 21 22 (17-59) U/L ALT 17 17 (4-49) U/L Alkaline Phosphatase 123 95 (38-126) U/L Total Protein 5.4 L 3.8 L (6.3-8.2) g/dL Albumin 3.2 L 2.1 L (3.5-5.0) g/dL
--- NOTE | 2022-07-01 13:16 | XR ---
EXAMINATION TYPE: XR abdomen complete w decub DATE OF EXAM: 07/01/2022 COMPARISON: NONE HISTORY: Hypotension TECHNIQUE: Supine, upright, and left side down lateral decubitus views of the abdomen are obtained. FINDINGS: Postsurgical changes are seen overlying the mediastinum. There are surgical clips in the up per abdomen. Vascular stent suspected overlying the right pelvis with additional vascular calcificati ons noted. Congestion and bilateral lower lobe infiltrate and small effusion. Elevated right hemidiap hragm. NG tube difficult to see on the images provided. Appears to be a vascular calcification likely related to the aorta. Correlate for rectal tube. Arthropathy of the hips and degenerative changes sp ine. Overall technique is limited. Bowel gas pattern nonspecific. IMPRESSION: Nonspecific abdomen bilateral lower lobe infiltrate and pleural effusion and elevated right hemidiaph ragm. Vascular calcification the aorta is suspected. Overall exam is limited by technique and artifac t. If clinical concern for abnormality correlate with the skin given limitation of exam.
[2022-07-01 13:52] LABS: Anisocytosis Slight; HCT 29.1 % (39.0-53.0); HGB 9.2 gm/dL (13.0-17.5); Hypochromasia Marked; MCH 31.6 pg (25.0-35.0); MCHC 31.6 g/dL (31.0-37.0); MCV 99.9 fL (80.0-100.0); Macrocytosis Moderate; Mean Platelet Volume 11.3; Poikilocytosis Slight; RBC 2.92 m/uL (4.30-5.90); RDW 19.5 % (11.5-15.5); WBC 7.8 k/uL (3.8-10.6)
[2022-07-01 14:00] LABS: Platelet Count 63 k/uL (150-450)
[2022-07-01 14:05] LABS: Albumin 2.4 g/dL (3.5-5.0); Calcium 7.1 mg/dL (8.4-10.2); Potassium 3.3 mmol/L (3.5-5.1); Total Bilirubin 4.8 mg/dL (0.2-1.3); Total Protein 4.4 g/dL (6.3-8.2)
[2022-07-01] MEDS: NOREPINEPHRINE 32 MG in SODIUM CHLORIDE 0.9% 218 ML IV SCH ×3 (14:15→23:07)
[2022-07-01] MEDS ORDERED: Potassium Replacement Protocol 1 EACH MISC MISCELLANE PRN (14:37)
[2022-07-01] MEDS ORDERED: Magnesium Replacement Protocol 1 EACH MISC MISCELLANE PRN (14:40)
[2022-07-01] MEDS: POTASSIUM CHLORIDE 20 MEQ in WATER FOR INJECTION 1 100ML.BAG IVPB SCH ×2 (15:12→16:55)
[2022-07-01] MEDS: PIPERACILLIN-TAZOBACTAM 3.375 GM in SODIUM CHLORIDE 0.9% 100 ML IVPB SCH ×2 (15:56→23:06)
[2022-07-01] MEDS ORDERED: DEXTROSE 5% IN WATER 1,000 ML with SODIUM BICARB (1 MEQ/ML) 150 ML IV SCH (16:00)
--- NOTE | 2022-07-01 16:19 | P.HPIM ---
History of Present Illness H&P Date: 07/01/22 Chief Complaint: Short of breath This is a 87-year-old patient, follows with visiting physicians Dr. Carbajal. Chronic stable medical conditions include atrial fibrillation, CAD, diabetes, hard of hearing, hypertension, hyperlipidemia osteoarthritis, peripheral neuropathy does use CPAP. extensive medical history. Patient was discharged from the hospital to rehab at [facility]. Was then treated for CHF from diastolic dysfunction. Also had diagnoses of metabolic alkalosis, PE was ruled out, severe secondary pulmonary hypertension, chronic kidney disease stage III, Harry placed for bladder outflow obstruction, cor pulmonale. Per the EMS report pending a diet the staff at assisted him up from the toilet and patient had lost consciousness. He noticed a large amount of blood in the toilet. When the EMS patient had, round and said that his Harry catheter was pulled out with the balloon up but he was trying to go to the restroom. He knows of bleeding from the same. In the ER patient had a large tarry black stool. Subsequently currently the patient become short of breath and had to be intubated. Patient received a total of 4 units of PRBC. And fresh frozen fredy sma. Admitted to the ICU. Intubated. This morning patient is on drips including vasopressin, levo fed, bicarbonate, propofol. Is in atrial fibrillation rate around 1:15. With the bundle branch block pattern. FiO2 15 a PEEP of 5. No family at the bedside. Review of systems: Cannot obtain patient intubated. 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 . Uses a walker. Patient smoked 3 packs a day for about 16 years stopped in 1966. No alcohol. Family history: Lung cancer Physical examination: VITAL SIGNS: 98.5, 117, 22, 80/79, 96% on the ventilator GENERAL: BMI 33.8, laying in bed sedated intubated EYES: Pupils equal. Conjunctiva normal. HEENT: External appearance of nose and ears normal, oral cavity or G-tube NECK: JVD unable to assess; masses not palpable. HEART: [Heart sounds irregular; some edema LUNGS: Respiratory rate increased; decreased breath sounds. ABDOMEN: Soft, distended nontender, liver spleen not palpable, no masses palpable. Harry catheter with some bloody urine PSYCH: Unable to assess, patient sedated MUSCULOSKELETAL:No Clubbing/cyanosis;muscles-grossly intact. OA INVESTIGATIONS, reviewed in the clinical context: WBC 2.4 hemoglobin 9.3 platelets 70 potassium 3.6 BUN 47 creatinine 2.60 lactic acid 6.3 AST 107 ALT 53 procalcitonin 18 2-D echocardiogram: EF 1-65%. Moderate concentric LVH. Severe right ventricular dilatation. Severe pulmonary hypertension. Right ventricle enlargement. EKG tracing personally reviewed by me-atrial fibrillation. Right bundle karina block pattern. Chest x-ray film personally reviewed by me-right upper lobe collapse Assessment and plan: -Right upper lobe collapse/pneumonia IV ceftriaxone -Atrial fibrillation with a rapid ventricular rate Cardiology consulted. Not a candidate for anticoagulation because of bleed. -Acute severe blood loss anemia from GI bleed Patient has received 4 units of blood. Follow H&H. -Acute GI bleed felt to be upper. NG tube has.dark aspirate. GI services not available in the hospital. Dr. Rivas consulted. -Acute hypoxic respiratory failure secondary to pneumonia, ventilator assisted On FiO2 15 a PEEP of 5 -Metabolic acidosis, multifactorial IV bicarbonate drip -Sepsis/lactic acidosis -Obesity BMI 33.8 -Severe secondary pulmonary hypertension -Hyperlipidemia Lipitor 40 mg daily at bedtime -Acute kidney injury due to cardiorenal ATN Follow eyes and nose. - chronic kidney disease, stage III from nephrosclerosis and diabetic nephropathy Creatinine was 1.5 to on June 17 -Depression and anxiety Celexa 40 mg a day -Troponin leak secondary CK D. No clinical evidence of ACS -BPH Proscar 5 mg a day, Flomax - urine outflow obstruction from BPH Harry catheter chronic -Traumatic hematuria as patient accidentally pulled out Harry catheter with the balloon inflated Another catheter was placed. Urology consulted. The Harry catheter in place. -COPD in a previous smoker Bronchodilators -Diabetic peripheral neuropathy Neurontin -GERD PPI -Diabetes mellitus type 2 on oral hypoglycemic Follow Accu-Cheks -Cor pulmonale, chronic: -Mild to moderate mitral stenosis Follow with cardiology - chronic medical debility Patient was at rehab -Full code Patient received 4 units of blood. 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 Drips include vasopressin, levo fed, propofol, bicarbonate. Or G-tube to intermittent suction. Follow H&H. On ventilator assist. Prognosis guarded. Currently family doctor present. 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 ., STATES LOWER EXTREMITY EDEMA, HX STOMACH ULCER., CHRONIC CONSTIPATION., -STATES BLOOD COUNT LOW AND HE FEELS EXHAUSTED AND USING A CANE & WALKER . , STATES RASH ON FORESKIN., SIGRID HEARING AIDS. states he needs a new replacement valve BONE MARROW BIOPSY CAUTERIZATION OF STOMACH ULCERS History of Any Multi-Drug Resistant Organisms: None Reported Past Surgical History: Appendectomy, Cardiac Ablation, Cardiac Valve Replacement, Cholecystectomy, Coronary Bypass/CABG, Heart Catheterization Additional Past Surgical History / Comment(s): 2014 cardiac ablation of Afib at [facility], 2 vessel CABG and aortic valve replacement (bovine) in 2009., L caratid endartectomy, bilateral varicose vein stripping, lysis of abdominal adhesions, colonoscopies., EGDs-repair doudenal ulcers, bone marrow biopsy., 2 stents "right groin" for circulation ([place])., Watchman Procedure at [place] - 2019 Past Anesthesia/Blood Transfusion Reactions: No Reported Reaction, Blood Transfusion Reaction Additional Past Anesthesia/Blood Transfusion Reaction / Comment(s): Hx of several blood transfusions and had reaction with Hives x1. ([place]) Past Psychological History: No Psychological Hx Reported Smoking Status: Former smoker Past Alcohol Use History: None Reported Past Drug Use History: None Reported - Past Family History Father Family Medical History: Cancer Additional Family Medical History / Comment(s): LUNG CANCER WITH METS Mother Family Medical History: Coronary Artery Disease (CAD), Myocardial Infarction ([place]) Additional Family Medical History / Comment(s): Mother while recovering from open heart surgery. She had several MIs. Medications and Allergies Home Medications Medication Instructions Recorded Confirmed Type Finasteride [Proscar] 5 mg PO DAILY 07/10/15 06/30/22 History Folic Acid 0.4 mg PO HS 07/10/15 06/30/22 History Atorvastatin [Lipitor] 40 mg PO HS 04/27/18 06/30/22 History Albuterol Sulfate [Ventolin HFA] 2 puff INHALATION RT-Q4H PRN 05/28/21 06/30/22 History Fluticasone/Umeclidin/Vilanter 1 puff INHALATION RT-DAILY 05/28/21 06/30/22 History [Trelegy Ellipta 100-62.5-25] Metoprolol Tartrate [Lopressor] 25 mg PO BID 05/28/21 06/30/22 History polyethylene glycoL 3350 [Miralax] 17 gm PO HS 05/28/21 06/30/22 History Citalopram Hydrobromide [CeleXA] 40 mg PO DAILY 06/06/22 06/30/22 History Integra 62.5-62.5-40-3mg Capsule 1 cap PO HS 06/06/22 06/30/22 History Pantoprazole [Protonix] 40 mg PO BID 06/06/22 06/30/22 History Tamsulosin [Flomax] 0.4 mg PO DAILY 06/06/22 06/30/22 History Aspirin 81 mg PO DAILY tab 06/13/22 06/30/22 Rx Ascorbic Acid [Vitamin C] 1,000 mg PO HS 06/30/22 06/30/22 History Cholecalciferol [Vitamin D3 (25 25 mcg PO DAILY 06/30/22 06/30/22 History Mcg = 1000 Iu)] Cyanocobalamin [Vitamin B-12] 1,000 mcg PO DAILY 06/30/22 06/30/22 History Furosemide [Lasix] 40 mg PO BID 06/30/22 06/30/22 History Gabapentin 300 mg PO Q8H 06/30/22 06/30/22 History Multivitamins, Thera [Multivitamin 1 tab PO DAILY 06/30/22 06/30/22 History (formulary)] Repaglinide [Prandin] 1 mg PO BID 06/30/22 06/30/22 History acetaZOLAMIDE [Diamox] 250 mg PO DAILY 06/30/22 06/30/22 History Allergies Allergy/AdvReac Type Severity Reaction Status Date / Time iron infusions AdvReac Unknown Passed Out Uncoded 06/30/22 20:27 Physical Exam Vitals: Vital Signs Temp Pulse Pulse Resp BP Pulse Ox FiO2 07/01/22 08:39 110 H 07/01/22 08:25 110 H 07/01/22 07:27 50 07/01/22 07:13 97 15 86/41 98 07/01/22 07:05 96 13 79/44 99 07/01/22 06:13 98 14 66/33 98 07/01/22 06:00 101 H 14 70/44 99 07/01/22 05:50 99 15 61/43 99 07/01/22 04:41 50 07/01/22 03:40 100 07/01/22 03:39 100 07/01/22 03:24 129 H 54/41 07/01/22 02:30 130 H 25 H 60/43 95 07/01/22 01:00 110 H 22 100/49 96 06/30/22 23:13 105 H 20 100/50 96 06/30/22 22:00 105 H 20 105/86 96 06/30/22 21:30 98.9 F 105 H 20 100/60 96 06/30/22 19:43 105 H 20 99/65 100 06/30/22 19:03 110 H 20 101/60 98 06/30/22 17:43 107 H 16 97/50 98 06/30/22 16:23 102 H 20 100/68 100 06/30/22 16:21 112 H 06/30/22 15:53 97.7 F 100 20 107/64 96 Intake and Output 06/30/22 07/01/22 07/01/22 22:59 06:59 14:59 Intake Total 572.087 842.843 Balance 572.087 842.843 Intake: Intake, IV Titration 6.087 5.843 Amount Norepinephrine 32 mg In 6.087 5.843 Sodium Chloride 0.9% 218 ml @ 0.05 MCG/KG/MIN 2. 435 mls/hr IV .Q24H ONE Rx#:[id number] Blood Product 566 837 Ffp 24 Pher Acda Cnt1 217 Unit [id number] Ffp 24 Pher Acda Cnt1 0 Unit [id number] Rc As-1 Unit 310 [id number] Rc As-1 Unit 0 310 [id number] Rc Pheresis As-3 Unit 283 [id number] Rc Pheresis As-3 Unit 283 [id number] Other: Weight 103.873 kg Results CBC & Chem 7: 07/01/22 13:30 07/01/22 13:30 Labs: Abnormal Lab Results - Last 24 Hours (Table) 06/30/22 06/30/22 06/30/22 Range/Units 16:36 16:36 16:36 WBC 2.6 L (3.8-10.6) k/uL RBC 2.99 L (4.30-5.90) m/uL Hgb 9.9 L (13.0-17.5) gm/dL Hct 32.9 L (39.0-53.0) % MCV 110.3 H (80.0-100.0) fL MCHC 30.2 L (31.0-37.0) g/dL RDW 15.8 H (11.5-15.5) % Plt Count 136 L (150-450) k/uL Neutrophils # (1.3-7.7) k/uL Lymphocytes # 0.2 L (1.0-4.8) k/uL Macrocytosis Marked A APTT 21.4 L (22.0-30.0) sec ABG pH (7.35-7.45) ABG pCO2 (35-45) mmHg ABG pO2 (83-108) mmHg ABG HCO3 (21-25) mmol/L ABG Total CO2 (19-24) mmol/L ABG O2 Saturation (94-97) % ABG Hematocrit (34.0-46.0) % Hemoglobin (13.0-17.5) gm/dL Potassium (3.5-5.1) mmol/L Chloride 108 H (98-107) mmol/L Carbon Dioxide 21 L (22-30) mmol/L BUN 43 H (9-20) mg/dL Creatinine 1.67 H (0.66-1.25) mg/dL Glucose 126 H (74-99) mg/dL POC Glucose (mg/dL) (70-110) mg/dL Plasma Lactic Acid Lloyd (0.7-2.0) mmol/L Calcium (8.4-10.2) mg/dL Troponin I (0.000-0.034) ng/mL Total Protein 5.4 L (6.3-8.2) g/dL Albumin 3.2 L (3.5-5.0) g/dL Crossmatch 06/30/22 06/30/22 07/01/22 Range/Units 16:36 23:43 02:40 WBC (3.8-10.6) k/uL RBC (4.30-5.90) m/uL Hgb (13.0-17.5) gm/dL Hct (39.0-53.0) % MCV (80.0-100.0) fL MCHC (31.0-37.0) g/dL RDW (11.5-15.5) % Plt Count (150-450) k/uL Neutrophils # (1.3-7.7) k/uL Lymphocytes # (1.0-4.8) k/uL Macrocytosis APTT (22.0-30.0) sec ABG pH (7.35-7.45) ABG pCO2 (35-45) mmHg ABG pO2 (83-108) mmHg ABG HCO3 (21-25) mmol/L ABG Total CO2 (19-24) mmol/L ABG O2 Saturation (94-97) % ABG Hematocrit (34.0-46.0) % Hemoglobin (13.0-17.5) gm/dL Potassium (3.5-5.1) mmol/L Chloride (98-107) mmol/L Carbon Dioxide (22-30) mmol/L BUN (9-20) mg/dL Creatinine (0.66-1.25) mg/dL Glucose (74-99) mg/dL POC Glucose (mg/dL) (70-110) mg/dL Plasma Lactic Acid Lloyd (0.7-2.0) mmol/L Calcium (8.4-10.2) mg/dL Troponin I 0.158 H* 0.172 H* 0.172 H* (0.000-0.034) ng/mL Total Protein (6.3-8.2) g/dL Albumin (3.5-5.0) g/dL Crossmatch 07/01/22 07/01/22 07/01/22 Range/Units 04:22 04:43 04:43 WBC 0.7 L* (3.8-10.6) k/uL RBC 1.66 L (4.30-5.90) m/uL Hgb 5.5 L* D (13.0-17.5) gm/dL Hct 19.1 L* (39.0-53.0) % MCV 114.9 H (80.0-100.0) fL MCHC 28.6 L (31.0-37.0) g/dL RDW 16.0 H (11.5-15.5) % Plt Count 87 L (150-450) k/uL Neutrophils # 0.5 L (1.3-7.7) k/uL Lymphocytes # 0.1 L (1.0-4.8) k/uL Macrocytosis Marked A APTT (22.0-30.0) sec ABG pH 7.19 L* (7.35-7.45) ABG pCO2 48 H (35-45) mmHg ABG pO2 296 H (83-108) mmHg ABG HCO3 18 L (21-25) mmol/L ABG Total CO2 (19-24) mmol/L ABG O2 Saturation 100.0 H (94-97) % ABG Hematocrit 16 L* (34.0-46.0) % Hemoglobin 5.3 L* (13.0-17.5) gm/dL Potassium 3.4 L (3.5-5.1) mmol/L Chloride 111 H (98-107) mmol/L Carbon Dioxide 19 L (22-30) mmol/L BUN 47 H (9-20) mg/dL Creatinine 2.34 H (0.66-1.25) mg/dL Glucose 112 H (74-99) mg/dL POC Glucose (mg/dL) (70-110) mg/dL Plasma Lactic Acid Lloyd (0.7-2.0) mmol/L Calcium 7.5 L (8.4-10.2) mg/dL Troponin I (0.000-0.034) ng/mL Total Protein 3.8 L (6.3-8.2) g/dL Albumin 2.1 L (3.5-5.0) g/dL Crossmatch 07/01/22 07/01/22 07/01/22 Range/Units 04:43 06:35 07:21 WBC (3.8-10.6) k/uL RBC (4.30-5.90) m/uL Hgb (13.0-17.5) gm/dL Hct (39.0-53.0) % MCV (80.0-100.0) fL MCHC (31.0-37.0) g/dL RDW (11.5-15.5) % Plt Count (150-450) k/uL Neutrophils # (1.3-7.7) k/uL Lymphocytes # (1.0-4.8) k/uL Macrocytosis APTT (22.0-30.0) sec ABG pH (7.35-7.45) ABG pCO2 (35-45) mmHg ABG pO2 (83-108) mmHg ABG HCO3 (21-25) mmol/L ABG Total CO2 (19-24) mmol/L ABG O2 Saturation (94-97) % ABG Hematocrit (34.0-46.0) % Hemoglobin (13.0-17.5) gm/dL Potassium (3.5-5.1) mmol/L Chloride (98-107) mmol/L Carbon Dioxide (22-30) mmol/L BUN (9-20) mg/dL Creatinine (0.66-1.25) mg/dL Glucose (74-99) mg/dL POC Glucose (mg/dL) 118 H (70-110) mg/dL Plasma Lactic Acid Lloyd 5.5 H* (0.7-2.0) mmol/L Calcium (8.4-10.2) mg/dL Troponin I (0.000-0.034) ng/mL Total Protein (6.3-8.2) g/dL Albumin (3.5-5.0) g/dL Crossmatch See Detail 07/01/22 07/01/22 07/01/22 Range/Units 08:25 08:25 09:02 WBC 2.4 L (3.8-10.6) k/uL RBC 2.99 L (4.30-5.90) m/uL Hgb 9.3 L D (13.0-17.5) gm/dL Hct 31.2 L (39.0-53.0) % MCV 104.4 H D (80.0-100.0) fL MCHC 29.8 L (31.0-37.0) g/dL RDW 19.1 H (11.5-15.5) % Plt Count 70 L (150-450) k/uL Neutrophils # (1.3-7.7) k/uL Lymphocytes # (1.0-4.8) k/uL Macrocytosis Marked A APTT (22.0-30.0) sec ABG pH 7.15 L* (7.35-7.45) ABG pCO2 49 H (35-45) mmHg ABG pO2 (83-108) mmHg ABG HCO3 17 L (21-25) mmol/L ABG Total CO2 18 L (19-24) mmol/L ABG O2 Saturation 98.0 H (94-97) % ABG Hematocrit 28 L (34.0-46.0) % Hemoglobin 9.2 L (13.0-17.5) gm/dL Potassium (3.5-5.1) mmol/L Chloride (98-107) mmol/L Carbon Dioxide (22-30) mmol/L BUN (9-20) mg/dL Creatinine (0.66-1.25) mg/dL Glucose (74-99) mg/dL POC Glucose (mg/dL) (70-110) mg/dL Plasma Lactic Acid Lloyd 6.3 H* (0.7-2.0) mmol/L Calcium (8.4-10.2) mg/dL Troponin I (0.000-0.034) ng/mL Total Protein (6.3-8.2) g/dL Albumin (3.5-5.0) g/dL Crossmatch
[2022-07-01 17:59] VITALS: RESP 26
[2022-07-01] MEDS ORDERED: DEXTROSE 50% SYRINGE 50 ML IVP PRN ×2 (17:59)
[2022-07-01 18:23] LABS: Glucose,Whole Blood 124 mg/dL (70-110)
[2022-07-01] MEDS: INSULIN ASPART (NovoLOG) 100 UNIT/ML VIAL SQ SCH ×2 (18:25→23:11)
[2022-07-01] MEDS ORDERED: ALBUMIN HUMAN 5% 500 ML in EMPTY BAG 1 BAG IVPB ONE (18:51)
[2022-07-01] MEDS ORDERED: FUROSEMIDE 10 MG/ML 10 ML VIAL IV STA (18:56)
[2022-07-01 19:24] LABS: ABG Base Excess -8.9 mmol/L; ABG HCO3 19 mmol/L (21-25); ABG Hematocrit 29 % (34.0-46.0); ABG Oxygen Saturation 78.1 % (94-97); ABG PCO2 46 mmHg (35-45); ABG PH 7.22 (7.35-7.45); ABG TCO2 20 mmol/L (19-24); Allen Test Performed? Yes
[2022-07-01] MEDS: BUDESONIDE 1 MG/2 ML NEBU INHALATION SCH (19:27)
[2022-07-01] MEDS: FORMOTEROL FUMARATE 20 MCG/2 ML NEBU INHALATION SCH (19:43)
[2022-07-01 20:07] LABS: ABG PO2 44 mmHg (83-108)
[2022-07-01] MEDS: MAGNESIUM SULFATE-D5W PMX 1 GM in DEXTROSE/WATER 1 100ML.BAG IVPB SCH ×3 (20:23→23:07)
[2022-07-01 20:39] LABS: Anisocytosis Slight; HCT 29.7 % (39.0-53.0); HGB 9.7 gm/dL (13.0-17.5); Hypochromasia Marked; MCH 31.9 pg (25.0-35.0); MCHC 32.5 g/dL (31.0-37.0); MCV 98.1 fL (80.0-100.0); Macrocytosis Moderate; Mean Platelet Volume 10.3; Poikilocytosis Moderate; RBC 3.03 m/uL (4.30-5.90); RDW 19.8 % (11.5-15.5); WBC 10.3 k/uL (3.8-10.6)
[2022-07-01 20:46] LABS: Magnesium 1.6 mg/dL (1.6-2.3)
[2022-07-01 20:47] LABS: Platelet Count 64 k/uL (150-450)
[2022-07-01] MEDS ORDERED: polyethylene glycoL 3350 17 GM POWD.PACK PO SCH (21:00)
[2022-07-01] MEDS ORDERED: FOLIC ACID 1 MG TAB PO SCH (21:00)
[2022-07-01] MEDS ORDERED: ATORVASTATIN 40 MG TAB PO SCH (21:00)
[2022-07-01] MEDS ORDERED: INTEGRA PO SCH (21:00)
[2022-07-01] MEDS ORDERED: ASCORBIC ACID 500 MG TAB PO SCH (21:00)
[2022-07-01 21:20] LABS: Glucose,Whole Blood 139 mg/dL (70-110)
[2022-07-01] MEDS: CHLORHEXIDINE GLUCONATE 15 ML CUP MUCOUS MEM SCH (21:42)
[2022-07-01 23:05] LABS: Glucose,Whole Blood 149 mg/dL (70-110)
[2022-07-02] MEDS: SODIUM CHLORIDE 0.9% 150 ML with VASOPRESSIN 60 UNIT IV SCH ×2 (03:45)
[2022-07-02] MEDS: IPRATROPIUM-ALBUTEROL 3 ML NEB INHALATION SCH ×3 (04:19→10:46)
[2022-07-02] MEDS: NOREPINEPHRINE 32 MG in SODIUM CHLORIDE 0.9% 218 ML IV SCH ×2 (04:49→08:46)
[2022-07-02 05:11] LABS: Glucose,Whole Blood 214 mg/dL (70-110)
[2022-07-02] MEDS: INSULIN ASPART (NovoLOG) 100 UNIT/ML VIAL SQ SCH ×2 (05:16→12:51)
[2022-07-02 05:23] LABS: Anisocytosis Slight; Basophils % (A) 0 %; Eosinophils % (A) 0 %; HCT 28.9 % (39.0-53.0); HGB 9.3 gm/dL (13.0-17.5); Hypochromasia Marked; Lymphocytes # (A) 0.1 k/uL (1.0-4.8); Lymphocytes % (A) 1 %; MCHC 32.2 g/dL (31.0-37.0); MCV 99.5 fL (80.0-100.0); Macrocytosis Moderate; Mean Platelet Volume 10.4; Monocytes # (A) 0.2 k/uL (0-1.0); Monocytes % (A) 2 %; Neutrophils # (A) 10.7 k/uL (1.3-7.7); Neutrophils % (A) 97 %; Poikilocytosis Moderate; RDW 19.9 % (11.5-15.5); WBC 11.1 k/uL (3.8-10.6)
[2022-07-02 05:37] LABS: Platelet Count 48 k/uL (150-450)
[2022-07-02 05:39] LABS: Albumin 2.1 g/dL (3.5-5.0); Calcium 6.6 mg/dL (8.4-10.2); Magnesium 1.9 mg/dL (1.6-2.3); Phosphorus 5.4 mg/dL (2.5-4.5); Potassium 4.2 mmol/L (3.5-5.1); Total Bilirubin 5.2 mg/dL (0.2-1.3)
[2022-07-02 05:57] LABS: ABG Base Excess -9.1 mmol/L; ABG HCO3 18 mmol/L (21-25); ABG Hematocrit 27 % (34.0-46.0); ABG Oxygen Saturation 98.2 % (94-97); ABG PCO2 38 mmHg (35-45); ABG PH 7.27 (7.35-7.45); ABG PO2 96 mmHg (83-108); ABG TCO2 19 mmol/L (19-24)
[2022-07-02 06:00] LABS: Allen Test Performed? No
[2022-07-02] MEDS: TAMSULOSIN 0.4 MG CAP.ER.24H PO SCH (08:04)
[2022-07-02] MEDS: FINASTERIDE 5 MG TAB PO SCH (08:04)
[2022-07-02] MEDS: BUDESONIDE 1 MG/2 ML NEBU INHALATION SCH (08:12)
[2022-07-02] MEDS: FORMOTEROL FUMARATE 20 MCG/2 ML NEBU INHALATION SCH (08:12)
[2022-07-02] MEDS: PANTOPRAZOLE 40 MG/10 ML VIAL IVP SCH (08:46)
[2022-07-02] MEDS: CHLORHEXIDINE GLUCONATE 15 ML CUP MUCOUS MEM SCH (08:46)
[2022-07-02] MEDS: PIPERACILLIN-TAZOBACTAM 3.375 GM in SODIUM CHLORIDE 0.9% 100 ML IVPB SCH (08:47)
[2022-07-02] MEDS ORDERED: ENOXAPARIN 30 MG/0.3 ML SYRINGE SQ SCH (09:00)
[2022-07-02] MEDS: DEXTROSE 5% IN WATER 1,000 ML with SODIUM BICARB (1 MEQ/ML) 150 ML IV SCH (10:19)
--- NOTE | 2022-07-02 10:50 | CA ---
Transthoracic Echo Report Name: Figueroa Woods Age: 87 Gender: M : 1935 Exam Date: 07/01/2022 14:15 Exam Location: [facility] Ht (in): 69 Wt (lb): 229 Ordering Physician: Tangela Guy MD Attending/Referring Phys: Austin Carbajal MD Superintendent Division Rosa M Mcbride RDCS Procedure CPT: Indications: cardiac status Cardiac Hx: Echo done 06/06/22: Repeat for Cardiac Status. Technical Quality: Fair Contrast 1: Total Dose (mL): Contrast 2: Definity Total Dose (mL): MEASUREMENTS (Male / Female) Normal Values 2D ECHO RV Internal Dim ED PLAX 3.9 cm DOPPLER TR Peak Velocity 360.0 cm/s TR Peak Gradient 51.8 mmHg FINDINGS Left Ventricle Left ventricular ejection fraction is estimated at 50-55 %. Septal bounce consistent with prior cardiac surgery. Right Ventricle Moderate right ventricular dilatation. Moderate to severe pulmonary hypertension. Right Atrium Normal right atrial size. Left Atrium Moderate left atrial dilatation. Mitral Valve Structurally normal mitral valve. Aortic Valve Normally functioning bioprosthetic aortic valve Tricuspid Valve Structurally normal tricuspid valve. Mild tricuspid regurgitation. Pulmonic Valve Structurally normal pulmonic valve. Pericardium Echo free space anterior to the right ventricle likely represents a fat pad. Aorta Normal size aortic root and proximal ascending aorta. CONCLUSIONS Left ventricular EF 50-55% Moderate right ventricular dilation Moderate to severe pulmonary hypertension, RVSP 51 Normally functioning bioprosthetic aortic valve Mild tricuspid regurgitation Previewed by: Dr. Wale Pantoja DO (Electronically Signed) Final Date: 02 July 2022 10:50
[2022-07-02 11:40] VITALS: TEMP 101.1
[2022-07-02 11:45] VITALS: BMI 33.7
--- NOTE | 2022-07-02 11:48 | P.PN ---
Subjective Progress Note Date: 07/02/22 This is an 87-year-old male patient who came into the emergency department after having a syncopal episodes at the rehab facility. The patient was hospitalized and he was discharged to rehab facility approximately 2 weeks ago. He has chronic issues with urinary retention. He was using a Harry catheter. He apparently dislodged or pulled on his Harry catheter and the patient subsequently had blood coming out from his denial meatus. He subsequently had a syncopal episodes. The patient did not have any recollection of any of this events. The patient came into the emergency department. The patient subsequently became more hypotensive. He was found to be in atrial fibrillation with rapid ventricular response along with hypotension. The triple-lumen catheter was established. Blood work showed significant drop in his hemoglobin as the patient's presented with a hemoglobin 9.9 and that hemoglobin dropped down to 5.5. There was also drop in the platelet count down to 87 from a baseline of 136 and the white cell count also dropped down to 0.7. The patient developed an acute kidney injury. Creatinine is up to 2.34 as the patient is known to have chronic stage III kidney disease. Based on all these comorbid conditions, the patient was also intubated and placed on a mechanical ventilator and following that he got transferred to the intensive care unit. I had opportunity to evaluate this patient in the ICU immediately after he arrived to the units. At this point in time, the patient is sedated on propofol which is running at 25 mcg/kg per minute. The patient is also quite cigarettes a mechanical ventilator without any agitation. He grimaces only to deep painful stimulation. Does not follow any commands. He is on a mechanical ventilator on assist control mode at the rate of 16 with a tidal volume of 500 and FiO2 to 50% with a PEEP of 5. Chest x-ray showed mild pulmonary vascular congestion and atelectatic changes in the right lung base. 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 The blood gases showed a pH of 7.19 with a pCO2 of 48 and pO2 of 296 and this was obtained immediately after intubation. Based on the massive drop in hemoglobin down to 5.5, the patient was sent for occult blood and they're not to be positive. Nevertheless, we have not witnessed any significant amount of hematochezia or melanotic stools in this patient in the NG tube is in place and there is no significant output or bloody up from his NG. The patient was given a total of 4 units of packed RBC and a total of 2 L of normal saline and the patient is currently on norepinephrine which is running at the rate of 0.5 mcg/kg per minute. Current Harry catheter is in place. Urine output is bloody. There are no clots. The total amount of urine output since arrival to the ICU is in order of 175 mL. As mentioned, he is cold and clammy and hypotensive with weak pulses in all 4 extremities. Previous echocardiogram that was done on earlier admissions from 06/06/2022 showed of the patient had a preserved LV function with an ejection fraction of more than 65%. LV cavity was normal. There was moderate degree of concentric LVH. There was severe right ventricular dilatation severe pulmonary hypertension consistent with RV volume overload. The patient also has a bioprosthetic aortic valve with a peak gradient of 36 and severely dilated LA and dilated IVC. The patient's comorbidities are multiple at this point in time. He is known to have coronary artery disease. He does also undergone a previous valve surgery. He has history of chronic atrial fibrillation, chronic stage III kidney disease, he is morbidly obese and carries a BMI of more than 40. He has previous history of DVTs, diabetes mellitus, diabetic peripheral neuropathy, peripheral vascular disease, BPH, hyperlipidemia, cor pulmonale and right-sided heart failure, previous history of CVA involving the occipital lobe as noted on the CAT scan of the brain that was done regarding this current admission. 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 His DVT occurred back in May 2015 and he suffers from macular degeneration also. Other comorbid conditions include peripheral vascular disease and the patient has stents in lower extremities, obstructive sleep apnea maintained on a CPAP, BPH, chronic urinary retention and chronic issues with GI bleed and the patient was supposed to get evaluated thoroughly GI services at [facility]. He has chronic lower extre mity edema, chronic venous stasis, walks with the help of a walker and a cane and has impaired hearing with bilateral hearing aids. Is also known to have carotid artery disease with a previous endarterectomy on the left. 2021, the patient is being seen for a follow-up. The patient is an ext remely poor and he remains in a shock state. Is becoming more obvious that there may be an underlying septic component in addition to a component of cor pulmonale/right-sided heart failure. The patient's sister pressor dependent and the patient is hemodynamically unstable and there are signs of multisystem organ failure. With did not appreciate any active signs of GI bleed as the patient did not have any melanotic stools and output from the NG tube is nonbloody at this point in time and is minimal. At the same time, after being transfused with packed RBC, the patient's hemoglobin remained above 9 suggestive of stability. However, the patient continued to have high pressor requirements and furthermore, the pro-calcitonin level came back at 18. There may be an underlying septic component. The patient is currently covered accommodation Zosyn and vancomycin. Cultures are still pending for now. His temperature is of a low-grade fever. Meanwhile, the patient remains sedated. This morning he is on propofol follow-up 25 mcg/kg per minute and the patient is also on norepinephrine at 0.84 mcg/kg per minute and vasopressin is running at 0.04 units an hour. The patient's urine output is minimal at this point in time almost absent and the patient remains on a bicarb infusion at the rate of 100 mL an hour. He also received 2 doses of 5% albumin followed by Lasix push 80 mg IV without any improvement in his urine output. He remains on a mechanical ventilator and this morning the patient is on assist control mode at the rate of 16, tidal volume of 500, FiO2 of 50% and PEEP of 5. His blood gas show a pH of 7.27 with a pCO2 of 30 and pO2 of 96. On his blood work, the white cell count 11.4 with a hemoglobin 11.3 which is essentially stable. Platelets continue to drop down to 48 and the patient has a sodium level of 40, serum bicarb of 16, BUN of 65, creatinine of 3.6, the patient has AST of 116, LDL 68 with an alkaline phosphatase of 129. The patient has a lactic acid level of 4.3. Lipase was essentially within normal limits. Total protein was 4.0 with an albumin of level of 2.1. Abdominal x-ray findings are nonspecific. Chest x-ray findings are showing mild pulmonary vascular congestion and chronic elevation of the right hemidiaphragm with possibly some small right-sided pleural effusion. Family is at the bedside. His CODE STATUS is been switched to DNR/and the family is opting pelvis comfort care. Blood pressure remains quite soft and low urine output is nonexistent. The Harry cath as of last. There is no evidence of any hematuria. Objective - Vital Signs Vital signs: Vital Signs Temp 101.0 F H 07/02/22 03:00 Pulse 103 H 07/02/22 07:30 Resp 26 H 07/02/22 07:30 BP 61/38 07/02/22 07:30 Pulse Ox 100 07/02/22 06:30 FiO2 50 07/02/22 10:44 Intake & Output 07/01/22 07/02/22 07/02/22 18:59 06:59 18:59 Intake Total 2677.385 2969.847 941.595 Output Total 67 920 100 Balance 2610.385 2049.847 841.595 Weight 103.873 kg Intake: IV 1375 2525.40 780.04 Dextrose 5% in Water 1, 700 1200 500 000 ml @ 100 mls/hr IV . [id number] C[facility] with Sodium Bicarb (1 Meq/ml) 150 ml Rx#:[id number] Magnesium Sulfate-D5w Pmx 400 1 gm In Dextrose/Water 1 100ml.bag @ 100 mls/hr IVPB Q1H [facility] Rx#: [id number] Piperacillin-Tazobactam 3 75 125 .375 gm In Sodium Chloride 0.9% 100 ml @ 25 mls/hr IVPB Q8HR [facility] Rx# :[id number] Potassium Chloride 20 meq 150 50 In Water For Injection 1 100ml.bag @ 50 mls/hr IVPB Q2H [facility] Rx#: [id number] Sodium Chloride 0.9% 1, 450 750 280 000 ml @ 150 mls/hr IV . Q6H40M [facility] Rx#:[id number] Sodium Chloride 0.9% 150 0.40 0.04 ml @ 0.04 UNITS/MIN 6.12 mls/hr IV .Q24H CEL[facility] with Vasopressin 60 unit Rx#: [id number] Intake, IV Titration 465.385 444.447 161.555 Amount Norepinephrine 32 mg In 217.236 Sodium Chloride 0.9% 218 ml @ 0.05 MCG/KG/MIN 2. 435 mls/hr IV .Q24H ONE Rx#:[id number] Norepinephrine 32 mg In 148.149 444.447 161.555 Sodium Chloride 0.9% 218 ml @ 0.8 MCG/KG/MIN 38. 952 mls/hr IV .Q6H26M [facility] Rx#:[id number] propofoL 1,000 mg In 100.000 Empty Bag 1 bag @ 5 MCG/ KG/MIN 3.116 mls/hr IV . Q24H [facility] Rx#:[id number] Blood Product 837 Ffp 24 Pher Acda Cnt1 217 Unit [id number] Ffp 24 Pher Acda Cnt1 0 Unit [id number] Rc As-1 Unit 310 [id number] Rc As-1 Unit 310 [id number] Output: Gastric Drainage 900 Urine 67 20 0 Other 100 Other: Voiding Method Indwelling Catheter Indwelling Catheter # Bowel Movements 0 ABP, PAP, CO, CI - Last Documented Arterial Blood Pressure 70/22 - Exam Gen. appearance the patient is sedated on propofol and the patient is calm and comfortable, not in acute distress, sick is a mechanical ventilator. Head exam was generally normal. There was no scleral icterus or corneal arcus. Mucous membranes were moist. Neck was supple and without jugular venous distension, thyromegaly, or carotid bruits. Carotids were easily palpable bilaterally. There was no adenopathy.The patient has a orogastric and orotracheal tube are both in place. The patient has signs of a further endarterectomy on the left. No neck stiffness. No JVDs noted on today's examination. Lungs were clear to auscultation and percussion, and with normal diaphragmatic excursion. No wheezes or rales were noted. Breath sounds are diminished and the patient has scattered expiratory wheezes noted throughout lung cesar bilaterally Heart sounds are irregular consistent with atrial fibrillation. The patient has a thoracotomy scar over the anterior chest area. There is a faint murmur heard over the apex. No significant right ventricular heave or thrill. Abdominal exam revealed normal bowel sounds. The abdomen was soft, non-tender, and without masses, organomegaly, or appreciable enlargement of the abdominal aorta. Extremities are slightly edematous and there is chronic venous stasis changes in the lower extremities between the ankles and the knees bilaterally. The ankles are also swollen. Lungs are not palpable and there is Doppler signal in both dorsalis pedis and posterior tibialis and the patient has some limited varicose veins. No cyanosis. No clubbing .Neurologically, the patient has equal and symmetrical pupils. Reactive to light. No preferential gaze. No nystagmus. Unresponsive to any verbal or motor stimulation. He grimaces to deep painful stimulation. Positive cough and a gag. Motor function cannot be assessed. Reflexes are diminished in all 4 extremities. - Labs CBC & Chem 7: 07/02/22 05:00 07/02/22 05:00 Labs: Abnormal Lab Results - Last 24 Hours (Table) 07/01/22 07/01/22 07/01/22 Range/Units 09:02 09:03 11:13 WBC (3.8-10.6) k/uL RBC (4.30-5.90) m/uL Hgb (13.0-17.5) gm/dL Hct (39.0-53.0) % RDW (11.5-15.5) % Plt Count (150-450) k/uL Neutrophils # (1.3-7.7) k/uL Lymphocytes # (1.0-4.8) k/uL ABG pH (7.35-7.45) ABG pCO2 (35-45) mmHg ABG pO2 (83-108) mmHg ABG HCO3 (21-25) mmol/L ABG O2 Saturation (94-97) % ABG Hematocrit (34.0-46.0) % Hemoglobin (13.0-17.5) gm/dL Potassium (3.5-5.1) mmol/L Chloride 112 H (98-107) mmol/L Carbon Dioxide 18 L (22-30) mmol/L BUN 47 H (9-20) mg/dL Creatinine 2.60 H (0.66-1.25) mg/dL Glucose (74-99) mg/dL POC Glucose (mg/dL) (70-110) mg/dL Plasma Lactic Acid Lloyd 4.1 H* (0.7-2.0) mmol/L Calcium 7.2 L (8.4-10.2) mg/dL Phosphorus (2.5-4.5) mg/dL Total Bilirubin 2.8 H (0.2-1.3) mg/dL AST 107 H (17-59) U/L ALT 53 H (4-49) U/L Alkaline Phosphatase 147 H (38-126) U/L Total Protein 4.1 L (6.3-8.2) g/dL Albumin 2.3 L (3.5-5.0) g/dL Procalcitonin 18.00 H (0.02-0.09) ng/mL 07/01/22 07/01/22 07/01/22 Range/Units 13:30 13:30 15:06 WBC (3.8-10.6) k/uL RBC 2.92 L (4.30-5.90) m/uL Hgb 9.2 L (13.0-17.5) gm/dL Hct 29.1 L (39.0-53.0) % RDW 19.5 H (11.5-15.5) % Plt Count 63 L (150-450) k/uL Neutrophils # (1.3-7.7) k/uL Lymphocytes # (1.0-4.8) k/uL ABG pH (7.35-7.45) ABG pCO2 (35-45) mmHg ABG pO2 (83-108) mmHg ABG HCO3 (21-25) mmol/L ABG O2 Saturation (94-97) % ABG Hematocrit (34.0-46.0) % Hemoglobin (13.0-17.5) gm/dL Potassium 3.3 L (3.5-5.1) mmol/L Chloride 112 H (98-107) mmol/L Carbon Dioxide 18 L (22-30) mmol/L BUN 52 H (9-20) mg/dL Creatinine 2.72 H (0.66-1.25) mg/dL Glucose (74-99) mg/dL POC Glucose (mg/dL) (70-110) mg/dL Plasma Lactic Acid Lloyd 4.2 H* (0.7-2.0) mmol/L Calcium 7.1 L (8.4-10.2) mg/dL Phosphorus (2.5-4.5) mg/dL Total Bilirubin 4.8 H (0.2-1.3) mg/dL AST 142 H (17-59) U/L ALT 73 H (4-49) U/L Alkaline Phosphatase 146 H (38-126) U/L Total Protein 4.4 L (6.3-8.2) g/dL Albumin 2.4 L (3.5-5.0) g/dL Procalcitonin (0.02-0.09) ng/mL 07/01/22 07/01/22 07/01/22 Range/Units 18:21 18:21 19:22 WBC (3.8-10.6) k/uL RBC (4.30-5.90) m/uL Hgb (13.0-17.5) gm/dL Hct (39.0-53.0) % RDW (11.5-15.5) % Plt Count (150-450) k/uL Neutrophils # (1.3-7.7) k/uL Lymphocytes # (1.0-4.8) k/uL ABG pH 7.22 L (7.35-7.45) ABG pCO2 46 H (35-45) mmHg ABG pO2 44 L* (83-108) mmHg ABG HCO3 19 L (21-25) mmol/L ABG O2 Saturation 78.1 L (94-97) % ABG Hematocrit 29 L (34.0-46.0) % Hemoglobin 9.4 L (13.0-17.5) gm/dL Potassium (3.5-5.1) mmol/L Chloride (98-107) mmol/L Carbon Dioxide (22-30) mmol/L BUN (9-20) mg/dL Creatinine (0.66-1.25) mg/dL Glucose (74-99) mg/dL POC Glucose (mg/dL) 124 H (70-110) mg/dL Plasma Lactic Acid Lloyd 4.3 H* (0.7-2.0) mmol/L Calcium (8.4-10.2) mg/dL Phosphorus (2.5-4.5) mg/dL Total Bilirubin (0.2-1.3) mg/dL AST (17-59) U/L ALT (4-49) U/L Alkaline Phosphatase (38-126) U/L Total Protein (6.3-8.2) g/dL Albumin (3.5-5.0) g/dL Procalcitonin (0.02-0.09) ng/mL 07/01/22 07/01/22 07/01/22 Range/Units 20:05 21:18 21:31 WBC (3.8-10.6) k/uL RBC 3.03 L (4.30-5.90) m/uL Hgb 9.7 L (13.0-17.5) gm/dL Hct 29.7 L (39.0-53.0) % RDW 19.8 H (11.5-15.5) % Plt Count 64 L (150-450) k/uL Neutrophils # (1.3-7.7) k/uL Lymphocytes # (1.0-4.8) k/uL ABG pH (7.35-7.45) ABG pCO2 (35-45) mmHg ABG pO2 (83-108) mmHg ABG HCO3 (21-25) mmol/L ABG O2 Saturation (94-97) % ABG Hematocrit (34.0-46.0) % Hemoglobin (13.0-17.5) gm/dL Potassium (3.5-5.1) mmol/L Chloride (98-107) mmol/L Carbon Dioxide (22-30) mmol/L BUN (9-20) mg/dL Creatinine (0.66-1.25) mg/dL Glucose (74-99) mg/dL POC Glucose (mg/dL) 139 H (70-110) mg/dL Plasma Lactic Acid Lloyd 4.3 H* (0.7-2.0) mmol/L Calcium (8.4-10.2) mg/dL Phosphorus (2.5-4.5) mg/dL Total Bilirubin (0.2-1.3) mg/dL AST (17-59) U/L ALT (4-49) U/L Alkaline Phosphatase (38-126) U/L Total Protein (6.3-8.2) g/dL Albumin (3.5-5.0) g/dL Procalcitonin (0.02-0.09) ng/mL 07/01/22 07/02/22 07/02/22 Range/Units 23:02 05:00 05:00 WBC 11.1 H (3.8-10.6) k/uL RBC 2.90 L (4.30-5.90) m/uL Hgb 9.3 L (13.0-17.5) gm/dL Hct 28.9 L (39.0-53.0) % RDW 19.9 H (11.5-15.5) % Plt Count 48 L (150-450) k/uL Neutrophils # 10.7 H (1.3-7.7) k/uL Lymphocytes # 0.1 L (1.0-4.8) k/uL ABG pH (7.35-7.45) ABG pCO2 (35-45) mmHg ABG pO2 (83-108) mmHg ABG HCO3 (21-25) mmol/L ABG O2 Saturation (94-97) % ABG Hematocrit (34.0-46.0) % Hemoglobin (13.0-17.5) gm/dL Potassium (3.5-5.1) mmol/L Chloride (98-107) mmol/L Carbon Dioxide 16 L (22-30) mmol/L BUN 65 H (9-20) mg/dL Creatinine 3.64 H (0.66-1.25) mg/dL Glucose 196 H (74-99) mg/dL POC Glucose (mg/dL) 149 H (70-110) mg/dL Plasma Lactic Acid Lloyd (0.7-2.0) mmol/L Calcium 6.6 L (8.4-10.2) mg/dL Phosphorus 5.4 H (2.5-4.5) mg/dL Total Bilirubin 5.2 H (0.2-1.3) mg/dL AST 116 H (17-59) U/L ALT 68 H (4-49) U/L Alkaline Phosphatase 129 H (38-126) U/L Total Protein 4.0 L (6.3-8.2) g/dL Albumin 2.1 L (3.5-5.0) g/dL Procalcitonin (0.02-0.09) ng/mL 07/02/22 07/02/22 Range/Units 05:09 05:47 WBC (3.8-10.6) k/uL RBC (4.30-5.90) m/uL Hgb (13.0-17.5) gm/dL Hct (39.0-53.0) % RDW (11.5-15.5) % Plt Count (150-450) k/uL Neutrophils # (1.3-7.7) k/uL Lymphocytes # (1.0-4.8) k/uL ABG pH 7.27 L (7.35-7.45) ABG pCO2 (35-45) mmHg ABG pO2 (83-108) mmHg ABG HCO3 18 L (21-25) mmol/L ABG O2 Saturation 98.2 H (94-97) % ABG Hematocrit 27 L (34.0-46.0) % Hemoglobin 8.9 L (13.0-17.5) gm/dL Potassium (3.5-5.1) mmol/L Chloride (98-107) mmol/L Carbon Dioxide (22-30) mmol/L BUN (9-20) mg/dL Creatinine (0.66-1.25) mg/dL Glucose (74-99) mg/dL POC Glucose (mg/dL) 214 H (70-110) mg/dL Plasma Lactic Acid Lloyd (0.7-2.0) mmol/L Calcium (8.4-10.2) mg/dL Phosphorus (2.5-4.5) mg/dL Total Bilirubin (0.2-1.3) mg/dL AST (17-59) U/L ALT (4-49) U/L Alkaline Phosphatase (38-126) U/L Total Protein (6.3-8.2) g/dL Albumin (3.5-5.0) g/dL Procalcitonin (0.02-0.09) ng/mL Microbiology - Last 24 Hours (Table) 07/01/22 07:25 Gram Stain - Preliminary Sputum Sputum Culture - Preliminary Assessment and Plan Plan: Acute shock, likely a combination of septic and cardiogenic with signs of multisystem organ failure, currently requiring high doses of inotropes including a combination of norepinephrine and vasopressin. Despite that, the patient continues to be hypotensive and his overall without any support and response has been extremely weak. Covered with a combination of Zosyn and vancomycin. Cultures still pending for now. acute syncope under investigation. Exact etiology is not clear. could be related to hypotension Acute traumatic Harry catheter removal and hematuria, recovered and the patient has no ongoing hematuria for now Suspected GI bleed, neck and is stable Acute drop in hemoglobin and hemoglobin level dropped from a baseline of 9.9 down to 5.5 and the patient received a total of 4 units of packed RBfollow-up hemoglobins following the transfusion shows stability in hemoglobin remains about 4 acute leukopenia , recovered Acute thrombocytopenia , likely consumptive with a component of DIC as the patient has coagulopathy Acute on top of chronic kidney injury and the patient is an aortic and this point in time Acute troponin leak Acute hypoxic respiratory failure, currently intubated on a mechanical v entilator Acute respiratory and metabolic acidosis, please refer to the most recent blood gases. History of valvular heart disease and the patient undergone a previous valve replacement/bioprosthetic aortic valve History of CVA History of diabetes mellitus with diabetic peripheral neuropathy History of hypertension History of hyperlipidemia His obstructive sleep apnea maintained on CPAP therapy History of yesterday also requiring previous EGDs and cauterization of stomach ulcer and the patient was supposed to be scheduled [facility] for further workup. Currently, there is a suspicion for the GI bleed. Occult stool is positive. NG tube is not showing any evidence of an upper GI bleed at this point in time. The patient is being monitored very closely. 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 Extremely poor prognosis with evidence of multisystem organ failure. Had a lengthy discussion with the family including the and the daughter wanted the bedside. Patient carries a very high mortality The patient is no code for now We'll continue supportive care We are awaiting more family to arrive and following that the patient will be given end-of-life care. This is upon family's wishes. I was agreeable a decision as the patient has almost no chance of recovery from this shock state and multiple system failure This will end up into a mortality and the family is aware Time with Patient: Greater than 30
[2022-07-02] MEDS ORDERED: LORazepam 2 MG/ML INJ IV PRN (12:23)
[2022-07-02] MEDS ORDERED: MORPHINE SULFATE 4 MG/ML SYRINGE IV PRN (12:23)
[2022-07-02] MEDS ORDERED: SCOPOLAMINE 1 MG/72 HR PATCH TRANSDERM SCH (12:30)
[2022-07-02] MEDS ORDERED: MORPHINE SULFATE (100 MG/2 ML) 100 MG in SODIUM CHLORIDE 0.9% 100 ML IV SCH (12:30)
--- NOTE | 2022-07-02 12:48 | P.PN ---
Progress Note - Text Progress Note Date: 07/02/22 Patient remains critically ill in the ICU. He remains ventilated. He is unresponsive. He is on high-dose pressors with a persistent hypotension at this point. Patient is not stable for any further workup. There is been no active signs of bleeding. Hemoglobin has been stable. Dr. Adam and I discussed his case. He has already discussed the clinical scenario with the patient's family and they have opted for comfort measures which I believe is appropriate.
[2022-07-02 14:22] VITALS: BP 66/46; PULSE 115
--- NOTE | 2022-07-02 16:08 | P.PN ---
Progress Note - Text Progress Note Date: 07/02/22 Chief Complaint: Short of breath This is a 87-year-old patient, follows with visiting physicians Dr. Carbajal. Chronic stable medical conditions include atrial fibrillation, CAD, diabetes, hard of hearing, hypertension, hyperlipidemia osteoarthritis, peripheral neuropathy does use CPAP. extensive medical history. Patient was discharged from the hospital to rehab at [facility]. Was then treated for CHF from diastolic dysfunction. Also had diagnoses of metabolic alkalosis, PE was ruled out, severe secondary pulmonary hypertension, chronic kidney disease stage III, Hrary placed for bladder outflow obstruction, cor pulmonale. Per the EMS report pending a diet the staff at assisted him up from the toilet and patient had lost consciousness. He noticed a large amount of blood in the toilet. When the EMS patient had, round and said that his Harry catheter was pulled out with the balloon up but he was trying to go to the restroom. He knows of bleeding from the same. In the ER patient had a large tarry black stool. Subsequently currently the patient become short of breath and had to be intubated. Patient received a total of 4 units of PRBC. And fresh frozen plasma. Admitted to the ICU. Intubated. This morning patient is on drips including vasopressin, levo fed, bicarbonate, propofol. Is in atrial fibrillation rate around 1:15. With the bundle branch block pattern. FiO2 15 a PEEP of 5. No family at the bedside. July 02: ICU: Patient was seen by me this morning. FiO2 15 a PEEP of 5. Several family members at the bedside including and daughters. Drips include we will affect, propofol, vasopressin, bicarbonate drip. Poor urine output. Prognosis not good. Discussed at length with the family members. In the nurse. 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 . Uses a walker. Patient smoked 3 packs a day for about 16 years stopped in 1966. No alcohol. Family history: Lung cancer Physical examination: VITAL SIGNS: 101.1, 110, 26, 61/38, ventilated GENERAL: laying in bed sedated intubated EYES: Pupils equal. Conjunctiva normal. HEENT: External appearance of nose and ears normal, oral cavity or G-tube NECK: JVD unable to assess; masses not palpable. HEART: [Heart sounds irregular; some edema LUNGS: Respiratory rate increased; decreased breath sounds. ABDOMEN: Soft, distended nontender, liver spleen not palpable, no masses palpable. Harry catheter with some bloody urine PSYCH: Unable to assess, patient sedated MUSCULOSKELETAL:No Clubbing/cyanosis;muscles-grossly intact. OA INVESTIGATIONS, reviewed in the clinical context: July 02: WBC 11.1 hemoglobin 9.3 platelets 48 potassium 4.2 creatinine 3.64 WBC 2.4 hemoglobin 9.3 platelets 70 potassium 3.6 BUN 47 creatinine 2.60 lactic acid 6.3 AST 107 ALT 53 procalcitonin 18 2-D echocardiogram: EF 1-65%. Moderate concentric LVH. Severe right ventricular dilatation. Severe pulmonary hypertension. Right ventricle enlargement. EKG tracing personally reviewed by me-atrial fibrillation. Right bundle karina block pattern. Chest x-ray film personally reviewed by me-right upper lobe collapse Assessment and plan: -Right upper lobe collapse/pneumonia IV ceftriaxone -Sepsis from possible pneumonia -Atrial fibrillation with a rapid ventricular rate Cardiology consulted. Not a candidate for anticoagulation because of bleed. -Acute severe blood loss anemia from GI bleed Patient has received 4 units of blood. Follow H&H. -Acute GI bleed felt to be upper. NG tube has.dark aspirate. GI services not available in the hospital. Dr. Rivas consulted. -Acute hypoxic respiratory failure secondary to pneumonia, ventilator assisted On FiO2 15 a PEEP of 5 -Metabolic acidosis, multifactorial IV bicarbonate drip -Sepsis/lactic acidosis -Obesity BMI 33.8 -Severe secondary pulmonary hypertension -Hyperlipidemia Lipitor 40 mg daily at bedtime -Acute kidney injury due to cardiorenal ATN Follow eyes and nose. - chronic kidney disease, stage III from nephrosclerosis and diabetic nephropathy Creatinine was 1.5 to on June 17 -Depression and anxiety Celexa 40 mg a day -Troponin leak secondary CK D. No clinical evidence of ACS -BPH Proscar 5 mg a day, Flomax - urine outflow obstruction from BPH Harry catheter chronic -Traumatic hematuria as patient accidentally pulled out Harry catheter with the balloon inflated Another catheter was placed. Urology consulted. The Harry catheter in place. -COPD in a previous smoker Bronchodilators -Diabetic peripheral neuropathy Neurontin -GERD PPI -Diabetes mellitus type 2 on oral hypoglycemic Follow Accu-Cheks -Cor pulmonale, chronic: -Mild to moderate mitral stenosis Follow with cardiology - chronic medical debility Patient was at rehab -DO NOT RESUSCITATE Patient on IV vasopressin, propofol, IV levo fed. Bicarbonate drip. Atrial fibrillation uncontrolled. Ventilated. Several family members present. Prognosis not good. Patient was seen earlier by Dr. Guy from [employer]. Prognosis not good. Advanced care planning: Had a very lengthy discussion with patient's , daughters, grandchildren. Nurse present. Past or present. Patient oral poor prognosis was discussed. Chronic conditions were discussed and context. After lengthy discussion and family/ decided to proceed with comfort measures. Terminal extubation. Post extubation possibilities were also discussed. Total time spent for this 30 minutes
--- NOTE | 2022-07-02 16:11 | P.DS ---
Providers Date of admission: 06/30/22 20:15 Expected date of discharge: 07/02/22 Attending physician: Vladislav Adam Consults: 06/30/22 20:15 Consult Physician Routine Consulting Provider: Uday Nichols Consult Reason/Comments: elevated troponin, syncope Do you want consulting provider notified?: Yes 06/30/22 20:20 Consult Physician Routine Consulting Provider: Chace Morelos Consult Reason/Comments: urinary retention, uretheral trauma secondary to accidental christy removal Do you want consulting provider notified?: Yes 07/01/22 05:18 Consult Physician Routine Consulting Provider: Tangela Guy Consult Reason/Comments: icu Do you want consulting provider notified?: Yes 07/01/22 09:30 Consult Physician Stat Consulting Provider: Vikas Hoffman Consult Reason/Comments: concern for gib Do you want consulting provider notified?: Yes Primary care physician: [place] Hospital Course: Chief Complaint: Short of breath This is a 87-year-old patient, follows with visiting physicians Dr. Carbajal. Chronic stable medical conditions include atrial fibrillation, CAD, diabetes, hard of hearing, hypertension, hyperlipidemia osteoarthritis, peripheral neuropathy does use CPAP. extensive medical history. Patient was discharged from the hospital to rehab at [facility]. Was then treated for CHF from diastolic dysfunction. Also had diagnoses of metabolic alkalosis, PE was ruled out, severe secondary pulmonary hypertension, chronic kidney disease stage III, Christy placed for bladder outflow obstruction, cor pulmonale. Per the EMS report pending a diet the staff at assisted him up from the toilet and patient had lost consciousness. He noticed a large amount of blood in the toilet. When the EMS patient had, round and said that his Christy catheter was pulled out with the balloon up but he was trying to go to the restroom. He knows of bleeding from the same. In the ER patient had a large tarry black stool. Subsequently currently the patient become short of breath and had to be intubated. Patient received a total of 4 units of PRBC. And fresh frozen plasma. Admitted to the ICU. Intubated. This morning patient is on drips including vasopressin, levo fed, bicarbonate, propofol. Is in atrial fibrillation rate around 1:15. With the bundle branch block pattern. FiO2 15 a PEEP of 5. No family at the bedside. July 02: ICU: Patient was seen by me this morning. FiO2 15 a PEEP of 5. Several family members at the bedside including and daughters. Drips inclu de we will affect, propofol, vasopressin, bicarbonate drip. Poor urine output. Prognosis not good. Discussed at length with the family members. In the nurse. Febrile. Care was discussed with the patient's family at the bedside including the . Patient made comfort care. After terminal extubation patient Current medications reviewed Past medical history to include: Congestive heart failure diastolic dysfunction EF 65%, morbid obesity, severe secondary pulmonary hypertension, hyperlipidemia, CK D stage III, depression and anxiety, BPH, urine outflow obstruction with a Christy catheter, COPD, GERD, diabetes mellitus type 2, cor pulmonale, mitral stenosis, medical debility Social history: Currently at [facility]. . Uses a walker. Patient smoked 3 packs a day for about 16 years stopped in 1966. No alcohol. Family history: Lung cancer INVESTIGATIONS, reviewed in the clinical context: July 02: WBC 11.1 hemoglobin 9.3 platelets 48 potassium 4.2 creatinine 3.64 WBC 2.4 hemoglobin 9.3 platelets 70 potassium 3.6 BUN 47 creatinine 2.60 lactic acid 6.3 AST 107 ALT 53 procalcitonin 18 2-D echocardiogram: EF 1-65%. Moderate concentric LVH. Severe right ventricula r dilatation. Severe pulmonary hypertension. Right ventricle enlargement. EKG tracing personally reviewed by me-atrial fibrillation. Right bundle karina block pattern. Chest x-ray film personally reviewed by me-right upper lobe collapse Cause of : Pneumonia Assessment and plan: -Right upper lobe collapse/pneumonia IV ceftriaxone -Sepsis -Septic and cardiogenic shock -Atrial fibrillation with a rapid ventricular rate Cardiology consulted. Not a candidate for anticoagulation because of bleed. -Acute severe blood loss anemia from GI bleed Patient has received 4 units of blood. Follow H&H. -Acute GI bleed felt to be upper. NG tube has.dark aspirate. GI services not available in the hospital. Dr. Rivas consulted. -Acute hypoxic respiratory failure secondary to pneumonia, ventilator assisted On FiO2 15 a PEEP of 5 -Metabolic acidosis, multifactorial IV bicarbonate drip -Sepsis/lactic acidosis -Obesity BMI 33.8 -Severe secondary pulmonary hypertension -Hyperlipidemia Lipitor 40 mg daily at bedtime -Acute kidney injury due to cardiorenal ATN Follow eyes and nose. - chronic kidney disease, stage III from nephrosclerosis and diabetic nephropathy Creatinine was 1.5 to on June 17 -Depression and anxiety Celexa 40 mg a day -Troponin leak secondary CK D. No clinical evidence of ACS -BPH Proscar 5 mg a day, Flomax - urine outflow obstruction from BPH Christy catheter chronic -Traumatic hematuria as patient accidentally pulled out Christy catheter with the balloon inflated Another catheter was placed. Urology consulted. The Christy catheter in place. -COPD in a previous smoker Bronchodilators -Diabetic peripheral neuropathy Neurontin -GERD PPI -Diabetes mellitus type 2 on oral hypoglycemic Follow Accu-Cheks -Cor pulmonale, chronic: -Mild to moderate mitral stenosis Follow with cardiology - chronic medical debility Patient was at rehab -DO NOT RESUSCITATE Disposition: Patient Plan - Discharge Summary Discharge Rx Participant: Yes New Discharge Prescriptions: No Action Folic Acid 0.4 mg PO HS Finasteride [Proscar] 5 mg PO DAILY Atorvastatin [Lipitor] 40 mg PO HS Fluticasone/Umeclidin/Vilanter [Trelegy Ellipta 100-62.5-25] 1 puff INHALATION RT-DAILY Integra 62.5-62.5-40-3mg Capsule 1 cap PO HS Tamsulosin [Flomax] 0.4 mg PO DAILY Gabapentin 300 mg PO Q8H Cholecalciferol [Vitamin D3 (25 Mcg = 1000 Iu)] 25 mcg PO DAILY Ascorbic Acid [Vitamin C] 1,000 mg PO HS polyethylene glycoL 3350 [Miralax] 17 gm PO HS Metoprolol Tartrate [Lopressor] 25 mg PO BID Albuterol Sulfate [Ventolin HFA] 2 puff INHALATION RT-Q4H PRN PRN Reason: Shortness Of Breath Citalopram Hydrobromide [CeleXA] 40 mg PO DAILY Pantoprazole [Protonix] 40 mg PO BID Aspirin 81 mg PO DAILY tab Repaglinide [Prandin] 1 mg PO BID Multivitamins, Thera [Multivitamin (formulary)] 1 tab PO DAILY Furosemide [Lasix] 40 mg PO BID Cyanocobalamin [Vitamin B-12] 1,000 mcg PO DAILY acetaZOLAMIDE [Diamox] 250 mg PO DAILY Discharge Medication List Finasteride [Proscar] 5 mg PO DAILY 07/10/15 [History] Folic Acid 0.4 mg PO HS 07/10/15 [History] Atorvastatin [Lipitor] 40 mg PO HS 04/27/18 [History] Albuterol Sulfate [Ventolin HFA] 2 puff INHALATION RT-Q4H PRN 05/28/21 [History] Fluticasone/Umeclidin/Vilanter [Trelegy Ellipta 100-62.5-25] 1 puff INHALATION RT-DAILY 05/28/21 [History] Metoprolol Tartrate [Lopressor] 25 mg PO BID 05/28/21 [History] polyethylene glycoL 3350 [Miralax] 17 gm PO HS 05/28/21 [History] Citalopram Hydrobromide [CeleXA] 40 mg PO DAILY 06/06/22 [History] Integra 62.5-62.5-40-3mg Capsule 1 cap PO HS 06/06/22 [History] Pantoprazole [Protonix] 40 mg PO BID 06/06/22 [History] Tamsulosin [Flomax] 0.4 mg PO DAILY 06/06/22 [History] Aspirin 81 mg PO DAILY tab 06/13/22 [Rx] Ascorbic Acid [Vitamin C] 1,000 mg PO HS 06/30/22 [History] Cholecalciferol [Vitamin D3 (25 Mcg = 1000 Iu)] 25 mcg PO DAILY 06/30/22 [History] Cyanocobalamin [Vitamin B-12] 1,000 mcg PO DAILY 06/30/22 [History] Furosemide [Lasix] 40 mg PO BID 06/30/22 [History] Gabapentin 300 mg PO Q8H 06/30/22 [History] Multivitamins, Thera [Multivitamin (formulary)] 1 tab PO DAILY 06/30/22 [History] Repaglinide [Prandin] 1 mg PO BID 06/30/22 [History] acetaZOLAMIDE [Diamox] 250 mg PO DAILY 06/30/22 [History] Follow up Appointment(s)/Referral(s): Freddy Em MD [Primary Care Provider] - 1-2 days Discharge Disposition: - Preliminary Cause of Preliminary Cause of : Pneumonia
[2022-07-02] MEDS ORDERED: PIPERACILLIN-TAZOBACTAM 3.375 GM in SODIUM CHLORIDE 0.9% 100 ML IVPB SCH (21:00)
== END 2022-07-02 14:45 | disposition expired | DRG 871 ==
LOC: EC 15:50 → 5NMEDONC 20:15 → 2SICU 07-01 03:19
PROVIDERS: ADMIT Hospitalist; ATTEND Hospitalist
PROC: 0BH17EZ Insertion of Endotracheal Airway into Trachea, Via Natural or Artificial Opening (ICD-10-PCS; 2022-06-30)
PROC: 02HV33Z Insertion of Infusion Device into Superior Vena Cava, Percutaneous Approach (ICD-10-PCS; 2022-06-30)
PROC: 05HM33Z Insertion of Infusion Device into Right Internal Jugular Vein, Percutaneous Approach (ICD-10-PCS; 2022-06-30)
PROC: B543ZZA Ultrasonography of Right Jugular Veins, Guidance (ICD-10-PCS; 2022-06-30)
PROC: 5A1945Z Respiratory Ventilation, 24-96 Consecutive Hours (ICD-10-PCS; principal; 2022-07-01)
PROC: 0D9670Z Drainage of Stomach with Drainage Device, Via Natural or Artificial Opening (ICD-10-PCS; 2022-07-01)
PROC: 3E043XZ Introduction of Vasopressor into Central Vein, Percutaneous Approach (ICD-10-PCS; 2022-07-01)
PROC: 4A133B1 Monitoring of Arterial Pressure, Peripheral, Percutaneous Approach (ICD-10-PCS; 2022-07-01)
PROC: 4A133J1 Monitoring of Arterial Pulse, Peripheral, Percutaneous Approach (ICD-10-PCS; 2022-07-01)
PROC: 03HY32Z Insertion of Monitoring Device into Upper Artery, Percutaneous Approach (ICD-10-PCS; 2022-07-01)
PROC: 30233K1 Transfusion of Nonautologous Frozen Plasma into Peripheral Vein, Percutaneous Approach (ICD-10-PCS; 2022-07-02)
PROC: 30233N1 Transfusion of Nonautologous Red Blood Cells into Peripheral Vein, Percutaneous Approach (ICD-10-PCS; 2022-07-02)
DX: A41.9 Sepsis, unspecified organism (principal); J18.9 Pneumonia, unspecified organism; J96.01 Acute respiratory failure with hypoxia; R65.21 Severe sepsis with septic shock; N17.0 Acute kidney failure with tubular necrosis; K29.71 Gastritis, unspecified, with bleeding; I48.19 Other persistent atrial fibrillation; I13.0 Hypertensive heart and chronic kidney disease with heart failure and stage 1 through stage 4 chronic kidney disease, or unspecified chronic kidney disease; D62 Acute posthemorrhagic anemia; D61.818 Other pancytopenia; R44.3 Hallucinations, unspecified; K92.2 Gastrointestinal hemorrhage, unspecified; E87.4 Mixed disorder of acid-base balance; I45.2 Bifascicular block; E87.2 Acidosis; I50.32 Chronic diastolic (congestive) heart failure; J44.0 Chronic obstructive pulmonary disease with (acute) lower respiratory infection; J98.19 Other pulmonary collapse; Z51.5 Encounter for palliative care; Z66 Do not resuscitate; R57.0 Cardiogenic shock; I27.29 Other secondary pulmonary hypertension; I50.810 Right heart failure, unspecified; E11.51 Type 2 diabetes mellitus with diabetic peripheral angiopathy without gangrene; E11.42 Type 2 diabetes mellitus with diabetic polyneuropathy; E11.22 Type 2 diabetes mellitus with diabetic chronic kidney disease; I07.1 Rheumatic tricuspid insufficiency; I50.82 Biventricular heart failure; I27.81 Cor pulmonale (chronic); G31.89 Other specified degenerative diseases of nervous system; T83.021A Displacement of indwelling urethral catheter, initial encounter; N18.30 Chronic kidney disease, stage 3 unspecified; I25.10 Atherosclerotic heart disease of native coronary artery without angina pectoris; R31.0 Gross hematuria; Y73.8 Miscellaneous gastroenterology and urology devices associated with adverse incidents, not elsewhere classified; Y65.8 Other specified misadventures during surgical and medical care; H35.30 Unspecified macular degeneration; H53.469 Homonymous bilateral field defects, unspecified side; H54.7 Unspecified visual loss; G47.33 Obstructive sleep apnea (adult) (pediatric); E66.01 Morbid (severe) obesity due to excess calories; N40.1 Benign prostatic hyperplasia with lower urinary tract symptoms; R33.8 Other retention of urine; I65.29 Occlusion and stenosis of unspecified carotid artery; I69.30 Unspecified sequelae of cerebral infarction; I45.10 Unspecified right bundle-branch block; I87.8 Other specified disorders of veins; K59.09 Other constipation; M47.9 Spondylosis, unspecified; M54.9 Dorsalgia, unspecified; E78.5 Hyperlipidemia, unspecified; R55 Syncope and collapse; K21.9 Gastro-esophageal reflux disease without esophagitis; M19.90 Unspecified osteoarthritis, unspecified site; H91.90 Unspecified hearing loss, unspecified ear; F32.A Depression, unspecified; F41.9 Anxiety disorder, unspecified; Z95.828 Presence of other vascular implants and grafts; Z95.3 Presence of xenogenic heart valve; Z95.1 Presence of aortocoronary bypass graft; Z79.899 Other long term (current) drug therapy; Z87.891 Personal history of nicotine dependence; Z87.11 Personal history of peptic ulcer disease; Z80.1 Family history of malignant neoplasm of trachea, bronchus and lung; Z68.33 Body mass index [BMI] 33.0-33.9, adult; Z79.82 Long term (current) use of aspirin; Z85.118 Personal history of other malignant neoplasm of bronchus and lung; Z86.718 Personal history of other venous thrombosis and embolism; Z97.4 Presence of external hearing-aid; Z88.8 Allergy status to other drugs, medicaments and biological substances; Z82.49 Family history of ischemic heart disease and other diseases of the circulatory system
CPT/HCPCS: 36415; 36600; 70450; 71045; 71046; 74021; 80053; 80143; 80179; 82272; 82533; 82805; 83036; 83605; 83690; 83735; 84100; 84132; 84145; 84484; 85025; 85027; 85610; 85730; 86850; 86900; 86901; 86920; 87040; 87070; 87205; 93005; 93308; 94002; 94640; 96361; 96365; 96368; 99285